=== PATIENT | male | born 1960 | race Caucasian/White ===

== ENCOUNTER 2025-07-09 15:44 | Inpatient (IN) | payer OTHER, SELFPAY ==
[2025-07-09 15:44] VITALS: BP 128/82; PULSE 93; RESP 18; TEMP 36.9; O2SAT 97; BMI 26.0
[2025-07-09 16:48] VITALS: TEMP 38.6
--- NOTE | 2025-07-09 17:02 | RAD_ITS ---
PROCEDURE: ELBOW MIN 3 VIEWS 07/09/2025 REASON FOR EXAM: SEPTIC BURSITIS, recently drained. TECHNIQUE: Procedure Code: RADEL Modality: DX Procedure: ELBOW MIN 3 VIEWS Laterality: Right COMPARISON: None. FINDINGS: BONES: No acute fracture or focal osseous lesion. Large triceps tendon enthesophyte. JOINTS: No dislocation. The joint spaces are normal. SOFT TISSUES: Soft tissue edema in the posterior aspect of the elbow, involving the distal upper arm and proximal forearm. RAD/Elbow min 3 Views IMPRESSION: 1. No acute osseous abnormality. 2. Posterior elbow soft tissue edema, extending proximally and distally, jose tible with inflammatory changes in the setting of recent septic bursitis drainage. Reading Location: [id number]
[2025-07-09] MEDS: 0.9% Normal Saline (1000mL) 1,000 ML 999 ML IV (17:19)
[2025-07-09] MEDS: Ketorolac 30 MG/ML Syringe IV (17:19)
--- OUTSIDE RECORDS SUMMARY | 2025-07-09 17:40 | XMS RPT_ITS | CCD ---
Author Organization [facility] Inform ion Partnership [facility] Care Team Providers Care Care Center Manager Name Role Phone ÁNGEL FRAAH, DR JESUS Garrison Primary Care Physician [phone] CASTRO MASTER GLAZIER-CLOCK ASSEMBLER, NEDRA Primary Care Physician WILLA FARAH FACP, MARTINEZ Wood Consulting Unavail dyllan ROBERT MD FACP, MARTINEZ Wood Attending Erasmo JOHNSON MASTER GLAZIER-CLOCK ASSEMBLER, GIRMA Barba Admitting Unavailable CASTRO MASTER GLAZIER-CLOCK ASSEMBLER, NEDRA Primary Care Unavai lable CASTRO MASTER GLAZIER-CLOCK ASSEMBLER, NEDRA Attending Radha mota CASTRO MASTER GLAZIER-CLOCK ASSEMBLER, NEDRA Primary Care Unavai lable CASTRO MASTER GLAZIER-CLOCK ASSEMBLER, NEDRA Primary Care Unavai lable CASTRO MASTER GLAZIER-CLOCK ASSEMBLER, NEDRA Attending KAISER George DO Attending Unavailable CASTRO MASTER GLAZIER-CLOCK ASSEMBLER, NEDRA Primary Care Unavai lable CASTRO MASTER GLAZIER-CLOCK ASSEMBLER, NEDRA Primary Care DR BRENDA Steel MD Attending Unavailabl e Medications Current Medications Medication Drug Class(es) Dates Sig (Normalized) Sig (Original) acetaminophen 325 mg / HYDROcodone bitartrate 5 mg oral tablet (1 source) Opioid Agonist Start: 02-10-2025 End: 02-13-2025 take 1 tablet by mouth every six hours as needed for pain Centre 325- 5 mg oral tablet Dose = 1 tab(s), Oral, q6h, PRN for pain, X 3 day(s), # 12 tab(s), 0 Refill(s), Pancreatitis, acute, 88.3 Start Date: 02/10/25 Stop Date: 02/13/25 Status: Ordered Quantity: 12.0 Unit: tab(s) Repeat number: 1 Indications: Acute pancreatitis without necrosis or infection, unspecified; acetaminophen 325 mg / oxyCODONE hydrochloride 5 mg oral tablet (1 source) Opioid Agonist Start: 02-13-2025 End: 02-16-2025 acetaminophen-oxyCO DONE 325 mg-5 mg oral tablet Dose = 1 tab(s), Oral, q6hr, PRN Pain, scale 4-10, X 3 day(s), # 12 tab(s), 0 Refill(s), Pharmacy: [facility]/pharmacy #[id number], Pancreatitis, 177.8, cm, 02/11/25 3:59:00 EDT, Height, 83.1, kg, 02/11/25 3:59:00 EDT, Dosing Weight Start Date: 02/13/25 Stop Date: 02/16/25 Status: Ordered Quantity: 12.0 Unit: tab(s) Repeat number: 1 Indications: Acute pancreatitis without necrosis or infection, unspecified; amoxicillin 875 mg / clavulanate 125 mg oral tablet (1 source) Penicillin-class Antibacterial Start: 03-15-2023 End: 03-22-2023 take 1 tablet by mouth every twelve hours amoxicillin-clavula aparna 875 mg-125 mg oral tablet 1 tab(s), Oral, q12h, X 7 day(s), # 14 tab(s), 0 Refill(s), 03/22/23 6:06:00 PM EDT, 90.2 Start Date: 03/15/23 Stop Date: 03/22/23 Status: Ordered ondansetron 4 mg disintegrating oral tablet (3 sources) Serotonin-3 Receptor Antagonist Start: 02-10-2025 End: 02-24-2025 ondansetron 4 mg oral tablet, disintegrating Dose : 4 mg = 1 tab(s), Oral, q6h, PRN Nausea/Vomiting, # 20 tab(s), 0 Refill(s), 02/24/25 10:37:00 AM EDT Start Date: 02/10/25 Stop Date: 02/24/25 Status: Ordered Quantity: 20.0 Unit: tab(s) Repeat number: 1 Start: 03-15-2023 End: 03-16-2023 Zofran 4 mg oral tablet Dose : 4 mg = 1 tab(s), PO, q8h, # 12 tab(s), 0 Refill(s), 03/16/23 6:07:00 PM EDT Start Date: 03/15/23 Stop Date: 03/16/23 Status: Ordered Completed/Discontinued Medications Medication Drug Class(es) Dates Sig (Normalized) Sig (Original) Ketorolac (1 source) Nonsteroidal Anti-inflammatory Drug, Cyclooxygenase Inhibitor Start: 02-11-2025 End: 02-13-2025 Toradol Start: 02/11/25 3:50:00 AM EDT, Dose = 15 mg, = 0.5 mL, IV Push, q6h, PRN, Pain, scale 4-6, 5 day(s), Stop: 02/13/25 7:02:17 PM EDT, 02/11/25 3:50:00 EDT Notes: Hospital policy limits use to 5 daysPROTECT FROM LIGHTundiluted IV Bolus may be given over a minimum of 15 seconds.Pharmacist: Please follow Automatic Renal Dosing PolicyDispose in Large Black Bin. Pharmacist: Please follow Automatic Renal Dosing Policy*Dosing based on eGFR NOT CrCLWeight =50 kg:eGFR >50No changeeGFR 10-5015 mg [id number] 50No changeeGFR 10-507.5 mg [id number] Start Date: 02/11/25 Stop Date: 02/13/25 Status: Discontinued Repeat number: 1 lisinopril 40 mg oral tablet (5 sources) Angiotensin Converting Enzyme Inhibitor Start: 11-20-2024 End: 05-19-2025 lisinopril 40 mg oral tablet Dose : 40 mg = 1 tab(s), Oral, qDay, # 90 tab(s), 1 Refill(s), Pharmacy: [facility], 78, cm, 11/20/24 7:29:00 EDT, Height, kg, 11/20/24 7:29:00 EDT, Dosing Weight Start Date: 11/20/24 Stop Date: 05/19/25 Status: Ordered Medication Dispense Status: Completed Quantity: 90.0 Unit: tab(s) Total Allowed Fills: 2 Fills Dispensed: 0 Start: 09-09-2024 End: 11-08-2024 lisinopril 20 mg oral tablet Dose : 20 mg = 1 tab(s), Oral, qDay, # 60 tab(s), 0 Refill(s), Pharmacy: [facility], Hypertension, 178, cm, 09/09/24 7:46:00 EST, Height, kg, 09/09/24 7:46:00 EST, Dosing Weight Start Date: 09/09/24 Stop Date: 11/08/24 Status: Ordered Quantity: 60.0 Unit: tab(s) Repeat number: 1 Indication: Essential (primary) hypertension Problems Active Problems Problem Classification Problem Date Documented Da te Episodic/Chronic Diverticulosis and diverticulitis (1 source) Diverticula of intestine; 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 of intestine, part unspecified, without perforation or abscess without bleeding] Onset: 03-15-2023 Chronic Essential hypertension (8 sources) Hypertensive disorder; Translations: [Essential hypertension] Onset: 02-11-2025 09-09-2024 Chronic Neoplasms of unspecified nature or uncertain behavior (5 sources) Neoplasm of face 09-09-2024 Episodic Other nutritional; endocrine; and metabolic disorders (1 source) Disorder of bilirubin metabolism; Translations: [Other disorders of bilirubin metabolism] Onset: 02-12-2025 Chronic Other nutritional; endocrine; and metabolic disorders (1 source) Other disorders of bilirubin metabolism; Translations: [Other disorders of bilirubin metabolism] Onset: 02-11-2025 Chronic Other nutritional; endocrine; and metabolic disorders (4 sources) Overweight in adulthood with body mass index of 25 or more but less than 30 11-20-2024 Episodic Unclassified (18 sources) Patient encounter status 09-09-2024 Past or Other Problems Problem Classification Problem Date Documented Da te Episodic/Chronic Abdominal pain (2 sources) Abdominal pain; Translations: [Unspecified abdominal pain] Onset: 02-11-2025 Episodic Pancreatic disorders (not diabetes) (5 sources) Acute pancreatitis; Translations: [Acute pancreatitis without necrosis or infection, unspecified] Onset: 02-10-2025 Episodic Results Test Name Value Interpretation Reference Range Facility .GFRon 05-21-2025 Estimated Glomerular Filtration Rate 78 ml/min/1.73sqm Normal [facility] Comment on above: Result Comment: Stages of Chronic Kidney Disease (CKD) Stage Description eGFR(ml/min/1.73 sq.m.) CKD 1 Normal kidney function or >=90 normal kindney function with possible kidney damage (ex. Proteinuria) CKD 2 Kidney damage with mild loss 60-89 of kidney function CKD 3a Mild to moderate loss of kidney 45-59 function CKD 3b Moderate to severe loss of 30-44 of kindey function CKD 4 Severe loss of kidney function 15-29 CKD 5 Kidney failure <15 Note: (go live 2024) the eGFR calculation was updated to the 2020 CKD-EPI creatinine equation without a race factor to calculate the eGFR results. Performed By: #### A DIFF, ANEU, MG, CBC, GFR, CMP #### [address] [address] CMPon 05-21-2025 Albumin Level 3.6 G/dL Normal 3.4-4.8 [facility] Comment on above: Performed By: #### A DIFF, ANEU, MG, CBC, GFR, CMP #### [address] [address] Albumin/Globulin [Mass ratio] 1.0 {ratio} Low 1.1-2.5 [facility] Comment on above: Performed By: #### A DIFF, ANEU, MG, CBC, GFR, CMP #### [address] [address] ALP [Catalytic activity/Vol] 90 U/L Normal 40-135 [facility] Comment on above: Performed By: #### A DIFF, ANEU, MG, CBC, GFR, CMP #### [address] [address] ALT [Catalytic activity/Vol] 30 U/L Normal 16-63 [facility] Comment on above: Performed By: #### A DIFF, ANEU, MG, CBC, GFR, CMP #### [address] [address] AST [Catalytic activity/Vol] 16 U/L Normal 10-40 [facility] Comment on above: Performed By: #### A DIFF, ANEU, MG, CBC, GFR, CMP #### [address] [address] Bili Total 0.7 mg/dL Normal 0.2-1.0 [facility] Comment on above: Result Comment: Use of this assay is not recommended for patients undergoing treatment with eltrombopag due to the potential for falsely elevated results. Performed By: #### A DIFF, ANEU, MG, CBC, GFR, CMP #### [address] [address] BUN/Creatinine Ratio 21 ratio Normal 7-27 [facility] Comment on above: Performed By: #### A DIFF, ANEU, MG, CBC, GFR, CMP #### [place] [address] Calcium [Mass/Vol] 9.3 mg/dL Normal 8.4-10.2 [facility] Comment on above: Performed By: #### A DIFF, ANEU, MG, CBC, GFR, CMP #### [place] [address] Chloride [Moles/Vol] 107 mmol/L Normal 98-107 [facility] Comment on above: Performed By: #### A DIFF, ANEU, MG, CBC, GFR, CMP #### [place] [address] CO2 [Moles/Vol] 28 mmol/L Normal 23-31 [facility] Comment on above: Performed By: #### A DIFF, ANEU, MG, CBC, GFR, CMP #### [place] [address] Creatinine [Mass/Vol] 1.07 mg/dL Normal 0.67-1.17 [facility] Comment on above: Performed By: #### A DIFF, ANEU, MG, CBC, GFR, CMP #### [place] [address] Electrolyte Balance 8.0 mEq/L Normal 4.0-15.0 [facility] Comment on above: Performed By: #### A DIFF, ANEU, MG, CBC, GFR, CMP #### [address] [address] Globulin 3.6 G/dL Normal 2.7-4.4 [facility] Comment on above: Performed By: #### A DIFF, ANEU, MG, CBC, GFR, CMP #### [address] [address] Glucose [Mass/Vol] 79 mg/dL Low 80-115 [facility] Comment on above: Performed By: #### A DIFF, ANEU, MG, CBC, GFR, CMP #### [address] [address] Potassium [Moles/Vol] 4.2 mmol/L Normal 3.5-5.1 [facility] Comment on above: Performed By: #### A DIFF, ANEU, MG, CBC, GFR, CMP #### [address] [address] Sodium [Moles/Vol] 143 mmol/L Normal 136-145 [facility] Comment on above: Performed By: #### A DIFF, ANEU, MG, CBC, GFR, CMP #### [address] [address] Total Protein 7.2 G/dL Normal 6.4-8.2 [facility] Comment on above: Performed By: #### A DIFF, ANEU, MG, CBC, GFR, CMP #### [address] [address] Urea nitrogen [Mass/Vol] 23 mg/dL High 7-18 [facility] Comment on above: Performed By: #### A DIFF, ANEU, MG, CBC, GFR, CMP #### [address] [address] LABORATORYOrdered By: SYSTEM SYSTEM on 05-21-2025 Albumin BCP dye [Mass/Vol] 3.6 G/dL Normal 3.4 - 4.8 G/dL AO ADM SS Albumin/Globulin [Mass ratio] 1.0 {ratio} Low 1.1 - 2.5 ratio AO ADM SS ALP [Catalytic activity/Vol] 90 U/L Normal 40 - 135 U/L AO ADM SS ALT With P-5'-P [Catalytic activity/Vol] 30 U/L Normal 16 - 63 U/L AO ADM SS AST With P-5'-P [Catalytic activity/Vol] 16 U/L Normal 10 - 40 U/L AO ADM SS Bilirubin [Mass/Vol] 0.7 mg/dL Normal 0.2 - 1 .0 mg/dL AO ADM SS Comment on above: Interpretive Data: U se of this assay is not recommended for patients undergoing treatment with eltrombopag due to the potential for falsely elevated results. Calcium [Mass/Vol] 9.3 mg/dL Normal 8.4 - 10. 2 mg/dL AO ADM SS Chloride [Moles/Vol] 107 mmol/L Normal 98 - 10 7 mmol/L AO ADM SS CO2 [Moles/Vol] 28 mmol/L Normal 23 - 31 mmol/L AO ADM SS Creatinine [Mass/Vol] 1.07 mg/dL Normal 0.67 - 1.17 mg/dL AO ADM SS Electrolyte Balance 8.0 mEq/L Normal 4.0 - 15 .0 mEq/L AO ADM SS Globulin 3.6 G/dL Normal 2.7 - 4.4 G/dL AO ADM SS GLOMERULAR FILTRATION RATE/1.73 SQ M.PREDICTED:ARVRAT:PT :SER/PLAS/BLD:QN:CREA TININE-BASED FORMULA (CKD-EPI 2020) 78 ml/min/1.73sqm Invalid Interpretation Code AO Chemistry S Comment on above: Interpretive Data: Stages of Chronic Kidney Disease (CKD) Stage Description eGFR(ml/min/1.73 sq.m.) CKD 1 Normal kidney function or >=90 normal kindney function with possible kidney damage (ex. Proteinuria) CKD 2 Kidney damage with mild loss 60-89 of kidney function CKD 3a Mild to moderate loss of kidney 45-59 function CKD 3b Moderate to severe loss of 30-44 of kindey function CKD 4 Severe loss of kidney function 15-29 CKD 5 Kidney failure <15 Note: (go live 2024) the eGFR calculation was updated to the 2020 CKD-EPI creatinine equation without a race factor to calculate the eGFR results. Glucose [Mass/Vol] 79 mg/dL Low 80 - 115 mg/dL AO ADM SS Potassium [Moles/Vol] 4.2 mmol/L Normal 3.5 - 5.1 mmol/L AO ADM SS Protein [Mass/Vol] 7.2 G/dL Normal 6.4 - 8.2 G/dL AO ADM SS Sodium [Moles/Vol] 143 mmol/L Normal 136 - 145 mmol/L AO ADM SS Urea nitrogen [Mass/Vol] 23 mg/dL High 7 - 18 mg/dL AO ADM SS Urea nitrogen/Creatinine [Mass ratio] 21 ratio Normal 7 - 27 ratio AO ADM SS Final Surgical Pathology Rep dolores 03-02-2025 Final Surgical Pathology Report . Pathology Reports Accession: Collected Date/Time: Received Date/Time: Pathologist: [id number] 02/26/2025 09:31 EDT 03/01/2025 07:49 EDT RICARDO FLOWER MD Final Surgical Pathology Report DIAGNOSIS: CECUM, POLYPECTOMY: - TUBULAR ADENOMA CLINICAL INFORMATION: Procedure: COLONOSCOPY Preoperative diagnosis: SCREENING Postoperative diagnosis: SCREENING SPECIMEN: A CECUM POLYP GROSS DESCRIPTION: All parts labelled with patient name and [id number] Received in formalin labeled cecum polyp is 1 mercedes-pink tissue fragment measuring 0.6 x 0.2 cm. [id number] Radhika Garcia, Grossing School Social Worker/ Dr. Ricardo Flower, Pathologist Performed by Radhika Garcia MICROSCOPIC DESCRIPTION: The microscopic examination is performed, except in the case of Gross Only. Verified by Pathology Report verified by [facility] RICARDO FLOWER Sign out Date: 03/02/2025 16:12 Performing Lab: [facility], [address] [place] [address] Pathology Dept Disclaimer If ancillary studies were utilized, the following Laboratory Developed Test (LDT) disclaimer will apply: Under CLIA requirements, [facility] Pathology Laboratory is qualified to perform high complexity testing. For all ancillary stains, positive and negative controls stain appropriately. Performance characteristics of immunohistochemical and chromogenic in-situ hybridization tests have been determined by [facility] Pathology Laboratory. These tests are used for clinical purposes, They should not be regarded as investigational or for research. Normal [facility] .Auto Diffon 02-13-2025 Basophil, Absolute 0.0 10 3/mcL Normal 0.0-0.3 [facility] Comment on above: Performed By: #### A DIFF, ANEU, MG, CBC, GFR, CMP #### [facility] [address] [place], [place] [address] Basophils/100 WBC (Bld) 0.2 % Normal 0.0-2.5 [facility] Comment on above: Performed By: #### A DIFF, ANEU, MG, CBC, GFR, CMP #### [address] [address] Eosinophil, Absolute 0.2 10 3/mcL Normal 0.0-0.7 [facility] Comment on above: Performed By: #### A DIFF, ANEU, MG, CBC, GFR, CMP #### [address] [address] Eosinophils/100 WBC (Bld) 2.0 % Normal 0.0-6.0 [facility] Comment on above: Performed By: #### A DIFF, ANEU, MG, CBC, GFR, CMP #### [address] [address] Lymphocyte, Absolute 1.2 10 3/mcL Normal 0.9-4.3 [facility] Comment on above: Performed By: #### A DIFF, ANEU, MG, CBC, GFR, CMP #### [address] [address] Lymphocytes/100 WBC (Bld) 14.7 % Low 20.0-40.0 [facility] Comment on above: Performed By: #### A DIFF, ANEU, MG, CBC, GFR, CMP #### [address] [address] Monocyte, Absolute 1.0 10 3/mcL Normal 0.1-1.4 [facility] Comment on above: Performed By: #### A DIFF, ANEU, MG, CBC, GFR, CMP #### [address] [address] Monocytes/100 WBC (Bld) 11.9 % Normal 2.0-13.0 [facility] Comment on above: Performed By: #### A DIFF, ANEU, MG, CBC, GFR, CMP #### [address] [address] Neutrophils/100 WBC (Bld) 71.2 % Normal 50.0-75.0 [facility] Comment on above: Performed By: #### A DIFF, ANEU, MG, CBC, GFR, CMP #### [address] [address] .GFRon 02-13-2025 Estimated Glomerular Filtration Rate 96 ml/min/1.73sqm Normal [facility] Comment on above: Result Comment: Stages of Chronic Kidney Disease (CKD) Stage Description eGFR(ml/min/1.73 sq.m.) CKD 1 Normal kidney function or >=90 normal kindney function with possible kidney damage (ex. Proteinuria) CKD 2 Kidney damage with mild loss 60-89 of kidney function CKD 3a Mild to moderate loss of kidney 45-59 function CKD 3b Moderate to severe loss of 30-44 of kindey function CKD 4 Severe loss of kidney function 15-29 CKD 5 Kidney failure <15 Note: (go live 2024) the eGFR calculation was updated to the 2020 CKD-EPI creatinine equation without a race factor to calculate the eGFR results. Performed By: #### A DIFF, ANEU, MG, CBC, GFR, CMP #### [address] [address] .NEUABSon 02-13-2025 Neutrophil, Absolute 5.8 10 3/mcL Normal 2.3-8.1 [facility] Comment on above: Performed By: #### A DIFF, ANEU, MG, CBC, GFR, CMP #### [address] [address] CBCon 02-13-2025 Erythrocyte distribution width (RBC) [Ratio] 13.6 % Normal 11.5-15.5 [facility] Comment on above: Performed By: #### A DIFF, ANEU, MG, CBC, GFR, CMP #### [address] [address] Hematocrit (Bld) [Volume fraction] 35.5 % Low 40.0-52.0 [facility] Comment on above: Performed By: #### A DIFF, ANEU, MG, CBC, GFR, CMP #### [address] [address] Hgb 12.4 G/dL Low 13.0-17.5 [facility] Comment on above: Performed By: #### A DIFF, ANEU, MG, CBC, GFR, CMP #### [address] [address] MCH (RBC) [Entitic mass] 29.0 pg Normal 27.0-33.0 [facility] Comment on above: Performed By: #### A DIFF, ANEU, MG, CBC, GFR, CMP #### [place] [address] MCHC 34.8 G/dL Normal 32.0-36.0 [facility] Comment on above: Performed By: #### A DIFF, ANEU, MG, CBC, GFR, CMP #### [place] [address] MCV (RBC) [Entitic vol] 83.2 fL Normal 81.0-100.0 [facility] Comment on above: Performed By: #### A DIFF, ANEU, MG, CBC, GFR, CMP #### [place] [address] Platelet 221 10 3/mcL Normal 150-450 [facility] Comment on above: Performed By: #### A DIFF, ANEU, MG, CBC, GFR, CMP #### [place] [address] Platelet mean volume (Bld) [Entitic vol] 7.5 fL Normal 6.4-10.5 [facility] Comment on above: Performed By: #### A DIFF, ANEU, MG, CBC, GFR, CMP #### [address] [address] RBC 4.27 10 6/mcL Low 4.50-6.00 [facility] Comment on above: Performed By: #### A DIFF, ANEU, MG, CBC, GFR, CMP #### [place] [id number] WBC 8.2 10 3/mcL Normal 4.5-10.8 [facility] Comment on above: Performed By: #### A DIFF, ANEU, MG, CBC, GFR, CMP #### [address] [address] CMPon 02-13-2025 Albumin Level 2.3 G/dL Low 3.4-4.8 [facility] Comment on above: Performed By: #### A DIFF, ANEU, MG, CBC, GFR, CMP #### [address] [address] Albumin/Globulin [Mass ratio] 0.6 {ratio} Low 1.1-2.5 [facility] Comment on above: Performed By: #### A DIFF, ANEU, MG, CBC, GFR, CMP #### [place] [address] ALP [Catalytic activity/Vol] 71 U/L Normal 40-135 [facility] Comment on above: Performed By: #### A DIFF, ANEU, MG, CBC, GFR, CMP #### [place] [address] ALT [Catalytic activity/Vol] 16 U/L Normal 16-63 [facility] Comment on above: Performed By: #### A DIFF, ANEU, MG, CBC, GFR, CMP #### [place] [address] AST [Catalytic activity/Vol] 18 U/L Normal 10-40 [facility] Comment on above: Performed By: #### A DIFF, ANEU, MG, CBC, GFR, CMP #### [place] [id number] Bili Total 0.9 mg/dL Normal 0.2-1.0 [facility] Comment on above: Result Comment: Use of this assay is not recommended for patients undergoing treatment with eltrombopag due to the potential for falsely elevated results. Performed By: #### A DIFF, ANEU, MG, CBC, GFR, CMP #### [place] [id number] BUN/Creatinine Ratio 11 ratio Normal 7-27 [facility] Comment on above: Performed By: #### A DIFF, ANEU, MG, CBC, GFR, CMP #### [address] [address] Calcium [Mass/Vol] 8.4 mg/dL Normal 8.4-10.2 [facility] Comment on above: Performed By: #### A DIFF, ANEU, MG, CBC, GFR, CMP #### [place] [address] Chloride [Moles/Vol] 107 mmol/L Normal 98-107 [facility] Comment on above: Performed By: #### A DIFF, ANEU, MG, CBC, GFR, CMP #### [place] [address] CO2 [Moles/Vol] 30 mmol/L Normal 23-31 [facility] Comment on above: Performed By: #### A DIFF, ANEU, MG, CBC, GFR, CMP #### [place] [address] Creatinine [Mass/Vol] 0.89 mg/dL Normal 0.67-1.17 [facility] Comment on above: Performed By: #### A DIFF, ANEU, MG, CBC, GFR, CMP #### [place] [address] Electrolyte Balance 3.0 mEq/L Low 4.0-15.0 [facility] Comment on above: Performed By: #### A DIFF, ANEU, MG, CBC, GFR, CMP #### [place] [address] Globulin 3.8 G/dL Normal 2.7-4.4 [facility] Comment on above: Performed By: #### A DIFF, ANEU, MG, CBC, GFR, CMP #### [place] [address] Glucose [Mass/Vol] 107 mg/dL Normal 80-115 [facility] Comment on above: Performed By: #### A DIFF, ANEU, MG, CBC, GFR, CMP #### [place] [address] Potassium [Moles/Vol] 3.6 mmol/L Normal 3.5-5.1 [facility] Comment on above: Performed By: #### A DIFF, ANEU, MG, CBC, GFR, CMP #### [address] [address] Sodium [Moles/Vol] 140 mmol/L Normal 136-145 [facility] Comment on above: Performed By: #### A DIFF, ANEU, MG, CBC, GFR, CMP #### [address] [address] Total Protein 6.1 G/dL Low 6.4-8.2 [facility] Comment on above: Performed By: #### A DIFF, ANEU, MG, CBC, GFR, CMP #### [address] [address] Urea nitrogen [Mass/Vol] 10 mg/dL Normal 7-18 [facility] Comment on above: Performed By: #### A DIFF, ANEU, MG, CBC, GFR, CMP #### [address] [address] LABORATORYOrdered By: SYSTEM SYSTEM on 02-13-2025 Albumin BCP dye [Mass/Vol] 2.3 G/dL Low 3.4 - 4.8 G/dL AO ADM SS Albumin/Globulin [Mass ratio] 0.6 {ratio} Low 1.1 - 2.5 ratio AO ADM SS ALP [Catalytic activity/Vol] 71 U/L Normal 40 - 135 U/L AO ADM SS ALT With P-5'-P [Catalytic activity/Vol] 16 U/L Normal 16 - 63 U/L AO ADM SS AST With P-5'-P [Catalytic activity/Vol] 18 U/L Normal 10 - 40 U/L AO ADM SS Basophils (Bld) [#/Vol] 0.0 103/mcL Normal 0.0 - 0.3 10^3/mcL AO Workflow SS Basophils/100 WBC (Bld) 0.2 % Normal 0.0 - 2.5 % AO Workflow SS Bilirubin [Mass/Vol] 0.9 mg/dL Normal 0.2 - 1 .0 mg/dL AO ADM SS Comment on above: Interpretive Data: U se of this assay is not recommended for patients undergoing treatment with eltrombopag due to the potential for falsely elevated results. Calcium [Mass/Vol] 8.4 mg/dL Normal 8.4 - 10. 2 mg/dL AO ADM SS Chloride [Moles/Vol] 107 mmol/L Normal 98 - 10 7 mmol/L AO ADM SS CO2 [Moles/Vol] 30 mmol/L Normal 23 - 31 mmol/L AO ADM SS Creatinine [Mass/Vol] 0.89 mg/dL Normal 0.67 - 1.17 mg/dL AO ADM SS Electrolyte Balance 3.0 mEq/L Low 4.0 - 15 .0 mEq/L AO ADM SS Eosinophil, Absolute 0.2 103/mcL Normal 0.0 - 0 .7 10^3/mcL AO Workflow SS Eosinophils/100 WBC (Bld) 2.0 % Normal 0.0 - 6.0 % AO Workflow SS Erythrocyte distribution width (RBC) [Ratio] 13.6 % Normal 11.5 - 15.5 % AO Workflow SS Estimated Glomerular Filtration Rate 96 ml/min/1.73sqm Invalid Interpretation Code AO Chemistry S Comment on above: Interpretive Data: Stages of Chronic Kidney Disease (CKD) Stage Description eGFR(ml/min/1.73 sq.m.) CKD 1 Normal kidney function or >=90 normal kindney function with possible kidney damage (ex. Proteinuria) CKD 2 Kidney damage with mild loss 60-89 of kidney function CKD 3a Mild to moderate loss of kidney 45-59 function CKD 3b Moderate to severe loss of 30-44 of kindey function CKD 4 Severe loss of kidney function 15-29 CKD 5 Kidney failure <15 Note: (go live 2024) the eGFR calculation was updated to the 2020 CKD-EPI creatinine equation without a race factor to calculate the eGFR results. Globulin 3.8 G/dL Normal 2.7 - 4.4 G/dL AO ADM SS Glucose [Mass/Vol] 107 mg/dL Normal 80 - 115 mg/dL AO ADM SS Hematocrit (Bld) [Volume fraction] 35.5 % Low 40.0 - 52.0 % AO Workflow SS Hemoglobin (Bld) [Mass/Vol] 12.4 G/dL Low 13.0 - 17.5 G/dL AO Workflow SS Lymphocytes (Bld) [#/Vol] 1.2 103/mcL Normal 0.9 - 4.3 10^3/mcL AO Workflow SS Lymphocytes/100 WBC (Bld) 14.7 % Low 20.0 - 40.0 % AO Workflow SS Magnesium [Mass/Vol] 2.1 mg/dL Normal 1.8 - 2 .4 mg/dL AO ADM SS MCH (RBC) [Entitic mass] 29.0 pg Normal 27.0 - 33.0 pg AO Workflow SS MCHC 34.8 G/dL Normal 32.0 - 36.0 G/dL AO Workflow SS MCV (RBC) [Entitic vol] 83.2 fL Normal 81.0 - 100.0 fL AO Workflow SS Monocytes (Bld) [#/Vol] 1.0 103/mcL Normal 0.1 - 1.4 10^3/mcL AO Workflow SS Monocytes/100 WBC (Bld) 11.9 % Normal 2.0 - 13.0 % AO Workflow SS Neutrophils (Bld) [#/Vol] 5.8 103/mcL Normal 2.3 - 8.1 10^3/mcL AO Workflow SS Neutrophils/100 WBC (Bld) 71.2 % Normal 50.0 - 75.0 % AO Workflow SS Platelet mean volume (Bld) [Entitic vol] 7.5 fL Normal 6.4 - 10.5 fL AO Workflow SS Platelets (Bld) [#/Vol] 221 103/mcL Normal 150 - 450 10^3/mcL AO Workflow SS Potassium [Moles/Vol] 3.6 mmol/L Normal 3.5 - 5.1 mmol/L AO ADM SS Protein [Mass/Vol] 6.1 G/dL Low 6.4 - 8.2 G/dL AO ADM SS RBC (Bld) [#/Vol] 4.27 106/mcL Low 4.50 - 6.0 0 10^6/mcL AO Workflow SS Sodium [Moles/Vol] 140 mmol/L Normal 136 - 145 mmol/L AO ADM SS Urea nitrogen [Mass/Vol] 10 mg/dL Normal 7 - 18 mg/dL AO ADM SS Urea nitrogen/Creatinine [Mass ratio] 11 ratio Normal 7 - 27 ratio AO ADM SS WBC (Bld) [#/Vol] 8.2 103/mcL Normal 4.5 - 10.8 10^3/mcL AO Workflow SS MGon 02-13-2025 Magnesium [Mass/Vol] 2.1 mg/dL Normal 1.8-2.4 [facility] Comment on above: Performed By: #### A DIFF, ANEU, MG, CBC, GFR, CMP #### [address] [address] .Auto Diffon 02-12-2025 Basophil, Absolute 0.0 10 3/mcL Normal 0.0-0.3 [facility] Comment on above: Performed By: #### A DIFF, ANEU, MG, CBC, GFR, CMP #### [address] [address] Basophils/100 WBC (Bld) 0.3 % Normal 0.0-2.5 [facility] Comment on above: Performed By: #### A DIFF, ANEU, MG, CBC, GFR, CMP #### [address] [address] Eosinophil, Absolute 0.0 10 3/mcL Normal 0.0-0.7 [facility] Comment on above: Performed By: #### A DIFF, ANEU, MG, CBC, GFR, CMP #### [address] [address] Eosinophils/100 WBC (Bld) 0.4 % Normal 0.0-6.0 [facility] Comment on above: Performed By: #### A DIFF, ANEU, MG, CBC, GFR, CMP #### [address] [address] Lymphocyte, Absolute 1.1 10 3/mcL Normal 0.9-4.3 [facility] Comment on above: Performed By: #### A DIFF, ANEU, MG, CBC, GFR, CMP #### [address] [address] Lymphocytes/100 WBC (Bld) 9.8 % Low 20.0-40.0 [facility] Comment on above: Performed By: #### A DIFF, ANEU, MG, CBC, GFR, CMP #### [address] [address] Monocyte, Absolute 1.3 10 3/mcL Normal 0.1-1.4 [facility] Comment on above: Performed By: #### A DIFF, ANEU, MG, CBC, GFR, CMP #### [address] [address] Monocytes/100 WBC (Bld) 11.2 % Normal 2.0-13.0 [facility] Comment on above: Performed By: #### A DIFF, ANEU, MG, CBC, GFR, CMP #### [address] [address] Neutrophils/100 WBC (Bld) 78.3 % High 50.0-75.0 [facility] Comment on above: Performed By: #### A DIFF, ANEU, MG, CBC, GFR, CMP #### [address] [address] .GFRon 02-12-2025 Estimated Glomerular Filtration Rate 101 ml/min/1.73sqm Normal [facility] Comment on above: Result Comment: Stages of Chronic Kidney Disease (CKD) Stage Description eGFR(ml/min/1.73 sq.m.) CKD 1 Normal kidney function or >=90 normal kindney function with possible kidney damage (ex. Proteinuria) CKD 2 Kidney damage with mild loss 60-89 of kidney function CKD 3a Mild to moderate loss of kidney 45-59 function CKD 3b Moderate to severe loss of 30-44 of kindey function CKD 4 Severe loss of kidney function 15-29 CKD 5 Kidney failure <15 Note: (go live 2024) the eGFR calculation was updated to the 2020 CKD-EPI creatinine equation without a race factor to calculate the eGFR results. Performed By: #### A DIFF, ANEU, MG, CBC, GFR, CMP #### [address] [address] .NEUABSon 02-12-2025 Neutrophil, Absolute 8.8 10 3/mcL High 2.3-8.1 [facility] Comment on above: Performed By: #### A DIFF, ANEU, MG, CBC, GFR, CMP #### [address] [address] CBCon 02-12-2025 Erythrocyte distribution width (RBC) [Ratio] 13.5 % Normal 11.5-15.5 [facility] Comment on above: Performed By: #### A DIFF, ANEU, MG, CBC, GFR, CMP #### [place] [address] Hematocrit (Bld) [Volume fraction] 38.4 % Low 40.0-52.0 [facility] Comment on above: Performed By: #### A DIFF, ANEU, MG, CBC, GFR, CMP #### [place] [address] Hgb 13.0 G/dL Normal 13.0-17.5 [facility] Comment on above: Performed By: #### A DIFF, ANEU, MG, CBC, GFR, CMP #### [place] [address] MCH (RBC) [Entitic mass] 28.7 pg Normal 27.0-33.0 [facility] Comment on above: Performed By: #### A DIFF, ANEU, MG, CBC, GFR, CMP #### [place] [address] MCHC 33.9 G/dL Normal 32.0-36.0 [facility] Comment on above: Performed By: #### A DIFF, ANEU, MG, CBC, GFR, CMP #### [place] [id number] MCV (RBC) [Entitic vol] 84.6 fL Normal 81.0-100.0 [facility] Comment on above: Performed By: #### A DIFF, ANEU, MG, CBC, GFR, CMP #### [address] [address] Platelet 213 10 3/mcL Normal 150-450 [facility] Comment on above: Performed By: #### A DIFF, ANEU, MG, CBC, GFR, CMP #### [place] [id number] Platelet mean volume (Bld) [Entitic vol] 7.3 fL Normal 6.4-10.5 [facility] Comment on above: Performed By: #### A DIFF, ANEU, MG, CBC, GFR, CMP #### [address] [address] RBC 4.54 10 6/mcL Normal 4.50-6.00 [facility] Comment on above: Performed By: #### A DIFF, ANEU, MG, CBC, GFR, CMP #### [address] [address] WBC 11.2 10 3/mcL High 4.5-10.8 [facility] Comment on above: Performed By: #### A DIFF, ANEU, MG, CBC, GFR, CMP #### [place] [address] CMPon 02-12-2025 Albumin Level 2.6 G/dL Low 3.4-4.8 [facility] Comment on above: Performed By: #### A DIFF, ANEU, MG, CBC, GFR, CMP #### [place] [address] Albumin/Globulin [Mass ratio] 0.6 {ratio} Low 1.1-2.5 [facility] Comment on above: Performed By: #### A DIFF, ANEU, MG, CBC, GFR, CMP #### [place] [address] ALP [Catalytic activity/Vol] 73 U/L Normal 40-135 [facility] Comment on above: Performed By: #### A DIFF, ANEU, MG, CBC, GFR, CMP #### [address] [address] ALT [Catalytic activity/Vol] 21 U/L Normal 16-63 [facility] Comment on above: Performed By: #### A DIFF, ANEU, MG, CBC, GFR, CMP #### [place] [address] AST [Catalytic activity/Vol] 15 U/L Normal 10-40 [facility] Comment on above: Performed By: #### A DIFF, ANEU, MG, CBC, GFR, CMP #### [place] [id number] Bili Total 1.6 mg/dL High 0.2-1.0 [facility] Comment on above: Result Comment: Use of this assay is not recommended for patients undergoing treatment with eltrombopag due to the potential for falsely elevated results. Performed By: #### A DIFF, ANEU, MG, CBC, GFR, CMP #### [place] [address] BUN/Creatinine Ratio 16 ratio Normal 7-27 [facility] Comment on above: Performed By: #### A DIFF, ANEU, MG, CBC, GFR, CMP #### [place] [address] Calcium [Mass/Vol] 8.6 mg/dL Normal 8.4-10.2 [facility] Comment on above: Performed By: #### A DIFF, ANEU, MG, CBC, GFR, CMP #### [place] [address] Chloride [Moles/Vol] 105 mmol/L Normal 98-107 [facility] Comment on above: Performed By: #### A DIFF, ANEU, MG, CBC, GFR, CMP #### [place] [address] CO2 [Moles/Vol] 27 mmol/L Normal 23-31 [facility] Comment on above: Performed By: #### A DIFF, ANEU, MG, CBC, GFR, CMP #### [place] [address] Creatinine [Mass/Vol] 0.75 mg/dL Normal 0.67-1.17 [facility] Comment on above: Performed By: #### A DIFF, ANEU, MG, CBC, GFR, CMP #### [place] [address] Electrolyte Balance 9.0 mEq/L Normal 4.0-15.0 [facility] Comment on above: Performed By: #### A DIFF, ANEU, MG, CBC, GFR, CMP #### [place] [address] Globulin 4.1 G/dL Normal 2.7-4.4 [facility] Comment on above: Performed By: #### A DIFF, ANEU, MG, CBC, GFR, CMP #### [address] [address] Glucose [Mass/Vol] 91 mg/dL Normal 80-115 [facility] Comment on above: Performed By: #### A DIFF, ANEU, MG, CBC, GFR, CMP #### [address] [address] Potassium [Moles/Vol] 4.0 mmol/L Normal 3.5-5.1 [facility] Comment on above: Performed By: #### A DIFF, ANEU, MG, CBC, GFR, CMP #### [address] [address] Sodium [Moles/Vol] 141 mmol/L Normal 136-145 [facility] Comment on above: Performed By: #### A DIFF, ANEU, MG, CBC, GFR, CMP #### [address] [address] Total Protein 6.7 G/dL Normal 6.4-8.2 [facility] Comment on above: Performed By: #### A DIFF, ANEU, MG, CBC, GFR, CMP #### [address] [address] Urea nitrogen [Mass/Vol] 12 mg/dL Normal 7-18 [facility] Comment on above: Performed By: #### A DIFF, ANEU, MG, CBC, GFR, CMP #### [address] [address] LABORATORYOrdered By: SYSTEM SYSTEM on 02-12-2025 Albumin BCP dye [Mass/Vol] 2.6 G/dL Low 3.4 - 4.8 G/dL AO ADM SS Albumin/Globulin [Mass ratio] 0.6 {ratio} Low 1.1 - 2.5 ratio AO ADM SS ALP [Catalytic activity/Vol] 73 U/L Normal 40 - 135 U/L AO ADM SS ALT With P-5'-P [Catalytic activity/Vol] 21 U/L Normal 16 - 63 U/L AO ADM SS AST With P-5'-P [Catalytic activity/Vol] 15 U/L Normal 10 - 40 U/L AO ADM SS Basophils (Bld) [#/Vol] 0.0 103/mcL Normal 0.0 - 0.3 10^3/mcL AO Workflow SS Basophils/100 WBC (Bld) 0.3 % Normal 0.0 - 2.5 % AO Workflow SS Bilirubin [Mass/Vol] 1.6 mg/dL High 0.2 - 1 .0 mg/dL AO ADM SS Comment on above: Interpretive Data: U se of this assay is not recommended for patients undergoing treatment with eltrombopag due to the potential for falsely elevated results. Calcium [Mass/Vol] 8.6 mg/dL Normal 8.4 - 10. 2 mg/dL AO ADM SS Chloride [Moles/Vol] 105 mmol/L Normal 98 - 10 7 mmol/L AO ADM SS CO2 [Moles/Vol] 27 mmol/L Normal 23 - 31 mmol/L AO ADM SS Creatinine [Mass/Vol] 0.75 mg/dL Normal 0.67 - 1.17 mg/dL AO ADM SS Electrolyte Balance 9.0 mEq/L Normal 4.0 - 15 .0 mEq/L AO ADM SS Eosinophil, Absolute 0.0 103/mcL Normal 0.0 - 0 .7 10^3/mcL AO Workflow SS Eosinophils/100 WBC (Bld) 0.4 % Normal 0.0 - 6.0 % AO Workflow SS Erythrocyte distribution width (RBC) [Ratio] 13.5 % Normal 11.5 - 15.5 % AO Workflow SS Estimated Glomerular Filtration Rate 101 ml/min/1.73sqm Invalid Interpretation Code AO Chemistry S Comment on above: Interpretive Data: Stages of Chronic Kidney Disease (CKD) Stage Description eGFR(ml/min/1.73 sq.m.) CKD 1 Normal kidney function or >=90 normal kindney function with possible kidney damage (ex. Proteinuria) CKD 2 Kidney damage with mild loss 60-89 of kidney function CKD 3a Mild to moderate loss of kidney 45-59 function CKD 3b Moderate to severe loss of 30-44 of kindey function CKD 4 Severe loss of kidney function 15-29 CKD 5 Kidney failure <15 Note: (go live 2024) the eGFR calculation was updated to the 2020 CKD-EPI creatinine equation without a race factor to calculate the eGFR results. Globulin 4.1 G/dL Normal 2.7 - 4.4 G/dL AO ADM SS Glucose [Mass/Vol] 91 mg/dL Normal 80 - 115 mg/dL AO ADM SS Hematocrit (Bld) [Volume fraction] 38.4 % Low 40.0 - 52.0 % AO Workflow SS Hemoglobin (Bld) [Mass/Vol] 13.0 G/dL Normal 13.0 - 17.5 G/dL AO Workflow SS Lipase [Catalytic activity/Vol] 40 U/L Normal 16 - 77 U/L AO ADM SS Lymphocytes (Bld) [#/Vol] 1.1 103/mcL Normal 0.9 - 4.3 10^3/mcL AO Workflow SS Lymphocytes/100 WBC (Bld) 9.8 % Low 20.0 - 40.0 % AO Workflow SS Magnesium [Mass/Vol] 1.7 mg/dL Low 1.8 - 2 .4 mg/dL AO ADM SS MCH (RBC) [Entitic mass] 28.7 pg Normal 27.0 - 33.0 pg AO Workflow SS MCHC 33.9 G/dL Normal 32.0 - 36.0 G/dL AO Workflow SS MCV (RBC) [Entitic vol] 84.6 fL Normal 81.0 - 100.0 fL AO Workflow SS Monocytes (Bld) [#/Vol] 1.3 103/mcL Normal 0.1 - 1.4 10^3/mcL AO Workflow SS Monocytes/100 WBC (Bld) 11.2 % Normal 2.0 - 13.0 % AO Workflow SS Neutrophils (Bld) [#/Vol] 8.8 103/mcL High 2.3 - 8.1 10^3/mcL AO Workflow SS Neutrophils/100 WBC (Bld) 78.3 % High 50.0 - 75.0 % AO Workflow SS Platelet mean volume (Bld) [Entitic vol] 7.3 fL Normal 6.4 - 10.5 fL AO Workflow SS Platelets (Bld) [#/Vol] 213 103/mcL Normal 150 - 450 10^3/mcL AO Workflow SS Potassium [Moles/Vol] 4.0 mmol/L Normal 3.5 - 5.1 mmol/L AO ADM SS Protein [Mass/Vol] 6.7 G/dL Normal 6.4 - 8.2 G/dL AO ADM SS RBC (Bld) [#/Vol] 4.54 106/mcL Normal 4.50 - 6.0 0 10^6/mcL AO Workflow SS Sodium [Moles/Vol] 141 mmol/L Normal 136 - 145 mmol/L AO ADM SS Urea nitrogen [Mass/Vol] 12 mg/dL Normal 7 - 18 mg/dL AO ADM SS Urea nitrogen/Creatinine [Mass ratio] 16 ratio Normal 7 - 27 ratio AO ADM SS WBC (Bld) [#/Vol] 11.2 103/mcL High 4.5 - 10.8 10^3/mcL AO Workflow SS LIPon 02-12-2025 Lipase Level 40 U/L Normal 16-77 [facility] Comment on above: Performed By: #### A DIFF, ANEU, MG, CBC, GFR, CMP #### [address] [address] MGon 02-12-2025 Magnesium [Mass/Vol] 1.7 mg/dL Low 1.8-2.4 [facility] Comment on above: Performed By: #### A DIFF, ANEU, MG, CBC, GFR, CMP #### [address] [address] .Auto Diffon 02-11-2025 Basophil, Absolute 0.0 10 3/mcL Normal 0.0-0.3 [facility] Comment on above: Performed By: #### M G, CMP, CBC, GFR, ADIFF, ANEU ####[address] [address] Basophils/100 WBC (Bld) 0.2 % Normal 0.0-2.5 [facility] Comment on above: Performed By: #### M G, CMP, CBC, GFR, ADIFF, ANEU ####[address] [address] Eosinophil, Absolute 0.1 10 3/mcL Normal 0.0-0.7 [facility] Comment on above: Performed By: #### M G, CMP, CBC, GFR, ADIFF, ANEU ####[address] [address] Eosinophils/100 WBC (Bld) 0.6 % Normal 0.0-6.0 [facility] Comment on above: Performed By: #### M G, CMP, CBC, GFR, ADIFF, ANEU ####[id number] [place], [place] [address] Lymphocyte, Absolute 1.6 10 3/mcL Normal 0.9-4.3 [facility] Comment on above: Performed By: #### M G, CMP, CBC, GFR, ADIFF, ANEU ####[address] [place] [address] Lymphocytes/100 WBC (Bld) 12.7 % Low 20.0-40.0 [facility] Comment on above: Performed By: #### M G, CMP, CBC, GFR, ADIFF, ANEU ####[id number] [place] [address] Monocyte, Absolute 1.4 10 3/mcL Normal 0.1-1.4 [facility] Comment on above: Performed By: #### M G, CMP, CBC, GFR, ADIFF, ANEU ####[id number] [place] [address] Monocytes/100 WBC (Bld) 10.8 % Normal 2.0-13.0 [facility] Comment on above: Performed By: #### M G, CMP, CBC, GFR, ADIFF, ANEU ####[id number] [place] [address] Neutrophils/100 WBC (Bld) 75.7 % High 50.0-75.0 [facility] Comment on above: Performed By: #### M G, CMP, CBC, GFR, ADIFF, ANEU ####[address] [place] [address] Basophil, Absolute 0.0 10 3/mcL Normal 0.0-0.3 [facility] Comment on above: Performed By: #### A DIFF, ANEU, MG, CBC, GFR, CMP #### [address] [place] [address] [place], [place] [address] Basophils/100 WBC (Bld) 0.3 % Normal 0.0-2.5 [facility] Comment on above: Performed By: #### A DIFF, ANEU, MG, CBC, GFR, CMP #### [address] [address] Eosinophil, Absolute 0.1 10 3/mcL Normal 0.0-0.7 [facility] Comment on above: Performed By: #### A DIFF, ANEU, MG, CBC, GFR, CMP #### [address] [address] Eosinophils/100 WBC (Bld) 0.8 % Normal 0.0-6.0 [facility] Comment on above: Performed By: #### A DIFF, ANEU, MG, CBC, GFR, CMP #### [address] [address] Lymphocyte, Absolute 2.1 10 3/mcL Normal 0.9-4.3 [facility] Comment on above: Performed By: #### A DIFF, ANEU, MG, CBC, GFR, CMP #### [address] [address] Lymphocytes/100 WBC (Bld) 16.0 % Low 20.0-40.0 [facility] Comment on above: Performed By: #### A DIFF, ANEU, MG, CBC, GFR, CMP #### [address] [address] Monocyte, Absolute 1.6 10 3/mcL High 0.1-1.4 [facility] Comment on above: Performed By: #### A DIFF, ANEU, MG, CBC, GFR, CMP #### [address] [address] Monocytes/100 WBC (Bld) 12.0 % Normal 2.0-13.0 [facility] Comment on above: Performed By: #### A DIFF, ANEU, MG, CBC, GFR, CMP #### [address] [address] Neutrophils/100 WBC (Bld) 70.9 % Normal 50.0-75.0 [facility] Comment on above: Performed By: #### A DIFF, ANEU, MG, CBC, GFR, CMP #### [place] [address] [place], [place] [address] .GFRon 02-11-2025 Estimated Glomerular Filtration Rate 96 ml/min/1.73sqm Normal [facility] Comment on above: Result Comment: Stages of Chronic Kidney Disease (CKD) Stage Description eGFR(ml/min/1.73 sq.m.) CKD 1 Normal kidney function or >=90 normal kindney function with possible kidney damage (ex. Proteinuria) CKD 2 Kidney damage with mild loss 60-89 of kidney function CKD 3a Mild to moderate loss of kidney 45-59 function CKD 3b Moderate to severe loss of 30-44 of kindey function CKD 4 Severe loss of kidney function 15-29 CKD 5 Kidney failure <15 Note: (go live 2024) the eGFR calculation was updated to the 2020 CKD-EPI creatinine equation without a race factor to calculate the eGFR results. Performed By: #### A DIFF, ANEU, MG, CBC, GFR, CMP #### [address] [address] Estimated Glomerular Filtration Rate 95 ml/min/1.73sqm Normal [facility] Comment on above: Result Comment: Stages of Chronic Kidney Disease (CKD) Stage Description eGFR(ml/min/1.73 sq.m.) CKD 1 Normal kidney function or >=90 normal kindney function with possible kidney damage (ex. Proteinuria) CKD 2 Kidney damage with mild loss 60-89 of kidney function CKD 3a Mild to moderate loss of kidney 45-59 function CKD 3b Moderate to severe loss of 30-44 of kindey function CKD 4 Severe loss of kidney function 15-29 CKD 5 Kidney failure <15 Note: (go live 2024) the eGFR calculation was updated to the 2020 CKD-EPI creatinine equation without a race factor to calculate the eGFR results. Performed By: #### A DIFF, ANEU, MG, CBC, GFR, CMP #### [place] [address] [place], [place] [address] .MDWon 02-11-2025 Monocyte Distribution Width 19.46 Normal 0.00-20.00 [facility] Comment on above: Result Comment: For ED adult patients suspected of sepsis, MDW<=20.0 does not rule out sepsis or risk of sepsis Performed By: #### A DIFF, ANEU, MG, CBC, GFR, CMP #### [address] [address] .NEUABSon 02-11-2025 Neutrophil, Absolute 9.8 10 3/mcL High 2.3-8.1 [facility] Comment on above: Performed By: #### M G, CMP, CBC, GFR, ADIFF, ANEU ####[place] [address] Neutrophil, Absolute 9.3 10 3/mcL High 2.3-8.1 [facility] Comment on above: Performed By: #### A DIFF, ANEU, MG, CBC, GFR, CMP #### [place] [id number] CBCon 02-11-2025 Erythrocyte distribution width (RBC) [Ratio] 13.7 % Normal 11.5-15.5 [facility] Comment on above: Performed By: #### M G, CMP, CBC, GFR, ADIFF, ANEU ####[place] [address] Hematocrit (Bld) [Volume fraction] 42.0 % Normal 40.0-52.0 [facility] Comment on above: Performed By: #### M G, CMP, CBC, GFR, ADIFF, ANEU ####[place] [address] Hgb 14.1 G/dL Normal 13.0-17.5 [facility] Comment on above: Performed By: #### M G, CMP, CBC, GFR, ADIFF, ANEU ####[place] [address] MCH (RBC) [Entitic mass] 28.3 pg Normal 27.0-33.0 [facility] Comment on above: Performed By: #### M G, CMP, CBC, GFR, ADIFF, ANEU ####[place] [address] MCHC 33.5 G/dL Normal 32.0-36.0 [facility] Comment on above: Performed By: #### M G, CMP, CBC, GFR, ADIFF, ANEU ####[id number] [place], [place] [address] MCV (RBC) [Entitic vol] 84.7 fL Normal 81.0-100.0 [facility] Comment on above: Performed By: #### M G, CMP, CBC, GFR, ADIFF, ANEU ####[id number] [place], [place] [address] Platelet 242 10 3/mcL Normal 150-450 [facility] Comment on above: Performed By: #### M G, CMP, CBC, GFR, ADIFF, ANEU ####[id number] [place], [place] [address] Platelet mean volume (Bld) [Entitic vol] 7.0 fL Normal 6.4-10.5 [facility] Comment on above: Performed By: #### M G, CMP, CBC, GFR, ADIFF, ANEU ####[address] [place] [address] RBC 4.96 10 6/mcL Normal 4.50-6.00 [facility] Comment on above: Performed By: #### M G, CMP, CBC, GFR, ADIFF, ANEU ####[id number] [place], [place] [address] WBC 13.0 10 3/mcL High 4.5-10.8 [facility] Comment on above: Performed By: #### M G, CMP, CBC, GFR, ADIFF, ANEU ####[id number] [place], [place] [address] Erythrocyte distribution width (RBC) [Ratio] 13.9 % Normal 11.5-15.5 [facility] Comment on above: Performed By: #### A DIFF, ANEU, MG, CBC, GFR, CMP #### [address] [id number] [place], [place] [address] Hematocrit (Bld) [Volume fraction] 44.2 % Normal 40.0-52.0 [facility] Comment on above: Performed By: #### A DIFF, ANEU, MG, CBC, GFR, CMP #### [place] [address] Hgb 14.9 G/dL Normal 13.0-17.5 [facility] Comment on above: Performed By: #### A DIFF, ANEU, MG, CBC, GFR, CMP #### [place] [address] MCH (RBC) [Entitic mass] 28.5 pg Normal 27.0-33.0 [facility] Comment on above: Performed By: #### A DIFF, ANEU, MG, CBC, GFR, CMP #### [place] [address] MCHC 33.8 G/dL Normal 32.0-36.0 [facility] Comment on above: Performed By: #### A DIFF, ANEU, MG, CBC, GFR, CMP #### [place] [address] MCV (RBC) [Entitic vol] 84.5 fL Normal 81.0-100.0 [facility] Comment on above: Performed By: #### A DIFF, ANEU, MG, CBC, GFR, CMP #### [address] [address] Plate[place] 255 10 3/mcL Normal 150-450 [facility] Comment on above: Performed By: #### A DIFF, ANEU, MG, CBC, GFR, CMP #### [address] [address] Platelet mean volume (Bld) [Entitic vol] 6.8 fL Normal 6.4-10.5 [facility] Comment on above: Performed By: #### A DIFF, ANEU, MG, CBC, GFR, CMP #### [address] [address] RBC 5.22 10 6/mcL Normal 4.50-6.00 [facility] Comment on above: Performed By: #### A DIFF, ANEU, MG, CBC, GFR, CMP #### [address] [address] WBC 13.1 10 3/mcL High 4.5-10.8 [facility] Comment on above: Performed By: #### A DIFF, ANEU, MG, CBC, GFR, CMP #### [address] [address] CMPon 02-11-2025 Albumin Level 2.9 G/dL Low 3.4-4.8 [facility] Comment on above: Performed By: #### A DIFF, ANEU, MG, CBC, GFR, CMP #### [place] [address] Albumin/Globulin [Mass ratio] 0.7 {ratio} Low 1.1-2.5 [facility] Comment on above: Performed By: #### A DIFF, ANEU, MG, CBC, GFR, CMP #### [place] [address] ALP [Catalytic activity/Vol] 75 U/L Normal 40-135 [facility] Comment on above: Performed By: #### A DIFF, ANEU, MG, CBC, GFR, CMP #### [place] [address] ALT [Catalytic activity/Vol] 20 U/L Normal 16-63 [facility] Comment on above: Performed By: #### A DIFF, ANEU, MG, CBC, GFR, CMP #### [place] [address] AST [Catalytic activity/Vol] 13 U/L Normal 10-40 [facility] Comment on above: Performed By: #### A DIFF, ANEU, MG, CBC, GFR, CMP #### [place] [address] Bili Total 1.5 mg/dL High 0.2-1.0 [facility] Comment on above: Result Comment: Use of this assay is not recommended for patients undergoing treatment with eltrombopag due to the potential for falsely elevated results. Performed By: #### A DIFF, ANEU, MG, CBC, GFR, CMP #### [place] [address] BUN/Creatinine Ratio 12 ratio Normal 7-27 [facility] Comment on above: Performed By: #### A DIFF, ANEU, MG, CBC, GFR, CMP #### [place] [address] Calcium [Mass/Vol] 8.6 mg/dL Normal 8.4-10.2 [facility] Comment on above: Performed By: #### A DIFF, ANEU, MG, CBC, GFR, CMP #### [place] [address] Chloride [Moles/Vol] 105 mmol/L Normal 98-107 [facility] Comment on above: Performed By: #### A DIFF, ANEU, MG, CBC, GFR, CMP #### [place] [address] CO2 [Moles/Vol] 30 mmol/L Normal 23-31 [facility] Comment on above: Performed By: #### A DIFF, ANEU, MG, CBC, GFR, CMP #### [place] [address] Creatinine [Mass/Vol] 0.89 mg/dL Normal 0.67-1.17 [facility] Comment on above: Performed By: #### A DIFF, ANEU, MG, CBC, GFR, CMP #### [place] [address] Electrolyte Balance 3.0 mEq/L Low 4.0-15.0 [facility] Comment on above: Performed By: #### A DIFF, ANEU, MG, CBC, GFR, CMP #### [place] [address] Globulin 4.1 G/dL Normal 2.7-4.4 [facility] Comment on above: Performed By: #### A DIFF, ANEU, MG, CBC, GFR, CMP #### [place] [address] Glucose [Mass/Vol] 108 mg/dL Normal 80-115 [facility] Comment on above: Performed By: #### A DIFF, ANEU, MG, CBC, GFR, CMP #### [address] [address] Potassium [Moles/Vol] 3.9 mmol/L Normal 3.5-5.1 [facility] Comment on above: Performed By: #### A DIFF, ANEU, MG, CBC, GFR, CMP #### [address] [address] Sodium [Moles/Vol] 138 mmol/L Normal 136-145 [facility] Comment on above: Performed By: #### A DIFF, ANEU, MG, CBC, GFR, CMP #### [address] [address] Total Protein 7.0 G/dL Normal 6.4-8.2 [facility] Comment on above: Performed By: #### A DIFF, ANEU, MG, CBC, GFR, CMP #### [address] [address] Urea nitrogen [Mass/Vol] 11 mg/dL Normal 7-18 [facility] Comment on above: Performed By: #### A DIFF, ANEU, MG, CBC, GFR, CMP #### [address] [address] Albumin Level 3.2 G/dL Low 3.4-4.8 [facility] Comment on above: Performed By: #### A DIFF, ANEU, MG, CBC, GFR, CMP #### [address] [address] Albumin/Globulin [Mass ratio] 0.7 {ratio} Low 1.1-2.5 [facility] Comment on above: Performed By: #### A DIFF, ANEU, MG, CBC, GFR, CMP #### [address] [address] ALP [Catalytic activity/Vol] 83 U/L Normal 40-135 [facility] Comment on above: Performed By: #### A DIFF, ANEU, MG, CBC, GFR, CMP #### [address] [address] ALT [Catalytic activity/Vol] 25 U/L Normal 16-63 [facility] Comment on above: Performed By: #### A DIFF, ANEU, MG, CBC, GFR, CMP #### [address] [address] AST [Catalytic activity/Vol] 15 U/L Normal 10-40 [facility] Comment on above: Performed By: #### A DIFF, ANEU, MG, CBC, GFR, CMP #### [address] [address] Bili Total 1.7 mg/dL High 0.2-1.0 [facility] Comment on above: Result Comment: Use of this assay is not recommended for patients undergoing treatment with eltrombopag due to the potential for falsely elevated results. Performed By: #### A DIFF, ANEU, MG, CBC, GFR, CMP #### [address] [address] BUN/Creatinine Ratio 12 ratio Normal 7-27 [facility] Comment on above: Performed By: #### A DIFF, ANEU, MG, CBC, GFR, CMP #### [address] [address] Calcium [Mass/Vol] 8.8 mg/dL Normal 8.4-10.2 [facility] Comment on above: Performed By: #### A DIFF, ANEU, MG, CBC, GFR, CMP #### [address] [address] Chloride [Moles/Vol] 101 mmol/L Normal 98-107 [facility] Comment on above: Performed By: #### A DIFF, ANEU, MG, CBC, GFR, CMP #### [address] [address] CO2 [Moles/Vol] 30 mmol/L Normal 23-31 [facility] Comment on above: Performed By: #### A DIFF, ANEU, MG, CBC, GFR, CMP #### [address] [address] Creatinine [Mass/Vol] 0.91 mg/dL Normal 0.67-1.17 [facility] Comment on above: Performed By: #### A DIFF, ANEU, MG, CBC, GFR, CMP #### [address] [address] Electrolyte Balance 3.0 mEq/L Low 4.0-15.0 [facility] Comment on above: Performed By: #### A DIFF, ANEU, MG, CBC, GFR, CMP #### [address] [address] Globulin 4.3 G/dL Normal 2.7-4.4 [facility] Comment on above: Performed By: #### A DIFF, ANEU, MG, CBC, GFR, CMP #### [place] [address] Glucose [Mass/Vol] 120 mg/dL High 80-115 [facility] Comment on above: Performed By: #### A DIFF, ANEU, MG, CBC, GFR, CMP #### [address] [address] Potassium [Moles/Vol] 4.0 mmol/L Normal 3.5-5.1 [facility] Comment on above: Performed By: #### A DIFF, ANEU, MG, CBC, GFR, CMP #### [place] [address] Sodium [Moles/Vol] 134 mmol/L Low 136-145 [facility] Comment on above: Performed By: #### A DIFF, ANEU, MG, CBC, GFR, CMP #### [place] [address] Total Protein 7.5 G/dL Normal 6.4-8.2 [facility] Comment on above: Performed By: #### A DIFF, ANEU, MG, CBC, GFR, CMP #### [place] [address] Urea nitrogen [Mass/Vol] 11 mg/dL Normal 7-18 [facility] Comment on above: Performed By: #### A DIFF, ANEU, MG, CBC, GFR, CMP #### [place] [id number] [place], [place] [address] LABORATORYOrdered By: SYSTEM SYSTEM on 02-11-2025 Albumin BCP dye [Mass/Vol] 2.9 G/dL Low 3.4 - 4.8 G/dL AO ADM SS Albumin/Globulin [Mass ratio] 0.7 {ratio} Low 1.1 - 2.5 ratio AO ADM SS ALP [Catalytic activity/Vol] 75 U/L Normal 40 - 135 U/L AO ADM SS ALT With P-5'-P [Catalytic activity/Vol] 20 U/L Normal 16 - 63 U/L AO ADM SS AST With P-5'-P [Catalytic activity/Vol] 13 U/L Normal 10 - 40 U/L AO ADM SS Basophils (Bld) [#/Vol] 0.0 103/mcL Normal 0.0 - 0.3 10^3/mcL AO Workflow SS Basophils/100 WBC (Bld) 0.2 % Normal 0.0 - 2.5 % AO Workflow SS Bilirubin [Mass/Vol] 1.5 mg/dL High 0.2 - 1 .0 mg/dL AO ADM SS Comment on above: Interpretive Data: U se of this assay is not recommended for patients undergoing treatment with eltrombopag due to the potential for falsely elevated results. Calcium [Mass/Vol] 8.6 mg/dL Normal 8.4 - 10. 2 mg/dL AO ADM SS Chloride [Moles/Vol] 105 mmol/L Normal 98 - 10 7 mmol/L AO ADM SS CO2 [Moles/Vol] 30 mmol/L Normal 23 - 31 mmol/L AO ADM SS Creatinine [Mass/Vol] 0.89 mg/dL Normal 0.67 - 1.17 mg/dL AO ADM SS Electrolyte Balance 3.0 mEq/L Low 4.0 - 15 .0 mEq/L AO ADM SS Eosinophil, Absolute 0.1 103/mcL Normal 0.0 - 0 .7 10^3/mcL AO Workflow SS Eosinophils/100 WBC (Bld) 0.6 % Normal 0.0 - 6.0 % AO Workflow SS Erythrocyte distribution width (RBC) [Ratio] 13.7 % Normal 11.5 - 15.5 % AO Workflow SS Estimated Glomerular Filtration Rate 96 ml/min/1.73sqm Invalid Interpretation Code AO Chemistry S Comment on above: Interpretive Data: Stages of Chronic Kidney Disease (CKD) Stage Description eGFR(ml/min/1.73 sq.m.) CKD 1 Normal kidney function or >=90 normal kindney function with possible kidney damage (ex. Proteinuria) CKD 2 Kidney damage with mild loss 60-89 of kidney function CKD 3a Mild to moderate loss of kidney 45-59 function CKD 3b Moderate to severe loss of 30-44 of kindey function CKD 4 Severe loss of kidney function 15-29 CKD 5 Kidney failure <15 Note: (go live 2024) the eGFR calculation was updated to the 2020 CKD-EPI creatinine equation without a race factor to calculate the eGFR results. Globulin 4.1 G/dL Normal 2.7 - 4.4 G/dL AO ADM SS Glucose [Mass/Vol] 108 mg/dL Normal 80 - 115 mg/dL AO ADM SS Hematocrit (Bld) [Volume fraction] 42.0 % Normal 40.0 - 52.0 % AO Workflow SS Hemoglobin (Bld) [Mass/Vol] 14.1 G/dL Normal 13.0 - 17.5 G/dL AO Workflow SS LDH [Catalytic activity/Vol] 121 U/L Normal 85 - 227 U/L AO ADM SS Lymphocytes (Bld) [#/Vol] 1.6 103/mcL Normal 0.9 - 4.3 10^3/mcL AO Workflow SS Lymphocytes/100 WBC (Bld) 12.7 % Low 20.0 - 40.0 % AO Workflow SS Magnesium [Mass/Vol] 1.8 mg/dL Normal 1.8 - 2 .4 mg/dL AO ADM SS MCH (RBC) [Entitic mass] 28.3 pg Normal 27.0 - 33.0 pg AO Workflow SS MCHC 33.5 G/dL Normal 32.0 - 36.0 G/dL AO Workflow SS MCV (RBC) [Entitic vol] 84.7 fL Normal 81.0 - 100.0 fL AO Workflow SS Monocytes (Bld) [#/Vol] 1.4 103/mcL Normal 0.1 - 1.4 10^3/mcL AO Workflow SS Monocytes/100 WBC (Bld) 10.8 % Normal 2.0 - 13.0 % AO Workflow SS Neutrophils (Bld) [#/Vol] 9.8 103/mcL High 2.3 - 8.1 10^3/mcL AO Workflow SS Neutrophils/100 WBC (Bld) 75.7 % High 50.0 - 75.0 % AO Workflow SS Platelet mean volume (Bld) [Entitic vol] 7.0 fL Normal 6.4 - 10.5 fL AO Workflow SS Platelets (Bld) [#/Vol] 242 103/mcL Normal 150 - 450 10^3/mcL AO Workflow SS Potassium [Moles/Vol] 3.9 mmol/L Normal 3.5 - 5.1 mmol/L AO ADM SS Protein [Mass/Vol] 7.0 G/dL Normal 6.4 - 8.2 G/dL AO ADM SS RBC (Bld) [#/Vol] 4.96 106/mcL Normal 4.50 - 6.0 0 10^6/mcL AO Workflow SS Sodium [Moles/Vol] 138 mmol/L Normal 136 - 145 mmol/L AO ADM SS Urea nitrogen [Mass/Vol] 11 mg/dL Normal 7 - 18 mg/dL AO ADM SS Urea nitrogen/Creatinine [Mass ratio] 12 ratio Normal 7 - 27 ratio AO ADM SS WBC (Bld) [#/Vol] 13.0 103/mcL High 4.5 - 10.8 10^3/mcL AO Workflow SS Lipase [Catalytic activity/Vol] 64 U/L Normal 16 - 77 U/L AO ADM SS Monocyte distribution width Auto (Bld) [Entitic vol] 19.46 1 Normal 0.00 - 20.00 AO Workflow SS Comment on above: Result Comment: For ED adult patients suspected of sepsis, MDW<=20.0 does not rule out sepsis or risk of sepsis LABORATORYOrdered By: Bobbi Carey on 02-11-2025 Cholesterol [Mass/Vol] 115 mg/dL Normal 0 - 200 mg/dL AO ADM SS Comment on above: Interpretive Data: C holesterol Reference Interval: Less than 200 Desirable 200-239 Borderline high risk 240 and above High risk Cholesterol in HDL [Mass/Vol] 43 mg/dL Normal 40 - 60 mg/dL AO ADM SS Cholesterol in LDL [Mass/Vol] 59 mg/dL Normal 0 - 130 mg/dL AO ADM SS Triglyceride [Mass/Vol] 67 mg/dL Normal 0 - 150 mg/dL AO ADM SS Comment on above: Interpretive Data: T riglyceride Reference Interval: Less than 150 Normal 150-199 Borderline high risk 200-499 High risk 500 or higher Very high risk LDHon 02-11-2025 LDH 121 U/L Normal 85-227 [facility] Comment on above: Performed By: #### A DIFF, ANEU, MG, CBC, GFR, CMP #### [address] [address] LIPon 02-11-2025 Lipase Level 64 U/L Normal 16-77 [facility] Comment on above: Performed By: #### A DIFF, ANEU, MG, CBC, GFR, CMP #### [address] [address] LIPIDon 02-11-2025 Cholesterol [Mass/Vol] 115 mg/dL Normal 0-200 [facility] Comment on above: Result Comment: Chol esterol Reference Interval: Less than 200 Desirable 200-239 Borderline high risk 240 and above High risk Performed By: #### A DIFF, ANEU, MG, CBC, GFR, CMP #### [address] [address] Cholesterol in HDL [Mass/Vol] 43 mg/dL Normal 40-60 [facility] Comment on above: Performed By: #### A DIFF, ANEU, MG, CBC, GFR, CMP #### [address] [address] Cholesterol in LDL [Mass/Vol] 59 mg/dL Normal 0-130 [facility] Comment on above: Performed By: #### A DIFF, ANEU, MG, CBC, GFR, CMP #### [address] [address] Triglyceride [Mass/Vol] 67 mg/dL Normal 0-150 [facility] Comment on above: Result Comment: Trig lyceride Reference Interval: Less than 150 Normal 150-199 Borderline high risk 200-499 High risk 500 or higher Very high risk Performed By: #### A DIFF, ANEU, MG, CBC, GFR, CMP #### [address] [address] MGon 02-11-2025 Magnesium [Mass/Vol] 1.8 mg/dL Normal 1.8-2.4 [facility] Comment on above: Performed By: #### A DIFF, ANEU, MG, CBC, GFR, CMP #### [id number] [place], [place] [address] US ABDOMEN LIMITEDon 025 US ABDOMEN LIMITED ORIGINAL EXAMINATION: LIMITED ABDOMINAL ULTRASOUND02/11/2025 11:31 am Limited ultrasound of the abdomen attention right upper quadrant COMPARISON: None TECHNIQUE: This report is based on interpretation of permanently recorded ultrasound images. HISTORY: ORDERING SYSTEM PROVIDED HISTORY: Reason for Exam: RUQ, epigastric pain FINDINGS: The entire study is less than optimal and compromised by body habitus and bowel gas. The gallbladder is slightly over distended but otherwise unremarkable. No stone, wall thickening or pericholecystic edema is seen. Some internal echoes in the gallbladder are likely artifactual or a small amount of sludge from prolonged fasting. Negative sonographic Alfredo's sign.. There is no intrahepatic bile duct dilatation. The common duct is 3 mm at the jeffrey hepatis. The liver is 18.5 cm vertical dimension with mildly increased echogenicity. No focal liver lesion is seen. There is antegrade blood flow in the main portal vein. The pancreas is partially obscured and suboptimally evaluated. No ascites is seen in the RIGHT upper quadrant. Limited survey images of the RIGHT kidney show normal size and cortical thickness with no pelvocaliectasis. Renal echogenicity is mildly increased compared to the liver. IMPRESSION: Mildly increased renal echogenicity may indicate medical renal disease, correlate clinically. No obstruction. Normal gallbladder. No bile duct dilatation. Equivocal findings of mild steatosis or other diffuse hepatocellular disease. Interpreted by: Alisia Granados MD Preliminary Report By: Alisia Granados MD Electronically signed By Alisia Granados MD Dictated Date: 02/11/2025 11:40:30 AM Prelim Date: 02/11/2025 11:42:39 AM Sign Date: 02/11/2025 11:42:39 AM Ordering Provider: FRANCOIS COX Interpreted by: Alisia Granados MD Preliminary Report By: Alisia Granados MD Electronically signed By Alisia Granados MD Dictated Date: 02/11/2025 11:40:30 AM Prelim Date: 02/11/2025 11:42:39 AM Sign Date: 02/11/2025 11:42:39 AM Ordering Provider: FRANCOIS Garcia [facility] .Auto Diffon 02-10-2025 Basophil, Absolute 0.0 10 3/mcL Normal 0.0-0.3 [facility] Comment on above: Performed By: #### C BC, LIP, ANEU, GFR, TROPHS, MDW, ADIFF, CMP #### [address] [address] Basophils/100 WBC (Bld) 0.3 % Normal 0.0-2.5 [facility] Comment on above: Performed By: #### C BC, LIP, ANEU, GFR, TROPHS, MDW, ADIFF, CMP #### [address] [address] Eosinophil, Absolute 0.1 10 3/mcL Normal 0.0-0.7 [facility] Comment on above: Performed By: #### C BC, LIP, ANEU, GFR, TROPHS, MDW, ADIFF, CMP #### [address] [address] Eosinophils/100 WBC (Bld) 0.8 % Normal 0.0-6.0 [facility] Comment on above: Performed By: #### C BC, LIP, ANEU, GFR, TROPHS, MDW, ADIFF, CMP #### [address] [address] Lymphocyte, Absolute 1.9 10 3/mcL Normal 0.9-4.3 [facility] Comment on above: Performed By: #### C BC, LIP, ANEU, GFR, TROPHS, MDW, ADIFF, CMP #### [address] [address] Lymphocytes/100 WBC (Bld) 15.0 % Low 20.0-40.0 [facility] Comment on above: Performed By: #### C BC, LIP, ANEU, GFR, TROPHS, MDW, ADIFF, CMP #### [address] [address] Monocyte, Absolute 1.4 10 3/mcL Normal 0.1-1.4 [facility] Comment on above: Performed By: #### C BC, LIP, ANEU, GFR, TROPHS, MDW, ADIFF, CMP #### [place] [address] [place], [place] [address] Monocytes/100 WBC (Bld) 11.0 % Normal 2.0-13.0 [facility] Comment on above: Performed By: #### C BC, LIP, ANEU, GFR, TROPHS, MDW, ADIFF, CMP #### [place] [address] [place], [place] [address] Neutrophils/100 WBC (Bld) 72.9 % Normal 50.0-75.0 [facility] Comment on above: Performed By: #### C BC, LIP, ANEU, GFR, TROPHS, MDW, ADIFF, CMP #### [place] [address] [place], [place] [address] .GFRon 02-10-2025 Estimated Glomerular Filtration Rate 95 ml/min/1.73sqm Normal [facility] Comment on above: Result Comment: Stages of Chronic Kidney Disease (CKD) Stage Description eGFR(ml/min/1.73 sq.m.) CKD 1 Normal kidney function or >=90 normal kindney function with possible kidney damage (ex. Proteinuria) CKD 2 Kidney damage with mild loss 60-89 of kidney function CKD 3a Mild to moderate loss of kidney 45-59 function CKD 3b Moderate to severe loss of 30-44 of kindey function CKD 4 Severe loss of kidney function 15-29 CKD 5 Kidney failure <15 Note: (go live 2024) the eGFR calculation was updated to the 2020 CKD-EPI creatinine equation without a race factor to calculate the eGFR results. Performed By: #### C BC, LIP, ANEU, GFR, TROPHS, MDW, ADIFF, CMP ####[place] [id number] [place], [place] [address] .MDWon 02-10-2025 Monocyte Distribution Width 16.72 Normal 0.00-20.00 [facility] Comment on above: Result Comment: For ED adult patients suspected of sepsis, MDW<=20.0 does not rule out sepsis or risk of sepsis Performed By: #### C BC, LIP, ANEU, GFR, TROPHS, MDW, ADIFF, CMP ####[place] [address] .NEUABSon 02-10-2025 Neutrophil, Absolute 9.0 10 3/mcL High 2.3-8.1 [facility] Comment on above: Performed By: #### C BC, LIP, ANEU, GFR, TROPHS, MDW, ADIFF, CMP ####[place] [address] CBCon 02-10-2025 Erythrocyte distribution width (RBC) [Ratio] 13.5 % Normal 11.5-15.5 [facility] Comment on above: Performed By: #### C BC, LIP, ANEU, GFR, TROPHS, MDW, ADIFF, CMP #### [place] [address] Hematocrit (Bld) [Volume fraction] 47.4 % Normal 40.0-52.0 [facility] Comment on above: Performed By: #### C BC, LIP, ANEU, GFR, TROPHS, MDW, ADIFF, CMP #### [place] [address] Hgb 16.0 G/dL Normal 13.0-17.5 [facility] Comment on above: Performed By: #### C BC, LIP, ANEU, GFR, TROPHS, MDW, ADIFF, CMP #### [place] [address] MCH (RBC) [Entitic mass] 28.5 pg Normal 27.0-33.0 [facility] Comment on above: Performed By: #### C BC, LIP, ANEU, GFR, TROPHS, MDW, ADIFF, CMP #### [place] [address] MCHC 33.7 G/dL Normal 32.0-36.0 [facility] Comment on above: Performed By: #### C BC, LIP, ANEU, GFR, TROPHS, MDW, ADIFF, CMP #### [address] [address] MCV (RBC) [Entitic vol] 84.6 fL Normal 81.0-100.0 [facility] Comment on above: Performed By: #### C BC, LIP, ANEU, GFR, TROPHS, MDW, ADIFF, CMP #### [address] [address] Platelet 250 10 3/mcL Normal 150-450 [facility] Comment on above: Performed By: #### C BC, LIP, ANEU, GFR, TROPHS, MDW, ADIFF, CMP #### [address] [address] Platelet mean volume (Bld) [Entitic vol] 6.7 fL Normal 6.4-10.5 [facility] Comment on above: Performed By: #### C BC, LIP, ANEU, GFR, TROPHS, MDW, ADIFF, CMP #### [address] [address] RBC 5.60 10 6/mcL Normal 4.50-6.00 [facility] Comment on above: Performed By: #### C BC, LIP, ANEU, GFR, TROPHS, MDW, ADIFF, CMP #### [address] [address] WBC 12.4 10 3/mcL High 4.5-10.8 [facility] Comment on above: Performed By: #### C BC, LIP, ANEU, GFR, TROPHS, MDW, ADIFF, CMP #### [address] [address] CMPon 02-10-2025 Albumin Level 3.6 G/dL Normal 3.4-4.8 [facility] Comment on above: Performed By: #### C BC, LIP, ANEU, GFR, TROPHS, MDW, ADIFF, CMP ####[address] [address] Albumin/Globulin [Mass ratio] 0.8 {ratio} Low 1.1-2.5 [facility] Comment on above: Performed By: #### C BC, LIP, ANEU, GFR, TROPHS, CARYL, ADIFF, CMP ####[address] [address] ALP [Catalytic activity/Vol] 88 U/L Normal 40-135 [facility] Comment on above: Performed By: #### C BC, LIP, ANEU, GFR, MAURICES, CARYL, ADIFF, CMP ####[place] [address] ALT [Catalytic activity/Vol] 21 U/L Normal 16-63 [facility] Comment on above: Performed By: #### C BC, LIP, ANEU, GFR, FAWN, CARYL, ADIFF, CMP ####[place] [address] AST [Catalytic activity/Vol] 17 U/L Normal 10-40 [facility] Comment on above: Performed By: #### C BC, LIP, ANEU, GFR, MAURICES, CARYL, ADIFF, CMP ####[address] [address] Bili Total 1.6 mg/dL High 0.2-1.0 [facility] Comment on above: Result Comment: Use of this assay is not recommended for patients undergoing treatment with eltrombopag due to the potential for falsely elevated results. Performed By: #### C BC, LIP, ANEU, GFR, TROPHRobbi, CARYL, ADIFF, CMP ####[place] [id number] BUN/Creatinine Ratio 18 ratio Normal 7-27 [facility] Comment on above: Performed By: #### C BC, LIP, ANEU, GFR, FAWN, CARYL, ADIFF, CMP ####[place] [id number] Calcium [Mass/Vol] 9.7 mg/dL Normal 8.4-10.2 [facility] Comment on above: Performed By: #### C BC, LIP, ANEU, GFR, TROPHS, W, ADIFF, CMP ####[place] [id number] [place], [place] [address] Chloride [Moles/Vol] 106 mmol/L Normal 98-107 [facility] Comment on above: Performed By: #### C BC, LIP, ANEU, GFR, TROPHS, MDW, ADIFF, CMP ####[place] [id number] [place], [place] [address] CO2 [Moles/Vol] 28 mmol/L Normal 23-31 [facility] Comment on above: Performed By: #### C BC, LIP, ANEU, GFR, TROPHS, MDW, ADIFF, CMP ####[place] [id number] [place] [id number] Creatinine [Mass/Vol] 0.91 mg/dL Normal 0.67-1.17 [facility] Comment on above: Performed By: #### C BC, LIP, ANEU, GFR, TROPHS, MDW, ADIFF, CMP ####[address] [address] Electrolyte Balance 6.0 mEq/L Normal 4.0-15.0 [facility] Comment on above: Performed By: #### C BC, LIP, ANEU, GFR, TROPHS, MDW, ADIFF, CMP ####[id number] [place], [place] [address] Globulin 4.3 G/dL Normal 2.7-4.4 [facility] Comment on above: Performed By: #### C BC, LIP, ANEU, GFR, TROPHS, MDW, ADIFF, CMP ####[address] [id number] Glucose [Mass/Vol] 104 mg/dL Normal 80-115 [facility] Comment on above: Performed By: #### C BC, LIP, ANEU, GFR, TROPHS, MDW, ADIFF, CMP ####[address] [address] Potassium [Moles/Vol] 4.0 mmol/L Normal 3.5-5.1 [facility] Comment on above: Performed By: #### C BC, LIP, ANEU, GFR, TROPHS, MDW, ADIFF, CMP ####[employer] [facility] [place], [place] [address] Sodium [Moles/Vol] 140 mmol/L Normal 136-145 [facility] Comment on above: Performed By: #### C BC, LIP, ANEU, GFR, TROPHS, MDW, ADIFF, CMP ####[place] [id number] [place], [place] [address] Total Protein 7.9 G/dL Normal 6.4-8.2 [facility] Comment on above: Performed By: #### C BC, LIP, ANEU, GFR, TROPHS, MDW, ADIFF, CMP ####[place] [id number] [place], [place] [address] Urea nitrogen [Mass/Vol] 16 mg/dL Normal 7-18 [facility] Comment on above: Performed By: #### C BC, LIP, ANEU, GFR, TROPHS, MDW, ADIFF, CMP ####[place] [id number] [place], [place] [address] CT ABD/PELVIS W/ IV CONTRAST ONLYon 02-10-2025 CT ABD/PELVIS W/ IV CONTRAST ONLY ORIGINAL EXAMINATION: CT OF THE ABDOMEN AND PELVIS WITH CONTRAST 02/10/2025 9:14 am TECHNIQUE: CT of the abdomen and pelvis was performed with the administration of intravenous contrast. Multiplanar reformatted images are provided for review. Automated exposure control, iterative reconstruction, and/or weight based adjustment of the mA/kV was utilized to reduce the radiation dose to as low as reasonably achievable. COMPARISON: March 15, 2023 HISTORY: ORDERING SYSTEM PROVIDED HISTORY: Reason for Exam: LLQ abdominal pain ; Epigastric pain FINDINGS: Minor degenerative changes are noted in the spine. Mild degenerative changes are present at the SI joints as well. No acute osseous abnormality seen. Small areas of dependent atelectasis are present at the lower lobes, and there is also mild more coarse atelectasis at the posterior right lower lobe. The gallbladder is grossly unremarkable. Liver, spleen, adrenal glands are unremarkable. Tiny scattered renal cysts are present. No other kidney abnormality seen. There is mild peripancreatic infiltrative increased density present, without a discrete mass lesion. Pancreatic parenchyma enhances normally, and there is no pancreatic ductal dilatation seen. No focal fluid collection is visible. No adenopathy, free air or free fluid is visible. The urinary bladder is grossly normal. Minor sigmoid and left colon diverticulosis is evident, without diverticulitis. No other GI tract abnormality seen. Very small fat containing umbilical hernia. No additional contributory finding. IMPRESSION: 1. Findings compatible with mild acute edematous interstitial pancreatitis. No focal fluid collection seen. 2. Diverticulosis without diverticulitis. Interpreted by: Yoel Cortez MD Preliminary Report By: Yoel Cortez MD Electronically signed By Yoel Cortez MD Dictated Date: 02/10/2025 9:27:13 AM Prelim Date: 02/10/2025 9:31:37 AM Sign Date: 02/10/2025 9:31:37 AM Ordering Provider: KAISER Garcia [facility] LABORATORYOrdered By: SYSTEM SYSTEM on 02-10-2025 Albumin BCP dye [Mass/Vol] 3.6 G/dL Normal 3.4 - 4.8 G/dL AO ADM SS Albumin/Globulin [Mass ratio] 0.8 {ratio} Low 1.1 - 2.5 ratio AO ADM SS ALP [Catalytic activity/Vol] 88 U/L Normal 40 - 135 U/L AO ADM SS ALT With P-5'-P [Catalytic activity/Vol] 21 U/L Normal 16 - 63 U/L AO ADM SS AST With P-5'-P [Catalytic activity/Vol] 17 U/L Normal 10 - 40 U/L AO ADM SS Basophils (Bld) [#/Vol] 0.0 103/mcL Normal 0.0 - 0.3 10^3/mcL AO Workflow SS Basophils/100 WBC (Bld) 0.3 % Normal 0.0 - 2.5 % AO Workflow SS Bilirubin [Mass/Vol] 1.6 mg/dL High 0.2 - 1 .0 mg/dL AO ADM SS Comment on above: Interpretive Data: U se of this assay is not recommended for patients undergoing treatment with eltrombopag due to the potential for falsely elevated results. Calcium [Mass/Vol] 9.7 mg/dL Normal 8.4 - 10. 2 mg/dL AO ADM SS Chloride [Moles/Vol] 106 mmol/L Normal 98 - 10 7 mmol/L AO ADM SS CO2 [Moles/Vol] 28 mmol/L Normal 23 - 31 mmol/L AO ADM SS Creatinine [Mass/Vol] 0.91 mg/dL Normal 0.67 - 1.17 mg/dL AO ADM SS Electrolyte Balance 6.0 mEq/L Normal 4.0 - 15 .0 mEq/L AO ADM SS Eosinophil, Absolute 0.1 103/mcL Normal 0.0 - 0 .7 10^3/mcL AO Workflow SS Eosinophils/100 WBC (Bld) 0.8 % Normal 0.0 - 6.0 % AO Workflow SS Erythrocyte distribution width (RBC) [Ratio] 13.5 % Normal 11.5 - 15.5 % AO Workflow SS Estimated Glomerular Filtration Rate 95 ml/min/1.73sqm Invalid Interpretation Code AO Chemistry S Comment on above: Interpretive Data: Stages of Chronic Kidney Disease (CKD) Stage Description eGFR(ml/min/1.73 sq.m.) CKD 1 Normal kidney function or >=90 normal kindney function with possible kidney damage (ex. Proteinuria) CKD 2 Kidney damage with mild loss 60-89 of kidney function CKD 3a Mild to moderate loss of kidney 45-59 function CKD 3b Moderate to severe loss of 30-44 of kindey function CKD 4 Severe loss of kidney function 15-29 CKD 5 Kidney failure <15 Note: (go live 2024) the eGFR calculation was updated to the 2020 CKD-EPI creatinine equation without a race factor to calculate the eGFR results. Globulin 4.3 G/dL Normal 2.7 - 4.4 G/dL AO ADM SS Glucose [Mass/Vol] 104 mg/dL Normal 80 - 115 mg/dL AO ADM SS Hematocrit (Bld) [Volume fraction] 47.4 % Normal 40.0 - 52.0 % AO Workflow SS Hemoglobin (Bld) [Mass/Vol] 16.0 G/dL Normal 13.0 - 17.5 G/dL AO Workflow SS Lipase [Catalytic activity/Vol] 212 U/L High 16 - 77 U/L AO ADM SS Lymphocytes (Bld) [#/Vol] 1.9 103/mcL Normal 0.9 - 4.3 10^3/mcL AO Workflow SS Lymphocytes/100 WBC (Bld) 15.0 % Low 20.0 - 40.0 % AO Workflow SS MCH (RBC) [Entitic mass] 28.5 pg Normal 27.0 - 33.0 pg AO Workflow SS MCHC 33.7 G/dL Normal 32.0 - 36.0 G/dL AO Workflow SS MCV (RBC) [Entitic vol] 84.6 fL Normal 81.0 - 100.0 fL AO Workflow SS Monocyte distribution width Auto (Bld) [Entitic vol] 16.72 1 Normal 0.00 - 20.00 AO Workflow SS Comment on above: Result Comment: For ED adult patients suspected of sepsis, MDW<=20.0 does not rule out sepsis or risk of sepsis Monocytes (Bld) [#/Vol] 1.4 103/mcL Normal 0.1 - 1.4 10^3/mcL AO Workflow SS Monocytes/100 WBC (Bld) 11.0 % Normal 2.0 - 13.0 % AO Workflow SS Neutrophils (Bld) [#/Vol] 9.0 103/mcL High 2.3 - 8.1 10^3/mcL AO Workflow SS Neutrophils/100 WBC (Bld) 72.9 % Normal 50.0 - 75.0 % AO Workflow SS Platelet mean volume (Bld) [Entitic vol] 6.7 fL Normal 6.4 - 10.5 fL AO Workflow SS Platelets (Bld) [#/Vol] 250 103/mcL Normal 150 - 450 10^3/mcL AO Workflow SS Potassium [Moles/Vol] 4.0 mmol/L Normal 3.5 - 5.1 mmol/L AO ADM SS Protein [Mass/Vol] 7.9 G/dL Normal 6.4 - 8.2 G/dL AO ADM SS RBC (Bld) [#/Vol] 5.60 106/mcL Normal 4.50 - 6.0 0 10^6/mcL AO Workflow SS Sodium [Moles/Vol] 140 mmol/L Normal 136 - 145 mmol/L AO ADM SS Troponin I.cardiac DL <= 0.01 ng/mL [Mass/Vol] ng/L Normal 0 - 76 ng/L AO ADM SS Comment on above: Interpretive Data: H igh Sensitive Troponin I Reference Ranges: Female: 0-51 ng/L Male: 0-76 ng/L Testing performed on [employer] using a homogeneous sandwich chemiluminescent immunoassay based on [employer] technology. Urea nitrogen [Mass/Vol] 16 mg/dL Normal 7 - 18 mg/dL AO ADM SS Urea nitrogen/Creatinine [Mass ratio] 18 ratio Normal 7 - 27 ratio AO ADM SS WBC (Bld) [#/Vol] 12.4 103/mcL High 4.5 - 10.8 10^3/mcL AO Workflow SS LABORATORYOrdered By: Bobbi Carey on 02-10-2025 Appearance (U) Clear (02/10/25 8:21 AM) Normal Clear AO Auto Urine SS Bilirubin Ql (U) Small *ABN* (02/10/25 8:21 AM) Invalid Interpretation Code Negative AO Auto Urine SS Color (U) Yellow (02/10/25 8:21 AM) Normal AO Auto Urine SS Glucose Test strip (U) [Mass/Vol] 100 mg/dL Invalid Interpretation Code Negative AO Auto Urine SS Hemoglobin Auto test strip (U) [Mass/Vol] Trace (02/10/25 8:21 AM) Normal Negative AO Auto Urine SS Ketones Ql (U) Trace mg/dL Invalid Interpretation Code Negative AO Auto Urine SS UA Leuk Est Negative (02/10/25 8:21 AM) Normal Negative AO Auto Urine SS UA Nitrite Negative (02/10/25 8:21 AM) Normal Negative AO Auto Urine SS UA pH 6.0 (02/10/25 8:21 AM) Normal 5.0 - 8.0 AO Auto Urine SS UA Protein Negative Normal Negative AO Auto Urine SS UA Spec Grav 1.025 (02/10/25 8:21 AM) Normal 1.015-1.025 AO Auto Urine SS UA Specimen Type Not Given (02/10/25 8:21 AM) Normal AO Auto Urine SS UA Urobilinogen 1.0 E.U./dL Normal 0.2-1.0 AO Auto Urine SS LIPon 02-10-2025 Lipase Level 212 U/L High 16-77 [facility] Comment on above: Performed By: #### C BC, LIP, ANEU, GFR, TROPHS, MDW, ADAUTUMN, CMP ####[facility] [place], [place] [address] [facility]2025 High Sensitivity Troponin I <4 Normal 0-76 [facility] Comment on above: Result Comment: High Sensitive Troponin I Reference Ranges: Female: 0-51 ng/L Male: 0-76 ng/L Testing performed on [employer] using a homogeneous sandwich chemiluminescent immunoassay based on [employer] technology. Performed By: #### C BC, LIP, ANEU, GFR, TROPHS, MDW, ADIFF, CMP ####[id number] [place], [place] [address] UAon 02-10-2025 Color (U) Yellow Normal [facility] Comment on above: Performed By: #### U A ####[place] [address] [place] [address] Glucose (U) [Mass/Vol] 100 mg/dL Abnormal Negative [facility] Comment on above: Performed By: #### U A ####[place] [address] [place] [address] Ketones Ql (U) Trace Abnormal Negative [facility] Comment on above: Performed By: #### U A ####[place] [address] [place] [address] UA Appear Clear Normal Clear [facility] Comment on above: Performed By: #### U A ####[id number] [place] [address] UA Bili Small Abnormal Negative [facility] Comment on above: Performed By: #### U A ####[id number] [place] [address] UA Blood Trace Normal Negative [facility] Comment on above: Performed By: #### U A ####[address] [place], [place] [address] UA Leuk Est Negative Normal Negative [facility] Comment on above: Performed By: #### U A ####[address] [place] [address] UA Nitrite Negative Normal Negative [facility] Comment on above: Performed By: #### U A ####[id number] [place] [address] UA pH 6.0 Normal 5.0 - 8.0 [facility] Comment on above: Performed By: #### U A ####[address] [place] [address] UA Protein Negative Normal Negative [facility] Comment on above: Performed By: #### U A ####[address] [place], [place] [address] UA Spec Grav 1.025 Normal 1.015-1.025 [facility] Comment on above: Performed By: #### U A ####[address] [place], [place] [address] UA Specimen Type Not Given Normal [facility] Comment on above: Performed By: #### U A ####[address] [place], [place] [address] UA Urobilinogen 1.0 E.U./dL Normal 0.2-1.0 [facility] Comment on above: Performed By: #### U A ####[place] [address] [address] .GFRon 09-12-2024 GFR Non- 89 ml/min/1.73sqm Normal [facility] Comment on above: Result Comment: GFR Population mean for , Non- Americans Ages 20-29 = 116 mL/min/1.73 sq.m. Ages 30-39 = 107 mL/min/1.73 sq.m. Ages 40-49 = 99 mL/min/1.73 sq.m. Ages 50-59 = 93 mL/min/1.73 sq.m. Ages 60-69 = 85 mL/min/1.73 sq.m. Ages 70+ = 75 mL/min/1.73 sq.m. Chronic Kidney Disease: Less than 60 mL/min/1.73 square meters End Stage Renal Disease: Less than 15 mL/min/1.73 square meters Performed By: #### A DIFF, ANEU, MG, CBC, GFR, CMP #### [place] [id number] [place], [place] [address] GFR 108 ml/min/1.73sqm Normal [facility] Comment on above: Result Comment: GFR Population mean for , Non- Americans Ages 20-29 = 116 mL/min/1.73 sq.m. Ages 30-39 = 107 mL/min/1.73 sq.m. Ages 40-49 = 99 mL/min/1.73 sq.m. Ages 50-59 = 93 mL/min/1.73 sq.m. Ages 60-69 = 85 mL/min/1.73 sq.m. Ages 70+ = 75 mL/min/1.73 sq.m. Chronic Kidney Disease: Less than 60 mL/min/1.73 square meters End Stage Renal Disease: Less than 15 mL/min/1.73 square meters Performed By: #### A DIFF, ANEU, MG, CBC, GFR, CMP #### [address] [address] CMPon 09-12-2024 Albumin Level 3.9 G/dL Normal 3.4-4.8 [facility] Comment on above: Performed By: #### A DIFF, ANEU, MG, CBC, GFR, CMP #### [address] [address] Albumin/Globulin [Mass ratio] 1.0 {ratio} Low 1.1-2.5 [facility] Comment on above: Performed By: #### A DIFF, ANEU, MG, CBC, GFR, CMP #### [address] [address] ALP [Catalytic activity/Vol] 92 U/L Normal 40-135 [facility] Comment on above: Performed By: #### A DIFF, ANEU, MG, CBC, GFR, CMP #### [address] [address] ALT [Catalytic activity/Vol] 24 U/L Normal 16-63 [facility] Comment on above: Performed By: #### A DIFF, ANEU, MG, CBC, GFR, CMP #### [address] [address] AST [Catalytic activity/Vol] 18 U/L Normal 10-40 [facility] Comment on above: Performed By: #### A DIFF, ANEU, MG, CBC, GFR, CMP #### [address] [address] Bili Total 0.7 mg/dL Normal 0.2-1.0 [facility] Comment on above: Result Comment: Use of this assay is not recommended for patients undergoing treatment with eltrombopag due to the potential for falsely elevated results. Performed By: #### A DIFF, ANEU, MG, CBC, GFR, CMP #### [place] [address] BUN/Creatinine Ratio 16 ratio Normal 7-27 [facility] Comment on above: Performed By: #### A DIFF, ANEU, MG, CBC, GFR, CMP #### [place] [address] Calcium [Mass/Vol] 9.4 mg/dL Normal 8.4-10.2 [facility] Comment on above: Performed By: #### A DIFF, ANEU, MG, CBC, GFR, CMP #### [place] [address] Chloride [Moles/Vol] 107 mmol/L Normal 98-107 [facility] Comment on above: Performed By: #### A DIFF, ANEU, MG, CBC, GFR, CMP #### [place] [address] CO2 [Moles/Vol] 28 mmol/L Normal 23-31 [facility] Comment on above: Performed By: #### A DIFF, ANEU, MG, CBC, GFR, CMP #### [place] [address] Creatinine [Mass/Vol] 0.87 mg/dL Normal 0.70-1.30 [facility] Comment on above: Result Comment: Test ing performed on Siemens Dimension EXL analyzer using a modified kinetic Jillian technique. Performed By: #### A DIFF, ANEU, MG, CBC, GFR, CMP #### [place] [address] Electrolyte Balance 7.0 mEq/L Normal 4.0-15.0 [facility] Comment on above: Performed By: #### A DIFF, ANEU, MG, CBC, GFR, CMP #### [place] [address] Globulin 3.8 G/dL Normal [facility] Comment on above: Performed By: #### A DIFF, ANEU, MG, CBC, GFR, CMP #### [address] [address] Glucose [Mass/Vol] 84 mg/dL Normal 80-115 [facility] Comment on above: Performed By: #### A DIFF, ANEU, MG, CBC, GFR, CMP #### [address] [address] Potassium [Moles/Vol] 4.8 mmol/L Normal 3.5-5.1 [facility] Comment on above: Performed By: #### A DIFF, ANEU, MG, CBC, GFR, CMP #### [place] [id number] Sodium [Moles/Vol] 142 mmol/L Normal 136-145 [facility] Comment on above: Performed By: #### A DIFF, ANEU, MG, CBC, GFR, CMP #### [address] [address] Total Protein 7.7 G/dL Normal 6.4-8.2 [facility] Comment on above: Performed By: #### A DIFF, ANEU, MG, CBC, GFR, CMP #### [address] [address] Urea nitrogen [Mass/Vol] 14 mg/dL Normal 7-18 [facility] Comment on above: Performed By: #### A DIFF, ANEU, MG, CBC, GFR, CMP #### [address] [address] LABORATORYOrdered By: SYSTEM SYSTEM on 09-12-2024 Albumin BCP dye [Mass/Vol] 3.9 G/dL Normal 3.4 - 4.8 G/dL AO ADM SS Albumin/Globulin [Mass ratio] 1.0 {ratio} Low 1.1 - 2.5 ratio AO ADM SS ALP [Catalytic activity/Vol] 92 U/L Normal 40 - 135 U/L AO ADM SS ALT With P-5'-P [Catalytic activity/Vol] 24 U/L Normal 16 - 63 U/L AO ADM SS AST With P-5'-P [Catalytic activity/Vol] 18 U/L Normal 10 - 40 U/L AO ADM SS Bilirubin [Mass/Vol] 0.7 mg/dL Normal 0.2 - 1 .0 mg/dL AO ADM SS Comment on above: Interpretive Data: U se of this assay is not recommended for patients undergoing treatment with eltrombopag due to the potential for falsely elevated results. Calcium [Mass/Vol] 9.4 mg/dL Normal 8.4 - 10. 2 mg/dL AO ADM SS Chloride [Moles/Vol] 107 mmol/L Normal 98 - 10 7 mmol/L AO ADM SS CO2 [Moles/Vol] 28 mmol/L Normal 23 - 31 mmol/L AO ADM SS Creatinine [Mass/Vol] 0.87 mg/dL Normal 0.70 - 1.30 mg/dL AO ADM SS Comment on above: Interpretive Data: T esting performed on Siem[employer] Dimension EXL analyzer using a modified kinetic Jillian technique. Electrolyte Balance 7.0 mEq/L Normal 4.0 - 15 .0 mEq/L AO ADM SS GFR/1.73 sq M.predicted among blacks MDRD (S/P/Bld) [Vol rate/Area] 108 ml/min/1.73sqm Invalid Interpretation Code AO Chemistry S Comment on above: Interpretive Data: GFR Population mean for , Non- Americans Ages 20-29 = 116 mL/min/1.73 sq.m. Ages 30-39 = 107 mL/min/1.73 sq.m. Ages 40-49 = 99 mL/min/1.73 sq.m. Ages 50-59 = 93 mL/min/1.73 sq.m. Ages 60-69 = 85 mL/min/1.73 sq.m. Ages 70+ = 75 mL/min/1.73 sq.m. Chronic Kidney Disease: Less than 60 mL/min/1.73 square meters End Stage Renal Disease: Less than 15 mL/min/1.73 square meters GFR/1.73 sq M.predicted among non-blacks MDRD (S/P/Bld) [Vol rate/Area] 89 ml/min/1.73sqm Invalid Interpretation Code AO Chemistry S Comment on above: Interpretive Data: GFR Population mean for , Non- Americans Ages 20-29 = 116 mL/min/1.73 sq.m. Ages 30-39 = 107 mL/min/1.73 sq.m. Ages 40-49 = 99 mL/min/1.73 sq.m. Ages 50-59 = 93 mL/min/1.73 sq.m. Ages 60-69 = 85 mL/min/1.73 sq.m. Ages 70+ = 75 mL/min/1.73 sq.m. Chronic Kidney Disease: Less than 60 mL/min/1.73 square meters End Stage Renal Disease: Less than 15 mL/min/1.73 square meters Globulin 3.8 G/dL Invalid Interpretation Code AO ADM SS Glucose [Mass/Vol] 84 mg/dL Normal 80 - 115 mg/dL AO ADM SS Potassium [Moles/Vol] 4.8 mmol/L Normal 3.5 - 5.1 mmol/L AO ADM SS Prostate specific Ag [Mass/Vol] 2.41 ng/mL Normal 0.00 - 4.00 ng/mL AO ADM SS Protein [Mass/Vol] 7.7 G/dL Normal 6.4 - 8.2 G/dL AO ADM SS Sodium [Moles/Vol] 142 mmol/L Normal 136 - 145 mmol/L AO ADM SS Urea nitrogen [Mass/Vol] 14 mg/dL Normal 7 - 18 mg/dL AO ADM SS Urea nitrogen/Creatinine [Mass ratio] 16 ratio Normal 7 - 27 ratio AO ADM SS LABORATORYOrdered By: Herrera Levin on 09-12-2024 Cholesterol [Mass/Vol] 174 mg/dL Normal 0 - 200 mg/dL AO ADM SS Comment on above: Interpretive Data: C holesterol Reference Interval: Less than 200 Desirable 200-239 Borderline high risk 240 and above High risk Cholesterol in HDL [Mass/Vol] 43 mg/dL Normal 40 - 60 mg/dL AO ADM SS Cholesterol in LDL [Mass/Vol] 105 mg/dL Normal 0 - 130 mg/dL AO ADM SS Triglyceride [Mass/Vol] 129 mg/dL Normal 0 - 150 mg/dL AO ADM SS Comment on above: Interpretive Data: T riglyceride Reference Interval: Less than 150 Normal 150-199 Borderline high risk 200-499 High risk 500 or higher Very high risk LIPIDon 09-12-2024 Cholesterol [Mass/Vol] 174 mg/dL Normal 0-200 [facility] Comment on above: Result Comment: Chol esterol Reference Interval: Less than 200 Desirable 200-239 Borderline high risk 240 and above High risk Performed By: #### A DIFF, ANEU, MG, CBC, GFR, CMP #### [place] [address] Cholesterol in HDL [Mass/Vol] 43 mg/dL Normal 40-60 [facility] Comment on above: Performed By: #### A DIFF, ANEU, MG, CBC, GFR, CMP #### [place] [address] Cholesterol in LDL [Mass/Vol] 105 mg/dL Normal 0-130 [facility] Comment on above: Performed By: #### A DIFF, ANEU, MG, CBC, GFR, CMP #### [place] [address] Triglyceride [Mass/Vol] 129 mg/dL Normal 0-150 [facility] Comment on above: Result Comment: Trig lyceride Reference Interval: Less than 150 Normal 150-199 Borderline high risk 200-499 High risk 500 or higher Very high risk Performed By: #### A DIFF, ANEU, MG, CBC, GFR, CMP #### [place] [address] PSAon 09-12-2024 Prostate Specific Antigen 2.41 ng/mL Normal 0.00-4.00 [facility] Comment on above: Performed By: #### A DIFF, ANEU, MG, CBC, GFR, CMP #### [place] [address] LABORATORYOrdered By: SYSTEM SYSTEM on 03-15-2023 Albumin BCP dye [Mass/Vol] 4.1 G/dL Invalid Interpretation Code 3.2 - 4.8 G/dL AH ADM SS Albumin/Globulin [Mass ratio] 1.2 {ratio} Invalid Interpretation Code 0.9 - 1.6 ratio AH ADM SS ALP [Catalytic activity/Vol] 99 U/L Invalid Interpretation Code 38 - 126 U/L AH ADM SS ALT No additional P-5'-P [Catalytic activity/Vol] 21 U/L Invalid Interpretation Code 12 - 55 U/L AH ADM SS AST [Catalytic activity/Vol] 20 U/L Invalid Interpretation Code 8 - 34 U/L AH ADM SS Basophils (Bld) [#/Vol] 0.1 103/mcL Invalid Interpretation Code 0.0 - 0.3 10^3/mcL AH Workflow SS Basophils/100 WBC (Bld) 0.5 % Invalid Interpretation Code 0.0 - 2.5 % AH Workflow SS Bilirubin [Mass/Vol] 0.80 mg/dL Invalid Interpretation Code 0.20 - 1.20 mg/dL AH ADM SS Comment on above: Interpretive Data: U se of this assay is not recommended for patients undergoing treatment with eltrombopag due to the potential for falsely elevated results. Calcium [Mass/Vol] 9.6 mg/dL Invalid Interpretation Code 8.7 - 10.4 mg/dL AH ADM SS Chloride [Moles/Vol] 107 mmol/L Invalid Interpretation Code 98 - 110 mEq/L AH ADM SS CO2 [Moles/Vol] 29 mmol/L Invalid Interpretation Code 22 - 32 mEq/L AH ADM SS Creatinine [Mass/Vol] 0.90 mg/dL Invalid Interpretation Code 0.60 - 1.40 mg/dL AH ADM SS Electrolyte Balance 3.0 mEq/L Invalid Interpretation Code 4.0 - 15.0 mEq/L AH ADM SS Eosinophils (Bld) [#/Vol] 0.1 103/mcL Invalid Interpretation Code 0.0 - 0.7 10^3/mcL AH Workflow SS Eosinophils/100 WBC (Bld) 0.7 % Invalid Interpretation Code 0.0 - 6.0 % AH Workflow SS Erythrocyte distribution width (RBC) [Ratio] 14.0 % Invalid Interpretation Code 11.5 - 15.5 % AH Workflow SS GFR/1.73 sq M.predicted among blacks MDRD (S/P/Bld) [Vol rate/Area] ml/min/1.73sqm Invalid Interpretation Code AH ADM SS Comment on above: Interpretive Data: GFR Population mean for , Non- Americans Ages 20-29 = 116 mL/min/1.73 sq.m. Ages 30-39 = 107 mL/min/1.73 sq.m. Ages 40-49 = 99 mL/min/1.73 sq.m. Ages 50-59 = 93 mL/min/1.73 sq.m. Ages 60-69 = 85 mL/min/1.73 sq.m. Ages 70+ = 75 mL/min/1.73 sq.m. Chronic Kidney Disease: Less than 60 mL/min/1.73 square meters End Stage Renal Disease: Less than 15 mL/min/1.73 square meters GFR/1.73 sq M.predicted among non-blacks MDRD (S/P/Bld) [Vol rate/Area] ml/min/1.73sqm Invalid Interpretation Code [facility] Comment on above: Interpretive Data: GFR Population mean for , Non- Americans Ages 20-29 = 116 mL/min/1.73 sq.m. Ages 30-39 = 107 mL/min/1.73 sq.m. Ages 40-49 = 99 mL/min/1.73 sq.m. Ages 50-59 = 93 mL/min/1.73 sq.m. Ages 60-69 = 85 mL/min/1.73 sq.m. Ages 70+ = 75 mL/min/1.73 sq.m. Chronic Kidney Disease: Less than 60 mL/min/1.73 square meters End Stage Renal Disease: Less than 15 mL/min/1.73 square meters Globulin 3.3 G/dL Invalid Interpretation Code 1.5 - 3.8 G/dL ADM Glucose [Mass/Vol] 90 mg/dL Invalid Interpretation Code 82 - 115 mg/dL [facility] Hematocrit (Bld) [Volume fraction] 48.1 % Invalid Interpretation Code 40.0 - 52.0 % Workflow SS Hemoglobin (Bld) [Mass/Vol] 16.2 G/dL Invalid Interpretation Code 13.0 - 17.5 G/dL Workflow SS Lipase [Catalytic activity/Vol] 51 U/L Invalid Interpretation Code 12 - 53 U/L [facility] Comment on above: Interpretive Data: * *Note - New Reference Range in effect 20 Lymphocytes (Bld) [#/Vol] 1.9 103/mcL Invalid Interpretation Code 0.9 - 4.3 10^3/mcL Workflow SS Lymphocytes/100 WBC (Bld) 17.1 % Invalid Interpretation Code 20.0 - 40.0 % Workflow SS MCH (RBC) [Entitic mass] 28.3 pg Invalid Interpretation Code 27.0 - 33.0 pg Workflow SS MCHC 33.8 G/dL Invalid Interpretation Code 32.0 - 36.0 G/dL AH Workflow SS MCV (RBC) [Entitic vol] 83.7 fL Invalid Interpretation Code 81.0 - 100.0 fL AH Workflow SS Monocyte distribution width Auto (Bld) [Entitic vol] 18.57 1 Invalid Interpretation Code 0.00 - 20.00 AH Workflow SS Comment on above: Result Comment: For ED adult patients suspected of sepsis, MDW<=20.0 does not rule out sepsis or risk of sepsis Monocytes (Bld) [#/Vol] 1.0 103/mcL Invalid Interpretation Code 0.1 - 1.4 10^3/mcL AH Workflow SS Monocytes/100 WBC (Bld) 9.4 % Invalid Interpretation Code 2.0 - 13.0 % AH Workflow SS Neutrophils (Bld) [#/Vol] 8.1 103/mcL Invalid Interpretation Code 2.3 - 8.1 10^3/mcL AH Workflow SS Neutrophils/100 WBC (Bld) 72.3 % Invalid Interpretation Code 50.0 - 75.0 % AH Workflow SS Platelet mean volume (Bld) [Entitic vol] 7.0 fL Invalid Interpretation Code 6.4 - 10.5 fL AH Workflow SS Platelets (Bld) [#/Vol] 241 103/mcL Invalid Interpretation Code 150 - 450 10^3/mcL AH Workflow SS Potassium [Moles/Vol] 4.1 mmol/L Invalid Interpretation Code 3.5 - 5.0 mEq/L AH ADM SS Protein [Mass/Vol] 7.4 G/dL Invalid Interpretation Code 5.7 - 8.2 G/dL AH ADM SS Comment on above: Interpretive Data: * *Note - New Reference Range in effect 20 RBC (Bld) [#/Vol] 5.74 106/mcL Invalid Interpretation Code 4.50 - 6.00 10^6/mcL AH Workflow SS Sodium [Moles/Vol] 139 mmol/L Invalid Interpretation Code 136 - 145 mEq/L AH ADM SS Urea nitrogen [Mass/Vol] 12.0 mg/dL Invalid Interpretation Code 8.0 - 22.0 mg/dL AH ADM SS Urea nitrogen/Creatinine [Mass ratio] 13.3 ratio Invalid Interpretation Code 10.0 - 22.0 ratio AH ADM SS WBC (Bld) [#/Vol] 11.1 103/mcL Invalid Interpretation Code 4.5 - 10.8 10^3/mcL AH Workflow SS LABORATORYOrdered By: Mayra Beckwith on 03-15-2023 Appearance (U) Clear (03/15/23 2:30 PM) Invalid Interpretation Code Clear AH Auto Urine SS Bilirubin Ql (U) Negative (03/15/23 2:30 PM) Invalid Interpretation Code Neg-Trace AH Auto Urine SS Color (U) Yellow (03/15/23 2:30 PM) Invalid Interpretation Code AH Auto Urine SS Glucose Test strip (U) [Mass/Vol] Negative Invalid Interpretation Code Negative AH Auto Urine SS Hemoglobin Auto test strip (U) [Mass/Vol] Negative (03/15/23 2:30 PM) Invalid Interpretation Code Neg-Trace AH Auto Urine SS Ketones Ql (U) Negative Invalid Interpretation Code Neg-Trace AH Auto Urine SS UA Leuk Est Negative (03/15/23 2:30 PM) Invalid Interpretation Code Negative AH Auto Urine SS UA Nitrite Negative (03/15/23 2:30 PM) Invalid Interpretation Code Negative AH Auto Urine SS UA pH 7.5 (03/15/23 2:30 PM) Invalid Interpretation Code 5.0 - 8.0 AH Auto Urine SS UA Protein Negative Invalid Interpretation Code Negative AH Auto Urine SS UA Spec Grav <=1.005 *ABN* (03/15/23 2:30 PM) Invalid Interpretation Code 1.006-1.029 AH Auto Urine SS UA Specimen Type Clean Catch (03/15/23 2:30 PM) Invalid Interpretation Code AH Auto Urine SS UA Urobilinogen 0.2 E.U./dL Invalid Interpretation Code 0.2-1.0 AH Auto Urine SS PROGRESSon 08-28-2019 PROGRESS HNO ID: [id number] Author: Quang Nguyen Service: ? Author Type: DISTRICT CAPTAIN Type: Progress Notes Filed: 08/28/2019 2:42 PM Note Text: ASSESSMENT/PLAN: 1. 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 I have seen and examined Wilfrid Aguiloln. I have discussed the examination findings, diagnosis, and treatment options with Wilfrid Aguillon and/or his family. I have also reviewed and agree with the assessment and plan as stated above and agree with all its relevant components. I gave the patient the opportunity to ask questions about the findings, diagnosis, and treatment options. Normal [facility] Vital Signs Date Time Vital Sign Value Performing Clinician Juan Francisco mitchell 03-15-2023 18:54-0400 Diastolic Blood Pressure Non-Invasive 64 1 CALVIN GILL MD [facility] 03-15-2023 18:54-0400 Heart rate 82 /min CALVIN GILL MD [facility] 03-15-2023 18:54-0400 Respiratory rate 16 /min CALVIN GILL MD [facility] 03-15-2023 18:54-0400 Systolic Blood Pressure Non-Invasive 162 1 CALVIN GILL MD [facility] 03-15-2023 18:03-0400 Diastolic Blood Pressure Non-Invasive 81 1 CALVIN GILL MD [facility] 03-15-2023 18:03-0400 Heart rate 91 /min CALVIN GILL MD [facility] 03-15-2023 18:03-0400 Respiratory rate 18 /min CALVIN GILL MD [facility] 03-15-2023 18:03-0400 Systolic Blood Pressure Non-Invasive 157 1 CALVIN GILL MD [facility] 03-15-2023 14:01-0400 Body temperature 98.6 [degF] CALVIN GILL MD [facility] 03-15-2023 14:01-0400 Body weight 90.2 kg CALVIN GILL MD [facility] 03-15-2023 14:01-0400 Diastolic Blood Pressure Non-Invasive 85 1 CALVIN GILL MD [place] [address]-28-2023 14:01-0400 Heart rate 76 /min CLAVIN GILL MD [facility] 03-15-2023 14:010400 Respiratory rate 20 /min CALVIN GILL MD [facility] 03-15-2023 14:010400 Systolic Blood Pressure Non-Invasive 175 1 CALVIN GILL MD [facility] Encounters Encounter Date Encounter Type Care Provider Facility Start: 05-21-2025 End: 05-21-2025 ambulatory NEDRA CASTRO [employer]STER [employer] Facility:[facility] Start: 05-21-2025 End: 05-21-2025 Patient encounter procedure NEDRA CASTRO [employer] [facility] Start: 05-21-2025 End: 05-21-2025 Well adult monitoring check done NEDRA CASTRO [employer] [facility] Start: 02-26-2025 End: 02-26-2025 ambulatory NEDRA CASTRO [employer] Facility:[facility] Start: 02-26-2025 End: 02-26-[address] BRENDA BRYANT MD [facility] Start: 02-11-2025 End: 02-13-2025 Evaluation and management of inpatient GIRMA JOHNSON MASTER [employer] [facility] Start: 02-10-2025 End: 02-10-2025 Emergency department patient visit KAISER SIMPSON DO [facility] Start: 09-12-2024 End: 09-12-2024 ambulatory NEDRA CASTRO [employer] Facility:[facility] Start: 09-12-2024 End: 09-12-2024 Patient encounter procedure NEDRA CASTRO [employer] [facility] Start: 03-15-2023 End: 03-15-2023 Emergency department patient visit CALVIN GILL MD [facility] Procedures Date Procedure Procedure Detail Performing Clinician Start: 02-26-[address] BRENDA BRYANT MD Amputation above-knee NEDRA TAMEZ [employer] Colonoscopy DR BRENDA LAST MD Payers Date Payer Category Payer Private Health Insurance [id number] 2024 Unknown [id number] 2024 Unknown [id number] 1960 Unknown [id number] 2.16. [id number] 1960 Unknown [id number] 2.16. [id number] 1961 Unknown [id number] 2.16. [id number] 1961 Unknown [id number] 2.16. [id number] 1961 Unknown [id number] [id number] Social History Date Type Detail Facility Start: 09-09-2024 Tobacco smoking status Never s moked tobacco (finding) [facility] Sexual Orientation [facility] Start: 09-27-2005 Sex Male (finding) [facility] Functional Status Date Assessment Result Facility 03-15-2023 Functional Status Awake, Resting [facility] Mental Status Date Assessment Result Facility 03-15-2023 Mental Status Oriented x 4 [facility] Clinical Notes 03-15-2023 to 02-26-2025 Note Date & Type Note Facility 02-26-2025 Evaluation + Plan note Extrac nahomi from: Title:Clinical Document Author:BRENDA BRYANT Date:02/26/25 ANDALUSIA ADMISSION HISTORY AN D PHYSICIAL CHIEF COMPLAINT: HISTORY OF PRESENT ILLNESS: REVIEW OF SYSTEMS: ACTIVE PROBLEMS: (8) Acute pancreatitis (517730547) BMI 28.0-28.9,adult (1072195711) Hypertension (3246128641) 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) Screening for colon cancer (434406556) Screening for hyperlipidemia (832605819) Screening for prostate cancer (084725809) Wellness examination (355858872) MEDICATIONS: Active Inpt Meds: None Active PRN Meds: None One Time Meds: None Active IV Meds: Lactated Ringers Infusion 1,000 mL (LR 1,000 mL) Start: 02/26/25 8:05:00 EDT, Rate: 50 mL/hr, 02/26/25 8:05:00 EDT ALLERGIES: (1) NKA FAMILY HISTORY: SOCIAL HISTORY: PHYSICAL EXAM: VITALS: UppnzfXeujSGVbmozLGVdN8NDW6GodcGy(kg) 02/26 08:1436.9--525568--41/11 81.8 02/26 08:10 RA 24 Hr Tmax: 36.9 at 02/26 08:14 36 Hr Tmax: 36.9 at 02/26 08:14 Vital Signs are the last 5 in the past 48 hours. Weights display the last 5 within 7 days. Initial Wt: 02/26 81.8 kg 180 lb Current Wt: 02/26 81.8 kg 180 lb GENERAL: HEENT: CARDIOVASCULAR: RESPIRATORY: ABDOMEN: EXREMETIES: NEUROLOGICAL: PSYCHIATRIC: LABS: No 36hr Lab Data DIAGNOSTICS: IMPRESSION: PLAN: History and Physical Update I have examined the patient; reviewed the H&P and there are no changes to the H&P unless noted below. Future Scheduled Tests Laboratory* Albumin/Creatinine Ratio, Random Urine 05/22/25 * Albumin/Creatinine Ratio, Random Urine 09/09/24 * Complete Metabolic Panel 05/22/25 [facility] 07-11-2025 Hospital Discharge instructions Patient Education 02/26/2025 09:42:20 Colonoscopy, Adult, Care After Colonoscopy, Adult, Care After This sheet gives you information about how to care for yourself after your procedure. Your health care provider may also give you more specific instructions. If you have problems or questions, contact your health care provider. What can I expect after the procedure? After the procedure, it is common to have: A small amount of blood in your stool for 24 hours after the procedure. Some gas. Mild abdominal cramping or bloating. Follow these instructions at home: General instructions For the first 24 hours after the procedure: ?Do not drive or use machinery. ?Do not sign important documents. ?Do not drink alcohol. ?Do your regular daily activities at a slower pace than normal. ?Eat soft, oncl-vz-aztymk foods. Take ehjm-ies-iedqykw or prescription medicines only as told by your health care provider. Relieving cramping and bloating Try walking around when you have cramps or feel bloated. Apply heat to your abdomen as told by your health care provider. Use a heat source that your healthcare provider recommends, such as a moist heat pack or a heating pad. ?Place a towel between your skin and the heat source. ?Leave the heat on for 20 30 minutes. ?Remove the heat if your skin turns bright red. This is especially important if you are unable to feel pain, heat, or cold. You may have a greater risk of getting burned. Eating and drinking Drink enough fluid to keep your urine pale yellow. Resume your normal diet as instructed by your health care provider. Avoid heavy or fried foods thatare hard to digest. Avoid drinking alcohol for as long as instructed by your health care provider. Contact a health care provider if: You have blood in your stool 2 3 days after the procedure. Get help right away if: You have more than a small spotting of blood in your stool. You pass large blood clots in your stool. Your abdomen is swollen. You have nausea or vomiting. You have a fever. You have increasing abdominal pain that is not relieved with medicine. Summary After the procedure, it is common to have a small amount of blood in your stool. You may also have mild abdominal cramping and bloating. For the first 24 hours after the procedure, do not drive or use machinery, sign important documents, or drink alcohol. Contact your health care provider if you have a lot of blood in your stool, nausea or vomiting, a fever, or increased abdominal pain. This information is not intended to replace advice given to you by your health care provider. Make sure you discuss any questions you have with your health care provider. Document Released: 03/19/2005 Document Revised: 05/28/2018 Document Reviewed: 10/16/2016 [employer] Patient Education 2020 [employer]. 02/26/2025 09:42:11 Monitored Anesthesia Care, Care After Monitored Anesthesia Care, Care After These instructions provide you with information about caring for yourself after your procedure. Your health care provider may also give you more specific instructions. Your treatment has been plannedaccording to current medical practices, but problems sometimes occur. Call your health care provider if you have any problems or questions after your procedure. What can I expect after the procedure? After your procedure, you may: Feel sleepy for several hours. Feel clumsy and have poor balance for several hours. Feel forgetful about what happened after the procedure. Have poor judgment for several hours. Feel nauseous or vomit. Have a sore throat if you had a breathing tube during the procedure. Follow these instructions at home: For at least 24 hours after the procedure: Have a responsible adult stay with you. It is important to have someone help care for you until youare awake and alert. Rest as needed. Do not: ?Participate in activities in which you could fall or become injured. ?Drive. ?Use heavy machinery. ?Drink alcohol. ?Take sleeping pills or medicines that cause drowsiness. ?Make important decisions or sign legal documents. ?Take care of children on your own. Eating and drinking Follow the diet that is recommended by your health care provider. If you vomit, drink water, juice, or soup when you can drink without vomiting. Make sure you have little or no nausea before eating solid foods. General instructions Take ghbo-ryk-zgckfrm and prescription medicines only as told by your health care provider. If you have sleep apnea, surgery and certain medicines can increase your risk for breathing problems. Follow instructions from your health care provider about wearing your sleep device: ?Anytime you are sleeping, including during daytime naps. ?While taking prescription pain medicines, sleeping medicines, or medicines that make you drowsy. If you smoke, do not smoke without supervision. Keep all follow-up visits as told by your health care provider. This is important. Contact a health care provider if: You keep feeling nauseous or you keep vomiting. You feel light-headed. You develop a rash. You have a fever. Get help right away if: You have trouble breathing. Summary For several hours after your procedure, you may feel sleepy and have poor judgment. Have a responsible adult stay with you for at least 24 hours or until you are awake and alert. This information is not intended to replace advice given to you by your health care provider. Make sure you discuss any questions you have with your health care provider. Document Released: 11/25/2016 Document Revised: 11/03/2018 Document Reviewed: 11/25/2016 [employer] Patient Education IPDIA Follow Up Care 01/29/2025 09:47:32 With:BRENDA BRYANT Address: [address] [facility] [address] [place] [phone] Business (1) When: Unknown Comments:OFFICE WILL CALL WITH BIOPSY RESULTS.NEXT COLONOSCOPY: YEARS [facility] 07-11-2025 Summary of episode note Discharge Instructions Thank you for allowing [facility] to assist you with your healthcare needs. The following is importantdischarge information regarding your hospital visit. Your Care Team NEDRA TAMEZ What to do next Follow Up Appointments Follow Up with BRENDA BRYANT Where:[address] [facility] [address] [place] [address] [phone] Business (1) Additional Information: OFFICE WILL CALL WITH BIOPSY RESULTS. NEXT COLONOSCOPY: YEARS The Following Activity and Diet Have Been Ordered for You Discharge Activity - Ordered -- NO activity restrictions, 02/26/25 9:38:00 EDT Discharge Diet - Ordered -- Follow the post-operative/post-procedure diet instructions provided by your physician's office.,02/26/25 9:38:00 EDT The Following Equipment Has Been Ordered for You Discharge Home Equipment Discharge Wound Care - Ordered -- Follow the post-operative/post-procedure wound care instructions provided by your physician's office., 02/26/25 9:38:00 EDT Allergies NKA Medications Please ask your primary doctor or pharmacist before taking any other medication not listed, including over the counter drugs, herbal medications, vitamins and or supplements as they may interact withyour home medications. What How Much When Instructions Last Dose Unchanged lisinopril (lisinopril 40 mg oral tablet) 1 tab(s) by mouth Once a day Duration: 90 Days Please take this list to your next doctor s visit. Bring all medications you take, including over the counter medications, herbals and other supplements with you to your doctor s visit. Patients and families are reminded to discard old lists and to update any records with all medication providers or retail pharmacies. Education Materials Colonoscopy, Adult, Care After This sheet gives you information about how to care for yourself after your procedure. Your health care provider may also give you more specific instructions. If you have problems or questions, contact your health care provider. What can I expect after the procedure? After the procedure, it is common to have: A small amount of blood in your stool for 24 hours after the procedure. Some gas. Mild abdominal cramping or bloating. Follow these instructions at home: General instructions For the first 24 hours after the procedure: ? Do not drive or use machinery. ? Do not sign important documents. ? Do not drink alcohol. ? Do your regular daily activities at a slower pace than normal. ? Eat soft, ydvl-iz-gfzkzf foods. Take jouv-twj-btsxchn or prescription medicines only as told by your health care provider. Relieving cramping and bloating Try walking around when you have cramps or feel bloated. Apply heat to your abdomen as told by your health care provider. Use a heat source that your healthcare provider recommends, such as a moist heat pack or a heating pad. ? Place a towel between your skin and the heat source. ? Leave the heat on for 20 30 minutes. ? Remove the heat if your skin turns bright red. This is especially important if you are unable to feel pain, heat, or cold. You may have a greater risk of getting burned. Eating and drinking Drink enough fluid to keep your urine pale yellow. Resume your normal diet as instructed by your health care provider. Avoid heavy or fried foods thatare hard to digest. Avoid drinking alcohol for as long as instructed by your health care provider. Contact a health care provider if: You have blood in your stool 2 3 days after the procedure. Get help right away if: You have more than a small spotting of blood in your stool. You pass large blood clots in your stool. Your abdomen is swollen. You have nausea or vomiting. You have a fever. You have increasing abdominal pain that is not relieved with medicine. Summary After the procedure, it is common to have a small amount of blood in your stool. You may also have mild abdominal cramping and bloating. For the first 24 hours after the procedure, do not drive or use machinery, sign important documents, or drink alcohol. Contact your health care provider if you have a lot of blood in your stool, nausea or vomiting, a fever, or increased abdominal pain. This information is not intended to replace advice given to you by your health care provider. Make sure you discuss any questions you have with your health care provider. Document Released: 03/19/2005 Document Revised: 05/28/2018 Document Reviewed: 10/16/2016 [employer] Patient Education 2020 [employer]. Monitored Anesthesia Care, Care After These instructions provide you with information about caring for yourself after your procedure. Your health care provider may also give you more specific instructions. Your treatment has been plannedaccording to current medical practices, but problems sometimes occur. Call your health care provider if you have any problems or questions after your procedure. What can I expect after the procedure? After your procedure, you may: Feel sleepy for several hours. Feel clumsy and have poor balance for several hours. Feel forgetful about what happened after the procedure. Have poor judgment for several hours. Feel nauseous or vomit. Have a sore throat if you had a breathing tube during the procedure. Follow these instructions at home: For at least 24 hours after the procedure: Have a responsible adult stay with you. It is important to have someone help care for you until youare awake and alert. Rest as needed. Do not: ? Participate in activities in which you could fall or become injured. ? Drive. ? Use heavy machinery. ? Drink alcohol. ? Take sleeping pills or medicines that cause drowsiness. ? Make important decisions or sign legal documents. ? Take care of children on your own. Eating and drinking Follow the diet that is recommended by your health care provider. If you vomit, drink water, juice, or soup when you can drink without vomiting. Make sure you have little or no nausea before eating solid foods. General instructions Take rnak-nno-mlfxebw and prescription medicines only as told by your health care provider. If you have sleep apnea, surgery and certain medicines can increase your risk for breathing problems. Follow instructions from your health care provider about wearing your sleep device: ? Anytime you are sleeping, including during daytime naps. ? While taking prescription pain medicines, sleeping medicines, or medicines that make you drowsy. If you smoke, do not smoke without supervision. Keep all follow-up visits as told by your health care provider. This is important. Contact a health care provider if: You keep feeling nauseous or you keep vomiting. You feel light-headed. You develop a rash. You have a fever. Get help right away if: You have trouble breathing. Summary For several hours after your procedure, you may feel sleepy and have poor judgment. Have a responsible adult stay with you for at least 24 hours or until you are awake and alert. This information is not intended to replace advice given to you by your health care provider. Make sure you discuss any questions you have with your health care provider. Document Released: 11/25/2016 Document Revised: 11/03/2018 Document Reviewed: 11/25/2016 [employer] Patient Education 2020 [employer] Additional Information VACCINATE! IT SAVES LIVES! Members of the community who have not yet received the COVID-19 vaccine and would like to receive it can visit one of [facility] vaccine clinics. There are many vaccine clinic locations within the [facility]. For locations and available times, please visit [email or web address].[email or web address].gov/. It is important to note that some COVID mobile vaccine clinics are held outdoors and may be canceled in rainy or stormy conditions. To learn more about pediatric vaccinations (ages 5-11), we invite you to visit the [facility] webpage. [email or web address].[email or web address]/pages/[email or web address]-[email or web address]-[email or web address] stions.htmlTo learn more about the COVID-19 vaccine, we invite you to visit the CDC website for a list of frequently asked questions.https://www.cdc.gov/coronavirus/2019-ncov/vaccines/faq.html [facility] Patient Portal Access Instructions: Stay connected with your healthcare team and access your personal medical information anytime with the [facility] Patient Portal. Please follow the directions below to create your [facility] account: 1.Access the email account you provided upon registration to the hospital/physician office.2.Look for an invitation email from [facility] [facility].3.Open the email and access the invitation link: AcceptInvitation to [facility].4.Fill in the required burciaga to create your account. To access your account, visit [email or web address]. Click the blue button labeled Access Patient Portal and then log in with the username and password that you created in the steps above. You will be able to view your test results, lab results, a summary of your visits, upcoming appointments and more. There is also a convenient messaging option where you can send secure messages to your p rovider. In addition, you will have the ability to download any documents or summaries to your computer and/or send the information securely to a physician. Remember that your healthcare information is confidential, so carefully consider who you will allowto register on the [facility] Patient Portal for access to your information. You can also access the [facility] Patient Portal on the [facility] tessa. Simply click on Patient Portal and then log into your account. If you would like to receive a full copy of your medical records, please contact the [facility] Medical Records Department by calling [phone], Saturday through Saturday between 8 a.m. and 4:30 p.m. HOW TO SAFELY DISPOSE OF PRESCRIPTION MEDICATIONS Please use one of the following methods to safely dispose of your unused medications. 1.Use a drug disposal kit: the drug disposal pouch allows you to safely discard your old and unuseddrugs. Ask your nurse to give you one when you are discharged.2.Visit a local take-back location: Many local pharmacies and police departments have programs that collect old and unwanted prescriptiondrugs. Call your local pharmacy or go to http://bit.ly/8U1Ba6q to find one close to you.3.Make use of household items: Use cat litter or old coffee grounds to dispose medications if other options arenot available. Mix your drugs with these household products, seal them in an airtight container andthrow it into the garbage. Call [facility]: [phone] to be sure your drugs can be disposed of in this way. Some medicines may require a different approach.4.Never flush your medications down the toilet. IF YOU HAVE BEEN PRESCRIBED AN OPIOID FOR PAIN If you have been prescribed an opioid (such as hydrocodone, oxycodone or morphine), it is critical to understand the possible side effects and risks of opioid pain medications. Even when taken as directed, opioids can have several side effects including: Tolerance, meaning you might need to take more of a medication for the same pain relief. Nausea, vomiting and/or constipation. Sleepiness, dizziness, dry mouth, confusion, depression or itching. Physical dependence, meaning you have withdrawal symptoms when a medication is stopped, can develop within a few days. KNOW YOUR RESPONSIBILITIES It is important to know exactly how much and how often to take the opioid pain medications you are prescribed. Never take opioids in higher amounts or more often than prescribed. Do not combine opioids with alcohol or other drugs that cause drowsiness, such as benzodiazepines, also known as benzos, including diazepam and alprazolam, muscle relaxants or sleep aids. Never sell or share prescription opioids. This is illegal. Store opioids in a secure place and out of reach of others (including children, family, friends and visitors). The last page of this document has been signed and retained as a CHART COPY. Signatures Patient Education Materials Colonoscopy, Adult, Care After Monitored Anesthesia Care, Care After Medication Leaflets My discharge plan and instructions have been reviewed and explained to me and IHENNA DENNIS Lunderstand my current condition and have read and understand these discharge instructions. I have received a written copy of the plan/instructions. If I have questions, I am aware that I should contact my doctor. 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 Scope was passed into the rectum and advanced up to the left colon but there was diverticulosis noted. The colonoscope was advanced to the cecum where the base of the cecum was photographed. There was a small 2 mm polyp at the base of the cecum this was removed with cold biopsy forcep. Appendiceal orifice was noted. Back up the right colon the mucosa was normal across the transverse colon the mucosa remained normal. Below the splenic flexure there were no large polyps seen there was diverticulosis of myochosis. Retroflexion performed in the rectum revealed internal hemorrhoids the colon was decompressed the patient tolerated the procedure well. Post-Procedure Exam Anoscopy with biopsy Findings 2 mm polyp at the cecum Complications None apparent Total Time Approximately 25 minutes Assessment/Plan Orders: Lactated Ringers Infusion 1,000 mL(LR 1,000 mL), 1000 mL, Intravenous Bedrest, 02/26/25 9:38:00 EDT, Strict, continuous, Constant order, Lying on side until alert or as ordered Bedrest, 02/26/25 9:38:00 EDT, Strict, continuous, Constant order, Lying on side until alert or as ordered Call Parameters, 02/26/25 9:38:00 EDT, Notify for vomiting, severe pain, signs of bleeding, severe abdominal pain, distention or rigidity, Constant order Communication Order (scheduled), 02/26/25 8:05:00 EDT, Once, 02/26/25 8:05:00 EDT, Pathology TissueRequest Communication Order (scheduled), 02/26/25 8:05:00 EDT, Once, 02/26/25 8:05:00 EDT, Urine Test or waiver for women of child bearing age Communication Order (scheduled), 02/26/25 8:05:00 EDT, Once, 02/26/25 8:05:00 EDT, Fasting Blood Sugar priot to procedure of patient is diabetic Diet Order, 02/26/25 9:38:00 EDT, Start Meal: Next meal, Clear Liquid Diet, Post exam or after gag reflex returns if EGD, Constant Order, : N/A, : N/A Discharge, 02/26/25 8:05:00 EDT, Discharged to: Home, when able to ambulate and after being seen byphysician Discharge Activity, NO activity restrictions, 02/26/25 9:38:00 EDT Discharge Diet, Follow the post-operative/post-procedure diet instructions provided by your physician's office., 02/26/25 9:38:00 EDT Discharge Wound Care, Follow the post-operative/post-procedure wound care instructions provided by your physician's office., 02/26/25 9:38:00 EDT Pathology Tissue Request, 02/26/25 9:31:00 EDT, Collected, Routine, Nurse Collect, AP Specimen, TISSUE, SEE CHART, COLONOSCOPY, SCREENING, SCREENING, Preferred Lab: [facility], [id number] Post Procedure Assessment, 02/26/25 9:38:00 EDT, Stop Date 02/26/25 9:38:00 EDT, [facility] in [facility] Recovery Room until Reji Score of 12 or Preprocedure Sign Consent, 02/26/25 8:05:00 EDT, Once, For Colonoscopy Vital Signs, 02/26/25 9:38:00 EDT, q15min, 1 hour(s), 02/26/25 10:30:00 EDT Vital Signs, 02/26/25 9:38:00 EDT, q30min, 1 hour(s), 02/26/25 10:30:00 EDT Vital Signs PRN, 02/26/25 9:38:00 EDT, PRN order Follow Up/Recommendation Follow-up the pathology repeat a colonoscopy in 7 years Digitally Signed by BRENDA BRYANT MD on 02/26/2025 09:41 AM [facility]07-11-2025 Anesthesiology Consult note Patient: WILFRID AGUILLON Age: 64 years Sex: Male : 1960 Associated Diagnoses: None 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 Family's history: negative. Review of Systems Ear/Nose/Mouth/Throat: Negative. Respiratory: Negative. Cardiovascular: htn. Gastrointestinal: Negative. Genitourinary: Negative. Endocrine: Negative. Musculoskeletal: Negative. Integumentary: Negative. Neurologic: Negative. 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 BMI 28.0-28.9,adult / SNOMED CT 9379246870 / Confirmed Screening for hyperlipidemia / SNOMED CT 891604204 / Confirmed Screening for prostate cancer / SNOMED CT 629920561 / Confirmed Wellness examination / SNOMED CT 298833126 / Confirmed Screening for colon cancer / SNOMED CT 447595739 / Confirmed, Active Problems (8) Acute pancreatitis BMI 28.0-28.9,adult Hypertension Neoplasm of face Screening for colon cancer Screening for hyperlipidemia Screening for prostate cancer Wellness examination Histories Past Medical History: No active or resolved past medical history items have been selected or recorded. Family History: Heart disease Father Diabetes mellitus type 2 Father Procedure history: Amputation of leg above knee (468192462). Colonoscopy (785742245). Social History: Social & Psychosocial Habits Alcohol 02/17/2025 Use: Never Tobacco 02/17/2025 Tobacco Use: Never (less than 100 in l Nutrition/Health 02/17/2025 Caffeine intake amount: coffee 1-3 servings daily Physical Examination Vital Signs 02/26/2025 8:14 EDT Temperature Temporal Artery 36.9 DegC Peripheral Pulse Rate 57 bpm LOW Respiratory Rate 13 br/min LOW Systolic Blood Pressure Non-Invasive 131 mmHg Diastolic Blood Pressure Non-Invasive 89 mmHg Vital Signs (last 24 hrs) Last Charted Temp Bniuhskt79.9 DegC (FEB 26 08:14) GON476 mmHg (FEB 26 08:14) DBP89 mmHg (FEB 26 08:14) BMI25.82 (FEB 26 08:05) Measurements from flowsheet : Measurements 02/26/2025 8:05 EDT Height 178 cm Admission Weight 81.8 kg Weight Method Stated [place] Body Weight 73.18 kg BSA Admission 2 Body Mass Index 25.82 kg/m2 Pain assessment: Pain Assessment 02/26/2025 8:10 EDT Primary Pain Intensity 0 Pain Scale Type 0-10 Pain scale . General: Alert and oriented. Airway: Normal temporomandibular joint mobility. Mallampati classification: II (soft palate, fauces, uvula visible). Head: Normocephalic. Dentition Evaluation: Own teeth. Neck: Supple. Respiratory: Lungs are clear to auscultation. Cardiovascular: Normal rate. Heart Sounds: Normal. Gastrointestinal: Soft. Musculoskeletal Normal range of motion. Integumentary: Intact. Neurologic: Alert, Oriented. Review / Management Results review: No qualifying data available , Lab results 02/26/2025 9:13 EDT SN - Proc - Anesthesia Type MAC SN - Proc - EBL 0 mL SN - Proc - Actual Procedure COLONOSCOPY 02/26/2025 9:11 EDT SN - PP - Body Position Lateral Right Side-up Standard Intra-op 02/26/2025 9:11 EDT SN - GCD - Post-operative Diagnosis SCREENING SN - GCD - Case Level OPD Level 3 02/26/2025 9:11 EDT SN - CAt - Case Attendee SN - CAt - Case Attendee SN - CAt - Case Attendee SN - CAt - Case Attendee SN - CAt - Case Attendee SN - CAt - Case Attendee SN - CAt - Case Attendee SN - CAt - Case Attendee SN - CAt - Role Performed Primary Surgeon SN - CAt - Role Performed Seam Finisher 1 SN - CAt - Role Performed Milk Collector SN - CAt - Role Performed GAS AND OIL CHECKER 02/26/2025 8:49 EDT [place] History and Physical 02/26/2025 8:21 EDT Continuous IV Infusions LR Hand Right 02/26/2025 22 gauge Peripheral IV Activity: Insert new site Peripheral IV Dressing Condition: Clean, Dry, Intact Peripheral IV Dressing Activity: Applied, Transparent dressing Peripheral IV Line Status/Patency: Continuous infusion Peripheral IV Line Care: Secured with tape Peripheral IV Site Condition: No complications Peripheral IV Equipment: Extension set Peripheral IV Number of Attempts: 1 Lactated Ringers Injection Begin Bag 1,000 mL mL 02/26/2025 8:14 EDT Temperature Temporal Artery 36.9 DegC Peripheral Pulse Rate 57 bpm LOW Respiratory Rate 13 br/min LOW Systolic Blood Pressure Non-Invasive 131 mmHg Diastolic Blood Pressure Non-Invasive 89 mmHg Monitor Alarms On and Limits Checked Heart Rhythm Regular Oxygen Saturation 98 % 02/26/2025 8:13 EDT Anesthesia Consent Signed Yes 02/26/2025 8:10 EDT Primary Pain Intensity 0 Pain Scale Type 0-10 Pain scale Respirations Unlabored Oxygen Therapy Room air Abdomen Description Non-distended, Soft Urinary Elimination Voiding, no difficulties Skin Description Beggs, Dry Skin Temperature Warm Skin Integrity Intact Neurological Symptoms Patient denies Extremity Movement Equal Characteristics of Speech Clear Level of Consciousness Alert Left Upper Extremity Strength Strong Right Upper Extremity Strength Strong Right Lower Extremity Strength Strong Tone All Extremities Normal Left Upper Extremity Sensation Intact Right Upper Extremity Sensation Intact Right Lower Extremity Sensation Intact Affect/Behavior Appropriate, Calm, Cooperative Orientation Oriented x 4 Activity Status ADL Awake Standard Safety ID band on, Call device within reach, Bed in low position, Wheels locked, Upper/Half-Length side-rails up 02/26/2025 8:07 EDT Allergies No Anesthesia Extension Set Applied Yes Consent Form Signed Yes Patient Dressed In Hospital gown Pre-op Preparation Artificial limb removed History & Physical On Chart Yes Bowel Prep Completed Yes Belongings At Bedside Artificial limb, Pants, Shirt, Shoes, Socks, Undergarments NPO Status Maintained, More than 8 hours Patient ID Band on and Verified Yes Implants Verified Yes Pacemaker/AICD Verified Yes Site Verified by Patient/Family Yes Last Fluid Intake 02/26/2025 6:00 Last Food Intake 02/25/2025 6:00 Last Void 02/26/2025 7:30 02/26/2025 8:05 EDT Designated Person #1 We May Share PHI Designated Person #1 We May Share [facility] Designated Person #1 Relationship Spouse Height 178 cm Admission Weight 81.8 kg Weight Method Stated [place] Body Weight 73.18 kg BSA Admission 2 Body Mass Index 25.82 kg/m2 Status N/A Sensory Deficits None Advanced Directives No - refuses information Infectious Disease Symptoms Patient states no symptoms Infectious Disease Recent Exposure No Alcohol and Drug Use No Employee of Institutional Living No Health Care Employee No History of Exposure to TB No History of Positive Chest X-Ray for TB No History of Positive TB Skin Test No Homeless No Known Immunosuppression No Recent Immigrant No Resident of Institutional Living No Bloody Sputum No Fatigue No Fever No Loss of Appetite No Night Sweats No Persistent Cough > 3 Weeks No Weight Loss No Individuals Taught Patient, Spouse Learning Readiness Willing to learn Barriers to Learning None evident Teaching Method Explanation, Printed materials Preferred Spoken Language Norwegian Preferred Written Language Norwegian Pre Procedure/Surgery Education Appropriate expectations Procedure/Surgical Teaching Evaluation Verbalizes/Nonverbally indicates understanding Patient's Current Physicians PCP - Nedra Castro Discharge To, Anticipated Home independently Prev Test Positive/Diagnosis w/COVID-19 No Current Quarantine/Isolated any Illness No Any Contact with Sick Animals/Birds No Traveled Anywhere in Last 30 Days No Lost Weight Unintentionally Recently No Eat Poorly Due to Decreased Appetite No Total MST Score 0 N/A Personal Devices, Patient Valuables Artificial limb Admission Note-Nursing Procedure/Therapy Intake . Assessment and Plan [place] [employer] Anesthesiologists (ASA) physical status classification: Class II. Anesthetic Preoperative Plan Anesthetic technique: Epidural. Postoperative pain management: Per surgeon. Informed consent: signed by patient. 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) Screening for colon cancer (968945965) Screening for hyperlipidemia (853667810) Screening for prostate cancer (122524162) Wellness examination (829013571) MEDICATIONS: Active Inpt Meds: None Active PRN Meds: None One Time Meds: None Active IV Meds: Lactated Ringers Infusion 1,000 mL (LR 1,000 mL) Start: 02/26/25 8:05:00 EDT, Rate: 50 mL/hr, 02/26/25 8:05:00 EDT ALLERGIES: (1) NKA FAMILY HISTORY: SOCIAL HISTORY: PHYSICAL EXAM: VITALS: EdwqynStwlLJQvjxvPNVwT6LFN9EvycZh(kg) 02/26 08:1436.9--092640--42/11 81.8 02/26 08:10 RA 24 Hr Tmax: 36.9 at 02/26 08:14 36 Hr Tmax: 36.9 at 02/26 08:14 Vital Signs are the last 5 in the past 48 hours. Weights display the last 5 within 7 days. Initial Wt: 02/26 81.8 kg 180 lb Current Wt: 02/26 81.8 kg 180 lb GENERAL: HEENT: CARDIOVASCULAR: RESPIRATORY: ABDOMEN: EXREMETIES: NEUROLOGICAL: PSYCHIATRIC: LABS: No 36hr Lab Data DIAGNOSTICS: IMPRESSION: PLAN: History and Physical Update I have examined the patient; reviewed the H&P and there are no changes to the H&P unless noted below. Digitally Signed by BRENDA BRYANT MD on 02/26/2025 08:50 AM [facility]06-28-2025 Hospital Discharge instructions Patient Education 02/13/2025 14:00:02 Acute Pancreatitis, Itpq-jq-Eovq Acute Pancreatitis Acute pancreatitis happens when the pancreas gets swollen. The pancreas is a large gland in the body that helps to control blood sugar. It also makes enzymes that help to digest food. This condition can last a few days and cause serious problems. The lungs, heart, and kidneys may stop working. What are the causes? Causes include: Alcohol abuse. Drug abuse. Gallstones. A tumor in the pancreas. Other causes include: Some medicines. Some chemicals. Diabetes. An infection. Damage caused by an accident. The poison (venom) from a scorpion bite. Belly (abdominal) surgery. The body's defense system (immune system) attacking the pancreas (autoimmune pancreatitis). Genes that are passed from parent to child (inherited). In some cases, the cause is not known. What are the signs or symptoms? Pain in the upper belly that may be felt in the back. The pain may be very bad. Swelling of the belly. Feeling sick to your stomach (nauseous) and throwing up (vomiting). Fever. How is this treated? You will likely have to stay in the hospital. Treatment may include: Pain medicine. Fluid through an IV tube. Placing a tube in the stomach to take out the stomach contents. This may help you stop throwing up. Not eating for 3 4 days. Antibiotic medicines, if you have an infection. Treating any other problems that may be the cause. Steroid medicines, if your problem is caused by your defense system attacking your body's own tissues. Surgery. Follow these instructions at home: Eating and drinking Follow instructions from your doctor about what to eat and drink. Eat foods that do not have a lot of fat in them. Eat small meals often. Do not eat big meals. Drink enough fluid to keep your pee (urine) pale yellow. Do not drink alcohol if it caused your condition. Medicines Take vqij-ubn-wdlzkch and prescription medicines only as told by your doctor. Ask your doctor if the medicine prescribed to you: ?Requires you to avoid driving or using heavy machinery. ?Can cause trouble pooping (constipation). You may need to take steps to prevent or treat trouble pooping: ?Take kndq-rlh-ohwrfmn or prescription medicines. ?Eat foods that are high in fiber. These include beans, whole grains, and fresh fruits and vegetables. ?Limit foods that are high in fat and sugar. These include fried or sweet foods. General instructions Do not use any products that contain nicotine or tobacco, such as cigarettes, e- cigarettes, and chewing tobacco. If you need help quitting, ask your doctor. Get plenty of rest. Check your blood sugar at home as told by your doctor. Keep all follow-up visits as told by your doctor. This is important. Contact a doctor if: You do not get better as quickly as expected. You have new symptoms. Your symptoms get worse. You have pain or weakness that lasts a long time. You keep feeling sick to your stomach. You get better and then you have pain again. You have a fever. Get help right away if: You cannot eat or keep fluids down. Your pain gets very bad. Your skin or the white part of your eyes turns yellow. You have sudden swelling in your belly. You throw up. You feel dizzy or you pass out (faint). Your blood sugar is high (over 300 mg/dL). Summary Acute pancreatitis happens when the pancreas gets swollen. This condition is often caused by alcohol abuse, drug abuse, or gallstones. You will likely have to stay in the hospital for treatment. This information is not intended to replace advice given to you by your health care provider. Make sure you discuss any questions you have with your health care provider. Document Released: 01/21/2009 Document Revised: 05/25/2019 Document Reviewed: 05/25/2019 [employer] Patient Education 2020 [employer]. Follow Up Care 02/11/2025 00:41:41 With:NEDRA TAMEZ APRN-CLOCK ASSEMBLER Address: [address] [facility] [place] [phone] When:2-4 days Comments:Please call to schedule your post-hospital appointment. [facility] 06-28-2025 Summary of episode note Discharge Instructions Thank you for allowing [facility] to assist you with your healthcare needs. The following is importantdischarge information regarding your hospital visit. Your Care Team Jo-Ann Garcia APRN Your Diagnosis Abdominal pain Hyperbilirubinemia Hypertension Pancreatitis What to do next Instructions From Your Doctor You were admitted due to acute pancreatitis of unknown etiology. We checked a lipid panel and your triglyceride level was within normal ranges. We did an abdominal ultrasound and it showed a normal gallbladder with no evidence of gallstones or common bile duct dilatation. It did show mild steatosisof the liver. Sometimes pancreatitis can be caused by an autoimmune response. Being this is your first and only episode of pancreatitis, we did not check for that. If you have recurrent episodes of pancreatitis, that is something that will need to be ruled out. Sometimes medications can cause pancreatitis but it appears that you are only on one antihypertensive. We recommend that you continue a l iquid or soft diet. Eat small, more frequent meals until you are feeling better. We will send you home on a short course of Percocet for pain. As we discussed, we recommend that you only take the Percocet if your pain is starting to creep up - such as 3-4/10. You can also take ibuprofen or naproxenfor break through pain. As your pancreas heals, you should no longer need any medication for pain. It does take time though. Most patients state that they have a soreness in the epigastric region for a few days after an episode of pancreatitis. Please avoid any alcohol use as that could make the pancreatitis worse and increase your pain. You stated that you have oral zofran at home. You can take that as needed for nausea. Please follow-up with your PCP in the next week for post-hospitalization follow-up. If you have any new or worsening symptoms, please call your PCPs office or return to the ED. Scheduled Follow-Up Appointments Appointment Type When Where Contact Information StatusSurgery 02/26/2025 09:00 AM EDT [facility] [phone] Confirmed Follow Up Appointments Follow Up with NEDRA TAMEZ When:Within 2-4 days Where:[address] [place] [address] [phone] Additional Information: Please call to schedule your post-hospital appointment. The Following Activity and Diet Have Been Ordered for You Discharge Activity - Ordered -- Resume your pre-hospitalization activity, 02/13/25 14:18:00 EDT Discharge Diet - Ordered -- No changes were made to your diet during your hospital stay. Please resume your pre hospitalization diet on discharge., 02/13/25 14:18:00 EDT Someone Will Contact You Regarding These Home Health Referrals No home referrals have been ordered for you. No one will call you. Allergies NKA Medications Please ask your primary doctor or pharmacist before taking any other medication not listed, including over the counter drugs, herbal medications, vitamins and or supplements as they may interact withyour home medications. What How Much When Why Instructions Last Dose New acetaminophen-oxyCODONE (acetaminophen-oxyCODONE 325 mg-5 mg oral tablet) 1 tab(s) by mouth Every 6 hours as needed for Pain, scale 4-10 Pancreatitis Duration: 3 Days Pickup at [facility]/pharmacy #[id number] 02/13 Unchanged lisinopril (lisinopril 40 mg oral tablet) 1 tab(s) by mouth Once a day Duration: 90 Days 02/13 Unchanged ondansetron (ondansetron 4 mg oral tablet, disintegrating) 1 tab(s) by mouth Every 6 hours as needed for Nausea/Vomiting Pharmacy Information [facility]/pharmacy #[id number]: [address], [place] [id number] [phone] Please take this list to your next doctor s visit. Bring all medications you take, including over the counter medications, herbals and other supplements with you to your doctor s visit. Patients and families are reminded to discard old lists and to update any records with all medication providers or retail pharmacies. Education Materials Acute Pancreatitis Acute pancreatitis happens when the pancreas gets swollen. The pancreas is a large gland in the body that helps to control blood sugar. It also makes enzymes that help to digest food. This condition can last a few days and cause serious problems. The lungs, heart, and kidneys may stop working. What are the causes? Causes include: Alcohol abuse. Drug abuse. Gallstones. A tumor in the pancreas. Other causes include: Some medicines. Some chemicals. Diabetes. An infection. Damage caused by an accident. The poison (venom) from a scorpion bite. Belly (abdominal) surgery. The body's defense system (immune system) attacking the pancreas (autoimmune pancreatitis). Genes that are passed from parent to child (inherited). In some cases, the cause is not known. What are the signs or symptoms? Pain in the upper belly that may be felt in the back. The pain may be very bad. Swelling of the belly. Feeling sick to your stomach (nauseous) and throwing up (vomiting). Fever. How is this treated? You will likely have to stay in the hospital. Treatment may include: Pain medicine. Fluid through an IV tube. Placing a tube in the stomach to take out the stomach contents. This may help you stop throwing up. Not eating for 3 4 days. Antibiotic medicines, if you have an infection. Treating any other problems that may be the cause. Steroid medicines, if your problem is caused by your defense system attacking your body's own tissues. Surgery. Follow these instructions at home: Eating and drinking Follow instructions from your doctor about what to eat and drink. Eat foods that do not have a lot of fat in them. Eat small meals often. Do not eat big meals. Drink enough fluid to keep your pee (urine) pale yellow. Do not drink alcohol if it caused your condition. Medicines Take ljlh-hvb-pcfkwye and prescription medicines only as told by your doctor. Ask your doctor if the medicine prescribed to you: ? Requires you to avoid driving or using heavy machinery. ? Can cause trouble pooping (constipation). You may need to take steps to prevent or treat trouble pooping: ? Take rwvj-vlw-nvaruum or prescription medicines. ? Eat foods that are high in fiber. These include beans, whole grains, and fresh fruits and vegetables. ? Limit foods that are high in fat and sugar. These include fried or sweet foods. General instructions Do not use any products that contain nicotine or tobacco, such as cigarettes, e- cigarettes, and chewing tobacco. If you need help quitting, ask your doctor. Get plenty of rest. Check your blood sugar at home as told by your doctor. Keep all follow-up visits as told by your doctor. This is important. Contact a doctor if: You do not get better as quickly as expected. You have new symptoms. Your symptoms get worse. You have pain or weakness that lasts a long time. You keep feeling sick to your stomach. You get better and then you have pain again. You have a fever. Get help right away if: You cannot eat or keep fluids down. Your pain gets very bad. Your skin or the white part of your eyes turns yellow. You have sudden swelling in your belly. You throw up. You feel dizzy or you pass out (faint). Your blood sugar is high (over 300 mg/dL). Summary Acute pancreatitis happens when the pancreas gets swollen. This condition is often caused by alcohol abuse, drug abuse, or gallstones. You will likely have to stay in the hospital for treatment. This information is not intended to replace advice given to you by your health care provider. Make sure you discuss any questions you have with your health care provider. Document Released: 01/21/2009 Document Revised: 05/25/2019 Document Reviewed: 05/25/2019 [employer] Patient Education 2020 [employer] Additional Information VACCINATE! IT SAVES LIVES! Members of the community who have not yet received the COVID-19 vaccine and would like to receive it can visit one of [facility] vaccine clinics. There are many vaccine clinic locations within the [facility]. For locations and available times, please visit [email or web address].[place].gov/. It is important to note that some COVID mobile vaccine clinics are held outdoors and may be canceled in rainy or stormy conditions. To learn more about pediatric vaccinations (ages 5-11), we invite you to visit the [facility] webpage. https://www.[facility].org/pages/9517-Zrtrd-Ibcvpypsbgh-Omvbhzppqt-Tqakf-Zsb stions.htmlTo learn more about the COVID-19 vaccine, we invite you to visit the CDC website for a list of frequently asked questions.https://www.cdc.gov/coronavirus/2019-ncov/vaccines/faq.html [facility] Patient Portal Access Instructions: Stay connected with your healthcare team and access your personal medical information anytime with the [facility] Patient Portal. Please follow the directions below to create your [facility] account: 1.Access the email account you provided upon registration to the hospital/physician office.2.Look for an invitation email from [facility].3.Open the email and access the invitation link: AcceptInvitation to [facility].4.Fill in the required burciaga to create your account. To access your account, visit [employer]. Click the blue button labeled Access Patient Portal and then log in with the username and password that you created in the steps above. You will be able to view your test results, lab results, a summary of your visits, upcoming appointments and more. There is also a convenient messaging option where you can send secure messages to your p rovider. In addition, you will have the ability to download any documents or summaries to your computer and/or send the information securely to a physician. Remember that your healthcare information is confidential, so carefully consider who you will allowto register on the [facility] Patient Portal for access to your information. You can also access the [facility] Patient Portal on the [employer] tessa. Simply click on Patient Portal and then log into your account. If you would like to receive a full copy of your medical records, please contact the [facility] Medical Records Department by calling [phone], Saturday through Saturday between 8 a.m. and 4:30 p.m. HOW TO SAFELY DISPOSE OF PRESCRIPTION MEDICATIONS Please use one of the following methods to safely dispose of your unused medications. 1.Use a drug disposal kit: the drug disposal pouch allows you to safely discard your old and unuseddrugs. Ask your nurse to give you one when you are discharged.2.Visit a local take-back location: Many local pharmacies and police departments have programs that collect old and unwanted prescriptiondrugs. Call your local pharmacy or go to http://[employer]Talents/7M8Bf8f to find one close to you.3.Make use of household items: Use cat litter or old coffee grounds to dispose medications if other options arenot available. Mix your drugs with these household products, seal them in an airtight container andthrow it into the garbage. Call [facility]: [phone] to be sure your drugs can be disposed of in this way. Some medicines may require a different approach.4.Never flush your medications down the toilet. IF YOU HAVE BEEN PRESCRIBED AN OPIOID FOR PAIN If you have been prescribed an opioid (such as hydrocodone, oxycodone or morphine), it is critical to understand the possible side effects and risks of opioid pain medications. Even when taken as directed, opioids can have several side effects including: Tolerance, meaning you might need to take more of a medication for the same pain relief. Nausea, vomiting and/or constipation. Sleepiness, dizziness, dry mouth, confusion, depression or itching. Physical dependence, meaning you have withdrawal symptoms when a medication is stopped, can develop within a few days. KNOW YOUR RESPONSIBILITIES It is important to know exactly how much and how often to take the opioid pain medications you are prescribed. Never take opioids in higher amounts or more often than prescribed. Do not combine opioids with alcohol or other drugs that cause drowsiness, such as benzodiazepines, also known as benzos, including diazepam and alprazolam, muscle relaxants or sleep aids. Never sell or share prescription opioids. This is illegal. Store opioids in a secure place and out of reach of others (including children, family, friends and visitors). The last page of this document has been signed and retained as a CHART COPY. Signatures Patient Education Materials Acute Pancreatitis, Ihqf-sw-Qdpn Medication Leaflets My discharge plan and instructions have been reviewed and explained to me and IHENNA DENNIS Lunderstand my current condition and have read and understand these discharge instructions. I have received a written copy of the plan/instructions. If I have questions, I am aware that I should contact my doctor. 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 He states that his pain is definitely better than when he came in but adds that his nurse was about 30 minutes late giving him Toradol last night and his pain was very bad. Patient advised that we added Percocet today to see if thatlasts a little longer for him. Patient would like to go home today but agrees that he wants to makesure his pain is controlled. He states that he was taking ibuprofen at home before he came in and felt like it was not helping at all. Patient advised that he may be past the worst of his pain and the ibuprofen or naproxen may help more now. Patient has been tolerating his full liquid diet without any nausea. Patient encouraged to eat small amounts more frequently until the pain resolves. Patientdenies any fever, chills, cough, shortness of breath, chest pain, or dysuria. Will check with patient this afternoon to evaluate his pain control on Percocet and possible dc home. All questions answered. Objective Vitals and Measurements T: 36.8 C (Oral) TMIN: 36.8 C (Oral) TMAX: 37.2 C (Oral) HR: 58 (Monitored) RR: 16 BP: 142/81 SpO2:97% Intake and Output 7AM Yesterday to 7AM Today Intake and Output (Last 24 hours) Intake Output Urine Voided Urine Count 1.00 Total Summary Total Intake 0.00 Total Output 2074. Fluid Balance - Physical Exam General: No acute distress. Patient is alert and appropriate. Skin: No rash. Skin is warm, dry and intact. HEENT: Head is normocephalic, atraumatic. Pupils are equal, round and reactive. Neck: Supple. No lymphadenopathy, thyromegaly. Lungs: Bilaterally clear but diminished without crepitation or wheeze. Unlabored. Heart: Heart is regular rhythm, S1, S2. No murmurs, gallops or rubs. Abdomen: Abdomen is soft, tender to palpation in epigastric region. Bowels sounds present in all quadrants. Extremities: No clubbing, cyanosis, or edema. Peripheral pulses palpable. No calf tenderness. LBKA. Neurological: Patient is awake and alert to person, place and time. Following simple commands, moving all extremities. Weight Dosing Weight: 83.1 kg (02/11/25) Medications Medications (12) Active Scheduled: (2) lisinopril 20 mg tablet 40 mg 2 tab(s), Oral, qDay pantoprazole 40 mg VIAL 40 mg, IV Push, BID Continuous: (1) Lactated Ringers 1,000 mL 1,000 mL, Intravenous, 100 mL/hr PRN: (9) acetaminophen 325 mg Tablet 650 mg 2 tab(s), Oral, q4h acetaminophen 325 mg Tablet 650 mg 2 tab(s), Oral, q4h acetaminophen-OXYcodone 325 mg-5 mg Tablet 1 tab(s), Oral, q4h calcium carbonate 500 mg Chewable 500 mg 1 tab(s), Chewed, TID dextrose 50% Solution Disp syringe 50 mL 25 gram(s) 50 mL, IV Push, AsDirected ketorolac 30 mg/mL (1 mL) vial 15 mg 0.5 mL, IV Push, q6h melatonin 3 mg tablet 6 mg 2 tab(s), Oral, qHS morphine 2 mg/mL 1 mL syringe 2 mg 1 mL, IV Push, q2h ondansetron 2 mg/ 1 mL 2 mL INJ 4 mg 2 mL, IV Push, q4h Lab Results 02/13 05:21 WBC: 8.2 Hgb: 12.4 L Hct: 35.5 L Platelet: 221 Neutrophil %: 71.2 Glucose Level: 107 Sodium Level: 140 Potassium Level: 3.6 BUN: 10 Creatinine Lvl (s): 0.89 02/12 05:15 WBC: 11.2 H Hgb: 13.0 Hct: 38.4 L Platelet: 213 Neutrophil %: 78.3 H Glucose Level: 91 Sodium Level: 141 Potassium Level: 4.0 BUN: 12 Creatinine Lvl (s): 0.75 Imaging Results and Diagnostics US Abdomen Limited Result Date: February 11, 2025 Verified By: ALISIA GRANADOS MD CLINICAL STATEMENT: IMPRESSION: Mildly increased renal echogenicity may indicate medical renal disease, correlate clinically. No obstruction. Normal gallbladder. No bile duct dilatation. Equivocal findings of mild steatosis or other diffuse hepatocellular disease. EKG No qualifying data available. Assessment/Plan 1. Pancreatitis Continue IV fluids for pancreatitis. Start Percocet 1 tab PO q4 hours PRN for pain rating 4-6/10. Try to discourage IV morphine. Continue IV Toradol. Tolerating small amounts of full liquids. On exampatient is uncomfortable but is sitting up without difficulty, ambulating in the hallway. 2. Hyperbilirubinemia Resolved. Mild hepatic steatosis noted on abdominal ultrasound. No choledocholithiasis. CMP in the morning. 3. Abdominal pain Acute, new onset, secondary to acute pancreatitis. Start Percocet 1 tab PO q4 hours PRN. Patient would like to go home today. Will check with him this afternoon to check on pain control on Percocet. 4. Hypertension Continue lisinopril at home dose. SBP goal of 140 or less. DVT prophylaxis with SCDs, ambulation. Code status: Full Code. Labs, diagnostic test and progress notes reviewed as noted in HPI. Plan of care discussed with patient. All questions answered. Patient verbalizes understanding and is agreeable with plan of care. This case was discussed with collaborating physician, Dr. Martinez Robert. Anticipated Date of Discharge possibly today or in next 24 hours Time Spent 37 minutes spent reviewing past diagnostic tests, reviewing lab results, vital sign trends, medicalhistory, reviewing medications and ordering home medications, examining patient, discussed plan of care with care team, collaborating with physician, and documenting in chart. Digitally Signed by JO-ANN GARCIA on 02/13/2025 10:24 AM [facility]06-27-2025 Note Date of Service 02/12/2025 Chief Complaint Abdominal pain Subjective 64-year-old male with a past medical history of hypertension, left AKA in the past. Presented to [facility] on 02/10/2025 initially with a 2-day history of ongoing epigastric abdominal pain. Washaving nausea but no vomiting. In the emergency department CT abdomen/pelvis was done demonstratingmild acute edematous interstitial pancreatitis. Lipase level was elevated at 212. He was offered admission but opted to go home and attempt to manage his symptoms at home. Symptoms persisted prompting presentation back to the ER. Did have mild leukocytosis with WBC of 13.1. Bilirubin 1.7. Sodium 134. Had an abdominal ultrasound demonstrating mild hepatic steatosis but no choledocholithiasis or cholelithiasis. Denies alcohol use. Triglycerides within normal limits. Was started on IV fluids and pain control and admitted. On exam states abdominal pain is mildly better but still with significant discomfort. No chest painor shortness of breath. No nausea or vomiting. Ambulating without difficulty. Objective Vitals and Measurements T: 36.8 C (Oral) TMIN: 36.6 C (Oral) TMAX: 37.3 C (Oral) HR: 66 (Monitored) RR: 18 BP: 129/73 SpO2:93% Intake and Output 7AM Yesterday to 7AM Today Intake and Output (Last 24 hours) Intake Administration Information 1000.00 Output Urine Voided 850.00 Urine Count 6.00 Total Summary Total Intake 1000.00 Total Output 850.00 Fluid Balance 150.00 Physical Exam Physical Exam General: Alert, appropriate and awake, oriented to time, people and place Skin: No rash. Warm, Dry, Intact HEENT: Head is normocephalic and atraumatic. No lesions. Pupils equal in size. Extraocular movements within normal limits. Nose: No septal deviation. Mouth: Oropharynx mucosa is without lesion. Neck: Supple. No lymphadenopathy, thyromegaly noted. Lungs: Bilaterally clear/diminished breath sounds with no crepitation or wheeze. Unlabored Cardiovascular: Heart is regular rhythm, S1S2, No extra-audible heart tones Abdomen: Abdomen is soft, generalized tenderness noted, worse with palpation. Bowel sounds present. Extremities: No clubbing, cyanosis or edema. Peripheral pulses palpable. No calf tenderness. Adequate peripheral circulation. Neurological: Following simple commands, moving all extremities. Weight Dosing Weight: 83.1 kg (02/11/25) Medications Medications (11) Active Scheduled: (2) lisinopril 20 mg tablet 40 mg 2 tab(s), Oral, qDay pantoprazole 40 mg VIAL 40 mg, IV Push, BID Continuous: (1) Lactated Ringers 1,000 mL 1,000 mL, Intravenous, 100 mL/hr PRN: (8) acetaminophen 325 mg Tablet 650 mg 2 tab(s), Oral, q4h acetaminophen 325 mg Tablet 650 mg 2 tab(s), Oral, q4h calcium carbonate 500 mg Chewable 500 mg 1 tab(s), Chewed, TID dextrose 50% Solution Disp syringe 50 mL 25 gram(s) 50 mL, IV Push, AsDirected ketorolac 30 mg/mL (1 mL) vial 15 mg 0.5 mL, IV Push, q6h melatonin 3 mg tablet 6 mg 2 tab(s), Oral, qHS morphine 2 mg/mL 1 mL syringe 2 mg 1 mL, IV Push, q2h ondansetron 2 mg/ 1 mL 2 mL INJ 4 mg 2 mL, IV Push, q4h Lab Results 02/12 05:15 WBC: 11.2 H Hgb: 13.0 Hct: 38.4 L Platelet: 213 Neutrophil %: 78.3 H Glucose Level: 91 Sodium Level: 141 Potassium Level: 4.0 BUN: 12 Creatinine Lvl (s): 0.75 02/11 05:50 WBC: 13.0 H Hgb: 14.1 Hct: 42.0 Platelet: 242 Neutrophil %: 75.7 H Glucose Level: 108 Sodium Level: 138 Potassium Level: 3.9 BUN: 11 Creatinine Lvl (s): 0.89 02/11 01:07 WBC: 13.1 H Hgb: 14.9 Hct: 44.2 Platelet: 255 Neutrophil %: 70.9 Glucose Level: 120 H Sodium Level: 134 L Potassium Level: 4.0 BUN: 11 Creatinine Lvl (s): 0.91 EKG No qualifying data available. Assessment/Plan 1. Pancreatitis 2. Hyperbilirubinemia 3. Abdominal pain 4. Hypertension Continue IV fluids for pancreatitis, continue IV morphine and IV Toradol. Will start clear liquids today, advance diet as tolerated. On exam patient is uncomfortable but is sitting up without difficulty, ambulating in the hallway. Hyperbilirubinemia, secondary to above. Mild hepatic steatosis noted on abdominal ultrasound. No choledocholithiasis. CMP in the morning. Continue home lisinopril for hypertension CODE STATUS: Full code Discussed with patient and at the bedside Time Spent Total time spent reviewing labs, diagnostics, evaluating the patient, and medical decision makin minutes Digitally Signed by YOEL MARIE on 02/12/2025 11:34 AM [facility]06-27-2025 Pastoral care Progress note Pastoral Care Note Entered On: 02/12/2025 9:21 EDT Performed On: 02/12/2025 9:19 EDT by Gustavo Urias Pastoral Care Type of Pastoral Visit : Initial visit Spiritual Care Visit Initiated by : Ruby Engineer Spiritual Care Reason for Visit : General Spiritual Assessment : Positive Image of God, Good [employer] Group Support Spiritual Care Emotional Assessment : Pessimistic, Frustrated, Anxious/Worried, Feeling Helpless, Has Support Network Spiritual Care Intervention : Words of Encouragement, Compassion/Empathy, Supportive presence, Prayer with Patient/Family, Care to Family Spiritual Outcomes : Increased Peace of Mind Spiritual Plan of Care : Visit as Requested Pastoral Care Comments : patient is resting but awakens when this japanese interpreter enters the room; pt expresses discomfort and some anxiety over his situation which doctors said will probably continue and reoccur; spouse is with him for support; pt is unable to think of something that would help; prayeris offered and accepted; pt is member of a vandana community; offer of support to spouse as well Number Present During Pastoral Visit : 1 Pastoral Care Visit Length : 10 minute(s) Gustavo Urias - 02/12/2025 9:19 EDT Digitally Signed by Gustavo Urias on 02/12/2025 09:19 AM [facility]06-27-2025 Nurse Progress note Pt bladder scanned, volume of 668. Informed patient that the OSC was getting the smallest catheter that she could find before we attempted to cath him and that if we got it in we were just going to leave it in. Pt refusing to be cathed and said that he has been unsuccessfully catherized so many times that he just does not want to even try. Pt is still voiding small amounts. [employer] informed of refusal. Digitally Signed by Cheo Adair RN on 02/12/2025 06:11 AM [facility]06-26-2025 Nurse Progress note Pt reports only voiding small amounts of urine today. Bladder scan shows ~480mL. Pt denies bladder discomfort, was unable to void. Unsuccessful attempts to straight cath x2 nurses. Pt reports history of difficulty with catheterization. Notified [employer], who gives instructions to bladder scan q6 Digitally Signed by Chelsea Pearson RN on 02/11/2025 02:55 PM [facility]06-26-2025 Note Date of Service 02/11/25 Chief Complaint abd pain, seen here earlier, dx w/ pancreatitis and sent home w/ pain meds. states meds aren't helping. History of Present Illness 64-year-old male with past medical history significant for hypertension, left AKA. Patient presented to [facility] emergency department 02/10/2025 with a 2- day history of abdominal pain. Described pain as mostly in the epigastric region and left lower quadrant. Was having nausea but no vomiting. CT abdomen and pelvis was done showing mild, acute edematous interstitial pancreatitis. Patient was offered admission but declined. He then returned to the emergency department after midnight due to pain that was not controlled. He was subsequently admitted. Overnight vital signs remained stable. White blood cell count this morning is 13 with no bandemia. Total bilirubin 1.5. This is down from 1.7 last evening. Lipid panel within normal limits. On exam today, pt denies any fever or chills. No headache or dizziness. Denies chest pain, palpitations. No cough, dyspnea, sputum production. Admits nausea, no vomiting. Diffuse abdominal pain, worse in epigastric region. No melena/hematochezia. Having difficulty urinating. Has a history of retention with anesthesia. No new paresthesias. Review of Systems See HPI for specific ROS. All other systems reviewed and negative. Physical Exam Vitals and Measurements T: 36.8 C (Oral) TMIN: 36.7 C (Oral) TMAX: 36.8 C (Oral) HR: 68 (Monitored) RR: 18 BP: 132/75 SpO2:98% HT: 177.8 cm WT: 83.1 kg BMI: 26.29 Weight Dosing Weight: 83.1 kg (02/11/25) GEN: Appears chronically ill EYES: No conjunctival erythema, drainage. EOMI EARS: Hearing grossly intact. NOSE: No nasal discharge. THROAT: Oral cavity and pharynx pink and moist. CHEST: Normal S1 and S2. Rhythm is regular. Clear to auscultation, without rales, rhonchi, wheezing. ABD: Positive bowel sounds x 4 quads. Soft, diffusely tender, more at RUQ and epigastric region. Tympanic to percussion. EXT: No significant deformity or joint abnormality. Left AKA. No edema. Peripheral pulses intact. NEURO: Sensation grossly intact SKIN: Skin color normal PSYCH: The mental examination revealed the patient was alert and oriented x 4 Lab Results 02/11 05:50 WBC: 13.0 H Hgb: 14.1 Hct: 42.0 Platelet: 242 Neutrophil %: 75.7 H Glucose Level: 108 Sodium Level: 138 Potassium Level: 3.9 BUN: 11 Creatinine Lvl (s): 0.89 02/11 01:07 WBC: 13.1 H Hgb: 14.9 Hct: 44.2 Platelet: 255 Neutrophil %: 70.9 Glucose Level: 120 H Sodium Level: 134 L Potassium Level: 4.0 BUN: 11 Creatinine Lvl (s): 0.91 Imaging Results and Diagnostics US Abdomen Limited Result Date: February 11, 2025 Verified By: ALISIA GRANADOS MD CLINICAL STATEMENT: IMPRESSION: Mildly increased renal echogenicity may indicate medical renal disease,correlate clinically. No obstruction. Normal gallbladder. No bile duct dilatation. Equivocal findings of mild steatosis or other diffuse hepatocellular disease. Assessment/Plan 1. Pancreatitis 2. Hypertension Pancreatitis LR at 200 mL/h. Toradol and Dilaudid for pain control. No alcohol use. Gallbladder unremarkable on CT abdomen and pelvis. US RUQ to better evaluate gallbladder. This was unremarkable. Keep NPO. HTN- SBP goal 140 or less. Continue home antihypertensives. History of urinary retention- Patient has not voided much despite having aggressive IVF. Bladder scan and straight cath PRN. DVT prophylaxis: SCDs Code Status: Full code Plan of care discussed with patient. All questions answered. Patient verbalizes understanding is agreeable to plan of care. This dictation was performed using voice recognition software and may include grammatical and/or spelling errors. Problem List/Past Medical History Ongoing BMI 28.0-28.9,adult Hypertension Neoplasm of face Screening for colon cancer Screening for hyperlipidemia Screening for prostate cancer Wellness examination Procedure/Surgical History Amputation of leg above knee Medications Home Medications (3) Active lisinopril 40 mg oral tablet 40 mg = 1 tab(s), Oral, qDay Centre 325- 5 mg oral tablet 1 tab(s), PRN, Oral, q6h ondansetron 4 mg oral tablet, disintegrating 4 mg = 1 tab(s), PRN, Oral, q6h Allergies NKA Social History Alcohol Use: Never., 10/21/2024 Nutrition/Health Caffeine intake amount: coffee 1-3 servings daily., 10/21/2024 Tobacco Nicotine Use: Never (less than 100 in lifetime)., 09/09/2024 Family History Diabetes mellitus type 2: Father. Heart disease: Father. Health Status Family Member(s) Immunizations No qualifying data available. Code Status Code Status - Ordered -- 02/11/25 2:27:00 EDT, Full Code, Constant Order Digitally Signed by FRANCOIS COX on 02/11/2025 02:13 PM Digitally Signed by MARTINEZ ROBERT MD [facility]06-26-2025 Evaluation + Plan noteExtracted from: Title:History and Physical Author:FRANCOIS COX APRN-CLOCK ASSEMBLER Date:02/11/25 1. Pancreatitis 2. Hypertension Pancreatitis LR at 200 mL/h. Toradol and Dilaudid for pain control. No alcohol use. Gallbladder unremarkable on CT abdomen and pelvis. US RUQ to better evaluate gallbladder. This was unremarkable. Keep NPO. HTN- SBP goal 140 or less. Continue home antihypertensives. History of urinary retention- Patient has not voided much despite having aggressive IVF. Bladder scan and straight cath PRN. DVT prophylaxis: SCDs Code Status: Full code Plan of care discussed with patient. All questions answered. Patient verbalizes understanding is agreeable to plan of care. This dictation was performed using voice recognition software and may include grammatical and/or spelling errors. Future Appointments Future Scheduled Tests Laboratory* Albumin/Creatinine Ratio, Random Urine 05/22/25 * Albumin/Creatinine Ratio, Random Urine 09/09/24 * Complete Metabolic Panel 05/22/25 [facility] 06-26-2025 Note* Exam Date Time Procedure Performing Provider Status 02/11/25 11:27 AM US Abdomen Limited ALISIA GRANADOS MD; Auth (Verified) [id number] ORIGINAL EXAMINATION: LIMITED ABDOMINAL ULTRASOUND02/11/2025 11:31 am Limited ultrasound of the abdomen attention right upper quadrant COMPARISON: None TECHNIQUE: This report is based on interpretation of permanently recorded ultrasound images. HISTORY: ORDERING SYSTEM PROVIDED HISTORY: Reason for Exam: RUQ, epigastric pain FINDINGS: The entire study is less than optimal and compromised by body habitus and bowel gas. The gallbladder is slightly over distended but otherwise unremarkable. No stone, wall thickening or pericholecystic edema is seen. Some internal echoes in the gallbladder are likely artifactual or a small amount of sludge from prolonged fasting. Negative sonographic Alfredo's sign.. There is no intrahepatic bile duct dilatation. The common duct is 3 mm at the jeffrey hepatis. The liver is 18.5 cm vertical dimension with mildly increased echogenicity. No focal liver lesion is seen. There is antegrade blood flow in the main portal vein. The pancreas is partially obscured and suboptimally evaluated. No ascites is seen in the RIGHT upper quadrant. Limited survey images of the RIGHT kidney show normal size and cortical thickness with no pelvocaliectasis. Renal echogenicity is mildly increased compared to the liver. IMPRESSION: Mildly increased renal echogenicity may indicate medical renal disease, correlate clinically. No obstruction. Normal gallbladder. No bile duct dilatation. Equivocal findings of mild steatosis or other diffuse hepatocellular disease. Interpreted by: Alisia Granados MD Preliminary Report By: Alisia Granados MD Electronically signed By Alisia Granados MD Dictated Date: 02/11/2025 11:40:30 AM Prelim Date: 02/11/2025 11:42:39 AM Sign Date: 02/11/2025 11:42:39 AM Ordering Provider: FRANCOIS COX Interpreted by: Alisia Granados MD Preliminary Report By: Alisia Granados MD Electronically signed By Alisia Granados MD Dictated Date: 02/11/2025 11:40:30 AM Prelim Date: 02/11/2025 11:42:39 AM Sign Date: 02/11/2025 11:42:39 AM Ordering Provider: FRANCOIS COX [facility]06-25-2025 Hospital Discharge instructions Patient Education 02/10/2025 10:35:34 Pancreatitis Pancreatitis The pancreas is an organ in the abdomen that secretes digestive juices into the stomach. Pancreatitis is an inflammation of the pancreas. In many cases, it is caused when the duct that connects the pancreas and gallbladder is blocked by a gallstone. Heavy alcohol use is another major cause. Less common causes can include medicines, trauma, certain medical procedures, viruses, and toxins. Sometimes the cause of pancreatitis cannot be found. Genetic testing is sometimes done in those cases, especially if there is a family history of pancreas disease. Symptoms of pancreatitis include: Severe abdominal pain Nausea and vomiting Severe indigestion Racing heart Fever If the pancreatitis becomes chronic, diarrhea, chronic pain, weight loss, and poor nutrition can result. At first, pancreatitis may be treated in the hospital. It may be diagnosed by history, exam, blood tests, and sometimes imaging studies. There, fluids and medicines can be provided. The underlying cause of the problem must also be treated to prevent further problems. If gallstones are the cause, you and your healthcare provider can discuss options for treating them. This usually results in gallbladder surgery. Sometimes another test must be done to clear the drainage ducts of a blocked gallstones. If alcohol is the cause, talk with your healthcare provider about a program to help you stop drinking. Home care Don't drink alcohol. Rest in bed or sit up in a chair until you feel better. Take medicines as prescribed. If you were given an antibiotic for infection, take it until it is gone, even if you feel better. Let your healthcare provider know if you vomit up your medicine. Tips for eating and drinking: If instructed, avoid eating or drinking until nausea and vomiting go away. Try sipping clear liquids to prevent dehydration. When you begin eating again, start with small amounts. Have small, more frequent meals rather than larger meals. Low fat meals are best. Follow-up care Follow up with your healthcare provider as advised. When to seek medical advice Call your healthcare provider right away for any of the following: Continued or worsening pain Repeated vomiting Dizziness, weakness Fever of 100.4 F (38 C) or higher, or as directed by your healthcare provider Severe muscle cramps Call 911 Call 911 if you have any of the following: Vomiting blood or large amounts of blood in stool Seizure Loss of consciousness [phone] [employer]. [address] [place] [address], [place] [address]. All rights reserved. This information is not intended as a substitute for professional medical care. Always follow yourhealthcare professional's instructions. Follow Up Care 02/10/2025 07:46:22 With:Go to emergency room if symptoms worsen Address:Unknown When:2-4 days With:NEDRA TAMEZ Address: [address] [place] [phone] When:2-4 days [facility] 06-25-2025 Note Discharge Instructions Thank you for allowing [facility] to assist you with your healthcare needs. The following is importantdischarge information regarding your hospital visit. Diagnosis from Today's Visit Pancreatitis, acute What to Do Next Instructions from Your Care Team Please take pain medications and nausea medications as needed and as prescribed. Get plenty of fluids and rest. Try to stick to a clear liquid diet for the next 24 hours and slowly advance as tolerated with crackers, noodles, bland solids. Follow-up with your PCP within the next few days for repeatassessment and you will also likely need more workup outpatient to determine what caused the pancreatitis. If pain worsens you are not able to keep any fluids or food down or if you have any other acute concerns please return to the emergency department for more emergent evaluation. No qualifying data available. Post Acute Orders No qualifying data available. You Need to Schedule the Following Appointments Follow Up with Go to emergency room if symptoms worsen When:Within 2-4 days Follow Up with NEDRA TAMEZ When:Within 2-4 days Where:[address] [place] [phone] Allergies NKA Medications Please ask your primary doctor or pharmacist before taking any other medication not listed, including over the counter drugs, herbal medications, vitamins and or supplements as they may interact withyour home medications. What How Much When Why Instructions Last Dose New acetaminophen-hydrocodone (Centre 325- 5 mg oral tablet) 1 tab(s) by mouth Every 6 hours as needed for for pain Pancreatitis, acute Duration: 3 Days Printed Prescription New ondansetron (ondansetron 4 mg oral tablet, disintegrating) 1 tab(s) by mouth Every 6 hours as needed for Nausea/Vomiting Printed Prescription Unchanged lisinopril (lisinopril 40 mg oral tablet) 1 tab(s) by mouth Once a day Duration: 90 Days Please take this list to your next doctor s visit. Bring all medications you take, including over the counter medications, herbals and other supplements with you to your doctor s visit. Patients and families are reminded to discard old lists and to update any records with all medication providers or retail pharmacies. Medication Leaflets ondansetron (oral) (on AILEEN islas) What is the most important information I should know about ondansetron? Tell your doctor about all your other medicines. Some drugs should not be used with ondansetron. What is ondansetron? Ondansetron is used to prevent nausea and vomiting that may happen with certain cancer medicines (chemotherapy), or after surgery, or radiation treatment . Ondansetron may be used for purposes not listed in this medication guide. What should I discuss with my health care provider before taking ondansetron? You should not use ondansetron if you are allergic to it or similar medicines (dolasetron, granisetron, palonosetron). Some drugs should not be used with ondansetron. Your treatment plan may change if you also use apomorphine. Tell your doctor if you have or have ever had: an electrolyte imbalance (such as low blood levels of potassium or magnesium); congestive heart failure, slow heartbeats; heart rhythm disorder such as long QT syndrome (in you or a family member); an obstruction in the stomach or intestines, a change in bowel habits; a surgery on your stomach or intestines; or severe liver disease. The orally disintegrating tablet may contain phenylalanine and could be harmful if you have phenylketonuria (PKU). Tell your doctor if you also use stimulant medicine, opioid medicine, herbal products, or medicine for depression, mental illness, Parkinson's disease, migraine headaches, serious infections, or prevention of nausea and vomiting. An interaction with ondansetron could cause a serious condition called serotonin syndrome. Tell your doctor if you are or . Ondansetron is not approved for use by anyone younger than 4 years old. How should I take ondansetron? Follow all directions on your prescription label and read all medication guides or instruction sheets. Use the medicine exactly as directed. Ondansetron is usually taken just before surgery, chemotherapy, or radiation treatment. Follow yourdoctor's dosing instructions very carefully. Measure liquid medicine with the supplied measuring device (not a kitchen spoon). To take the orally disintegrating tablet: Keep the tablet in its blister pack until you are ready to take it. Open the package and peel back the foil. Use dry hands to remove the orally disintegrating tablet and place it in your mouth. Do not push a tablet through the foil or you may damage the tablet. Allow the orally disintegrating tablet to dissolve in your mouth without chewing. Do not swallow whole. Store in the original container at room temperature away from moisture, heat, and light. Store liquid medicine in an upright position. What happens if I miss a dose? Ondansetron is used when needed. If you are on a dosing schedule, skip any missed dose. Do not use two doses at one time. What happens if I overdose? Seek emergency medical attention or call the Poison Help line at . What should I avoid while taking ondansetron? Follow your doctor's instructions about any restrictions on food, beverages, or activity. What are the possible side effects of ondansetron? Get emergency medical help if you have signs of an allergic reaction: hives, difficult breathing, swelling of your face, lips, tongue, or throat. Seek medical attention right away if you have symptoms of serotonin syndrome such as: agitation, hallucinations, fever, sweating, shivering, fast heart rate, muscle stiffness, twitching, loss of coordination, nausea, vomiting, or diarrhea. Seek emergency medical help if you have signs of a heart attack: chest pain that spreads to your jaw or shoulder, nausea, and sweating. Call your doctor at once if you have: severe stomach pain, bloating, constipation, or any change in bowel habits; or dizziness, feeling lightheaded, fainting, slow, fast, or uneven heartbeats. Common side effects may include: diarrhea or constipation; headache; shortness of breath, rapid breathing, fast heartbeats; or feeling unwell, tiredness. This is not a complete list of side effects and others may occur. Call your doctor for medical advice about side effects. You may report side effects to FDA at 2-276-KRS-2316. What other drugs will affect ondansetron? Ondansetron can cause a serious heart problem. Your risk may be higher if you also use certain other medicines for infections, asthma, heart problems, high blood pressure, depression, mental illness,cancer, malaria, or HIV. Many drugs can affect ondansetron. This includes prescription and ordk-zoh-nmlslhr medicines, vitamins, and herbal products. Not all possible interactions are listed here. Tell your doctor about all other medicines you use. Where can I get more information? Your doctor or pharmacist can provide more information about ondansetron. Remember, keep this and all other medicines out of the reach of children, never share your medicines with others, and use this medication only for the indication prescribed. Every effort has been made to ensure that the information provided by [employer]. ('[employer]') is accurate, up-to-date, and complete, but no guarantee is made to that effect. Drug information contained herein may be time sensitive. [employer] information has been compiled for use by healthcare practitioners and consumers in the [place] and therefore [employer] does not warrant that uses outside of the [place] are appropriate, unless specifically indicated otherwise. [employer] drug information does not endorse drugs, diagnose patients or recommend therapy. [employer] drug information isan informational resource designed to assist licensed healthcare practitioners in caring for their p atients and/or to serve consumers viewing this service as a supplement to, and not a substitute for, the expertise, skill, knowledge and judgment of healthcare practitioners. The absence of a warningfor a given drug or drug combination in no way should be construed to indicate that the drug or drug combination is safe, effective or appropriate for any given patient. [employer] does not assume any responsibility for any aspect of healthcare administered with the aid of information [employer] provides. The information contained herein is not intended to cover all possible uses, directions, precautions, warnings, drug interactions, allergic reactions, or adverse effects. If you have questions about the drugs you are taking, check with your doctor, nurse or pharmacist. Copyright 4696-4271 [employer]. Version: 17.. Revision Date: 05/12/2024. acetaminophen and hydrocodone (a SEET a MIN oh fen and alexander droe KOE done) Verdrocet What is the most important information I should know about acetaminophen and hydrocodone? MISUSE OF OPIOID MEDICINE CAN CAUSE ADDICTION, OVERDOSE, OR . Keep the medication in a place where others cannot get to it. Taking opioid medicine during may cause life-threatening withdrawal symptoms in the . Fatal side effects can occur if you use opioid medicine with alcohol, or with other drugs that cause drowsiness or slow your breathing. Stop taking this medicine and call your doctor right away if you have skin redness or a rash that spreads and causes blistering and peeling. What is acetaminophen and hydrocodone? Acetaminophen and hydrocodone is a combination medicine used to relieve moderate to severe pain. Acetaminophen and hydrocodone contains an opioid medicine, and may be habit-forming. Acetaminophen and hydrocodone may also be used for purposes not listed in this medication guide. What should I discuss with my healthcare provider before taking acetaminophen and hydrocodone? You should not use this medicine if you are allergic to acetaminophen or hydrocodone, or if you have: severe asthma or breathing problems; or a blockage in your stomach or intestines. Tell your doctor if you have ever had: breathing problems, sleep apnea (breathing stops during sleep); liver disease; a drug or alcohol addiction; kidney disease; a head injury or seizures; urination problems; or problems with your thyroid, pancreas, or gallbladder. If you use opioid medicine while you are , your baby could become dependent on the drug. This can cause life-threatening withdrawal symptoms in the baby after it is born. Babies born dependent on opioids may need medical treatment for several weeks. Ask a doctor before using opioid medicine if you are . Tell your doctor if you notice severe drowsiness or slow breathing in the nursing baby. How should I take acetaminophen and hydrocodone? Follow all directions on your prescription label. Never take this medicine in larger amounts, or for longer than prescribed. An overdose can damage your liver or cause . Tell your doctor if you feel an increased urge to use more of this medicine. Never share this medicine with another person, especially someone with a history of drug abuse or addiction. MISUSE CAN CAUSE ADDICTION, OVERDOSE, OR . Keep the medicine in a place where others cannot get to it. Selling or giving away this medicine is against the law. Measure liquid medicine carefully. Use the dosing syringe provided, or use a medicine dose-measuring device (not a kitchen spoon). If you need surgery or medical tests, tell the doctor ahead of time that you are using this medicine. You should not stop using this medicine suddenly. Follow your doctor's instructions about tapering your dose. Store at room temperature away from moisture and heat. Keep track of your medicine. You should be aware if anyone is using it improperly or without a prescription. Do not keep leftover opioid medication. Just one dose can cause in someone using this medicine accidentally or improperly. Ask your pharmacist where to locate a drug take-back disposal program.If there is no take-back program, flush the unused medicine down the toilet. What happens if I miss a dose? Since this medicine is used for pain, you are not likely to miss a dose. Skip any missed dose if itis almost time for your next dose. Do not use two doses at one time. What happens if I overdose? Seek emergency medical attention or call the Poison Help line at . An overdose of this medicine can be fatal, especially in a child or other person using the medicine without a prescription. Overdose symptoms may include nausea, vomiting, sweating, severe drowsiness, pinpoint pupils, slow breathing, or no breathing. Your doctor may recommend you get naloxone (a medicine to reverse an opioid overdose) and keep it with you at all times. A person caring for you can give the naloxone if you stop breathing or don't wake up. Your caregiver must still get emergency medical help and may need to perform CPR (cardiopulmonary resuscitation) on you while waiting for help to arrive. Anyone can buy naloxone from a pharmacy or local health department. Make sure any person caring foryou knows where you keep naloxone and how to use it. What should I avoid while taking acetaminophen and hydrocodone? Avoid driving or operating machinery until you know how this medicine will affect you. Dizziness ordrowsiness can cause falls, accidents, or severe injuries. Do not drink alcohol. Dangerous side effects or could occur. Ask a doctor or pharmacist before using any other medicine that may contain acetaminophen (sometimes abbreviated as APAP). Taking certain medications together can lead to a fatal overdose. What are the possible side effects of acetaminophen and hydrocodone? Get emergency medical help if you have signs of an allergic reaction: hives; difficulty breathing; swelling of your face, lips, tongue, or throat. Opioid medicine can slow or stop your breathing, and may occur. A person caring for you should give naloxone and/or seek emergency medical attention if you have slow breathing with long pauses,blue colored lips, or if you are hard to wake up. In rare cases, acetaminophen may cause a severe skin reaction that can be fatal. This could occur even if you have taken acetaminophen in the past and had no reaction. Stop taking this medicine and call your doctor right away if you have skin redness or a rash that spreads and causes blistering andpeeling. Call your doctor at once if you have: noisy breathing, sighing, shallow breathing, breathing that stops; a light-headed feeling, like you might pass out; liver problems--nausea, upper stomach pain, tiredness, loss of appetite, dark urine, zoya-colored stools, jaundice (yellowing of the skin or eyes); low cortisol levels-- nausea, vomiting, loss of appetite, dizziness, worsening tiredness or weakness; o high levels of serotonin in the body--agitation, hallucinations, fever, sweating, shivering, fast heart rate, muscle stiffness, twitching, loss of coordination, nausea, vomiting, diarrhea. Serious breathing problems may be more likely in older adults and in those who are debilitated or have wasting syndrome or chronic breathing disorders. Common side effects include: dizziness, drowsiness, feeling tired; nausea, vomiting, stomach pain; constipation; or headache. This is not a complete list of side effects and others may occur. Call your doctor for medical advice about side effects. You may report side effects to FDA at 4-617-ZPX-8548. What other drugs will affect acetaminophen and hydrocodone? You may have breathing problems or withdrawal symptoms if you start or stop taking certain other medicines. Tell your doctor if you also use an antibiotic, antifungal medication, heart or blood pressure medication, seizure medication, or medicine to treat HIV or hepatitis C. Opioid medication can interact with many other drugs and cause dangerous side effects or . Be sure your doctor knows if you also use: cold or allergy medicines, bronchodilator asthma/COPD medication, or a diuretic ('water pill'); medicines for motion sickness, irritable bowel syndrome, or overactive bladder; other opioids--opioid pain medicine or prescription cough medicine; a sedative like Valium--diazepam, alprazolam, lorazepam, Xanax, Klonopin, Versed, and others; drugs that make you sleepy or slow your breathing--a sleeping pill, muscle relaxer, medicine to treat mood disorders or mental illness; drugs that affect serotonin levels in your body--a stimulant, or medicine for depression, Parkinson's disease, migraine headaches, serious infections, or nausea and vomiting. This list is not complete. Other drugs may affect acetaminophen and hydrocodone, including prescription and udem-qkm-vjyhtzi medicines, vitamins, and herbal products. Not all possible interactions are listed here. Where can I get more information? Your doctor or pharmacist can provide more information about acetaminophen and hydrocodone. Remember, keep this and all other medicines out of the reach of children, never share your medicines with others, and use this medication only for the indication prescribed. Every effort has been made to ensure that the information provided by [employer]. ('[employer]') is accurate, up-to-date, and complete, but no guarantee is made to that effect. Drug information contained herein may be time sensitive. [employer] information has been compiled for use by healthcare practitioners and consumers in the [place] and therefore [employer] does not warrant that uses outside of the [place] are appropriate, unless specifically indicated otherwise. [employer] drug information does not endorse drugs, diagnose patients or recommend therapy. [employer] drug information isan informational resource designed to assist licensed healthcare practitioners in caring for their p atients and/or to serve consumers viewing this service as a supplement to, and not a substitute for, the expertise, skill, knowledge and judgment of healthcare practitioners. The absence of a warningfor a given drug or drug combination in no way should be construed to indicate that the drug or drug combination is safe, effective or appropriate for any given patient. [employer] does not assume any responsibility for any aspect of healthcare administered with the aid of information [employer] provides. The information contained herein is not intended to cover all possible uses, directions, precautions, warnings, drug interactions, allergic reactions, or adverse effects. If you have questions about the drugs you are taking, check with your doctor, nurse or pharmacist. Copyright 1383-5551 [employer]. Version: 19.02. Revision Date: 11/26/2023. lisinopril (lyse [place] pril) Prinivil, Qbrelis, Zestril What is the most important information I should know about lisinopril? Do not use if you are . Stop using this medicine and tell your doctor right away if you become . Tell your doctor about all your other medicines. Some drugs should not be used with lisinopril. What is lisinopril? Lisinopril is used alone or in combination with other medications to treat high blood pressure in adults and children at least 6 years old. Lisinopril is also used in adults to treat congestive heart failure and to improve survival after aheart attack. Lisinopril may also be used for purposes not listed in this medication guide. What should I discuss with my healthcare provider before taking lisinopril? You should not use lisinopril if you are allergic to it or to any other ANDRA (angiotensin convertingenzyme) inhibitor such as captopril, fosinopril, enalapril, benazepril, moexipril, perindopril, quinapril, ramipril, or trandolapril. Do not take lisinopril within 36 hours before or after taking medicine that contains sacubitril (such as Entresto). If you have diabetes, do not take lisinopril with any medication that contains aliskiren (a blood pressure medicine). Do not take lisinopril if you have a history of angioedema (severe allergic reaction). Tell your doctor if you have ever had: heart disease, heart problems such as a recent heart attack; low blood pressure; low white blood cell count; stomach pain; if you are on a low-salt diet; diabetes; liver disease; or kidney disease (or if you are on dialysis). You may also need to avoid taking lisinopril with aliskiren if you have kidney disease. Stop using this medicine and tell your doctor right away if you become . Lisinopril can cause injury or to the unborn baby if you use the medicine during your second or third trimester. Do not breastfeed. How should I take lisinopril? Follow all directions on your prescription label and read all medication guides or instruction sheets. Your doctor may occasionally change your dose. Use the medicine exactly as directed. You may take lisinopril with or without food. Measure liquid medicine with the supplied measuring device (not a kitchen spoon). Your blood pressure will need to be checked often and you may need frequent blood tests. Tell your doctor if you have a planned surgery. Call your doctor if you have ongoing vomiting or diarrhea, or if you are sweating more than usual. You can easily become dehydrated while taking lisinopril. This can lead to very low blood pressure, an electrolyte imbalance, or kidney failure. If you have high blood pressure, keep using this medicine even if you feel well. High blood pressure often has no symptoms. Store tightly closed at room temperature, away from moisture and heat. Do not freeze. What happens if I miss a dose? Take the medicine as soon as you can, but skip the missed dose if it is almost time for your next dose. Do not take two doses at one time. What happens if I overdose? Seek emergency medical attention or call the Poison Help line at . What should I avoid while taking lisinopril? Avoid getting up too fast from a sitting or lying position, or you may feel dizzy. Do not use potassium supplements or salt substitutes, unless your doctor has told you to. Avoid becoming overheated or dehydrated during exercise, in hot weather, or by not drinking enough fluids. Follow your doctor's instructions about the type and amount of liquids you should drink. In some cases, drinking too much liquid can be as unsafe as not drinking enough. What are the possible side effects of lisinopril? Get emergency medical help if you have signs of an allergic reaction: severe stomach pain, hives, difficult breathing, swelling of your face, lips, tongue, or throat. Call your doctor at once if you have: a light-headed feeling, like you might pass out; high blood potassium--nausea, weakness, tingly feeling, chest pain, irregular heartbeats, loss of movement; low white blood cell counts--fever, mouth sores, skin sores, sore throat, cough; kidney problems--swelling, urinating less, feeling tired or short of breath; or liver problems--loss of appetite, stomach pain (upper right side), tiredness, itching, dark urine, zoya-colored stools, jaundice (yellowing of the skin or eyes). Common side effects may include: headache, dizziness; low blood pressure, cough; or chest pain. This is not a complete list of side effects and others may occur. Call your doctor for medical advice about side effects. You may report side effects to FDA at 9-513-MED-8460. What other drugs will affect lisinopril? Lisinopril can harm your kidneys, especially if you also use certain medicines for infections, cancer, or osteoporosis. Tell your doctor about all your other medicines, especially: a diuretic or 'water pill' that may increase blood potassium such as spironolactone, triamterene, or amiloride; NSAIDs (nonsteroidal anti-inflammatory drugs)--aspirin, ibuprofen (Advil, Motrin), naproxen (Aleve), celecoxib, diclofenac, indomethacin, meloxicam, and others; insulin or diabetes medications; medicine to prevent organ transplant rejection such as temsirolimus, sirolimus, or everolimus; or heart or blood pressure medication. This list is not complete. Other drugs may affect lisinopril, including prescription and luuj-myo-fnbspyi medicines, vitamins, and herbal products. Not all possible drug interactions are listed here. Where can I get more information? Your doctor or pharmacist can provide more information about lisinopril. Remember, keep this and all other medicines out of the reach of children, never share your medicines with others, and use this medication only for the indication prescribed. Every effort has been made to ensure that the information provided by [employer]. ('[employer]') is accurate, up-to-date, and complete, but no guarantee is made to that effect. Drug information contained herein may be time sensitive. [employer] information has been compiled for use by healthcare practitioners and consumers in the [place] and therefore [employer] does not warrant that uses outside of the [place] are appropriate, unless specifically indicated otherwise. [employer] drug information does not endorse drugs, diagnose patients or recommend therapy. [employer] drug information isan informational resource designed to assist licensed healthcare practitioners in caring for their p atients and/or to serve consumers viewing this service as a supplement to, and not a substitute for, the expertise, skill, knowledge and judgment of healthcare practitioners. The absence of a warningfor a given drug or drug combination in no way should be construed to indicate that the drug or drug combination is safe, effective or appropriate for any given patient. [employer] does not assume any responsibility for any aspect of healthcare administered with the aid of information [employer] provides. The information contained herein is not intended to cover all possible uses, directions, precautions, warnings, drug interactions, allergic reactions, or adverse effects. If you have questions about the drugs you are taking, check with your doctor, nurse or pharmacist. Copyright 2145-9051 [employer]. Version: 18.01. Revision Date: 02/11/2023. Education Materials Pancreatitis The pancreas is an organ in the abdomen that secretes digestive juices into the stomach. Pancreatitis is an inflammation of the pancreas. In many cases, it is caused when the duct that connects the pancreas and gallbladder is blocked by a gallstone. Heavy alcohol use is another major cause. Less common causes can include medicines, trauma, certain medical procedures, viruses, and toxins. Sometimes the cause of pancreatitis cannot be found. Genetic testing is sometimes done in those cases, especially if there is a family history of pancreas disease. Symptoms of pancreatitis include: Severe abdominal pain Nausea and vomiting Severe indigestion Racing heart Fever If the pancreatitis becomes chronic, diarrhea, chronic pain, weight loss, and poor nutrition can result. At first, pancreatitis may be treated in the hospital. It may be diagnosed by history, exam, blood tests, and sometimes imaging studies. There, fluids and medicines can be provided. The underlying cause of the problem must also be treated to prevent further problems. If gallstones are the cause, you and your healthcare provider can discuss options for treating them. This usually results in gallbladder surgery. Sometimes another test must be done to clear the drainage ducts of a blocked gallstones. If alcohol is the cause, talk with your healthcare provider about a program to help you stop drinking. Home care Don't drink alcohol. Rest in bed or sit up in a chair until you feel better. Take medicines as prescribed. If you were given an antibiotic for infection, take it until it is gone, even if you feel better. Let your healthcare provider know if you vomit up your medicine. Tips for eating and drinking: If instructed, avoid eating or drinking until nausea and vomiting go away. Try sipping clear liquids to prevent dehydration. When you begin eating again, start with small amounts. Have small, more frequent meals rather than larger meals. Low fat meals are best. Follow-up care Follow up with your healthcare provider as advised. When to seek medical advice Call your healthcare provider right away for any of the following: Continued or worsening pain Repeated vomiting Dizziness, weakness Fever of 100.4 F (38 C) or higher, or as directed by your healthcare provider Severe muscle cramps Call 911 Call 911 if you have any of the following: Vomiting blood or large amounts of blood in stool Seizure Loss of consciousness [phone] [employer]. [address] [place] [address], [place] [address]. All rights reserved. This information is not intended as a substitute for professional medical care. Always follow yourhealthcare professional's instructions. Additional Information VACCINATE! IT SAVES LIVES! Members of the community who have not yet received the COVID-19 vaccine and would like to receive it can visit one of [facility] vaccine clinics. There are many vaccine clinic locations within the [facility]. For locations and available times, please visit [email or web address] It is important to note that some COVID mobile vaccine clinics are held outdoors and may be canceled in rainy or stormy conditions. To learn more about pediatric vaccinations (ages 5-11), we invite you to visit the [facility] webpage. https://www.Id[facility]s.org/pages/8551-Ikewm-Mdscotlasqr-Feznnooppi-Kklab-Kna stions.htmlTo learn more about the COVID-19 vaccine, we invite you to visit the CDC website for a list of frequently asked questions. https://www.cdc.gov/coronavirus/2019-ncov/vaccines/faq.html [facility] Patient Portal Access Instructions: Stay connected with your healthcare team and access your personal medical information anytime with the [facility] Patient Portal. If you would like a full copy of your medical records please contact the [facility] Medical Records Department Saturday through Saturday between 8a.m. and 4:30p.m. Please follow the directions below to access the portal: 1.Access the email account you provided upon registration to the hospital.2.Look for an invitation email from [facility].3.Open the email and access the invitation link: Accept Invitation to [facility].Fill in the required burciaga to create your account. Sign into [email or web address] with your username and password that you created in the above steps to stay up to date. You can then view a summary of results, a summary of your visits, and the ability to download your summaries to your computer or send the information securely to a physician. Remember that your healthcare information is confidential, so carefully consider who you will allow to register on the [facility] Patient Portal for access to your information. You can also access the [facility] Patient Portal on the [employer] tessa. Simply click on Health Records under [employer] and then click on the [employer] logo. HOW TO SAFELY DISPOSE OF PRESCRIPTION MEDICATIONS Please use one of the following methods to safely dispose of your unused medications. 1.Use a drug disposal kit: the drug disposal pouch allows you to safely discard your old and unuseddrugs. Ask your nurse to give you one when you are discharged.2.Visit a local take-back location: Many local pharmacies and police departments have programs that collect old and unwanted prescriptiondrugs. Call your local pharmacy or go to http://[employer].JobTalents/9F8Xf3o to find one close to you.3.Make use of household items: Use cat litter or old coffee grounds to dispose medications if other options arenot available. Mix your drugs with these household products, seal them in an airtight container andthrow it into the garbage. Call [facility]: [phone] to be sure your drugs can be disposed of in this way. Some medicines may require a different approach.4.Never flush your medications down the toilet. IF YOU HAVE BEEN PRESCRIBED AN OPIOIDS FOR PAIN If you have been prescribed an opioid (such as hydrocodone, oxycodone or morphine), it is critical to understand the possible side effects and risks of opioid pain medications. Even when taken as directed, opioids can have several side effects including: Tolerance, meaning you might need to take more of a medication for the same pain relief. Nausea, vomiting and/or constipation. Sleepiness, dizziness, dry mouth, confusion, depression or itching. Physical dependence, meaning you have withdrawal symptoms when a medication is stopped ? this can develop within a few days. KNOW YOUR RESPONSIBILITIES It is important to know exactly how much and how often to take the opioid pain medications you are prescribed. Never take opioids in higher amounts or more often than prescribed. Do not combine opioids with alcohol or other drugs that cause drowsiness, such as benzodiazepines, also known as benzos,including diazepam and alprazolam, muscle relaxants or sleep aids. Never sell or share prescriptionopioids. This is illegal. Store opioids in a secure place and out of reach of others (including children, family, friends and visitors). The last page(s) of this document has been signed and retained as a CHART COPY Signatures Patient Education Materials Pancreatitis Medication Leaflets ondansetron (oral), acetaminophen and hydrocodone, lisinopril My discharge plan and instructions have been reviewed and explained to me and I,MARTJOWILFRID JARRETTd my current condition and have read and understand these discharge instructions. I have received a written copy of the plan/instructions. If I have questions, I am aware that I should contact my doctor. 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 Multiplanar reformatted images are provided for review. Automated exposure control, iterative reconstruction, and/or weight based adjustment of the mA/kV was utilized to reduce the radiation dose to as low as reasonably achievable. COMPARISON: March 15, 2023 HISTORY: ORDERING SYSTEM PROVIDED HISTORY: Reason for Exam: LLQ abdominal pain ; Epigastric pain FINDINGS: Minor degenerative changes are noted in the spine. Mild degenerative changes are present at the SI joints as well. No acute osseous abnormality seen. Small areas of dependent atelectasis are present at the lower lobes, and there is also mild more coarse atelectasis at the posterior right lower lobe. The gallbladder is grossly unremarkable. Liver, spleen, adrenal glands are unremarkable. Tiny scattered renal cysts are present. No other kidney abnormality seen. There is mild peripancreatic infiltrative increased density present, without a discrete mass lesion. Pancreatic parenchyma enhances normally, and there is no pancreatic ductal dilatation seen. No focal fluid collection is visible. No adenopathy, free air or free fluid is visible. The urinary bladder is grossly normal. Minor sigmoid and left colon diverticulosis is evident, without diverticulitis. No other GI tract abnormality seen. Very small fat containing umbilical hernia. No additional contributory finding. IMPRESSION: 1. Findings compatible with mild acute edematous interstitial pancreatitis. No focal fluid collection seen. 2. Diverticulosis without diverticulitis. Interpreted by: Yoel Cortez MD Preliminary Report By: Yoel Cortez MD Electronically signed By Yoel Cortez MD Dictated Date: 02/10/2025 9:27:13 AM Prelim Date: 02/10/2025 9:31:37 AM Sign Date: 02/10/2025 9:31:37 AM Ordering Provider: KAIS[facility] SIMPS[facility]06-25-2025 Note* Exam Date Time Procedure Performing Provider Status 02/10/25 8:15 AM EKG [ED AO] - CV KAISER SIMPSON DO; (Verified) ECG Final Report Sinus rhythm Borderline left axis deviation Minimal ST elevation, diffuse leads Electronic Signature: KAISER SIMPSON DO 02/10/2025 08:23:13 [facility]01-22-2025 Evaluation + Plan note Future Scheduled Tests Laboratory* Albumin/Creatinine Ratio, Random Urine 09/09/24 [facility] 01-22-2025 Evaluation + Plan note Future Appointments Future Scheduled Tests Laboratory* Albumin/Creatinine Ratio, Random Urine 05/22/25 * Albumin/Creatinine Ratio, Random Urine 09/09/24 * Complete Metabolic Panel 05/22/25 [facility] 01-22-2025 Evaluation + Plan note Future Scheduled Tests Laboratory* Albumin/Creatinine Ratio, Random Urine 05/22/25 * Albumin/Creatinine Ratio, Random Urine 09/09/24 [facility] 07-28-2023 Hospital Discharge instructions Patient Education 03/15/2023 18:08:01 Understanding Diverticulosis and Diverticulitis Understanding Diverticulosis and Diverticulitis Pouches or diverticula usually occur in the lower part of the colon called the sigmoid. The colon (large intestine) is the last part of the digestive tract. It absorbs water from stool and changes it from a liquid to a solid. In certain cases, small pouches called diverticula can form in the colon wall. This condition is called diverticulosis. It's very common as people get older. Thepouches can become infected. If this happens, it becomes a more serious problem called diverticulitis. These problems can be painful. But they can be managed. Managing your condition Diet changes or medicines may be prescribed. If you have diverticulosis Recommendations include: Diet changes are often enough to control symptoms. The main changes are adding fiber (roughage) anddrinking more water. Fiber absorbs water as it travels through your colon. This helps your stool stay soft and move smoothly. Water helps this process. If needed, you may be told to take kdvf-khr-whosjfk stool softeners. To help ease pain, antispasmodic medicines may be prescribed. Watch for changes in your bowel movements. Tell your healthcare provider if you notice any changes. Begin an exercise program. Ask your healthcare provider how to get started. Get plenty of rest and sleep. If you have diverticulitis Treatment depends on how bad your symptoms are. For mild symptoms. You may be put on a liquid diet for a short time. Antibiotics are usually prescribed. If these 2 steps relieve your symptoms, you may then be prescribed a high-fiber diet. If you still have symptoms, your healthcare provider will discuss more treatment choices with you. For severe symptoms. You may need to be admitted to the hospital. There, you can be given IV antibiotics and fluids. You will also be put on a low-fiber or liquid diet. Although not common, surgery is needed in some people with severe symptoms. [place] to colon health Diverticulitis occurs when the pouches become infected or inflamed. Help keep your colon healthy with a diet that includes plenty of high-fiber fruits, vegetables, andwhole grains. Drink plenty of liquids like water and juice. Maintain a healthy lifestyle, includingregular exercise, stress management, and adequate rest and sleep. 4703-0967 [employer]. [address] [place] [address]. All rights reserved. This information is not intended as a substitute for professional medical care. Always follow yourhealthcare professional's instructions. 03/15/2023 18:07:58 Diverticulitis Diverticulitis Some people get pouches along the wall of the colon as they get older. The pouches, called diverticuli, usually cause no symptoms. If the pouches become blocked, you can get an infection. This infection is called diverticulitis. It causes pain in your lower abdomen and fever. If not treated, it canbecome a serious condition, causing an abscess to form inside the pouch. The abscess may block the intestinal tract even or rupture, spreading infection throughout the abdomen. When treatment is started early, oral antibiotics alone may be enough to cure diverticulitis. This method is tried first. But, if you don't improve or if your condition gets worse while using oral antibiotics, you may need to be admitted to the hospital for IV antibiotics. Severe cases may require surgery. Home care The following guidelines will help you care for yourself at home: During the acute illness, rest and follow your healthcare provider's instructions about diet. Sometimes you will need to follow a clear liquid diet to rest your bowel. Once your symptoms are better, you may be told to follow a low-fiber diet for some time. Include foods like: oFlake cereal, mashed potatoes, pancakes, waffles, pasta, white bread, rice, applesauce, bananas, eggs, fish, poultry, tofu, and cooked soft vegetables Take antibiotics exactly as instructed. Don't miss any doses or stop taking the medication, even ifyou feel better. Monitor your temperature and tell your healthcare provider if you have rising temperatures. Preventing future attacks Once you have an episode of diverticulitis, you are at risk for having it again. After you have recovered from this episode, you may be able to lower your risk by eating a high-fiber diet (20 gm/day to 35 gm/day of fiber). This cleans out the colon pouches that already exist and may prevent new ones from forming. Foods high in fiber include fresh fruits and edible peelings, raw or lightly cooked vegetables, whole grain cereals and breads, dried beans and peas, and bran. Other steps that can help prevent future attacks include: Take your medicines, such as antibiotics, as your healthcare provider says. Drink 6 to 8 glasses of water every day, unless told otherwise. Use a heating pad or hot water bottle to help abdominal cramping or pain. Begin an exercise program. Ask your healthcare provider how to get started. You can benefit from simple activities such as walking or gardening. Treat diarrhea with a bland diet. Start with liquids only; then slowly add fiber over time. Watch for changes in your bowel movements (constipation to diarrhea). Avoid constipation by eating a high fiber diet and taking a stool softener if needed. Get plenty of rest and sleep. Follow-up care Follow up with your healthcare provider as advised or sooner if you are not getting better in the next 2 days. When to seek medical advice Call your healthcare provider right away if any of these occur: Fever of 100.4 F (38 C) or higher, or as directed by your healthcare provider Repeated vomiting or swelling of the abdomen Weakness, dizziness, light-headedness Pain in your abdomen that gets worse, severe, or spreads to your back Pain that moves to the right lower abdomen Rectal bleeding (stools that are red, black or maroon color) Unexpected vaginal bleeding [id number] [employer]. [address] [place] [address]. All rights reserved. This information is not intended as a substitute for professional medical care. Always follow yourhealthcare professional's instructions. Follow Up Care 03/15/2023 13:48:33 With:JESUS NEAL MD Address: [address] [place] [address]- When:2-4 days With:Go to emergency room if symptoms worsen Address:Unknown When:2-4 days [facility] 07-28-2023 Emergency department Discharge summary Discharge Instructions Thank you for allowing [facility] to assist you with your healthcare needs. The following is importantdischarge information regarding your hospital visit. Diagnosis from Today's Visit Abdominal pain Diverticulitis What to Do Next Instructions from Your Care Team Clear liquid diet for 48 hours. Return to ED if worse such as fever, vomiting or increasing pain orother significant problems. No qualifying data available. Post Acute Orders No qualifying data available. You Need to Schedule the Following Appointments Follow Up with JESUS NEAL MD When Within 2-4 days Where: [facility] [place] [address]- Follow Up with Go to emergency room if symptoms worsen When Within 2-4 days Allergies NKA Medications Please ask your primary doctor or pharmacist before taking any other medication not listed, including over the counter drugs, herbal medications, vitamins and or supplements as they may interact withyour home medications. What How Much When Instructions Last Dose New amoxicillin-clavulanate (amoxicillin-clavulanate 875 mg-125 mg oral tablet) 1 tab(s) by mouth Every 12 hours Duration: 7 Days Printed Prescription New ondansetron (Zofran 4 mg oral tablet) 1 tab(s) by mouth Every 8 hours Printed Prescription Please take this list to your next doctor s visit. Bring all medications you take, including over the counter medications, herbals and other supplements with you to your doctor s visit. Patients and families are reminded to discard old lists and to update any records with all medication providers or retail pharmacies. Education Materials Understanding Diverticulosis and Diverticulitis Pouches or diverticula usually occur in the lower part of the colon called the sigmoid. The colon (large intestine) is the last part of the digestive tract. It absorbs water from stool and changes it from a liquid to a solid. In certain cases, small pouches called diverticula can form in the colon wall. This condition is called diverticulosis. It's very common as people get older. Thepouches can become infected. If this happens, it becomes a more serious problem called diverticulitis. These problems can be painful. But they can be managed. Managing your condition Diet changes or medicines may be prescribed. If you have diverticulosis Recommendations include: Diet changes are often enough to control symptoms. The main changes are adding fiber (roughage) anddrinking more water. Fiber absorbs water as it travels through your colon. This helps your stool stay soft and move smoothly. Water helps this process. If needed, you may be told to take trom-jpn-[id number] stool softeners. To help ease pain, antispasmodic medicines may be prescribed. Watch for changes in your bowel movements. Tell your healthcare provider if you notice any changes. Begin an exercise program. Ask your healthcare provider how to get started. Get plenty of rest and sleep. If you have diverticulitis Treatment depends on how bad your symptoms are. For mild symptoms. You may be put on a liquid diet for a short time. Antibiotics are usually prescribed. If these 2 steps relieve your symptoms, you may then be prescribed a high-fiber diet. If you still have symptoms, your healthcare provider will discuss more treatment choices with you. For severe symptoms. You may need to be admitted to the hospital. There, you can be given IV antibiotics and fluids. You will also be put on a low-fiber or liquid diet. Although not common, surgery is needed in some people with severe symptoms. [place] to colon health Diverticulitis occurs when the pouches become infected or inflamed. Help keep your colon healthy with a diet that includes plenty of high-fiber fruits, vegetables, andwhole grains. Drink plenty of liquids like water and juice. Maintain a healthy lifestyle, includingregular exercise, stress management, and adequate rest and sleep. [id number] [employer]. [address] [place] [address]. All rights reserved. This information is not intended as a substitute for professional medical care. Always follow yourhealthcare professional's instructions. Diverticulitis Some people get pouches along the wall of the colon as they get older. The pouches, called diverticuli, usually cause no symptoms. If the pouches become blocked, you can get an infection. This infection is called diverticulitis. It causes pain in your lower abdomen and fever. If not treated, it canbecome a serious condition, causing an abscess to form inside the pouch. The abscess may block the intestinal tract even or rupture, spreading infection throughout the abdomen. When treatment is started early, oral antibiotics alone may be enough to cure diverticulitis. This method is tried first. But, if you don't improve or if your condition gets worse while using oral antibiotics, you may need to be admitted to the hospital for IV antibiotics. Severe cases may require surgery. Home care The following guidelines will help you care for yourself at home: During the acute illness, rest and follow your healthcare provider's instructions about diet. Sometimes you will need to follow a clear liquid diet to rest your bowel. Once your symptoms are better, you may be told to follow a low-fiber diet for some time. Include foods like: oFlake cereal, mashed potatoes, pancakes, waffles, pasta, white bread, rice, applesauce, bananas, eggs, fish, poultry, tofu, and cooked soft vegetables Take antibiotics exactly as instructed. Don't miss any doses or stop taking the medication, even ifyou feel better. Monitor your temperature and tell your healthcare provider if you have rising temperatures. Preventing future attacks Once you have an episode of diverticulitis, you are at risk for having it again. After you have recovered from this episode, you may be able to lower your risk by eating a high-fiber diet (20 gm/day to 35 gm/day of fiber). This cleans out the colon pouches that already exist and may prevent new ones from forming. Foods high in fiber include fresh fruits and edible peelings, raw or lightly cooked vegetables, whole grain cereals and breads, dried beans and peas, and bran. Other steps that can help prevent future attacks include: Take your medicines, such as antibiotics, as your healthcare provider says. Drink 6 to 8 glasses of water every day, unless told otherwise. Use a heating pad or hot water bottle to help abdominal cramping or pain. Begin an exercise program. Ask your healthcare provider how to get started. You can benefit from simple activities such as walking or gardening. Treat diarrhea with a bland diet. Start with liquids only; then slowly add fiber over time. Watch for changes in your bowel movements (constipation to diarrhea). Avoid constipation by eating a high fiber diet and taking a stool softener if needed. Get plenty of rest and sleep. Follow-up care Follow up with your healthcare provider as advised or sooner if you are not getting better in the next 2 days. When to seek medical advice Call your healthcare provider right away if any of these occur: Fever of 100.4 F (38 C) or higher, or as directed by your healthcare provider Repeated vomiting or swelling of the abdomen Weakness, dizziness, light-headedness Pain in your abdomen that gets worse, severe, or spreads to your back Pain that moves to the right lower abdomen Rectal bleeding (stools that are red, black or maroon color) Unexpected vaginal bleeding [id number] [employer]. [address] [place] [address], [place] [address]. All rights reserved. This information is not intended as a substitute for professional medical care. Always follow yourhealthcare professional's instructions. Additional Information VACCINATE! IT SAVES LIVES! Members of the community who have not yet received the COVID-19 vaccine and would like to receive it can visit one of [facility] vaccine clinics. There are many vaccine clinic locations within the [facility]. For locations and available times, please visit www.[email or web address].[place].gov/. It is important to note that some COVID mobile vaccine clinics are held outdoors and may be canceled in rainy or stormy conditions. To learn more about pediatric vaccinations (ages 5-11), we invite you to visit the [facility] webpage. [email or web address].[email or web address]/[email or web address]-Acowrttzizv-[email or web address] stions.htmlTo learn more about the COVID-19 vaccine, we invite you to visit the CDC website for a list of frequently asked questions. https://www.cdc.gov/coronavirus/2019-ncov/vaccines/faq.html [facility] Patient Portal Access Instructions: Stay connected with your healthcare team and access your personal medical information anytime with the [facility] Patient Portal. If you would like a full copy of your medical records please contact the [facility] Medical Records Department Saturday through Saturday between 8a.m. and 4:30p.m. Please follow the directions below to access the portal: 1.Access the email account you provided upon registration to the hospital.2.Look for an invitation email from [facility].3.Open the email and access the invitation link: Accept Invitation to [facility].Fill in the required burciaga to create your account. Sign into www.[employer] with your username and password that you created in the above steps to stay up to date. You can then view a summary of results, a summary of your visits, and the ability to download your summaries to your computer or send the information securely to a physician. Remember that your healthcare information is confidential, so carefully consider who you will allow to register on the [facility] Patient Portal for access to your information. You can also access the [facility] Patient Portal on the [employer]. Simply click on Health Records under [facility] and then click on the [employer] logo. HOW TO SAFELY DISPOSE OF PRESCRIPTION MEDICATIONS Please use one of the following methods to safely dispose of your unused medications. 1.Use a drug disposal kit: the drug disposal pouch allows you to safely discard your old and unuseddrugs. Ask your nurse to give you one when you are discharged.2.Visit a local take-back location: Many local pharmacies and police departments have programs that collect old and unwanted prescriptiondrugs. Call your local pharmacy or go to http://[employer].JobTalents/5Q8Nx2c to find one close to you.3.Make use of household items: Use cat litter or old coffee grounds to dispose medications if other options arenot available. Mix your drugs with these household products, seal them in an airtight container andthrow it into the garbage. Call [facility]: [phone] to be sure your drugs can be disposed of in this way. Some medicines may require a different approach.4.Never flush your medications down the toilet. IF YOU HAVE BEEN PRESCRIBED AN OPIOIDS FOR PAIN If you have been prescribed an opioid (such as hydrocodone, oxycodone or morphine), it is critical to understand the possible side effects and risks of opioid pain medications. Even when taken as directed, opioids can have several side effects including: Tolerance, meaning you might need to take more of a medication for the same pain relief. Nausea, vomiting and/or constipation. Sleepiness, dizziness, dry mouth, confusion, depression or itching. Physical dependence, meaning you have withdrawal symptoms when a medication is stopped ? this can develop within a few days. KNOW YOUR RESPONSIBILITIES It is important to know exactly how much and how often to take the opioid pain medications you are prescribed. Never take opioids in higher amounts or more often than prescribed. Do not combine opioids with alcohol or other drugs that cause drowsiness, such as benzodiazepines, also known as benzos,including diazepam and alprazolam, muscle relaxants or sleep aids. Never sell or share prescriptionopioids. This is illegal. Store opioids in a secure place and out of reach of others (including children, family, friends and visitors). The last page(s) of this document has been signed and retained as a CHART COPY Signatures Patient Education Materials Understanding Diverticulosis and Diverticulitis Diverticulitis Medication Leaflets My discharge plan and instructions have been reviewed and explained to me and IHENNA DENNIS understand my current condition and have read and understand these discharge instructions. I have received a written copy of the plan/instructions. If I have questions, I am aware that I should contactmy doctor. 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 Multiplanar reformatted images are provided for review. Automated exposure control, iterative reconstruction, and/or weight based adjustment of the mA/kV was utilized to reduce the radiation dose to as low as reasonably achievable. COMPARISON: None. HISTORY: ORDERING SYSTEM PROVIDED HISTORY: Reason for Exam: LLQ ABD PAIN, NAUSEA SINCE 2 AM abdominal pain FINDINGS: Degenerative changes of the spine, SI joints and bilateral hips. Bibasilar atelectasis. Scattered calcified granulomas and other small 1-2 mm nodules likely representing noncalcified granulomas.. Bibasilar atelectasis. Normal liver, gallbladder, spleen, pancreas, and adrenal glands. Symmetric nephrograms without evidence of hydronephrosis or nephrolithiasis. Subcentimeter hypodense lesion in the lower pole of the right kidney is too small to characterize but likely a simple renal cyst. The ureters are normal in course and caliber. Nonaneurysmal abdominal aorta. No abdominal lymphadenopathy. At the distal left colon/proximal sigmoid colon there is colonic wall thickening, inflamed diverticulum, and surrounding hazy infiltrative changes with trace reactive free fluid in the low left abdomen. No free air or drainable fluid collection. Other scattered colonic diverticulosis noted. The pelvic organs are unremarkable. Small fat containing umbilical hernia. IMPRESSION: 1. Mild to moderate uncomplicated diverticulitis of the distal left colon/proximal sigmoid colon. No free air or drainable fluid collection. 2. Calcified granulomas and other small solid 1-2 mm nodules in the bilateral lung bases, for which outpatient chest CT is recommended for further evaluation. I have personally reviewed the images of this examination and agree with the resident's findings and interpretation. Interpreted by: Ricardo Vargas Preliminary Report By: Roscoe Moura Electronically signed By Ricardo Vargas Dictated Date: 03/15/2023 5:42:56 PM Prelim Date: 03/15/2023 5:46:53 PM Sign Date: 03/15/2023 6:01:03 PM [facility]ing [facility] note No data available for this section [facility] Hospital Discharge instructions No data available for this section [facility] Progress note No data available for this section [facility] Summary Purpose Family History No Family History Records Found No data available for this section No data available for this section No data available for this section No data available for this section No data available for this section No data available for this section No Family History Records Found Advance Directives No Advanced Directives Records FoundNo Advanced Directives Records Found Additional Source Comments (unrecognized sect ion and content) No Status Records FoundNo Status Records Found INFORMATION SOURCE (unrecogn ized section and content) DATE CREATED AUTHOR 08/28/2019 [facility] DATE CREATED AUTHOR AUTHOR'S ORGANIZ ATION 05/25/2025 [facility] Patient Care team informatio n (unrecognized section and content) Care Team Personnel Name: JESUS NEAL MD Member Role: Primary Care Physician Address: Address: [address] [place] [address]- [place] Name: CALVIN GILL MD Position: ED Physician Member Role: Attending Physician Address: Address: [facility] [address] [address] [place] [address]- [place] Name: SYDNEE WHITLEY PA-C Position: ED Advanced Delivery Professional Member Role: Physician Exceptional Children Teacher Address: Address: [address] [facility] [place] [address]- Care Team Related Persons Name: TRAUWEIN, ISAAC Care Team Personnel Name: NEDRA TAMEZ APRN-CLOCK ASSEMBLER Position: P4 Advanced Delivery Professional Member Role: Primary Care Physician Address: [address] Telecom: Care Team Related Persons Name: HENNA ISAAC Care Team Personnel Name: NEDRA TAMEZ MASTER GLAZIER-CLOCK ASSEMBLER Position: P4 Advanced Delivery Professional Member Role: Primary Care Physician Address: [address] Telecom: Care Team Related Persons Name: SETHLUIZAISAAC Care Team Personnel Name: NEDRA TAMEZ MASTER GLAZIER-CLOCK ASSEMBLER Position: P4 Advanced Delivery Professional Member Role: Primary Care Physician Address: [address] Telecom: Care Team Related Persons Name: ISAAC AGUILLON Care Team Personnel Name: ENDRA TAMEZ MASTER GLAZIER-CLOCK ASSEMBLER Position: P4 Advanced Delivery Professional Member Role: Primary Care Physician Address: [address] Telecom: Care Team Related Persons Name: AMNAMIREYAISAAC Care Team Personnel Name: NEDRA TAMEZ APRN-CLOCK ASSEMBLER Position: P4 Advanced Delivery Professional Member Role: Primary Care Physician Address: [address] Telecom: Care Team Related Persons Name: ISAAC AGUILLON FOR RECORDS PERTAINING TO PATIENTS WHO ARE OR HAVE BEEN ENROLLED IN A CHEMICAL DEPENDENCY/SUBSTANCEABUSE PROGRAM, SOME INFORMATION MAY BE OMITTED. This clinical summary was aggregated from multiple sources. Caution should be exercised in using it in the provision of clinical care. This summary normalizes information from multiple sources, and as a consequence, information in this document may materially change the coding, format and clinical context of patient data. In addition, data may be omitted in some cases. CLINICAL DECISIONS SHOULD BE BASED ON THE PRIMARY CLINICAL RECORDS. [facility]. provides no warranty or guarantee of the accuracy or completeness of information in this document.
[2025-07-09] MEDS: Ampicillin/Sulbactam 3 GM in 0.9% Normal Saline (100mL MB+) 100 ML IV (17:43)
[2025-07-09 17:48] VITALS: BP 110/74; PULSE 84; RESP 16; TEMP 37.7; O2SAT 97
[2025-07-09 18:03] VITALS: BP 124/74; PULSE 80; RESP 18; TEMP 38.2; O2SAT 94
[2025-07-09 18:05] LABS: Anion Gap 10 (5-15); BUN 15 mg/dL (4-19); BUN/Creat Ratio 14.5 RATIO (10-20); CRP 150.00 mg/L (0.0-3.0); Calcium,Total 9.6 mg/dL (7.6-11.0); Carbon Dioxide 24.9 mmol/L (21.0-32.0); Chloride 107 mmol/L (98-108); Estimated Creatinine Clearance 75.97 ml/min (50-250); Glucose 85 mg/dL (70-99); Potassium 4.0 mmol/L (3.3-5.1)
[2025-07-09 18:12] LABS: Hematocrit 46.5 % (40-54); Hemoglobin 15.9 g/dL (13.0-16.5); Immature Granulocytes Count 0.040 X10^3/uL (0.0-0.0); Mean Corp Hgb Conc 34.2 g/dL (32-36); Mean Corpuscular Volume 85.3 fL (80-94); Mean Platelet Vol. 9.0 fl (6.2-12.0); NRBC Flagged by Analyzer 0 % (0-5); Platelet Count 287 K/mm3 (150-450); RBC Distribution Width CV 13.4 % (11.6-14.6); RBC Distribution Width SD 41.7 fl (35.1-43.9); Red Blood Count 5.45 M/mm3 (4.6-6.2); White Blood Count 11.6 K/mm3 (4.4-11.0)
--- NOTE | 2025-07-09 18:20 | PCM.HP.STD ---
HPI - General General Date of Admission: 07/09/25 Date of Service: 07/09/25 Chief Complaint: Right elbow pain and swelling HPI Narrative VINCENZO AGUILLON, is a 64 M who presented to [facility] ED on 07/09/2025 with right elbow pain and swelling. Patient has been on medical history, is only on lisinopril daily for hypertension at home. 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 He developed right elbow pain with swelling on Saturday afternoon. Has been taking ibuprofen for this but the swelling and erythema have worsened and spread above and below the elbow. He also developed fevers and chills last night, so he came in today for further evaluation. In the ED he was febrile to 101.4F, was otherwise normotensive, normal sinus rhythm and stable on room air at rest. Labs notable for WBC count 11,000 and CRP 150. Elbow x-ray showed posterior elbow soft tissue edema extending proximally and distally. ED physician did a tap of the bursa, and fluid was cloudy and bloody consistent with infection. Case was discussed with orthopedics who recommended admission to medicine and IV antibiotics, with n.p.o. at midnight for possible procedure tomorrow. Hospitalist was then contacted for admission. I saw the patient at bedside in the ED. Patient was sitting back comfortably in bed, conversing normally, in no acute distress. Noted that his pain was much improved with doses of IV Toradol and IV morphine given earlier. Denies any fevers or chills. No other acute concerns currently. Will be admitted for further management. [facility] Medical History (Updated 07/09/25 @ 19:34 by Gloria Calles) HTN (hypertension) Pain, elbow Home Medications ?Medication ?Instructions ?Recorded ?Last Taken ?Type lisinopril 40 mg tablet 40 mg PO DAILY high bp 07/09/25 Unknown History Allergy/AdvReac Type Severity Reaction Status Date / Time No Known Allergies Allergy Verified 07/09/25 15:44 Social History Smoking Status: Never smoker ROS Constitutional Constitutional: Denies chills, fatigue, fever(s) or weakness Cardiovascular Cardiovascular: Denies chest pain Respiratory/Chest Respiratory/Chest: Denies shortness of breath at rest Gastrointestinal Gastrointestinal: Denies abdominal pain Musculoskeletal Musculoskeletal: Reports other Details: Right elbow pain with swelling Neurologic Neurologic: Denies dizziness, focal weakness, headache(s), numbness or tingling Vital Signs Vital Signs Vital Signs: 07/09/25 15:44 07/09/25 16:48 07/09/25 17:48 Temperature 98.4 F 101.4 F H 99.8 F H Temperature Source Oral Oral Oral Pulse Rate 93 84 Respiratory Rate 18 16 Blood Pressure 128/82 H 110/74 Blood Pressure Mean 97 86 Pulse Ox 97 97 Oxygen Delivery Method Room Air Room Air 07/09/25 18:03 Temperature 100.7 F H Temperature Source Oral Pulse Rate 80 Respiratory Rate 18 Blood Pressure 124/74 H Blood Pressure Mean 90 Pulse Ox 94 Oxygen Delivery Method Room Air Weight Weight: 84.822 kg Body Mass Index (BMI) 26.0 Physical Exam Const alert, oriented x3, no apparent distress, average body habitus, healthy appearing and well nourished Constitutional Narrative: Pleasant upper middle-age male, sitting back comfortably in bed, conversing normally, in no acute distress. General Appearance: cooperative, comfortable, well kempt and well developed HEENT normocephalic, head/scalp atraumatic, hearing grossly normal bilaterally, nasal mucous membranes and turbinates normal and moist oral mucous membranes Eyes PERRL, EOMs intact bilaterally and conjunctivae normal Neck full ROM Chest inspection of chest normal Resp normal respiratory effort, normal air movement, no use of accessory muscles and clear to auscultation bilaterally Cardio regular rate, regular rhythm, no murmurs and peripheral pulses 2+ throughout GI normal to inspection, nondistended, normoactive bowel sounds, soft to palpation, non-tender and non-distended Back/Spine normal ROM Extremity Extremity Narrative: Right elbow erythema, swelling and tenderness to palpation noted from just above the elbow laterally down to the mid forearm laterally. Only mild pain noted with active and passive motion. Skin no rashes or lesions noted Neuro moves all extremities Motor Exam: strength 5/5 throughout Psych mental status grossly normal Results Lab / Micro Data 07/09/25 17:20 07/09/25 17:20 Labs: Laboratory Results - last 24 hr 07/09/25 17:20: WBC 11.6 H, RBC 5.45, Hgb 15.9, Hct 46.5, MCV 85.3, MCH 29.2, MCHC 34.2, RDW Std Deviation 41.7, RDW Coeff of Ashleigh 13.4, Plt Count 287, MPV 9.0, Immature Gran % (Auto) 0.300, Neut % (Auto) 69.9, Lymph % (Auto) 17.7 L, Ingham % (Auto) 11.5 H, Eos % (Auto) 0.3, Baso % (Auto) 0.3, Absolute Neuts (auto) 8.1 H, Absolute Lymphs (auto) 2.05, Nucleated RBC % 0, Sodium 141, Potassium 4.0, Chloride 107, Carbon Dioxide 24.9, Anion Gap 10, BUN 15, Creatinine 1.06, Estim Creat Clear Calc 75.97, Est GFR (MDRD) Non-Af 79, BUN/Creatinine Ratio 14.5, Glucose 85, Lactic Acid 1.4, Calcium 9.6, C-React Prot Ext Range 150.00 H Assessment & Plan Assessment/Plan (1) Septic olecranon bursitis of right elbow: PLAN: Plan Patient is a 64-year-old male who presented to [facility] ED on 07/09/2025 with right elbow pain with swelling. 1. Right elbow septic bursitis ? Admit under inpatient status to [facility]. Orthopedic surgery consulted. Elbow x-ray showed posterior elbow soft tissue edema extending proximally and distally, no joint issues noted. Olecranon bursa aspiration done in the ED with cloudy, bloody fluid removed. WBC count 11K, CRP 150. Only mild pain with active and passive motion. Presentation most consistent with septic bursitis. Fluid cultures sent. Will treat with IV vancomycin and Unasyn for now. Per orthopedics, will keep n.p.o. at midnight in case of need for procedure tomorrow. Pain control with Tylenol, IV Toradol and p.o. oxycodone as needed. 2. Hypertension ? Normotensive in the ED. Will hold home lisinopril for now in setting of infection as above, restart when able. 3. History of left [id number] amputation from trauma with prosthetic leg ? Noted. DVT prophylaxis: Lovenox CODE STATUS: Full code, verified Expected disposition: Home, TBD Total clinical time spent by myself addressing the patient's medical issues, reviewing all the data, and collaborating with patient's care team: 63 minutes. Charges/Coding Visit Charges Inpatient E&M: 29843 Init Hosp L2
--- NOTE | 2025-07-09 18:24 | EDS_ITS ---
HPI History of Present Illness HPI Narrative: 64-year-old male right hand dominant. History of hypertension and left zljif-khd-oups amputation from a trauma as a child. Complaining of right elbow pain, redness and swelling since Saturday at 2 PM. Denies any trauma or injury. No prior surgery. Has been taking ibuprofen. Last night he developed fever and chills. Chief Complaint: Upper Extremity Injury Informant: patient Occured/Mechanism Mechanism/Context: No injury and No blunt trauma Onset/Context/Timing Onset: Days Context: Gradual Onset Timing: Continuous Quality of Pain: Sharp Current Severity: Moderate Maximum Severity: Moderate Associated Symptoms Associated Symptoms: Negative for Parasthesia, Weakness or Loss of Funtion Narrative Narrative: 64-year-old male kxqca-dwoa-xavttphn redness and swelling to his right posterior elbow and bursa since Saturday. Fever and chills. Prior similar symptoms: No Recent Illness/Hospitalization: No PFSH PFSH Medical History Pain, elbow Home Medications ?Medication ?Instructions ?Recorded ?Last Taken ?Type lisinopril 40 mg tablet 40 mg PO DAILY 07/09/25 Unkn own History Allergy/AdvReac Type Severity Reaction Status Date / Time No Known Allergies Allergy Verified 07/09/25 15:44 Social History Smoking Status: Never smoker ROS ROS ED ROS Narrative Right elbow pain. Swelling. Fever and chills. Redness to the skin. Constitutional Constitutional ED: Reports chills and fever(s) Eyes Eyes: Denies blurry vision ENT ENT ED: Denies ear pain Cardiovascular Cardiovascular: Denies chest pain Respiratory/Chest Respiratory/Chest: Denies cough Gastrointestinal Gastrointestinal: Denies abdominal pain Genitourinary Genitourinary ED: Denies dysuria Musculoskeletal Musculoskeletal: Denies back pain Integumentary Denies abscess Neurologic Neurologic: Denies headache(s) Psychiatric Psychiatric: Denies anxiety or depression Endocrine Endocrinology: Denies cold intolerance Hematologic/Lymphatic Hematologic/Lymphatic: Denies easy bleeding Allergic/Immunologic Allergic/Immunologic ED: Denies mouth swelling EXAM Physical Exam Narrative Exam Narrative: 64 old male sitting upright in bed vital signs are stable. He has a fever one 1.4. He does not look septic. H EENT exam pupils round react light. Moist mucous members. Neck nontender no lymphadenopathy. No meningismus. Lungs clear to auscultation bilaterally. Heart regular rhythm rate about 90 no murmur. Chest wall ribs nontender. Abdomen soft nontender. Moving all 4 extremities. Right posterior elbow has a bursitis is red and tender consistent with a septic bursitis. He is able to flex and extend the elbow I do not think he has a septic joint as of yet. There is cellulitis on the posterior right arm elbow and forearm. There is no inguinal lymphadenopathy. There is no lymphangitic streaking. Neurologically he is awake alert. Answering questions and following commands. Const Vital Signs: 07/09/25 15:44 07/09/25 16:48 07/09/25 17:48 Temperature 98.4 F 101.4 F H 99.8 F H Temperature Source Oral Oral Oral Pulse Rate 93 84 Respiratory Rate 18 16 Blood Pressure 128/82 H 110/74 Blood Pressure Mean 97 86 Pulse Ox 97 97 Oxygen Delivery Method Room Air Room Air 07/09/25 18:03 Temperature 100.7 F H Temperature Source Oral Pulse Rate 80 Respiratory Rate 18 Blood Pressure 124/74 H Blood Pressure Mean 90 Pulse Ox 94 Oxygen Delivery Method Room Air MDM MDM MDM Narrative Medical decision making narrative: 64-year-old male right elbow septic bursitis. I did do a tap of the bursa. The fluid was cloudy and bloody consistent with infection. It was sent for Gram s tain and culture. Patient was started on IV Unasyn. Given fluids. Labs are pending. Repeat exam patient doing well at 6:28 PM. Have already spoken to orthopedics and they will follow the patient up. To decide if this needs to be washed out. I spoke to the hospitalist. Patient is already been treated with IV Unasyn will add IV vancomycin which been ordered. Will be down to admit the patient. History & Record Review Discussion w/independent historian: Patient Additional record(s) reviewed:: Prior outpatient record Lab Data Attestation: I reviewed the patient's lab results. Lab results narrative: CBC shows white count 1.6. H&H of 15 and 46. Platelets 287. Electrolytes show gap 10. Normal BUN 15 creatinine 1. Glucose 85. Lactic acid normal 1.4. C-reactive protein 150. Right elbow x-ray interpreted by myself and the radiologist shows soft tissue swelling. No fracture. No subcu air. No bony destruction. Labs: Laboratory Results - last 24 hr 07/09/25 17:20 WBC 11.6 H RBC 5.45 Hgb 15.9 Hct 46.5 MCV 85.3 MCH 29.2 MCHC 34.2 RDW Std Deviation 41.7 RDW Coeff of Ashleigh 13.4 Plt Count 287 MPV 9.0 Immature Gran % (Auto) 0.300 Neut % (Auto) 69.9 Lymph % (Auto) 17.7 L Bond % (Auto) 11.5 H Eos % (Auto) 0.3 Baso % (Auto) 0.3 Absolute Neuts (auto) 8.1 H Absolute Lymphs (auto) 2.05 Nucleated RBC % 0 Sodium 141 Potassium 4.0 Chloride 107 Carbon Dioxide 24.9 Anion Gap 10 BUN 15 Creatinine 1.06 Estim Creat Clear Calc 75.97 Est GFR (MDRD) Non-Af 79 BUN/Creatinine Ratio 14.5 Glucose 85 Lactic Acid 1.4 Calcium 9.6 C-React Prot Ext Range 150.00 H Radiography Diagnostic Testing: Clinical Impression(s) from Imaging Studies Elbow X-Ray 07/09/25 17:02 IMPRESSION: 1. No acute osseous abnormality. 2. Posterior elbow soft tissue edema, extending proximally and distally, compatible with inflammatory changes in the setting of recent septic bursitis drainage. [place] Location[place] [facility] [facility] Discharge Plan Dx/Rx/DC Orders Clinical Impression: Septic olecranon bursitis of right elbow, Cellulitis of right elbow, Fever Disposition Disposition: Acute Care [facility]
--- NOTE | 2025-07-09 18:50 | CASEMGMT ---
Care Management Face to Face with patient for initial transition planning/care coordination assessment in the ED. This entry writer introduced self and role at [facility]. Patient alert and oriented. Patient willing to participate in assessment and is able to answer all questions appropriately. Care providers, pharmacy, and demographics verified. Admitting Diagnosis: cellulitis of right elbow Other diagnosis history: hypertension and left qvwjq-lzd-exis amputation (from trauma as child) PCP: Eric Erazo Specialists: none [facility]erred [facility] Insurance: [employer] Prescription Benefit: yes Living Will/HPOA: unknown at this time; patient to ask LNOK: Radha and 5 children Living Arrangements: lives with and youngest child in a 2 story home with 4 steps to enter. Reports to be independent with all ADLs/IADLs Transportation: patient drives DME: none HHC: none SNF/Rehab: none Community Resources: none Patient goals: Patient wishes to discharge home, denies need for home health care at this time. Patient denies any further needs or concerns at this time. Disposition Plan: admission to acute; RN CM/SW to follow for discharge planning needs that may arise. Juany Hernandez, GARBAGE PICK UP WORKER, LOST CHARGE CARD CLERK
[2025-07-09] MEDS: Vancomycin HCl 2,000 MG in 0.9% Normal Saline (500mL Bag) 500 ML 250 MG IV (18:58)
[2025-07-09 18:59] VITALS: BP 104/67; PULSE 77; RESP 16; TEMP 38.2; O2SAT 97
--- OUTSIDE RECORDS SUMMARY | 2025-07-09 19:02 | XMS RPT_ITS | CCD ---
Author Organization [facility] Inform ion Partnership [facility] Care Team Providers Care Basin Operator Name Role Phone ÁNGEL FARAH, DR JESUS Garrison Primary Care Physician [facility] OCCUPATIONAL THERAPIST-BEZEL CUTTER, NEDRA Primary Care Physician WILLA FARAH FACP, MARTINEZ Wood Consulting Unavail dyllan ROBERT MD FACP, MARTINEZ Wood Attending Erasmo [facility] OCCUPATIONAL THERAPIST-BEZEL CUTTER, GIRMA Barba Admitting Unavailable [facility] OCCUPATIONAL THERAPIST-BEZEL CUTTER, NEDRA Primary Care Unavai lable [facility] OCCUPATIONAL THERAPIST-BEZEL CUTTER, NEDRA Attending Radha mota [facility] OCCUPATIONAL THERAPIST-BEZEL CUTTER, NEDRA Primary Care Unavai lable [facility] OCCUPATIONAL THERAPIST-BEZEL CUTTER, NEDRA Primary Care Unavai lable [facility] OCCUPATIONAL THERAPIST-BEZEL CUTTER, NEDRA Attending KAISER George DO Attending Unavailable [facility] OCCUPATIONAL THERAPIST-BEZEL CUTTER, NEDRA Primary Care Unavai lable [facility] OCCUPATIONAL THERAPIST-BEZEL CUTTER, NEDRA Primary Care DR BRENDA Steel MD Attending Unavailabl e Medications Current Medications Medication Drug Class(es) Dates Sig (Normalized) Sig (Original) acetaminophen 325 mg / HYDROcodone bitartrate 5 mg oral tablet (1 source) Opioid Agonist Start: 02-10-2025 End: 02-13-2025 take 1 tablet by mouth every six hours as needed for pain [place] 325- 5 mg oral tablet Dose = [...] day(s), # 12 tab(s), 0 Refill(s), Pharmacy: [facility]/pharmacy #[id number], Pancreatitis, 177.8, cm, 02/11/25 3:59:00 EDT, [...] CrCLWeight =50 kg:eGFR >50No changeeGFR 10-5015 mg [id number] 50No changeeGFR 10-507.5 mg [id number] Start Date: 02/11/25 Stop Date: 02/13/25 Status: Discontinued Repeat number: 1 lisinopril 40 mg oral tablet (5 sources) Angiotensin Converting Enzyme Inhibitor Start: 11-20-2024 End: 05-19-2025 lisinopril 40 mg oral tablet Dose : 40 mg = 1 tab(s), Oral, qDay, # 90 tab(s), 1 Refill(s), Pharmacy: [facility], 78, cm, 11/20/24 7:29:00 EDT, Height, kg, 11/20/24 7:29:00 EDT, Dosing Weight Start Date: 11/20/24 Stop Date: 05/19/25 Status: Ordered Medication Dispense Status: Completed Quantity: 90.0 Unit: tab(s) Total Allowed Fills: 2 Fills Dispensed: 0 Start: 09-09-2024 End: 11-08-2024 lisinopril 20 mg oral tablet Dose : 20 mg = 1 tab(s), Oral, qDay, # 60 tab(s), 0 Refill(s), Pharmacy: [facility], Hypertension, 178, cm, 09/09/24 7:46:00 EST, [...] Estimated Glomerular Filtration Rate 78 ml/min/1.73sqm Normal [facility] Comment on above: Result Comment: Stages [...] DIFF, ANEU, MG, CBC, GFR, CMP #### [address] [address] CMPon 05-21-2025 Albumin Level 3.6 G/dL Normal 3.4-4.8 [facility] Comment on above: Performed By: #### A DIFF, ANEU, MG, CBC, GFR, CMP #### [address] [address] Albumin/Globulin [Mass ratio] 1.0 {ratio} Low 1.1-2.5 [facility] Comment on above: Performed By: #### A DIFF, ANEU, MG, CBC, GFR, CMP #### [address] [address] ALP [Catalytic activity/Vol] 90 U/L Normal 40-135 [facility] Comment on above: Performed By: #### A DIFF, ANEU, MG, CBC, GFR, CMP #### [address] [address] ALT [Catalytic activity/Vol] 30 U/L Normal 16-63 [facility] Comment on above: Performed By: #### A DIFF, ANEU, MG, CBC, GFR, CMP #### [address] [address] AST [Catalytic activity/Vol] 16 U/L Normal 10-40 [facility] Comment on above: Performed By: #### A DIFF, ANEU, MG, CBC, GFR, CMP #### [address] [address] Bili Total 0.7 mg/dL Normal 0.2-1.0 [facility] Comment on above: Result Comment: Use of this assay is not recommended for patients undergoing treatment with eltrombopag due to the potential for falsely elevated results. Performed By: #### A DIFF, ANEU, MG, CBC, GFR, CMP #### [address] [address] BUN/Creatinine Ratio 21 ratio Normal 7-27 [facility] Comment on above: Performed By: #### A DIFF, ANEU, MG, CBC, GFR, CMP #### [place] [address] Calcium [Mass/Vol] 9.3 mg/dL Normal 8.4-10.2 [facility] Comment on above: Performed By: #### A DIFF, ANEU, MG, CBC, GFR, CMP #### [place] [address] Chloride [Moles/Vol] 107 mmol/L Normal 98-107 [facility] Comment on above: Performed By: #### A DIFF, ANEU, MG, CBC, GFR, CMP #### [place] [address] CO2 [Moles/Vol] 28 mmol/L Normal 23-31 [facility] Comment on above: Performed By: #### A DIFF, ANEU, MG, CBC, GFR, CMP #### [place] [address] Creatinine [Mass/Vol] 1.07 mg/dL Normal 0.67-1.17 [facility] Comment on above: Performed By: #### A DIFF, ANEU, MG, CBC, GFR, CMP #### [place] [address] Electrolyte Balance 8.0 mEq/L Normal 4.0-15.0 [facility] Comment on above: Performed By: #### A DIFF, ANEU, MG, CBC, GFR, CMP #### [address] [address] Globulin 3.6 G/dL Normal 2.7-4.4 [facility] Comment on above: Performed By: #### A DIFF, ANEU, MG, CBC, GFR, CMP #### [address] [address] Glucose [Mass/Vol] 79 mg/dL Low 80-115 [facility] Comment on above: Performed By: #### A DIFF, ANEU, MG, CBC, GFR, CMP #### [address] [address] Potassium [Moles/Vol] 4.2 mmol/L Normal 3.5-5.1 [facility] Comment on above: Performed By: #### A DIFF, ANEU, MG, CBC, GFR, CMP #### [address] [address] Sodium [Moles/Vol] 143 mmol/L Normal 136-145 [facility] Comment on above: Performed By: #### A DIFF, ANEU, MG, CBC, GFR, CMP #### [address] [address] Total Protein 7.2 G/dL Normal 6.4-8.2 [facility] Comment on above: Performed By: #### A DIFF, ANEU, MG, CBC, GFR, CMP #### [address] [address] Urea nitrogen [Mass/Vol] 23 mg/dL High 7-18 [facility] Comment on above: Performed By: #### A DIFF, ANEU, MG, CBC, GFR, CMP #### [address] [address] LABORATORYOrdered By: SYSTEM SYSTEM on 05-21-2025 Albumin [...] Reports Accession: Collected Date/Time: Received Date/Time: Pathologist: [id number] 02/26/2025 09:31 EDT 03/01/2025 07:49 EDT RICARDO FLOWER MD Final Surgical Pathology Report DIAGNOSIS: CECUM, POLYPECTOMY: - TUBULAR ADENOMA CLINICAL INFORMATION: Procedure: COLONOSCOPY Preoperative diagnosis: SCREENING Postoperative diagnosis: SCREENING SPECIMEN: A CECUM POLYP GROSS DESCRIPTION: All parts labelled with patient name and [id number] Received in formalin labeled cecum polyp is 1 mercedes-pink tissue fragment measuring 0.6 x 0.2 cm. TS-1 Radhika Garcia, Grossing Transition Of Care Specialist/ Dr. Ricardo Flower, Pathologist Performed by Radhika Garcia MICROSCOPIC DESCRIPTION: The microscopic examination is performed, except in the case of Gross Only. Verified by Pathology Report verified by [facility] RICARDO FLOWER Sign out Date: 03/02/2025 16:12 Performing Lab: [facility], [address] [place] [address] Pathology Dept Disclaimer If ancillary studies were utilized, the following Laboratory Developed Test (LDT) disclaimer will apply: Under CLIA requirements, [facility] is qualified to perform high complexity testing. For all ancillary stains, positive and negative controls stain appropriately. Performance characteristics of immunohistochemical and chromogenic in-situ hybridization tests have been determined by [facility]. These tests are used for clinical purposes, They should not be regarded as investigational or for research. Normal [facility] .Auto Diffon 02-13-2025 Basophil, Absolute 0.0 10 3/mcL Normal 0.0-0.3 [facility] Comment on above: Performed By: #### A DIFF, ANEU, MG, CBC, GFR, CMP #### [facility] [address] [place], [place] [address] Basophils/100 WBC (Bld) 0.2 % Normal 0.0-2.5 [facility] Comment on above: Performed By: #### A DIFF, ANEU, MG, CBC, GFR, CMP #### [address] [address] Eosinophil, Absolute 0.2 10 3/mcL Normal 0.0-0.7 [facility] Comment on above: Performed By: #### A DIFF, ANEU, MG, CBC, GFR, CMP #### [address] [address] Eosinophils/100 WBC (Bld) 2.0 % Normal 0.0-6.0 [facility] Comment on above: Performed By: #### A DIFF, ANEU, MG, CBC, GFR, CMP #### [address] [address] Lymphocyte, Absolute 1.2 10 3/mcL Normal 0.9-4.3 [facility] Comment on above: Performed By: #### A DIFF, ANEU, MG, CBC, GFR, CMP #### [address] [address] Lymphocytes/100 WBC (Bld) 14.7 % Low 20.0-40.0 [facility] Comment on above: Performed By: #### A DIFF, ANEU, MG, CBC, GFR, CMP #### [address] [address] Monocyte, Absolute 1.0 10 3/mcL Normal 0.1-1.4 [facility] Comment on above: Performed By: #### A DIFF, ANEU, MG, CBC, GFR, CMP #### [address] [address] Monocytes/100 WBC (Bld) 11.9 % Normal 2.0-13.0 [facility] Comment on above: Performed By: #### A DIFF, ANEU, MG, CBC, GFR, CMP #### [address] [address] Neutrophils/100 WBC (Bld) 71.2 % Normal 50.0-75.0 [facility] Comment on above: Performed By: #### A DIFF, ANEU, MG, CBC, GFR, CMP #### [address] [address] .GFRon 02-13-2025 Estimated Glomerular Filtration Rate 96 ml/min/1.73sqm Normal [facility] Comment on above: Result Comment: Stages [...] DIFF, ANEU, MG, CBC, GFR, CMP #### [address] [address] .NEUABSon 02-13-2025 Neutrophil, Absolute 5.8 10 3/mcL Normal 2.3-8.1 [facility] Comment on above: Performed By: #### A DIFF, ANEU, MG, CBC, GFR, CMP #### [address] [address] CBCon 02-13-2025 Erythrocyte distribution width (RBC) [Ratio] 13.6 % Normal 11.5-15.5 [facility] Comment on above: Performed By: #### A DIFF, ANEU, MG, CBC, GFR, CMP #### [address] [address] Hematocrit (Bld) [Volume fraction] 35.5 % Low 40.0-52.0 [facility] Comment on above: Performed By: #### A DIFF, ANEU, MG, CBC, GFR, CMP #### [address] [address] Hgb 12.4 G/dL Low 13.0-17.5 [facility] Comment on above: Performed By: #### A DIFF, ANEU, MG, CBC, GFR, CMP #### [address] [address] MCH (RBC) [Entitic mass] 29.0 pg Normal 27.0-33.0 [facility] Comment on above: Performed By: #### A DIFF, ANEU, MG, CBC, GFR, CMP #### [place] [address] MCHC 34.8 G/dL Normal 32.0-36.0 [facility] Comment on above: Performed By: #### A DIFF, ANEU, MG, CBC, GFR, CMP #### [place] [address] MCV (RBC) [Entitic vol] 83.2 fL Normal 81.0-100.0 [facility] Comment on above: Performed By: #### A DIFF, ANEU, MG, CBC, GFR, CMP #### [place] [address] Platelet 221 10 3/mcL Normal 150-450 [facility] Comment on above: Performed By: #### A DIFF, ANEU, MG, CBC, GFR, CMP #### [place] [address] Platelet mean volume (Bld) [Entitic vol] 7.5 fL Normal 6.4-10.5 [facility] Comment on above: Performed By: #### A DIFF, ANEU, MG, CBC, GFR, CMP #### [address] [address] RBC 4.27 10 6/mcL Low 4.50-6.00 [facility] Comment on above: Performed By: #### A DIFF, ANEU, MG, CBC, GFR, CMP #### [place] [id number] WBC 8.2 10 3/mcL Normal 4.5-10.8 [facility] Comment on above: Performed By: #### A DIFF, ANEU, MG, CBC, GFR, CMP #### [address] [address] CMPon 02-13-2025 Albumin Level 2.3 G/dL Low 3.4-4.8 [facility] Comment on above: Performed By: #### A DIFF, ANEU, MG, CBC, GFR, CMP #### [address] [address] Albumin/Globulin [Mass ratio] 0.6 {ratio} Low 1.1-2.5 [facility] Comment on above: Performed By: #### A DIFF, ANEU, MG, CBC, GFR, CMP #### [place] [address] ALP [Catalytic activity/Vol] 71 U/L Normal 40-135 [facility] Comment on above: Performed By: #### A DIFF, ANEU, MG, CBC, GFR, CMP #### [place] [address] ALT [Catalytic activity/Vol] 16 U/L Normal 16-63 [facility] Comment on above: Performed By: #### A DIFF, ANEU, MG, CBC, GFR, CMP #### [place] [address] AST [Catalytic activity/Vol] 18 U/L Normal 10-40 [facility] Comment on above: Performed By: #### A DIFF, ANEU, MG, CBC, GFR, CMP #### [place] [address] Bili Total 0.9 mg/dL Normal 0.2-1.0 [facility] Comment on above: Result Comment: Use of this assay is not recommended for patients undergoing treatment with eltrombopag due to the potential for falsely elevated results. Performed By: #### A DIFF, ANEU, MG, CBC, GFR, CMP #### [place] [address] BUN/Creatinine Ratio 11 ratio Normal 7-27 [facility] Comment on above: Performed By: #### A DIFF, ANEU, MG, CBC, GFR, CMP #### [address] [address] Calcium [Mass/Vol] 8.4 mg/dL Normal 8.4-10.2 [facility] Comment on above: Performed By: #### A DIFF, ANEU, MG, CBC, GFR, CMP #### [place] [address] Chloride [Moles/Vol] 107 mmol/L Normal 98-107 [facility] Comment on above: Performed By: #### A DIFF, ANEU, MG, CBC, GFR, CMP #### [place] [address] CO2 [Moles/Vol] 30 mmol/L Normal 23-31 [facility] Comment on above: Performed By: #### A DIFF, ANEU, MG, CBC, GFR, CMP #### [place] [address] Creatinine [Mass/Vol] 0.89 mg/dL Normal 0.67-1.17 [facility] Comment on above: Performed By: #### A DIFF, ANEU, MG, CBC, GFR, CMP #### [place] [address] Electrolyte Balance 3.0 mEq/L Low 4.0-15.0 [facility] Comment on above: Performed By: #### A DIFF, ANEU, MG, CBC, GFR, CMP #### [place] [address] Globulin 3.8 G/dL Normal 2.7-4.4 [facility] Comment on above: Performed By: #### A DIFF, ANEU, MG, CBC, GFR, CMP #### [place] [address] Glucose [Mass/Vol] 107 mg/dL Normal 80-115 [facility] Comment on above: Performed By: #### A DIFF, ANEU, MG, CBC, GFR, CMP #### [place] [address] Potassium [Moles/Vol] 3.6 mmol/L Normal 3.5-5.1 [facility] Comment on above: Performed By: #### A DIFF, ANEU, MG, CBC, GFR, CMP #### [address] [address] Sodium [Moles/Vol] 140 mmol/L Normal 136-145 [facility] Comment on above: Performed By: #### A DIFF, ANEU, MG, CBC, GFR, CMP #### [address] [address] Total Protein 6.1 G/dL Low 6.4-8.2 [facility] Comment on above: Performed By: #### A DIFF, ANEU, MG, CBC, GFR, CMP #### [address] [address] Urea nitrogen [Mass/Vol] 10 mg/dL Normal 7-18 [facility] Comment on above: Performed By: #### A DIFF, ANEU, MG, CBC, GFR, CMP #### [address] [address] LABORATORYOrdered By: SYSTEM SYSTEM on 02-13-2025 Albumin [...] 02-13-2025 Magnesium [Mass/Vol] 2.1 mg/dL Normal 1.8-2.4 [facility] Comment on above: Performed By: #### A DIFF, ANEU, MG, CBC, GFR, CMP #### [address] [address] .Auto Diffon 02-12-2025 Basophil, Absolute 0.0 10 3/mcL Normal 0.0-0.3 [facility] Comment on above: Performed By: #### A DIFF, ANEU, MG, CBC, GFR, CMP #### [address] [address] Basophils/100 WBC (Bld) 0.3 % Normal 0.0-2.5 [facility] Comment on above: Performed By: #### A DIFF, ANEU, MG, CBC, GFR, CMP #### [address] [address] Eosinophil, Absolute 0.0 10 3/mcL Normal 0.0-0.7 [facility] Comment on above: Performed By: #### A DIFF, ANEU, MG, CBC, GFR, CMP #### [address] [address] Eosinophils/100 WBC (Bld) 0.4 % Normal 0.0-6.0 [facility] Comment on above: Performed By: #### A DIFF, ANEU, MG, CBC, GFR, CMP #### [address] [address] Lymphocyte, Absolute 1.1 10 3/mcL Normal 0.9-4.3 [facility] Comment on above: Performed By: #### A DIFF, ANEU, MG, CBC, GFR, CMP #### [address] [address] Lymphocytes/100 WBC (Bld) 9.8 % Low 20.0-40.0 [facility] Comment on above: Performed By: #### A DIFF, ANEU, MG, CBC, GFR, CMP #### [address] [address] Monocyte, Absolute 1.3 10 3/mcL Normal 0.1-1.4 [facility] Comment on above: Performed By: #### A DIFF, ANEU, MG, CBC, GFR, CMP #### [address] [address] Monocytes/100 WBC (Bld) 11.2 % Normal 2.0-13.0 [facility] Comment on above: Performed By: #### A DIFF, ANEU, MG, CBC, GFR, CMP #### [address] [address] Neutrophils/100 WBC (Bld) 78.3 % High 50.0-75.0 [facility] Comment on above: Performed By: #### A DIFF, ANEU, MG, CBC, GFR, CMP #### [address] [address] .GFRon 02-12-2025 Estimated Glomerular Filtration Rate 101 ml/min/1.73sqm Normal [facility] Comment on above: Result Comment: Stages [...] DIFF, ANEU, MG, CBC, GFR, CMP #### [address] [address] .NEUABSon 02-12-2025 Neutrophil, Absolute 8.8 10 3/mcL High 2.3-8.1 [facility] Comment on above: Performed By: #### A DIFF, ANEU, MG, CBC, GFR, CMP #### [address] [address] CBCon 02-12-2025 Erythrocyte distribution width (RBC) [Ratio] 13.5 % Normal 11.5-15.5 [facility] Comment on above: Performed By: #### A DIFF, ANEU, MG, CBC, GFR, CMP #### [place] [address] Hematocrit (Bld) [Volume fraction] 38.4 % Low 40.0-52.0 [facility] Comment on above: Performed By: #### A DIFF, ANEU, MG, CBC, GFR, CMP #### [place] [address] Hgb 13.0 G/dL Normal 13.0-17.5 [facility] Comment on above: Performed By: #### A DIFF, ANEU, MG, CBC, GFR, CMP #### [place] [address] MCH (RBC) [Entitic mass] 28.7 pg Normal 27.0-33.0 [facility] Comment on above: Performed By: #### A DIFF, ANEU, MG, CBC, GFR, CMP #### [place] [address] MCHC 33.9 G/dL Normal 32.0-36.0 [facility] Comment on above: Performed By: #### A DIFF, ANEU, MG, CBC, GFR, CMP #### [place] [id number] MCV (RBC) [Entitic vol] 84.6 fL Normal 81.0-100.0 [facility] Comment on above: Performed By: #### A DIFF, ANEU, MG, CBC, GFR, CMP #### [address] [address] Platelet 213 10 3/mcL Normal 150-450 [facility] Comment on above: Performed By: #### A DIFF, ANEU, MG, CBC, GFR, CMP #### [place] [id number] Platelet mean volume (Bld) [Entitic vol] 7.3 fL Normal 6.4-10.5 [facility] Comment on above: Performed By: #### A DIFF, ANEU, MG, CBC, GFR, CMP #### [address] [address] RBC 4.54 10 6/mcL Normal 4.50-6.00 [facility] Comment on above: Performed By: #### A DIFF, ANEU, MG, CBC, GFR, CMP #### [address] [address] WBC 11.2 10 3/mcL High 4.5-10.8 [facility] Comment on above: Performed By: #### A DIFF, ANEU, MG, CBC, GFR, CMP #### [place] [address] CMPon 02-12-2025 Albumin Level 2.6 G/dL Low 3.4-4.8 [facility] Comment on above: Performed By: #### A DIFF, ANEU, MG, CBC, GFR, CMP #### [place] [address] Albumin/Globulin [Mass ratio] 0.6 {ratio} Low 1.1-2.5 [facility] Comment on above: Performed By: #### A DIFF, ANEU, MG, CBC, GFR, CMP #### [place] [address] ALP [Catalytic activity/Vol] 73 U/L Normal 40-135 [facility] Comment on above: Performed By: #### A DIFF, ANEU, MG, CBC, GFR, CMP #### [address] [address] ALT [Catalytic activity/Vol] 21 U/L Normal 16-63 [facility] Comment on above: Performed By: #### A DIFF, ANEU, MG, CBC, GFR, CMP #### [place] [address] AST [Catalytic activity/Vol] 15 U/L Normal 10-40 [facility] Comment on above: Performed By: #### A DIFF, ANEU, MG, CBC, GFR, CMP #### [place] [id number] Bili Total 1.6 mg/dL High 0.2-1.0 [facility] Comment on above: Result Comment: Use of this assay is not recommended for patients undergoing treatment with eltrombopag due to the potential for falsely elevated results. Performed By: #### A DIFF, ANEU, MG, CBC, GFR, CMP #### [place] [address] BUN/Creatinine Ratio 16 ratio Normal 7-27 [facility] Comment on above: Performed By: #### A DIFF, ANEU, MG, CBC, GFR, CMP #### [place] [address] Calcium [Mass/Vol] 8.6 mg/dL Normal 8.4-10.2 [facility] Comment on above: Performed By: #### A DIFF, ANEU, MG, CBC, GFR, CMP #### [place] [address] Chloride [Moles/Vol] 105 mmol/L Normal 98-107 [facility] Comment on above: Performed By: #### A DIFF, ANEU, MG, CBC, GFR, CMP #### [place] [address] CO2 [Moles/Vol] 27 mmol/L Normal 23-31 [facility] Comment on above: Performed By: #### A DIFF, ANEU, MG, CBC, GFR, CMP #### [place] [address] Creatinine [Mass/Vol] 0.75 mg/dL Normal 0.67-1.17 [facility] Comment on above: Performed By: #### A DIFF, ANEU, MG, CBC, GFR, CMP #### [place] [address] Electrolyte Balance 9.0 mEq/L Normal 4.0-15.0 [facility] Comment on above: Performed By: #### A DIFF, ANEU, MG, CBC, GFR, CMP #### [place] [address] Globulin 4.1 G/dL Normal 2.7-4.4 [facility] Comment on above: Performed By: #### A DIFF, ANEU, MG, CBC, GFR, CMP #### [address] [address] Glucose [Mass/Vol] 91 mg/dL Normal 80-115 [facility] Comment on above: Performed By: #### A DIFF, ANEU, MG, CBC, GFR, CMP #### [address] [address] Potassium [Moles/Vol] 4.0 mmol/L Normal 3.5-5.1 [facility] Comment on above: Performed By: #### A DIFF, ANEU, MG, CBC, GFR, CMP #### [address] [address] Sodium [Moles/Vol] 141 mmol/L Normal 136-145 [facility] Comment on above: Performed By: #### A DIFF, ANEU, MG, CBC, GFR, CMP #### [address] [address] Total Protein 6.7 G/dL Normal 6.4-8.2 [facility] Comment on above: Performed By: #### A DIFF, ANEU, MG, CBC, GFR, CMP #### [address] [address] Urea nitrogen [Mass/Vol] 12 mg/dL Normal 7-18 [facility] Comment on above: Performed By: #### A DIFF, ANEU, MG, CBC, GFR, CMP #### [address] [address] LABORATORYOrdered By: SYSTEM SYSTEM on 02-12-2025 Albumin [...] 02-12-2025 Lipase Level 40 U/L Normal 16-77 [facility] Comment on above: Performed By: #### A DIFF, ANEU, MG, CBC, GFR, CMP #### [address] [address] MGon 02-12-2025 Magnesium [Mass/Vol] 1.7 mg/dL Low 1.8-2.4 [facility] Comment on above: Performed By: #### A DIFF, ANEU, MG, CBC, GFR, CMP #### [address] [address] .Auto Diffon 02-11-2025 Basophil, Absolute 0.0 10 3/mcL Normal 0.0-0.3 [facility] Comment on above: Performed By: #### M G, CMP, CBC, GFR, ADIFF, ANEU ####[address] [address] Basophils/100 WBC (Bld) 0.2 % Normal 0.0-2.5 [facility] Comment on above: Performed By: #### M G, CMP, CBC, GFR, ADIFF, ANEU ####[address] [address] Eosinophil, Absolute 0.1 10 3/mcL Normal 0.0-0.7 [facility] Comment on above: Performed By: #### M G, CMP, CBC, GFR, ADIFF, ANEU ####[address] [address] Eosinophils/100 WBC (Bld) 0.6 % Normal 0.0-6.0 [facility] Comment on above: Performed By: #### M G, CMP, CBC, GFR, ADIFF, ANEU ####[id number] [place], [place] [address] Lymphocyte, Absolute 1.6 10 3/mcL Normal 0.9-4.3 [facility] Comment on above: Performed By: #### M G, CMP, CBC, GFR, ADIFF, ANEU ####[id number] [place] [id number] Lymphocytes/100 WBC (Bld) 12.7 % Low 20.0-40.0 [facility] Comment on above: Performed By: #### M G, CMP, CBC, GFR, ADIFF, ANEU ####[id number] [place] [id number] Monocyte, Absolute 1.4 10 3/mcL Normal 0.1-1.4 [facility] Comment on above: Performed By: #### M G, CMP, CBC, GFR, ADIFF, ANEU ####[id number] [place] [id number] Monocytes/100 WBC (Bld) 10.8 % Normal 2.0-13.0 [facility] Comment on above: Performed By: #### M G, CMP, CBC, GFR, ADIFF, ANEU ####[id number] [place] [id number] Neutrophils/100 WBC (Bld) 75.7 % High 50.0-75.0 [facility] Comment on above: Performed By: #### M G, CMP, CBC, GFR, ADIFF, ANEU ####[id number] [place] [address] Basophil, Absolute 0.0 10 3/mcL Normal 0.0-0.3 [facility] Comment on above: Performed By: #### A DIFF, ANEU, MG, CBC, GFR, CMP #### [address] [place], [place] [address] Basophils/100 WBC (Bld) 0.3 % Normal 0.0-2.5 [facility] Comment on above: Performed By: #### A DIFF, ANEU, MG, CBC, GFR, CMP #### [address] [address] Eosinophil, Absolute 0.1 10 3/mcL Normal 0.0-0.7 [facility] Comment on above: Performed By: #### A DIFF, ANEU, MG, CBC, GFR, CMP #### [address] [address] Eosinophils/100 WBC (Bld) 0.8 % Normal 0.0-6.0 [facility] Comment on above: Performed By: #### A DIFF, ANEU, MG, CBC, GFR, CMP #### [address] [address] Lymphocyte, Absolute 2.1 10 3/mcL Normal 0.9-4.3 [facility] Comment on above: Performed By: #### A DIFF, ANEU, MG, CBC, GFR, CMP #### [address] [address] Lymphocytes/100 WBC (Bld) 16.0 % Low 20.0-40.0 [facility] Comment on above: Performed By: #### A DIFF, ANEU, MG, CBC, GFR, CMP #### [address] [address] Monocyte, Absolute 1.6 10 3/mcL High 0.1-1.4 [facility] Comment on above: Performed By: #### A DIFF, ANEU, MG, CBC, GFR, CMP #### [address] [address] Monocytes/100 WBC (Bld) 12.0 % Normal 2.0-13.0 [facility] Comment on above: Performed By: #### A DIFF, ANEU, MG, CBC, GFR, CMP #### [address] [address] Neutrophils/100 WBC (Bld) 70.9 % Normal 50.0-75.0 [facility] Comment on above: Performed By: #### A DIFF, ANEU, MG, CBC, GFR, CMP #### [place] [id number] [place], [place] [address] .GFRon 02-11-2025 Estimated Glomerular Filtration Rate 96 ml/min/1.73sqm Normal [facility] Comment on above: Result Comment: Stages [...] DIFF, ANEU, MG, CBC, GFR, CMP #### [address] [address] Estimated Glomerular Filtration Rate 95 ml/min/1.73sqm Normal [facility] Comment on above: Result Comment: Stages [...] DIFF, ANEU, MG, CBC, GFR, CMP #### [place] [id number] [place], [place] [address] .MDWon 02-11-2025 Monocyte Distribution Width 19.46 Normal 0.00-20.00 [facility] Comment on above: Result Comment: For ED adult patients suspected of sepsis, MDW<=20.0 does not rule out sepsis or risk of sepsis Performed By: #### A DIFF, ANEU, MG, CBC, GFR, CMP #### [address] [address] .NEUABSon 02-11-2025 Neutrophil, Absolute 9.8 10 3/mcL High 2.3-8.1 [facility] Comment on above: Performed By: #### M G, CMP, CBC, GFR, ADIFF, ANEU ####[place] [address] Neutrophil, Absolute 9.3 10 3/mcL High 2.3-8.1 [facility] Comment on above: Performed By: #### A DIFF, ANEU, MG, CBC, GFR, CMP #### [place] [id number] CBCon 02-11-2025 Erythrocyte distribution width (RBC) [Ratio] 13.7 % Normal 11.5-15.5 [facility] Comment on above: Performed By: #### M G, CMP, CBC, GFR, ADIFF, ANEU ####[place] [address] Hematocrit (Bld) [Volume fraction] 42.0 % Normal 40.0-52.0 [facility] Comment on above: Performed By: #### M G, CMP, CBC, GFR, ADIFF, ANEU ####[place] [address] Hgb 14.1 G/dL Normal 13.0-17.5 [facility] Comment on above: Performed By: #### M G, CMP, CBC, GFR, ADIFF, ANEU ####[place] [address] MCH (RBC) [Entitic mass] 28.3 pg Normal 27.0-33.0 [facility] Comment on above: Performed By: #### M G, CMP, CBC, GFR, ADIFF, ANEU ####[place] [address] MCHC 33.5 G/dL Normal 32.0-36.0 [facility] Comment on above: Performed By: #### M G, CMP, CBC, GFR, ADIFF, ANEU ####[address] [place], [place] [address] MCV (RBC) [Entitic vol] 84.7 fL Normal 81.0-100.0 [facility] Comment on above: Performed By: #### M G, CMP, CBC, GFR, ADIFF, ANEU ####[address] [place], [place] [address] Platelet 242 10 3/mcL Normal 150-450 [facility] Comment on above: Performed By: #### M G, CMP, CBC, GFR, ADIFF, ANEU ####[address] [place], [place] [address] Platelet mean volume (Bld) [Entitic vol] 7.0 fL Normal 6.4-10.5 [facility] Comment on above: Performed By: #### M G, CMP, CBC, GFR, ADIFF, ANEU ####[address] [place] [address] RBC 4.96 10 6/mcL Normal 4.50-6.00 [facility] Comment on above: Performed By: #### M G, CMP, CBC, GFR, ADIFF, ANEU ####[address] [place], [place] [address] WBC 13.0 10 3/mcL High 4.5-10.8 [facility] Comment on above: Performed By: #### M G, CMP, CBC, GFR, ADIFF, ANEU ####[address] [place], [place] [address] Erythrocyte distribution width (RBC) [Ratio] 13.9 % Normal 11.5-15.5 [facility] Comment on above: Performed By: #### A DIFF, ANEU, MG, CBC, GFR, CMP #### [address] [place] [address] [place], [place] [address] Hematocrit (Bld) [Volume fraction] 44.2 % Normal 40.0-52.0 [facility] Comment on above: Performed By: #### A DIFF, ANEU, MG, CBC, GFR, CMP #### [place] [address] Hgb 14.9 G/dL Normal 13.0-17.5 [facility] Comment on above: Performed By: #### A DIFF, ANEU, MG, CBC, GFR, CMP #### [place] [address] MCH (RBC) [Entitic mass] 28.5 pg Normal 27.0-33.0 [facility] Comment on above: Performed By: #### A DIFF, ANEU, MG, CBC, GFR, CMP #### [place] [address] MCHC 33.8 G/dL Normal 32.0-36.0 [facility] Comment on above: Performed By: #### A DIFF, ANEU, MG, CBC, GFR, CMP #### [place] [address] MCV (RBC) [Entitic vol] 84.5 fL Normal 81.0-100.0 [facility] Comment on above: Performed By: #### A DIFF, ANEU, MG, CBC, GFR, CMP #### [address] [address] Platelet 255 10 3/mcL Normal 150-450 [facility] Comment on above: Performed By: #### A DIFF, ANEU, MG, CBC, GFR, CMP #### [address] [address] Platelet mean volume (Bld) [Entitic vol] 6.8 fL Normal 6.4-10.5 [facility] Comment on above: Performed By: #### A DIFF, ANEU, MG, CBC, GFR, CMP #### [address] [address] RBC 5.22 10 6/mcL Normal 4.50-6.00 [facility] Comment on above: Performed By: #### A DIFF, ANEU, MG, CBC, GFR, CMP #### [address] [address] WBC 13.1 10 3/mcL High 4.5-10.8 [facility] Comment on above: Performed By: #### A DIFF, ANEU, MG, CBC, GFR, CMP #### [address] [address] CMPon 02-11-2025 Albumin Level 2.9 G/dL Low 3.4-4.8 [facility] Comment on above: Performed By: #### A DIFF, ANEU, MG, CBC, GFR, CMP #### [place] [address] Albumin/Globulin [Mass ratio] 0.7 {ratio} Low 1.1-2.5 [facility] Comment on above: Performed By: #### A DIFF, ANEU, MG, CBC, GFR, CMP #### [place] [address] ALP [Catalytic activity/Vol] 75 U/L Normal 40-135 [facility] Comment on above: Performed By: #### A DIFF, ANEU, MG, CBC, GFR, CMP #### [place] [address] ALT [Catalytic activity/Vol] 20 U/L Normal 16-63 [facility] Comment on above: Performed By: #### A DIFF, ANEU, MG, CBC, GFR, CMP #### [place] [address] AST [Catalytic activity/Vol] 13 U/L Normal 10-40 [facility] Comment on above: Performed By: #### A DIFF, ANEU, MG, CBC, GFR, CMP #### [place] [address] Bili Total 1.5 mg/dL High 0.2-1.0 [facility] Comment on above: Result Comment: Use of this assay is not recommended for patients undergoing treatment with eltrombopag due to the potential for falsely elevated results. Performed By: #### A DIFF, ANEU, MG, CBC, GFR, CMP #### [place] [address] BUN/Creatinine Ratio 12 ratio Normal 7-27 [facility] Comment on above: Performed By: #### A DIFF, ANEU, MG, CBC, GFR, CMP #### [place] [address] Calcium [Mass/Vol] 8.6 mg/dL Normal 8.4-10.2 [facility] Comment on above: Performed By: #### A DIFF, ANEU, MG, CBC, GFR, CMP #### [place] [address] Chloride [Moles/Vol] 105 mmol/L Normal 98-107 [facility] Comment on above: Performed By: #### A DIFF, ANEU, MG, CBC, GFR, CMP #### [place] [address] CO2 [Moles/Vol] 30 mmol/L Normal 23-31 [facility] Comment on above: Performed By: #### A DIFF, ANEU, MG, CBC, GFR, CMP #### [place] [address] Creatinine [Mass/Vol] 0.89 mg/dL Normal 0.67-1.17 [facility] Comment on above: Performed By: #### A DIFF, ANEU, MG, CBC, GFR, CMP #### [place] [address] Electrolyte Balance 3.0 mEq/L Low 4.0-15.0 [facility] Comment on above: Performed By: #### A DIFF, ANEU, MG, CBC, GFR, CMP #### [place] [address] Globulin 4.1 G/dL Normal 2.7-4.4 [facility] Comment on above: Performed By: #### A DIFF, ANEU, MG, CBC, GFR, CMP #### [place] [address] Glucose [Mass/Vol] 108 mg/dL Normal 80-115 [facility] Comment on above: Performed By: #### A DIFF, ANEU, MG, CBC, GFR, CMP #### [address] [address] Potassium [Moles/Vol] 3.9 mmol/L Normal 3.5-5.1 [facility] Comment on above: Performed By: #### A DIFF, ANEU, MG, CBC, GFR, CMP #### [address] [address] Sodium [Moles/Vol] 138 mmol/L Normal 136-145 [facility] Comment on above: Performed By: #### A DIFF, ANEU, MG, CBC, GFR, CMP #### [address] [address] Total Protein 7.0 G/dL Normal 6.4-8.2 [facility] Comment on above: Performed By: #### A DIFF, ANEU, MG, CBC, GFR, CMP #### [address] [address] Urea nitrogen [Mass/Vol] 11 mg/dL Normal 7-18 [facility] Comment on above: Performed By: #### A DIFF, ANEU, MG, CBC, GFR, CMP #### [address] [address] Albumin Level 3.2 G/dL Low 3.4-4.8 [facility] Comment on above: Performed By: #### A DIFF, ANEU, MG, CBC, GFR, CMP #### [address] [address] Albumin/Globulin [Mass ratio] 0.7 {ratio} Low 1.1-2.5 [facility] Comment on above: Performed By: #### A DIFF, ANEU, MG, CBC, GFR, CMP #### [address] [address] ALP [Catalytic activity/Vol] 83 U/L Normal 40-135 [facility] Comment on above: Performed By: #### A DIFF, ANEU, MG, CBC, GFR, CMP #### [address] [address] ALT [Catalytic activity/Vol] 25 U/L Normal 16-63 [facility] Comment on above: Performed By: #### A DIFF, ANEU, MG, CBC, GFR, CMP #### [address] [address] AST [Catalytic activity/Vol] 15 U/L Normal 10-40 [facility] Comment on above: Performed By: #### A DIFF, ANEU, MG, CBC, GFR, CMP #### [address] [address] Bili Total 1.7 mg/dL High 0.2-1.0 [facility] Comment on above: Result Comment: Use of this assay is not recommended for patients undergoing treatment with eltrombopag due to the potential for falsely elevated results. Performed By: #### A DIFF, ANEU, MG, CBC, GFR, CMP #### [address] [address] BUN/Creatinine Ratio 12 ratio Normal 7-27 [facility] Comment on above: Performed By: #### A DIFF, ANEU, MG, CBC, GFR, CMP #### [address] [address] Calcium [Mass/Vol] 8.8 mg/dL Normal 8.4-10.2 [facility] Comment on above: Performed By: #### A DIFF, ANEU, MG, CBC, GFR, CMP #### [address] [address] Chloride [Moles/Vol] 101 mmol/L Normal 98-107 [facility] Comment on above: Performed By: #### A DIFF, ANEU, MG, CBC, GFR, CMP #### [address] [address] CO2 [Moles/Vol] 30 mmol/L Normal 23-31 [facility] Comment on above: Performed By: #### A DIFF, ANEU, MG, CBC, GFR, CMP #### [address] [address] Creatinine [Mass/Vol] 0.91 mg/dL Normal 0.67-1.17 [facility] Comment on above: Performed By: #### A DIFF, ANEU, MG, CBC, GFR, CMP #### [address] [address] Electrolyte Balance 3.0 mEq/L Low 4.0-15.0 [facility] Comment on above: Performed By: #### A DIFF, ANEU, MG, CBC, GFR, CMP #### [address] [address] Globulin 4.3 G/dL Normal 2.7-4.4 [facility] Comment on above: Performed By: #### A DIFF, ANEU, MG, CBC, GFR, CMP #### [place] [address] Glucose [Mass/Vol] 120 mg/dL High 80-115 [facility] Comment on above: Performed By: #### A DIFF, ANEU, MG, CBC, GFR, CMP #### [address] [address] Potassium [Moles/Vol] 4.0 mmol/L Normal 3.5-5.1 [facility] Comment on above: Performed By: #### A DIFF, ANEU, MG, CBC, GFR, CMP #### [place] [address] Sodium [Moles/Vol] 134 mmol/L Low 136-145 [facility] Comment on above: Performed By: #### A DIFF, ANEU, MG, CBC, GFR, CMP #### [place] [address] Total Protein 7.5 G/dL Normal 6.4-8.2 [facility] Comment on above: Performed By: #### A DIFF, ANEU, MG, CBC, GFR, CMP #### [place] [address] Urea nitrogen [Mass/Vol] 11 mg/dL Normal 7-18 [facility] Comment on above: Performed By: #### A DIFF, ANEU, MG, CBC, GFR, CMP #### [place] [id number] [place], [place] [address] LABORATORYOrdered By: SYSTEM SYSTEM on 02-11-2025 Albumin [...] LDHon 02-11-2025 LDH 121 U/L Normal 85-227 [facility] Comment on above: Performed By: #### A DIFF, ANEU, MG, CBC, GFR, CMP #### [address] [address] LIPon 02-11-2025 Lipase Level 64 U/L Normal 16-77 [facility] Comment on above: Performed By: #### A DIFF, ANEU, MG, CBC, GFR, CMP #### [address] [address] LIPIDon 02-11-2025 Cholesterol [Mass/Vol] 115 mg/dL Normal 0-200 [facility] Comment on above: Result Comment: Chol esterol Reference Interval: Less than 200 Desirable 200-239 Borderline high risk 240 and above High risk Performed By: #### A DIFF, ANEU, MG, CBC, GFR, CMP #### [address] [address] Cholesterol in HDL [Mass/Vol] 43 mg/dL Normal 40-60 [facility] Comment on above: Performed By: #### A DIFF, ANEU, MG, CBC, GFR, CMP #### [address] [address] Cholesterol in LDL [Mass/Vol] 59 mg/dL Normal 0-130 [facility] Comment on above: Performed By: #### A DIFF, ANEU, MG, CBC, GFR, CMP #### [address] [address] Triglyceride [Mass/Vol] 67 mg/dL Normal 0-150 [facility] Comment on above: Result Comment: Trig lyceride Reference Interval: Less than 150 Normal 150-199 Borderline high risk 200-499 High risk 500 or higher Very high risk Performed By: #### A DIFF, ANEU, MG, CBC, GFR, CMP #### [address] [address] MGon 02-11-2025 Magnesium [Mass/Vol] 1.8 mg/dL Normal 1.8-2.4 [facility] Comment on above: Performed By: #### A DIFF, ANEU, MG, CBC, GFR, CMP #### [address] [place] [address] [place], [place] [address] US ABDOMEN LIMITEDon 025 US ABDOMEN LIMITED [...] 02/11/2025 11:42:39 AM Ordering Provider: FRANCOIS Garcia [facility] .Auto Diffon 02-10-2025 Basophil, Absolute 0.0 10 3/mcL Normal 0.0-0.3 [facility] Comment on above: Performed By: #### C BC, LIP, ANEU, GFR, TROPHS, MDW, ADIFF, CMP #### [address] [address] Basophils/100 WBC (Bld) 0.3 % Normal 0.0-2.5 [facility] Comment on above: Performed By: #### C BC, LIP, ANEU, GFR, TROPHS, MDW, ADIFF, CMP #### [address] [address] Eosinophil, Absolute 0.1 10 3/mcL Normal 0.0-0.7 [facility] Comment on above: Performed By: #### C BC, LIP, ANEU, GFR, TROPHS, MDW, ADIFF, CMP #### [address] [address] Eosinophils/100 WBC (Bld) 0.8 % Normal 0.0-6.0 [facility] Comment on above: Performed By: #### C BC, LIP, ANEU, GFR, TROPHS, MDW, ADIFF, CMP #### [address] [address] Lymphocyte, Absolute 1.9 10 3/mcL Normal 0.9-4.3 [facility] Comment on above: Performed By: #### C BC, LIP, ANEU, GFR, TROPHS, MDW, ADIFF, CMP #### [address] [address] Lymphocytes/100 WBC (Bld) 15.0 % Low 20.0-40.0 [facility] Comment on above: Performed By: #### C BC, LIP, ANEU, GFR, TROPHS, MDW, ADIFF, CMP #### [address] [address] Monocyte, Absolute 1.4 10 3/mcL Normal 0.1-1.4 [facility] Comment on above: Performed By: #### C BC, LIP, ANEU, GFR, TROPHS, MDW, ADIFF, CMP #### [place] [id number] [place], [place] [address] Monocytes/100 WBC (Bld) 11.0 % Normal 2.0-13.0 [facility] Comment on above: Performed By: #### C BC, LIP, ANEU, GFR, TROPHS, MDW, ADIFF, CMP #### [place] [id number] [place], [place] [address] Neutrophils/100 WBC (Bld) 72.9 % Normal 50.0-75.0 [facility] Comment on above: Performed By: #### C BC, LIP, ANEU, GFR, TROPHS, MDW, ADIFF, CMP #### [place] [id number] [place], [place] [address] .GFRon 02-10-2025 Estimated Glomerular Filtration Rate 95 ml/min/1.73sqm Normal [facility] Comment on above: Result Comment: Stages [...] LIP, ANEU, GFR, TROPHS, MDW, ADIFF, CMP ####[place] [address] [place], [place] [address] .MDWon 02-10-2025 Monocyte Distribution Width 16.72 Normal 0.00-20.00 [facility] Comment on above: Result Comment: For ED adult patients suspected of sepsis, MDW<=20.0 does not rule out sepsis or risk of sepsis Performed By: #### C BC, LIP, ANEU, GFR, TROPHS, MDW, ADIFF, CMP ####[place] [address] .NEUABSon 02-10-2025 Neutrophil, Absolute 9.0 10 3/mcL High 2.3-8.1 [facility] Comment on above: Performed By: #### C BC, LIP, ANEU, GFR, TROPHS, MDW, ADIFF, CMP ####[place] [address] CBCon 02-10-2025 Erythrocyte distribution width (RBC) [Ratio] 13.5 % Normal 11.5-15.5 [facility] Comment on above: Performed By: #### C BC, LIP, ANEU, GFR, TROPHS, MDW, ADIFF, CMP #### [place] [address] Hematocrit (Bld) [Volume fraction] 47.4 % Normal 40.0-52.0 [facility] Comment on above: Performed By: #### C BC, LIP, ANEU, GFR, TROPHS, MDW, ADIFF, CMP #### [place] [address] Hgb 16.0 G/dL Normal 13.0-17.5 [facility] Comment on above: Performed By: #### C BC, LIP, ANEU, GFR, TROPHS, MDW, ADIFF, CMP #### [place] [address] MCH (RBC) [Entitic mass] 28.5 pg Normal 27.0-33.0 [facility] Comment on above: Performed By: #### C BC, LIP, ANEU, GFR, TROPHS, MDW, ADIFF, CMP #### [place] [address] MCHC 33.7 G/dL Normal 32.0-36.0 [facility] Comment on above: Performed By: #### C BC, LIP, ANEU, GFR, TROPHS, MDW, ADIFF, CMP #### [address] [address] MCV (RBC) [Entitic vol] 84.6 fL Normal 81.0-100.0 [facility] Comment on above: Performed By: #### C BC, LIP, ANEU, GFR, TROPHS, MDW, ADIFF, CMP #### [address] [address] Platelet 250 10 3/mcL Normal 150-450 [facility] Comment on above: Performed By: #### C BC, LIP, ANEU, GFR, TROPHS, MDW, ADIFF, CMP #### [address] [address] Platelet mean volume (Bld) [Entitic vol] 6.7 fL Normal 6.4-10.5 [facility] Comment on above: Performed By: #### C BC, LIP, ANEU, GFR, TROPHS, MDW, ADIFF, CMP #### [address] [address] RBC 5.60 10 6/mcL Normal 4.50-6.00 [facility] Comment on above: Performed By: #### C BC, LIP, ANEU, GFR, TROPHS, MDW, ADIFF, CMP #### [address] [address] WBC 12.4 10 3/mcL High 4.5-10.8 [facility] Comment on above: Performed By: #### C BC, LIP, ANEU, GFR, TROPHS, MDW, ADIFF, CMP #### [address] [address] CMPon 02-10-2025 Albumin Level 3.6 G/dL Normal 3.4-4.8 [facility] Comment on above: Performed By: #### C BC, LIP, ANEU, GFR, TROPHS, MDW, ADIFF, CMP ####[address] [address] Albumin/Globulin [Mass ratio] 0.8 {ratio} Low 1.1-2.5 [facility] Comment on above: Performed By: #### C BC, LIP, ANEU, GFR, TROPHS, CARYL, ADIFF, CMP ####[address] [address] ALP [Catalytic activity/Vol] 88 U/L Normal 40-135 [facility] Comment on above: Performed By: #### C BC, LIP, ANEU, GFR, MAURICES, CARYL, ADIFF, CMP ####[place] [address] ALT [Catalytic activity/Vol] 21 U/L Normal 16-63 [facility] Comment on above: Performed By: #### C BC, LIP, ANEU, GFR, FAWN, CARYL, ADIFF, CMP ####[place] [address] AST [Catalytic activity/Vol] 17 U/L Normal 10-40 [facility] Comment on above: Performed By: #### C BC, LIP, ANEU, GFR, MAURICES, CARYL, ADIFF, CMP ####[address] [address] Bili Total 1.6 mg/dL High 0.2-1.0 [facility] Comment on above: Result Comment: Use of this assay is not recommended for patients undergoing treatment with eltrombopag due to the potential for falsely elevated results. Performed By: #### C BC, LIP, ANEU, GFR, TROPHRobbi, CARYL, ADIFF, CMP ####[place] [id number] BUN/Creatinine Ratio 18 ratio Normal 7-27 [facility] Comment on above: Performed By: #### C BC, LIP, ANEU, GFR, FAWN, CARYL, ADIFF, CMP ####[place] [id number] Calcium [Mass/Vol] 9.7 mg/dL Normal 8.4-10.2 [facility] Comment on above: Performed By: #### C BC, LIP, ANEU, GFR, TROPHS, W, ADIFF, CMP ####[place] [address] [place], [place] [address] Chloride [Moles/Vol] 106 mmol/L Normal 98-107 [facility] Comment on above: Performed By: #### C BC, LIP, ANEU, GFR, TROPHS, MDW, ADIFF, CMP ####[place] [address] [place], [place] [address] CO2 [Moles/Vol] 28 mmol/L Normal 23-31 [facility] Comment on above: Performed By: #### C BC, LIP, ANEU, GFR, TROPHS, MDW, ADIFF, CMP ####[place] [id number] [place] [id number] Creatinine [Mass/Vol] 0.91 mg/dL Normal 0.67-1.17 [facility] Comment on above: Performed By: #### C BC, LIP, ANEU, GFR, TROPHS, MDW, ADIFF, CMP ####[address] [address] Electrolyte Balance 6.0 mEq/L Normal 4.0-15.0 [facility] Comment on above: Performed By: #### C BC, LIP, ANEU, GFR, TROPHS, MDW, ADIFF, CMP ####[address] [place], [place] [address] Globulin 4.3 G/dL Normal 2.7-4.4 [facility] Comment on above: Performed By: #### C BC, LIP, ANEU, GFR, TROPHS, MDW, ADIFF, CMP ####[address] [address] Glucose [Mass/Vol] 104 mg/dL Normal 80-115 [facility] Comment on above: Performed By: #### C BC, LIP, ANEU, GFR, TROPHS, MDW, ADIFF, CMP ####[address] [address] Potassium [Moles/Vol] 4.0 mmol/L Normal 3.5-5.1 [facility] Comment on above: Performed By: #### C BC, LIP, ANEU, GFR, TROPHS, MDW, ADIFF, CMP ####[facility] [place], [place] [address] Sodium [Moles/Vol] 140 mmol/L Normal 136-145 [facility] Comment on above: Performed By: #### C BC, LIP, ANEU, GFR, TROPHS, MDW, ADIFF, CMP ####[address] [place], [place] [address] Total Protein 7.9 G/dL Normal 6.4-8.2 [facility] Comment on above: Performed By: #### C BC, LIP, ANEU, GFR, TROPHS, MDW, ADIFF, CMP ####[address] [place], [place] [address] Urea nitrogen [Mass/Vol] 16 mg/dL Normal 7-18 [facility] Comment on above: Performed By: #### C BC, LIP, ANEU, GFR, TROPHS, MDW, ADIFF, CMP ####[address] [place], [place] [address] CT ABD/PELVIS W/ IV CONTRAST ONLYon 02-10-2025 [...] 02/10/2025 9:31:37 AM Ordering Provider: KAISER Garcia [facility] LABORATORYOrdered By: SYSTEM SYSTEM on 02-10-2025 [...] ng/L Male: 0-76 ng/L Testing performed on [employer] using a homogeneous sandwich chemiluminescent immunoassay based on [employer] technology. Urea nitrogen [Mass/Vol] 16 mg/dL Normal [...] 02-10-2025 Lipase Level 212 U/L High 16-77 [facility] Comment on above: Performed By: #### C BC, LIP, ANEU, GFR, TROPHS, MDW, ADAUTUMN, CMP ####[facility] [place], [place] [address] [facility]25 High Sensitivity Troponin I <4 Normal 0-76 [facility] Comment on above: Result Comment: High Sensitive Troponin I Reference Ranges: Female: 0-51 ng/L Male: 0-76 ng/L Testing performed on [employer] using a homogeneous sandwich chemiluminescent immunoassay based on [employer] technology. Performed By: #### C BC, LIP, ANEU, GFR, TROPHS, MDW, ADIFF, CMP ####[id number] [place], [place] [address] UAon 02-10-2025 Color (U) Yellow Normal [facility] Comment on above: Performed By: #### U A ####[address] [place] [address] Glucose (U) [Mass/Vol] 100 mg/dL Abnormal Negative [facility] Comment on above: Performed By: #### U A ####[address] [place] [address] Ketones Ql (U) Trace Abnormal Negative [facility] Comment on above: Performed By: #### U A ####[address] [place] [address] UA Appear Clear Normal Clear [facility] Comment on above: Performed By: #### U A ####Barby [address] [place] [address] UA Bili Small Abnormal Negative [facility] Comment on above: Performed By: #### U A ####Barby [address] [place] [address] UA Blood Trace Normal Negative [facility] Comment on above: Performed By: #### U A ####[address] [place], [place] [address] UA Leuk Est Negative Normal Negative [facility] Comment on above: Performed By: #### U A ####[address] [place] [address] UA Nitrite Negative Normal Negative [facility] Comment on above: Performed By: #### U A ####Barby [address] [place] [address] UA pH 6.0 Normal 5.0 - 8.0 [facility] Comment on above: Performed By: #### U A ####[address] [place] [address] UA Protein Negative Normal Negative [facility] Comment on above: Performed By: #### U A ####[address] [place], [place] [address] UA Spec Grav 1.025 Normal 1.015-1.025 [facility] Comment on above: Performed By: #### U A ####[address] [place], [place] [address] UA Specimen Type Not Given Normal [facility] Comment on above: Performed By: #### U A ####[address] [place], [place] [address] UA Urobilinogen 1.0 E.U./dL Normal 0.2-1.0 [facility] Comment on above: Performed By: #### U A ####Barby [address] [address] .GFRon 09-12-2024 GFR Non- 89 ml/min/1.73sqm Normal [facility] Comment on above: Result Comment: GFR [...] DIFF, ANEU, MG, CBC, GFR, CMP #### [place] [address] [place], [place] [address] GFR 108 ml/min/1.73sqm Normal [facility] Comment on above: Result Comment: GFR [...] DIFF, ANEU, MG, CBC, GFR, CMP #### [address] [address] CMPon 09-12-2024 Albumin Level 3.9 G/dL Normal 3.4-4.8 [facility] Comment on above: Performed By: #### A DIFF, ANEU, MG, CBC, GFR, CMP #### [address] [address] Albumin/Globulin [Mass ratio] 1.0 {ratio} Low 1.1-2.5 [facility] Comment on above: Performed By: #### A DIFF, ANEU, MG, CBC, GFR, CMP #### [address] [address] ALP [Catalytic activity/Vol] 92 U/L Normal 40-135 [facility] Comment on above: Performed By: #### A DIFF, ANEU, MG, CBC, GFR, CMP #### [address] [address] ALT [Catalytic activity/Vol] 24 U/L Normal 16-63 [facility] Comment on above: Performed By: #### A DIFF, ANEU, MG, CBC, GFR, CMP #### [address] [address] AST [Catalytic activity/Vol] 18 U/L Normal 10-40 [facility] Comment on above: Performed By: #### A DIFF, ANEU, MG, CBC, GFR, CMP #### [address] [address] Bili Total 0.7 mg/dL Normal 0.2-1.0 [facility] Comment on above: Result Comment: Use of this assay is not recommended for patients undergoing treatment with eltrombopag due to the potential for falsely elevated results. Performed By: #### A DIFF, ANEU, MG, CBC, GFR, CMP #### [place] [address] BUN/Creatinine Ratio 16 ratio Normal 7-27 [facility] Comment on above: Performed By: #### A DIFF, ANEU, MG, CBC, GFR, CMP #### [place] [address] Calcium [Mass/Vol] 9.4 mg/dL Normal 8.4-10.2 [facility] Comment on above: Performed By: #### A DIFF, ANEU, MG, CBC, GFR, CMP #### [place] [address] Chloride [Moles/Vol] 107 mmol/L Normal 98-107 [facility] Comment on above: Performed By: #### A DIFF, ANEU, MG, CBC, GFR, CMP #### [place] [address] CO2 [Moles/Vol] 28 mmol/L Normal 23-31 [facility] Comment on above: Performed By: #### A DIFF, ANEU, MG, CBC, GFR, CMP #### [place] [address] Creatinine [Mass/Vol] 0.87 mg/dL Normal 0.70-1.30 [facility] Comment on above: Result Comment: Test ing performed on Siemens Dimension EXL analyzer using a modified kinetic Jillian technique. Performed By: #### A DIFF, ANEU, MG, CBC, GFR, CMP #### [place] [address] Electrolyte Balance 7.0 mEq/L Normal 4.0-15.0 [facility] Comment on above: Performed By: #### A DIFF, ANEU, MG, CBC, GFR, CMP #### [place] [address] Globulin 3.8 G/dL Normal [facility] Comment on above: Performed By: #### A DIFF, ANEU, MG, CBC, GFR, CMP #### [address] [address] Glucose [Mass/Vol] 84 mg/dL Normal 80-115 [facility] Comment on above: Performed By: #### A DIFF, ANEU, MG, CBC, GFR, CMP #### [address] [address] Potassium [Moles/Vol] 4.8 mmol/L Normal 3.5-5.1 [facility] Comment on above: Performed By: #### A DIFF, ANEU, MG, CBC, GFR, CMP #### [place] [id number] Sodium [Moles/Vol] 142 mmol/L Normal 136-145 [facility] Comment on above: Performed By: #### A DIFF, ANEU, MG, CBC, GFR, CMP #### [address] [address] Total Protein 7.7 G/dL Normal 6.4-8.2 [facility] Comment on above: Performed By: #### A DIFF, ANEU, MG, CBC, GFR, CMP #### [address] [address] Urea nitrogen [Mass/Vol] 14 mg/dL Normal 7-18 [facility] Comment on above: Performed By: #### A DIFF, ANEU, MG, CBC, GFR, CMP #### [address] [address] LABORATORYOrdered By: SYSTEM SYSTEM on 09-12-2024 Albumin [...] 09-12-2024 Cholesterol [Mass/Vol] 174 mg/dL Normal 0-200 [facility] Comment on above: Result Comment: Chol esterol Reference Interval: Less than 200 Desirable 200-239 Borderline high risk 240 and above High risk Performed By: #### A DIFF, ANEU, MG, CBC, GFR, CMP #### [place] [address] Cholesterol in HDL [Mass/Vol] 43 mg/dL Normal 40-60 [facility] Comment on above: Performed By: #### A DIFF, ANEU, MG, CBC, GFR, CMP #### [place] [address] Cholesterol in LDL [Mass/Vol] 105 mg/dL Normal 0-130 [facility] Comment on above: Performed By: #### A DIFF, ANEU, MG, CBC, GFR, CMP #### [place] [address] Triglyceride [Mass/Vol] 129 mg/dL Normal 0-150 [facility] Comment on above: Result Comment: Trig lyceride Reference Interval: Less than 150 Normal 150-199 Borderline high risk 200-499 High risk 500 or higher Very high risk Performed By: #### A DIFF, ANEU, MG, CBC, GFR, CMP #### [place] [address] PSAon 09-12-2024 Prostate Specific Antigen 2.41 ng/mL Normal 0.00-4.00 [facility] Comment on above: Performed By: #### A DIFF, ANEU, MG, CBC, GFR, CMP #### [place] [address] LABORATORYOrdered By: SYSTEM SYSTEM on 03-15-2023 Albumin [...] (S/P/Bld) [Vol rate/Area] ml/min/1.73sqm Invalid Interpretation Code [facility] Comment on above: Interpretive Data: GFR [...] Invalid Interpretation Code 82 - 115 mg/dL [facility] Hematocrit (Bld) [Volume fraction] 48.1 % Invalid Interpretation Code 40.0 - 52.0 % Workflow SS Hemoglobin (Bld) [Mass/Vol] 16.2 G/dL Invalid Interpretation Code 13.0 - 17.5 G/dL Workflow SS Lipase [Catalytic activity/Vol] 51 U/L Invalid Interpretation Code 12 - 53 U/L [facility] Comment on above: Interpretive Data: * [...] Urine SS PROGRESSon 08-28-2019 PROGRESS HNO ID: [id number] Author: Quang Nguyen Service: ? Author Type: POT FEEDER Type: Progress Notes Filed: 08/28/2019 2:42 PM [...] staff. I have seen and examined Wilfrid Aguillon. I have discussed the examination findings, diagnosis, and treatment options with Wilfrid Aguillon and/or his family. I have also reviewed and agree with the assessment and plan as stated above and agree with all its relevant components. I gave the patient the opportunity to ask questions about the findings, diagnosis, and treatment options. Normal [facility] Vital Signs Date Time Vital Sign Value Performing Clinician Juan Francisco mitchell 03-15-2023 18:54-0400 Diastolic Blood Pressure Non-Invasive 64 1 CALVIN GILL MD [facility] 03-15-2023 18:54-0400 Heart rate 82 /min CALVIN GILL MD [facility] 03-15-2023 18:54-0400 Respiratory rate 16 /min CALVIN GILL MD [facility] 03-15-2023 18:54-0400 Systolic Blood Pressure Non-Invasive 162 1 CALVIN GILL MD [facility] 03-15-2023 18:03-0400 Diastolic Blood Pressure Non-Invasive 81 1 CALVIN GILL MD [facility] 03-15-2023 18:03-0400 Heart rate 91 /min CALVIN GILL MD [facility] 03-15-2023 18:03-0400 Respiratory rate 18 /min CALVIN GILL MD [facility] 03-15-2023 18:03-0400 Systolic Blood Pressure Non-Invasive 157 1 CALVIN GILL MD [facility] 03-15-2023 14:01-0400 Body temperature 98.6 [degF] CALVIN GILL MD [facility] 03-15-2023 14:01-0400 Body weight 90.2 kg CALVIN GILL MD [facility] 03-15-2023 14:01-0400 Diastolic Blood Pressure Non-Invasive 85 1 CALVIN GILL MD [place] [address]-28-2023 14:01-0400 Heart rate 76 /min CALVIN GILL MD [facility] 03-15-2023 14:010400 Respiratory rate 20 /min CALVIN GILL MD [facility] 03-15-2023 14:010400 Systolic Blood Pressure Non-Invasive 175 1 CALVIN GILL MD [facility] Encounters Encounter Date Encounter Type Care Provider Facility Start: 05-21-2025 End: 05-21-2025 ambulatory NEDRA CASTRO HOME HEALTH OCCUPATIONAL THERAPIST-BEZEL CUTTER Facility:[facility] Start: 05-21-2025 End: 05-21-2025 Patient encounter procedure NEDRA CASRTO HOME HEALTH OCCUPATIONAL THERAPIST-BEZEL CUTTER [facility] Start: 05-21-2025 End: 05-21-2025 Well adult monitoring check done NEDRA CASTRO HOME HEALTH OCCUPATIONAL THERAPIST-BEZEL CUTTER [facility] Start: 02-26-2025 End: 02-26-2025 ambulatory NEDRA CASTRO HOME HEALTH OCCUPATIONAL THERAPIST-BEZEL CUTTER Facility:[facility] Start: 02-26-2025 End: 02-26-[address] BRENDA BRYANT MD [facility] Start: 02-11-2025 End: 02-13-2025 Evaluation and management of inpatient GIRMA JOHNSON HOME HEALTH OCCUPATIONAL THERAPIST-BEZEL CUTTER [facility] Start: 02-10-2025 End: 02-10-2025 Emergency department patient visit KAISER SIMPSON DO [facility] Start: 09-12-2024 End: 09-12-2024 ambulatory NEDRA CASTRO HOME HEALTH OCCUPATIONAL THERAPIST-BEZEL CUTTER Facility:[facility] Start: 09-12-2024 End: 09-12-2024 Patient encounter procedure NEDRA CASTRO HOME HEALTH OCCUPATIONAL THERAPIST-BEZEL CUTTER [facility] Start: 03-15-2023 End: 03-15-2023 Emergency department patient visit CALVIN GILL MD [facility] Procedures Date Procedure Procedure Detail Performing Clinician Start: 02-26-[address] BRENDA BRYANT MD Amputation above-knee NEDRA TAMEZ HOME HEALTH OCCUPATIONAL THERAPIST-BEZEL CUTTER Colonoscopy DR BRENDA LAST MD Payers Date Payer Category Payer Private Health Insurance [id number] 2024 Unknown [id number] 2024 Unknown [id number] 1960 Unknown [id number] 2.16. [id number] 1960 Unknown [id number] 2.16. [id number] 1960 Unknown [id number] 2.16. [id number] 1960 Unknown [id number] 2.16. [id number] 1960 Unknown [id number] 2.16.8 [id number] Social History Date Type Detail Facility Start: 09-09-2024 Tobacco smoking status Never s moked tobacco (finding) [facility] Sexual Orientation [facility] Start: 09-27-2005 Sex Male (finding) [facility] Functional Status Date Assessment Result Facility 03-15-2023 Functional Status Awake, Resting [facility] Mental Status Date Assessment Result Facility 03-15-2023 Mental Status Oriented x 4 [facility] Clinical Notes 03-15-2023 to 02-26-2025 Note Date & Type Note Facility 02-26-2025 Evaluation + Plan note Extrac nahomi from: Title:Clinical Document Author:BRENDA BRYANT Date:02/26/25 [facility] ADMISSION H[facility]ORY AN D PHYSICIAL CHIEF COMPLAINT: HISTORY OF PRESENT ILLNESS: REVIEW OF SYSTEMS: ACTIVE PROBLEMS: (8) Acute pancreatitis (360281104) BMI 28.0-28.9,adult (0236311898) Hypertension (7852570548) 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) Screening for colon cancer (774031466) Screening for hyperlipidemia (243354616) Screening for prostate cancer (834001934) Wellness examination (264131116) MEDICATIONS: Active Inpt Meds: None Active PRN Meds: None One Time Meds: None Active IV Meds: Lactated Ringers Infusion 1,000 mL (LR 1,000 mL) Start: 02/26/25 8:05:00 EDT, Rate: 50 mL/hr, 02/26/25 8:05:00 EDT ALLERGIES: (1) NKA FAMILY HISTORY: SOCIAL HISTORY: PHYSICAL EXAM: VITALS: CzdakmBhfcOMPbiweUAEbO5NMV6DbeaSw(kg) 02/26 08:1436.9--300124--96/11 81.8 02/26 08:10 RA 24 Hr Tmax: [...] Urine 09/09/24 * Complete Metabolic Panel 05/22/25 [facility] 07-11-2025 Hospital Discharge instructions Patient [...] a slower pace than normal. ?Eat soft, rokl-in-ifavpl foods. Take zgto-sec-rrhxypq or prescription medicines only as told by [...] 03/19/2005 Document Revised: 05/28/2018 Document Reviewed: 10/16/2016 [employer] Patient Education 2020 IWT. 02/26/2025 09:42:11 Monitored Anesthesia Care, Care After [...] before eating solid foods. General instructions Take aszw-itu-wszfyki and prescription medicines only as told by [...] 11/25/2016 Document Revised: 11/03/2018 Document Reviewed: 11/25/2016 [employer] Patient Education [employer] Follow Up Care 01/29/2025 09:47:32 With:BRENDA BRYANT Address: [address] [facility] [address] [place] [address] [phone] Business (1) When: Unknown Comments:OFFICE WILL CALL WITH BIOPSY RESULTS.NEXT COLONOSCOPY: YEARS [facility] 07-11-2025 Summary of episode note Discharge Instructions Thank you for allowing [facility] to assist you with your healthcare needs. The following is importantdischarge information regarding your hospital visit. Your Care Team NEDRA TAMEZ What to do next Follow Up Appointments Follow Up with BRENDA BRYANT Where:[address] [facility] [address] [place] [address] [phone] Business (1) Additional Information: OFFICE WILL CALL [...] slower pace than normal. ? Eat soft, sdwr-ck-osqayz foods. Take dcki-azt-isefldt or prescription medicines only as told by [...] 03/19/2005 Document Revised: 05/28/2018 Document Reviewed: 10/16/2016 [employer] Patient Education 2020 IWT. Monitored Anesthesia Care, Care After These instructions [...] before eating solid foods. General instructions Take pxow-vxq-ekhcwnm and prescription medicines only as told by [...] 11/25/2016 Document Revised: 11/03/2018 Document Reviewed: 11/25/2016 [employer] Patient Education 2020 [employer] Additional Information VACCINATE! IT SAVES LIVES! Members of the community who have not yet received the COVID-19 vaccine and would like to receive it can visit one of [facility] vaccine clinics. There are many vaccine clinic locations within the [facility]. For locations and available times, please visit [email or web address].[place].gov/. It is important to note that some COVID mobile vaccine clinics are held outdoors and may be canceled in rainy or stormy conditions. To learn more about pediatric vaccinations (ages 5-11), we invite you to visit the [facility] webpage. [email or web address]/[email or web address] [email or web address] learn more about the COVID-19 vaccine, we invite you to visit the CDC website for a list of frequently asked questions.https://www.cdc.gov/coronavirus/2019-ncov/vaccines/faq.html [facility] Patient Portal Access Instructions: Stay connected with your healthcare team and access your personal medical information anytime with the [facility] Patient Portal. Please follow the directions below to create your [employer] account: 1.Access the email account you provided upon registration to the hospital/physician office.2.Look for an invitation email from [facility].3.Open the email and access the invitation link: AcceptInvitation to [facility].4.Fill in the required burciaga to create your account. To access your account, visit [email or web address]. Click the blue button labeled Access Patient [...] who you will allowto register on the [facility] Patient Portal for access to your information. You can also access the [facility] Patient Portal on the [facility] tessa. Simply click on Patient Portal and then log into your account. If you would like to receive a full copy of your medical records, please contact the [facility] Medical Records Department by calling [phone], Saturday through Saturday between 8 a.m. and [...] Call your local pharmacy or go to http://bit.ly/8Y9Ss5v to find one close to you.3.Make use of household items: Use cat litter or old coffee grounds to dispose medications if other options arenot available. Mix your drugs with these household products, seal them in an airtight container andthrow it into the garbage. Call [facility]: [phone] to be sure your drugs can be [...] aware that I should contact my doctor. Patient/Assistant Production Manager Signature: Date/Time: Relationship to Patient: Witness Name/Signature: Date/Time: [facility]07-11-2025 Note Date of Service 02/26/2025 Procedure Name Colonoscopy with biopsy, screening colonoscopy Consent Taken before procedure Indication Colonoscopy Location [facility] Pre-Procedure Exam Screening colonoscopy Procedural Sedation [...] SEE CHART, COLONOSCOPY, SCREENING, SCREENING, Preferred Lab: [facility], [id number] Post Procedure Assessment, 02/26/25 9:38:00 EDT, Stop [...] BRENDA BRYANT MD on 02/26/2025 09:41 AM [facility]07-11-2025 Anesthesiology Consult note Patient: WILFRID AGUILLON Age: 64 years Sex: Male : 1960 Associated Diagnoses: None Author: MIKE BURRELL HOME HEALTH OCCUPATIONAL THERAPIST-BROOMCORN GRADER Preoperative Information Time of last food or [...] list: Medical Acute pancreatitis / SNOMED CT 075801258 / Confirmed Hypertension / SNOMED CT 9923776637 / Confirmed Neoplasm of face / SNOMED CT 320607935 / Confirmed BMI 28.0-28.9,adult / SNOMED CT 5828591410 / Confirmed Screening for hyperlipidemia / SNOMED CT 700162614 / Confirmed Screening for prostate cancer / SNOMED CT 488239661 / Confirmed Wellness examination / SNOMED CT 208559346 / Confirmed Screening for colon cancer / SNOMED CT 634346139 / Confirmed, Active Problems (8) Acute pancreatitis BMI 28.0-28.9,adult Hypertension Neoplasm of face Screening for colon cancer Screening for hyperlipidemia Screening for prostate cancer Wellness examination Histories Past Medical History: No active or resolved past medical history items have been selected or recorded. Family History: Heart disease Father Diabetes mellitus type 2 Father Procedure history: Amputation of leg above knee (955589749). Colonoscopy (166340565). Social History: Social & Psychosocial Habits Alcohol [...] Signs (last 24 hrs) Last Charted Temp Qadzyaja59.9 DegC (FEB 26 08:14) IQF626 mmHg (FEB 26 08:14) DBP89 mmHg (FEB 26 08:14) BMI25.82 (FEB 26 08:05) Measurements from flowsheet : Measurements 02/26/2025 8:05 EDT Height 178 cm Admission Weight 81.8 kg Weight Method Stated [place] Body Weight 73.18 kg BSA Admission 2 [...] Surgeon SN - CAt - Role Performed Power Checker 1 SN - CAt - Role Performed Geochemistry Teacher SN - CAt - Role Performed BROOMCORN GRADER 02/26/2025 8:49 EDT [facility] History and Physical 02/26/2025 8:21 EDT Continuous [...] Urinary Elimination Voiding, no difficulties Skin Description Streeter, Dry Skin Temperature Warm Skin Integrity Intact [...] PHI Designated Person #1 We May Share [facility] Designated Person #1 Relationship Spouse Height 178 cm Admission Weight 81.8 kg Weight Method Stated [place] Body Weight 73.18 kg BSA Admission 2 [...] Method Explanation, Printed materials Preferred Spoken Language Jamaican Preferred Written Language Jamaican Pre Procedure/Surgery Education Appropriate expectations Procedure/Surgical Teaching [...] Note-Nursing Procedure/Therapy Intake . Assessment and Plan [place] Society of Anesthesiologists (ASA) physical status classification: Class II. Anesthetic Preoperative Plan Anesthetic technique: Epidural. Postoperative pain management: Per surgeon. Informed consent: signed by patient. Digitally Signed by MIKE BURRELL on 02/26/2025 09:22 AM [facility]07-11-2025 Note [facility] ADMISSION H[facility]ORY AND PHYSICIAL CHIEF COMPLAINT: HISTORY OF PRESENT ILLNESS: REVIEW OF SYSTEMS: ACTIVE PROBLEMS: (8) Acute pancreatitis (328338815) BMI 28.0-28.9,adult (7787839765) Hypertension (6989268152) Neoplasm of face (174223675) Screening for colon cancer (494373614) Screening for hyperlipidemia (087850632) Screening for prostate cancer (142077681) Wellness examination (712839368) MEDICATIONS: Active Inpt Meds: None Active PRN Meds: None One Time Meds: None Active IV Meds: Lactated Ringers Infusion 1,000 mL (LR 1,000 mL) Start: 02/26/25 8:05:00 EDT, Rate: 50 mL/hr, 02/26/25 8:05:00 EDT ALLERGIES: (1) NKA FAMILY HISTORY: SOCIAL HISTORY: PHYSICAL EXAM: VITALS: RfadskWyrvPKUiinuMUSfS0OVQ4IzdeSk(kg) 02/26 08:1436.9--949578--53/11 81.8 02/26 08:10 RA 24 Hr Tmax: [...] BRENDA BRYANT MD on 02/26/2025 08:50 AM [facility]06-28-2025 Hospital Discharge instructions Patient Education 02/13/2025 14:00:02 Acute Pancreatitis, Xzce-cu-Rwjj Acute Pancreatitis Acute pancreatitis happens when the [...] if it caused your condition. Medicines Take utin-bjy-idpqrxu and prescription medicines only as told by your doctor. Ask your doctor if the medicine prescribed to you: ?Requires you to avoid driving or using heavy machinery. ?Can cause trouble pooping (constipation). You may need to take steps to prevent or treat trouble pooping: ?Take vyvl-png-jhsbqgj or prescription medicines. ?Eat foods that are [...] 01/21/2009 Document Revised: 05/25/2019 Document Reviewed: 05/25/2019 [employer] Patient Education 2020 IWT. Follow Up Care 02/11/2025 00:41:41 With:NEDRA TAMEZ APRN-BEZEL CUTTER Address: [address] [facility] [place] [phone] When:2-4 days Comments:Please call to schedule your post-hospital appointment. [facility] 06-28-2025 Summary of episode note Discharge Instructions Thank you for allowing [facility] to assist you with your healthcare needs. [...] StatusSurgery 02/26/2025 09:00 AM EDT AO Endo [phone] Confirmed Follow Up Appointments Follow Up with NEDRA TAMEZ When:Within 2-4 days Where:[address] [facility] [place] [address] [phone] Additional Information: Please call to schedule your [...] 4-10 Pancreatitis Duration: 3 Days Pickup at [facility]/pharmacy #[id number] 02/13 Unchanged lisinopril (lisinopril 40 mg oral tablet) 1 tab(s) by mouth Once a day Duration: 90 Days 02/13 Unchanged ondansetron (ondansetron 4 mg oral tablet, disintegrating) 1 tab(s) by mouth Every 6 hours as needed for Nausea/Vomiting Pharmacy Information [facility]/pharmacy #[id number]: [address], [place] [phone] Please take this list to your next [...] if it caused your condition. Medicines Take eubu-jcz-wwqekzi and prescription medicines only as told by your doctor. Ask your doctor if the medicine prescribed to you: ? Requires you to avoid driving or using heavy machinery. ? Can cause trouble pooping (constipation). You may need to take steps to prevent or treat trouble pooping: ? Take pgta-pwt-eoxpzqn or prescription medicines. ? Eat foods that [...] 01/21/2009 Document Revised: 05/25/2019 Document Reviewed: 05/25/2019 [employer] Patient Education 2020 [employer] Additional Information VACCINATE! IT SAVES LIVES! Members of the community who have not yet received the COVID-19 vaccine and would like to receive it can visit one of [facility] vaccine clinics. There are many vaccine clinic locations within the [facility]. For locations and available times, please visit https://[email or web address].gov/. It is important to note that some COVID mobile vaccine clinics are held outdoors and may be canceled in rainy or stormy conditions. To learn more about pediatric vaccinations (ages 5-11), we invite you to visit the [facility] webpage. https://www.[facility].org/pages/4909-Qsnur-Pqiwvieyqmh-Zbdqddppoz-Oyxps-Wov stions.htmlTo learn more about the COVID-19 vaccine, we invite you to visit the CDC website for a list of frequently asked questions.https://www.cdc.gov/coronavirus/2019-ncov/vaccines/faq.html [facility] Patient Portal Access Instructions: Stay connected with your healthcare team and access your personal medical information anytime with the [facility] Patient Portal. Please follow the directions below to create your [facility] account: 1.Access the email account you provided upon registration to the hospital/physician office.2.Look for an invitation email from [facility].3.Open the email and access the invitation link: AcceptInvitation to [facility].4.Fill in the required burciaga to create your account. To access your account, visit Urbful/Centrifuge Systemshart. Click the blue button labeled Access [...] who you will allowto register on the [facility] Patient Portal for access to your information. You can also access the [facility] Patient Portal on the O-film Anywhere tessa. Simply click on Patient Portal and then log into your account. If you would like to receive a full copy of your medical records, please contact the [facility] Medical Records Department by calling [phone], Saturday through Saturday between 8 a.m. and [...] Call your local pharmacy or go to http://[employer].Ten Square Games/2D7Uo4l to find one close to you.3.Make use of household items: Use cat litter or old coffee grounds to dispose medications if other options arenot available. Mix your drugs with these household products, seal them in an airtight container andthrow it into the garbage. Call [facility]: [phone] to be sure your drugs can be [...] COPY. Signatures Patient Education Materials Acute Pancreatitis, Clgv-po-Kkyp Medication Leaflets My discharge plan and instructions have been reviewed and explained to me and IHENNA DENNIS Lunderstand my current condition and have read and understand these discharge instructions. I have received a written copy of the plan/instructions. If I have questions, I am aware that I should contact my doctor. Patient/Assistant Production Manager Signature: Date/Time: Relationship to Patient: Witness Name/Signature: Date/Time: [facility]06-28-2025 Note Date of Service 02/13/2025 Chief Complaint [...] by JO-ANN GARCIA on 02/13/2025 10:24 AM [facility]06-27-2025 Note Date of Service 02/12/2025 Chief Complaint Abdominal pain Subjective 64-year-old male with a past medical history of hypertension, left AKA in the past. Presented to [facility] on 02/10/2025 initially with a 2-day history [...] by YOEL MARIE on 02/12/2025 11:34 AM [facility]06-27-2025 Pastoral care Progress note Pastoral Care Note Entered On: 02/12/2025 9:21 EDT Performed On: 02/12/2025 9:19 EDT by Gustavo Urias Pastoral Care Type of Pastoral Visit : Initial visit Spiritual Care Visit Initiated by : Court [employer] Appeals Judge Spiritual Care Reason for Visit : General [...] patient is resting but awakens when this custom shoemaker enters the room; pt expresses discomfort and [...] by Gustavo Urias on 02/12/2025 09:19 AM [facility]06-27-2025 Nurse Progress note Pt bladder scanned, volume [...] try. Pt is still voiding small amounts. SUSTAINABLE LANDSCAPE ARCHITECT informed of refusal. Digitally Signed by Cheo Adair RN on 02/12/2025 06:11 AM [facility]06-26-2025 Nurse Progress note Pt reports only voiding small amounts of urine today. Bladder scan shows ~480mL. Pt denies bladder discomfort, was unable to void. Unsuccessful attempts to straight cath x2 nurses. Pt reports history of difficulty with catheterization. Notified SUSTAINABLE LANDSCAPE ARCHITECT, who gives instructions to bladder scan q6 Digitally Signed by Chelsea Pearson RN on 02/11/2025 02:55 PM [facility]06-26-2025 Note Date of Service 02/11/25 Chief Complaint abd pain, seen here earlier, dx w/ pancreatitis and sent home w/ pain meds. states meds aren't helping. History of Present Illness 64-year-old male with past medical history significant for hypertension, left AKA. Patient presented to [facility] emergency department 02/10/2025 with a 2- [...] 40 mg = 1 tab(s), Oral, qDay Red[place] 325- 5 mg oral tablet 1 tab(s), [...] PM Digitally Signed by MARTINEZ ROBERT MD [facility]06-26-2025 Evaluation + Plan noteExtracted from: Title:History and Physical Author:FRANCOIS COX APRN-BEZEL CUTTER Date:02/11/25 1. Pancreatitis 2. Hypertension Pancreatitis LR [...] Urine 09/09/24 * Complete Metabolic Panel 05/22/25 [facility] 06-26-2025 Note* Exam Date Time Procedure Performing Provider Status 02/11/25 11:27 AM US Abdomen Limited ALISIA GRANADOS MD; Auth (Verified) [id number] ORIGINAL EXAMINATION: LIMITED ABDOMINAL ULTRASOUND02/11/2025 11:31 am [...] 02/11/2025 11:42:39 AM Ordering Provider: FRANCOIS COX [facility]06-25-2025 Hospital Discharge instructions Patient Education 02/10/2025 10:35:34 [...] blood in stool Seizure Loss of consciousness 6153-2793 [employer]. [address] [place] [address], [place] [address]. All rights reserved. This information is not intended as a substitute for professional medical care. Always follow yourhealthcare professional's instructions. Follow Up Care 02/10/2025 07:46:22 With:Go to emergency room if symptoms worsen Address:Unknown When:2-4 days With:NEDRA TAMEZ Address: [address] [place] [address]- [phone] When:2-4 days [facility] 06-25-2025 Note Discharge Instructions Thank you for allowing [facility] to assist you with your healthcare needs. [...] Up with NEDRA TAMEZ When:Within 2-4 days Where:[address] [place] [phone] [phone] Allergies NKA Medications Please ask your primary doctor or pharmacist before taking any other medication not listed, including over the counter drugs, herbal medications, vitamins and or supplements as they may interact withyour home medications. What How Much When Why Instructions Last Dose New acetaminophen-hydrocodone ([place] 325- 5 mg oral tablet) 1 tab(s) [...] may report side effects to FDA at 2-053-LEA-5162. What other drugs will affect ondansetron? Ondansetron can cause a serious heart problem. Your risk may be higher if you also use certain other medicines for infections, asthma, heart problems, high blood pressure, depression, mental illness,cancer, malaria, or HIV. Many drugs can affect ondansetron. This includes prescription and tuwb-mjy-lzryxao medicines, vitamins, and herbal products. Not all [...] to ensure that the information provided by [employer]. ('Multum') is accurate, up-to-date, and complete, but no guarantee is made to that effect. Drug information contained herein may be time sensitive. Buz information has been compiled for use by healthcare practitioners and consumers in the [place] and therefore Buz does not warrant that uses outside of the [place] are appropriate, unless specifically indicated otherwise. [employer] drug information does not endorse drugs, diagnose patients or recommend therapy. [employer] drug information isan informational resource designed to [...] effective or appropriate for any given patient. Buz does not assume any responsibility for any aspect of healthcare administered with the aid of information Buz provides. The information contained herein is not intended to cover all possible uses, directions, precautions, warnings, drug interactions, allergic reactions, or adverse effects. If you have questions about the drugs you are taking, check with your doctor, nurse or pharmacist. Copyright 5643-8920 [employer]. Version: 17.. Revision Date: 05/12/2024. acetaminophen and [...] may report side effects to FDA at 8-158-HLD-7349. What other drugs will affect acetaminophen and [...] affect acetaminophen and hydrocodone, including prescription and gbam-gur-nbzosbx medicines, vitamins, and herbal products. Not all [...] to ensure that the information provided by [employer]. ('[employer]') is accurate, up-to-date, and complete, but no guarantee is made to that effect. Drug information contained herein may be time sensitive. Buz information has been compiled for use by healthcare practitioners and consumers in the [place] and therefore Buz does not warrant that uses outside of the [place] are appropriate, unless specifically indicated otherwise. [employer] drug information does not endorse drugs, diagnose patients or recommend therapy. [employer] drug information isan informational resource designed to [...] effective or appropriate for any given patient. B[employer] does not assume any responsibility for any aspect of healthcare administered with the aid of information Buz provides. The information contained herein is not intended to cover all possible uses, directions, precautions, warnings, drug interactions, allergic reactions, or adverse effects. If you have questions about the drugs you are taking, check with your doctor, nurse or pharmacist. Copyright 0341-4842 [employer]. Version: 19.02. Revision Date: 11/26/2023. lisinopril (lyse [...] may report side effects to FDA at 0-595-OUA-5178. What other drugs will affect lisinopril? Lisinopril [...] drugs may affect lisinopril, including prescription and dkyt-svl-ddlajcp medicines, vitamins, and herbal products. Not all [...] to ensure that the information provided by [employer]. ('[employer]') is accurate, up-to-date, and complete, but no guarantee is made to that effect. Drug information contained herein may be time sensitive. Buz information has been compiled for use by healthcare practitioners and consumers in the [place] and therefore Buz does not warrant that uses outside of the [place] are appropriate, unless specifically indicated otherwise. [employer] drug information does not endorse drugs, diagnose patients or recommend therapy. [employer] drug information isan informational resource designed to [...] effective or appropriate for any given patient. [employer] does not assume any responsibility for any aspect of healthcare administered with the aid of information Buz provides. The information contained herein is not intended to cover all possible uses, directions, precautions, warnings, drug interactions, allergic reactions, or adverse effects. If you have questions about the drugs you are taking, check with your doctor, nurse or pharmacist. Copyright 9020-4133 [employer]. Version: 18.01. Revision Date: 02/11/2023. Education Materials [...] blood in stool Seizure Loss of consciousness 5745-7627 [employer]chrono. [address] [place] [address], [place] [address]. All rights reserved. This information is not intended as a substitute for professional medical care. Always follow yourhealthcare professional's instructions. Additional Information VACCINATE! IT SAVES LIVES! Members of the community who have not yet received the COVID-19 vaccine and would like to receive it can visit one of [facility] vaccine clinics. There are many vaccine clinic locations within the [facility]. For locations and available times, please visit www.gettheshot.coronavirus.[place].gov/. It is important to note that some COVID mobile vaccine clinics are held outdoors and may be canceled in rainy or stormy conditions. To learn more about pediatric vaccinations (ages 5-11), we invite you to visit the [facility] webpage. https://www.60mos.org/pages/0407-Aladz-Exrhincbwei-Iswdcjvjnw-Lvugq-Swm stions.htmlTo learn more about the COVID-19 vaccine, we invite you to visit the CDC website for a list of frequently asked questions. https://www.cdc.gov/coronavirus/2019-ncov/vaccines/faq.html [employer] Patient Portal Access Instructions: Stay connected with your healthcare team and access your personal medical information anytime with the [facility] Patient Portal. If you would like a full copy of your medical records please contact the [facility] Medical Records Department Saturday through Saturday between 8a.m. and 4:30p.m. Please follow the directions below to access the portal: 1.Access the email account you provided upon registration to the hospital.2.Look for an invitation email from [facility].3.Open the email and access the invitation link: Accept Invitation to [facility]4.Fill in the required burciaga to create your account. Sign into [email or web address] with your username and password that you [...] you will allow to register on the [facility] Patient Portal for access to your information. You can also access the [facility] Patient Portal on the [employer] Wolinak tessa. Simply click on Health Records under Fundly and then click on the O-film logo. HOW TO SAFELY DISPOSE OF PRESCRIPTION [...] Call your local pharmacy or go to http://[facility].[employer] Games/2Y2Yj3c to find one close to you.3.Make use of household items: Use cat litter or old coffee grounds to dispose medications if other options arenot available. Mix your drugs with these household products, seal them in an airtight container andthrow it into the garbage. Call [facility]: [phone] to be sure your drugs can be [...] aware that I should contact my doctor. Patient/Assistant Production Manager Signature: Date/Time: Relationship to Patient: Witness Name/Signature: Date/Time: [facility]06-25-2025 Note* Exam Date Time Procedure Performing Provider Status 02/10/25 9:[address] Abd/Pelvis w/ IV Contrast Only YOEL FERRIS MD; Auth (Verified) [id number] ORIGINAL EXAMINATION: CT OF THE ABDOMEN AND [...] 02/10/2025 9:31:37 AM Ordering Provider: KAISER SIMPSON [facility]06-25-2025 Note* Exam Date Time Procedure Performing Provider Status 02/10/25 8:15 AM EKG [ED AO] - CV KAISER SIMPSON DO; (Verified) ECG Final Report Sinus rhythm Borderline left axis deviation Minimal ST elevation, diffuse leads Electronic Signature: KAISER SIMPSON DO 02/10/2025 08:23:13 [facility]01-22-2025 Evaluation + Plan note Future Scheduled Tests Laboratory* Albumin/Creatinine Ratio, Random Urine 09/09/24 [facility] 01-22-2025 Evaluation + Plan note Future Appointments Future Scheduled Tests Laboratory* Albumin/Creatinine Ratio, Random Urine 05/22/25 * Albumin/Creatinine Ratio, Random Urine 09/09/24 * Complete Metabolic Panel 05/22/25 [facility] 01-22-2025 Evaluation + Plan note Future Scheduled Tests Laboratory* Albumin/Creatinine Ratio, Random Urine 05/22/25 * Albumin/Creatinine Ratio, Random Urine 09/09/24 [facility] 07-28-2023 Hospital Discharge instructions Patient Education 03/15/2023 [...] needed, you may be told to take mjcc-cnd-wydwgiu stool softeners. To help ease pain, antispasmodic [...] needed in some people with severe symptoms. [place] to colon health Diverticulitis occurs when the pouches become infected or inflamed. Help keep your colon healthy with a diet that includes plenty of high-fiber fruits, vegetables, andwhole grains. Drink plenty of liquids like water and juice. Maintain a healthy lifestyle, includingregular exercise, stress management, and adequate rest and sleep. 9828-8345 [employer]. [address] [place] [address]. All rights reserved. This information is not [...] black or maroon color) Unexpected vaginal bleeding 4838-1780 [employer]. [address] [place] [address]. All rights reserved. This information is not intended as a substitute for professional medical care. Always follow yourhealthcare professional's instructions. Follow Up Care 03/15/2023 13:48:33 With:JESUS NEAL MD Address: [address] [place] [address]- When:2-4 days With:Go to emergency room if symptoms worsen Address:Unknown When:2-4 days [facility] 07-28-2023 Emergency department Discharge summary Discharge Instructions Thank you for allowing [facility] to assist you with your healthcare needs. [...] MD When Within 2-4 days Where: [facility] [place] [address]- Follow Up with Go to emergency room [...] needed, you may be told to take sbig-gen-avsxkjf stool softeners. To help ease pain, antispasmodic [...] needed in some people with severe symptoms. [place] to colon health Diverticulitis occurs when the pouches become infected or inflamed. Help keep your colon healthy with a diet that includes plenty of high-fiber fruits, vegetables, andwhole grains. Drink plenty of liquids like water and juice. Maintain a healthy lifestyle, includingregular exercise, stress management, and adequate rest and sleep. 0017-6538 [employer]. [address] [place] [address]. All rights reserved. This information is not [...] black or maroon color) Unexpected vaginal bleeding 3889-0367 [employer]. [address] [place] [address], [place] [address]. All rights reserved. This information is not intended as a substitute for professional medical care. Always follow yourhealthcare professional's instructions. Additional Information VACCINATE! IT SAVES LIVES! Members of the community who have not yet received the COVID-19 vaccine and would like to receive it can visit one of [facility] vaccine clinics. There are many vaccine clinic locations within the [facility]. For locations and available times, please visit www.gettheshot.coronavirus.[place].gov/. It is important to note that some COVID mobile vaccine clinics are held outdoors and may be canceled in rainy or stormy conditions. To learn more about pediatric vaccinations (ages 5-11), we invite you to visit the [facility] webpage. https://www.[facility].org/pages/6767-Lpvoe-Qitnpunuadh-Bdieszezbl-Oqzut-Kbn stions.htmlTo learn more about the COVID-19 vaccine, we invite you to visit the CDC website for a list of frequently asked questions. https://www.cdc.gov/coronavirus/2019-ncov/vaccines/faq.html [facility] [employer] Patient Portal Access Instructions: Stay connected with your healthcare team and access your personal medical information anytime with the [facility] Patient Portal. If you would like a full copy of your medical records please contact the [facility] Medical Records Department Saturday through Saturday between 8a.m. and 4:30p.m. Please follow the directions below to access the portal: 1.Access the email account you provided upon registration to the hospital.2.Look for an invitation email from [facility].3.Open the email and access the invitation link: Accept Invitation to [facility] [employer]4.Fill in the required burciaga to create your account. Sign into [email or web address] with your username and password that you [...] you will allow to register on the [facility] Patient Portal for access to your information. You can also access the [facility] Patient Portal on the [employer]. Simply click on Health Records under Shortlistta and then click on the O-film logo. HOW TO SAFELY DISPOSE OF PRESCRIPTION [...] Call your local pharmacy or go to http://[facility].Ten Square Games/4G2Rz9i to find one close to you.3.Make use of household items: Use cat litter or old coffee grounds to dispose medications if other options arenot available. Mix your drugs with these household products, seal them in an airtight container andthrow it into the garbage. Call [facility]: [phone] to be sure your drugs can be [...] am aware that I should contactmy doctor. Patient/Assistant Production Manager Signature: Date/Time: Relationship to Patient: Witness Name/Signature: [id number] Note ORIGINAL EXAMINATION: CT OF THE ABDOMEN [...] Date: 03/15/2023 6:01:03 PM Ordering [facility] note No data available for this section [facility] Discharge instructions No data available for this section [facility] Progress note No data available for this section [facility] Summary Purpose Family History No Family History [...] section and content) DATE CREATED AUTHOR 08/28/2019 [facility] DATE CREATED AUTHOR AUTHOR'S ORGANIZ ATION 05/25/2025 [facility] Patient Care team informatio n (unrecognized section and content) Care Team Personnel Name: JESUS NEAL MD Member Role: Primary Care Physician Address: Address: [address] [place] [id number]- [place] Name: CALVIN GILL MD Position: ED Physician Member Role: Attending Physician Address: Address: [address] [facility] [address] [address] [place] [address]- [place] Name: SYDNEE WHITLEY PA-C Position: ED Advanced Loan Adviser Member Role: Physician Sheet Ironworker Address: Address: [address] [facility] [place] [address]- Care Team Related Persons Name: TRAUWEIN, ISAAC Care Team Personnel Name: NEDRA TAMEZ APRN-BEZEL CUTTER Position: P4 Advanced Loan Adviser Member Role: Primary Care Physician Address: [address] Telecom: Care Team Related Persons Name: HENNA ISAAC Care Team Personnel Name: NEDRA TAMEZ HOME HEALTH OCCUPATIONAL THERAPIST-BEZEL CUTTER Position: P4 Advanced Loan Adviser Member Role: Primary Care Physician Address: [address] Telecom: Care Team Related Persons Name: SETHLUIZAISAAC Care Team Personnel Name: NEDRA TAMEZ HOME HEALTH OCCUPATIONAL THERAPIST-BEZEL CUTTER Position: P4 Advanced Loan Adviser Member Role: Primary Care Physician Address: [address] Telecom: Care Team Related Persons Name: ISAAC AGUILLON Care Team Personnel Name: NEDRA TAMEZ HOME HEALTH OCCUPATIONAL THERAPIST-BEZEL CUTTER Position: P4 Advanced Loan Adviser Member Role: Primary Care Physician Address: [address] Telecom: Care Team Related Persons Name: AMNAMIREYAISAAC Care Team Personnel Name: NEDRA TAMEZ APRN-BEZEL CUTTER Position: P4 Advanced Loan Adviser Member Role: Primary Care Physician Address: [address] Telecom: Care Team Related Persons Name: [...] BE BASED ON THE PRIMARY CLINICAL RECORDS. [employer] [facility]. provides no warranty or guarantee of the accuracy or completeness of information in this document.
[2025-07-09 19:10] LABS: RBC /Synovial Fluid 0.075 10^6/uL (0); Synovial Fld Mononuclear WBC # 1.253 10^3/ul; Synovial Fld Mononuclear WBC % 9.3 %; Synovial Fld Polynuclear WBC % 90.7 %
[2025-07-09 19:33] VITALS: BMI 26.3
[2025-07-09 19:37] VITALS: BP 114/51; PULSE 81; RESP 17; TEMP 37.4; O2SAT 97
--- NOTE | 2025-07-09 19:44 | PCM.RX.CS ---
Consult Antibiotic Management Pharmacy has been consulted to manage selected antibiotic: Vancomycin Type of Intervention Type of Consult: New start Suspected Infection Suspected Infection: Skin/Soft tissue Prior Doses of Antibiotics Prior Doses of Antibiotics Received/Current Regimen: 2000 mg x1 Labs Labs: Sodium 141 mmol/L (133-145) 07/09/25 17:20 Potassium 4.0 mmol/L (3.3-5.1) 07/09/25 17:20 Chloride 107 mmol/L (98-108) 07/09/25 17:20 Carbon Dioxide 24.9 mmol/L (21.0-32.0) 07/09/25 17:20 Anion Gap 10 (5-15) 07/09/25 17:20 BUN 15 mg/dL (4-19) 07/09/25 17:20 Creatinine 1.06 mg/dL (0.70-1.20) 07/09/25 17:20 Est GFR (MDRD) Non-Af 79 (>60) 07/09/25 17:20 BUN/Creatinine Ratio 14.5 RATIO (10-20) 07/09/25 17:20 Glucose 85 mg/dL (70-99) 07/09/25 17:20 Dosing Weight Weight used for dosin.6 kg Goal Trough Goal Trough: 15-20 mcg/mL Pharmacy Plan for Drug Dosing Pharmacy Plan for Drug Dosing: NEW START IV VANCOMYCIN Consulting Physician: MARY HSU Indication: Cellulitis Right elbow Goal Trough: 15-20 SrCr: 1.06 CrCl: 76 Vancomycin Dose: 1250 mg q12h Pending Level: 07/11/2025 @0630 Pharmacy Service will continue to monitor and adjust dosing as required. Follow-Up Labs Follow-Up Labs: Trough: Vancomycin Date/Time Labs Ordered Labs to be done on [date and time ordered]: 07/11/2025 @0630
[2025-07-09 19:51] LABS: Source- Body Fluid SYNOVIAL; WBC / Synovial Fluid 11.1900 10^3/uL (0.000-0.002)
[2025-07-09 20:29] LABS: Source / Synovial Fluid RIGHT ELBOW
[2025-07-09 20:30] LABS: Appearance /Synovial Fluid Cloudy (CLEAR); Color / Synovial Fluid Red (Pale Yellow)
[2025-07-09] MEDS: 0.9% Normal Saline (250mL Bag) 250 ML 15 ML IV (21:26)
[2025-07-09 23:24] LABS: AUTO B FLUID DILUENT BKGD CT WBC <0.1 RBC <0.01 (W<.1,R<.01); CRYSTALS, BODY FLUID NO CRYSTALS SEEN
[2025-07-10 00:10] LABS: Monocyte /Synovial Fluid 1 %
[2025-07-10] MEDS: Ampicillin/Sulbactam 3 GM in 0.9% Normal Saline (100mL MB+) 100 ML IV ×3 (00:24→12:05)
[2025-07-10 03:36] VITALS: BP 95/61; PULSE 57; RESP 18; TEMP 36.6; O2SAT 95
[2025-07-10] MEDS: Vancomycin HCl 1,250 MG in 0.9% Normal Saline (250mL Bag) 250 ML 167 MG IV (06:40)
[2025-07-10 10:10] VITALS: BP 120/76; PULSE 61; RESP 18; TEMP 36.5; O2SAT 99
--- NOTE | 2025-07-10 11:04 | CONS.ORTHO ---
HPI Consult Data Date of Consult: 07/10/25 HPI Narrative Reason for Consultation: Right elbow pain and swelling HPI Narrative: VINCENZO AGUILLON, is a 64 M who presents with right elbow pain and swelling. He presented to the emergency department last evening after developing pain and redness in his right elbow on Saturday of this week. Patient notes that on it seemed to be better however yesterday got worse again and he went to his physician's office who directed him to the emergency department. In the emergency department he had significant cellulitis up his elbow and down his forearm posteriorly. As well as swelling over the left run-on bursa consistent with a septic bursitis. This area was aspirated and found to have cloudy bloody fluid. Fluid was sent for culture and current Gram stain's to show gram-positive cocci. He was placed on IV antibiotics and admitted to the hospital overnight. He has been n.p.o. This morning he reports pain is significantly improved on antibiotics. The outlined area of erythema has significantly improved as well. Patient would prefer to proceed with nonoperative treatment if at all possible. [facility]LY [facility] Medical History Left above-knee amputee HTN (hypertension) Pain, elbow Home Medications ?Medication ?Instructions ?Recorded ?Last Taken ?Type lisinopril 40 mg tablet 40 mg PO DAILY high bp 07/09/25 Unknown History Allergy/AdvReac Type Severity Reaction Status Date / Time No Known Allergies Allergy Verified 07/09/25 15:44 Social History Smoking Status: Never smoker ROS ROS Narrative 14 point review of systems otherwise is negative this morning Vital Signs Vital Signs Vital Signs: 07/09/25 15:44 07/09/25 16:48 07/09/25 17:48 Temperature 98.4 F 101.4 F H 99.8 F H Temperature Source Oral Oral Oral Pulse Rate 93 84 Pulse Strength Respiratory Rate 18 16 Respiratory Effort Respiratory Depth Respiratory Pattern Blood Pressure 128/82 H 110/74 Blood Pressure Mean 97 86 Blood Pressure Source Blood Pressure Position Blood Pressure Location Pulse Ox 97 97 Oxygen Delivery Method Room Air Room Air 07/09/25 18:03 07/09/25 18:59 07/09/25 19:37 Temperature 100.7 F H 100.7 F H 99.3 F H Temperature Source Oral Temporal Pulse Rate 80 77 81 Pulse Strength Respiratory Rate 18 16 17 Respiratory Effort Respiratory Depth Respiratory Pattern Blood Pressure 124/74 H 104/67 114/51 L Blood Pressure Mean 90 79 72 Blood Pressure Source Monitor Blood Pressure Position Semi-Fowlers Blood Pressure Location Right Arm Pulse Ox 94 97 97 Oxygen Delivery Method Room Air Room Air 07/09/25 19:57 07/09/25 22:00 07/10/25 03:36 Temperature 98 F Temperature Source Oral Pulse Rate 57 L Pulse Strength Normal (2+) Respiratory Rate 18 Respiratory Effort Normal Non-Labored Respiratory Depth Normal Respiratory Pattern Normal Blood Pressure 95/61 Blood Pressure Mean 72 Blood Pressure Source Monitor Blood Pressure Position Semi-Fowlers Blood Pressure Location Left Arm Pulse Ox 95 Oxygen Delivery Method Room Air Room Air 07/10/25 06:50 07/10/25 10:10 Temperature 97.7 F L Temperature Source Oral Pulse Rate 61 Pulse Strength Respiratory Rate 18 Respiratory Effort Respiratory Depth Respiratory Pattern Blood Pressure 120/76 Blood Pressure Mean 90 Blood Pressure Source Monitor Blood Pressure Position Sitting Blood Pressure Location Left Arm Pulse Ox 99 Oxygen Delivery Method Room Air Room Air Weight Weight: 188 lb 11.451 oz Body Mass Index (BMI) 26.3 Physical Exam Const alert and oriented x3 General Appearance: cooperative HEENT normocephalic and head/scalp atraumatic Eyes PERRL Neck no JVD Resp normal respiratory effort Cardio Cardio Narrative: Regular pulse rate distally GI non-distended Extremity Extremity Narrative: Right upper extremity: Patient has stiffness and pain with elbow range of motion which is improved from yesterday. Moderate erythema around the olecranon area with some underlying fluctuance no significant tissue expansion. Minimal tenderness palpation in this area. There is an outlined area of erythema from yesterday which is significantly improved the outlined area is consistent with what was described over the phone in the emergency department physician. Neurovascular intact distally. Skin Skin Narrative: See extremity exam Neuro CN's II-XII intact bilaterally Psych affect normal Medical Records Data Attestation: I reviewed the patient's medical records Lab / Micro Data Attestation: I reviewed the patient's lab results. 07/09/25 17:20 07/09/25 17:20 Labs: Laboratory Results - last 24 hr 07/09/25 17:15: Fluid Crystals NO CRYSTALS SEEN, Fluid Crystal Source SYNOVIAL, Fl Crystal Path Review Will follow, Synovial Source RIGHT ELBOW, Synovial Color Red, Synovial Appearance Cloudy, Synovial WBC 11.1900 H, Synovial RBC 0.075 H, Synovial Tot Cell Ct 11.1950 H, Synov Polynuclear WBCs 12.125, Synov Mononuclear WBCs 1.253, Synovial Neutrophils 99 H, Synovial Monocytes 1, Synovial Polynuclear % 90.7, Synovial Mononuclear % 9.3, Synovial Path Comment May follow 07/09/25 17:20: WBC 11.6 H, RBC 5.45, Hgb 15.9, Hct 46.5, MCV 85.3, MCH 29.2, MCHC 34.2, RDW Std Deviation 41.7, RDW Coeff of Ashleigh 13.4, Plt Count 287, MPV 9.0, Immature Gran % (Auto) 0.300, Neut % (Auto) 69.9, Lymph % (Auto) 17.7 L, Pine % (Auto) 11.5 H, Eos % (Auto) 0.3, Baso % (Auto) 0.3, Absolute Neuts (auto) 8.1 H, Absolute Lymphs (auto) 2.05, Nucleated RBC % 0, ESR 12, Sodium 141, Potassium 4.0, Chloride 107, Carbon Dioxide 24.9, Anion Gap 10, BUN 15, Creatinine 1.06, Estim Creat Clear Calc 75.97, Est GFR (MDRD) Non-Af 79, BUN/Creatinine Ratio 14.5, Glucose 85, Lactic Acid 1.4, Calcium 9.6, C-React Prot Ext Range 150.00 H Micro: Microbiology 07/09/25 17:15 Fluid - Bursa Gram Stain - Preliminary Imaging Radiology Impression Elbow X-Ray 07/09/25 17:02 IMPRESSION: 1. No acute osseous abnormality. 2. Posterior elbow soft tissue edema, extending proximally and distally, compatible with inflammatory changes in the setting of recent septic bursitis drainage. Reading Location: [id number] Independently reviewed images. Do see soft tissue swelling over the proximal elbow/olecranon area Assessment & Plan Assessment/Plan (1) Septic olecranon bursitis of right elbow: PLAN: Natural history of the disease process and treatment options were discussed the patient. We discussed surgical versus nonsurgical treatment options. At this time patient appears to have an appropriate response to antibiotic treatment. Gram stains do show gram-positive cocci. Patient is erythema significantly improved. Likely in response to cellulitis. At this stage based on his current response and physical examination I do think he may be appropriate for nonsurgical and treatments which would include transition to oral antibiotics and reexamination this week in the office. Patient was agreeable to that treatment plan. I did discuss the case with the medicine doctor who will be caring for him today. Plan at this time will be to start the patient on doxycycline and Keflex so that we have good staff and strep coverage as we follow cultures. Patient will be discharged. Alternatively could consider monitoring on oral antibiotics from the 24 hours with reexamination in the morning. Once the medicine exams the patient is and reviews they will contact me with definitive plan. If patient is kept overnight please keep him n.p.o. with plan for reexamination in the morning. Patient is discharged today we will have him come to the office next week for reevaluation to determine appropriateness of treatment and determine if any further care is needed. Recommend 7 days minimum oral antibiotic treatment [facility]IG[facility] Office:
--- NOTE | 2025-07-10 14:16 | PCM.DC ---
Discharge Instructions DC O2, CPAP, BIPAP needs Home O2 Discharge instructions: No Dressing / Incision Discharge Activity: - (Increase activity as tolerated) Dressing / Incision Call your doctor if your incision/area has: Continuous Slow Oozing, Sudden Increased Bleeding, Increased Pain/ Swelling, Increased Redness, Foul Smelling Discharge and Swelling at the incision site Call your doctor if you observe: Fever of 101 or Higher, Numbness or Tingling and Change in Color Follow Up Care Test Results: Test results from this visit will be discussed in further detail at your follow-up appointment, if applicable. Discharge Plan Admission Admit Date/Time: 07/09/25 18:28 Primary Reason for Your Visit: Right elbow pain and swelling Attending Provider: Sharon Nagy Primary Care Provider: NEDRA TAMEZ Consulting Providers: Pedro Mars; Yunior Caputo Instructions Patient Instructions: Cellulitis Dc Additional Instructions / Restrictions: DISCHARGE INSTRUCTIONS PLEASE READ *Please take this with you to your next doctors appointment* - You will be discharged on doxycycline, 100 mg twice daily and Keflex (cephalexin) 1 g every 6 hours. A 10-day supply will be called into [facility] in [facility] as they are open, you will most likely need a longer course but will defer length of time to your orthopedic doctor when they evaluate you at follow-up -Will be very important to call Dr. Mars's office Saturday, the orthopedic doctor that saw you in the hospital, to get a follow-up appointment for Saturday -Please call your primary care provider's office upon discharge to schedule a hospital follow up within 1 week. -For any concerning signs or symptoms please call 911 or proceed to the nearest emergency department Discharge Orders/Prescriptions Prescriptions: New doxycycline hyclate 100 mg capsule 100 mg PO BID 10 Days Qty: 20 0RF cephalexin 500 mg capsule 1,000 mg PO Q6H 10 Days Qty: 80 0RF Continued lisinopril 40 mg tablet 40 mg PO DAILY Referrals / Follow Up: Pedro Mars MD [Med Staff - Active Staff, Orthopedics] - Within 1 Week NEDRA TAMEZ NP-C [Primary Care Provider, Family Practice] - Within 1 Week Disposition Disposition (needs filled in before D/C Order can be placed): Home, Self Care
--- NOTE | 2025-07-10 14:19 | PCM.DC.SUM ---
Providers Date of Admission: 07/09/25 Date of Discharge: 07/10/25 Primary Care Physician: MIKEL SHANNON Consultations 07/09/25 19:26 Consult: Orthopedics Routine Consulting Provider: Pedro Mars Reason for Consult: elbow septic bursitis EMERGENT Consult: Yes MD Notified: Yes Date Notified: 07/08/25 Time Notified: 18:30 Method of Notification: ED Physician Initiated Reason For Visit: ELBOW SEPTIC BURSITIS Diagnosis Discharge Diagnosis (1) Septic olecranon bursitis of right elbow: Status: Acute Code(s): M71.121 - Other infective bursitis, right elbow Plan #Reight elbow staph septic bursitis #HTN #Hx left AKA amputation from trauma Medications at Discharge Home Medications lisinopril 40 mg tablet 40 mg PO DAILY high bp 07/09/25 cephalexin 500 mg capsule 1,000 mg (2 x 500 mg) PO Q6H 10 days #80 caps 07/10/25 doxycycline hyclate 100 mg capsule 100 mg PO BID 10 days #20 caps 07/10/25 Hospital Course Summary of Care Provided Minutes Spent on Discharge: 23 Hospital Course: Per HPI: VINCENZO AGUILLON, is a 64 M who presented to [facility] ED on 07/09/2025 with right elbow pain and swelling. Patient has been on medical history, is only on lisinopril daily for hypertension at home. Does have history of left [id number] amputation from trauma as a child with prosthetic leg. 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 He developed right elbow pain with swelling on Saturday afternoon. Has been taking ibuprofen for this but the swelling and erythema have worsened and spread above and below the elbow. He also developed fevers and chills last night, so he came in today for further evaluation. In the ED he was febrile to 101.4F, was otherwise normotensive, normal sinus rhythm and stable on room air at rest. Labs notable for WBC count 11,000 and CRP 150. Elbow x-ray showed posterior elbow soft tissue edema extending proximally and distally. ED physician did a tap of the bursa, and fluid was cloudy and bloody consistent with infection. Case was discussed with orthopedics who recommended admission to medicine and IV antibiotics, with n.p.o. at midnight for possible procedure tomorrow. Hospitalist was then contacted for admission. I saw the patient at bedside in the ED. Patient was sitting back comfortably in bed, conversing normally, in no acute distress. Noted that his pain was much improved with doses of IV Toradol and IV morphine given earlier. Denies any fevers or chills. No other acute concerns currently. Will be admitted for further management. INTERVAL HISTORY: Patient's culture growing staph, patient cellulitis receding and his range of motion improving, Ortho consulted and given significant improvement was felt reasonable to discharge on oral antibiotics and close follow-up with Ortho for further decision on management pending symptoms moving forward. On day of discharge patient does report improved mobility and elbow and decreasing pain, comfortable with plan for discharge on oral antibiotics and close follow-up with Ortho Physical Exam Narrative General: Alert, oriented, no apparent distress HEENT: Atraumatic, normocephalic Eyes: Anicteric, normal conjunctiva, extraocular movements grossly intact Neck: Supple Respiratory: Normal respiratory effort Cardiovascular: Regular rate and rhythm GI: Soft, nontender, nondistended Extremities: Right elbow/lateral arm cellulitis appears to be receding from outline purple alfredo, range of motion improving Musculoskeletal:lower extremity AKA Neuro: No overt focal neurological deficits Skin: Receding erythema Psych: Cooperative Weight / BMI Weight Weight: 85.6 kg Body Mass Index (BMI) 26.3 ABG / Lab / Microbiology Data 07/09/25 17:20 07/09/25 17:20 Laboratory: Laboratory Results - last 24 hr 07/09/25 17:15: Fluid Crystals NO CRYSTALS SEEN, Fluid Crystal Source SYNOVIAL, Fl Crystal Path Review Will follow, Synovial Source RIGHT ELBOW, Synovial Color Red, Synovial Appearance Cloudy, Synovial WBC 11.1900 H, Synovial RBC 0.075 H, Synovial Tot Cell Ct 11.1950 H, Synov Polynuclear WBCs 12.125, Synov Mononuclear WBCs 1.253, Synovial Neutrophils 99 H, Synovial Monocytes 1, Synovial Polynuclear % 90.7, Synovial Mononuclear % 9.3, Synovial Path Comment May follow 07/09/25 17:20: ESR 12 Microbiology: Microbiology 07/09/25 17:15 Fluid - Bursa Gram Stain - Final 07/09/25 17:15 Fluid - Bursa Body Fluid Culture - Preliminary Staphylococcus aureus Radiography Diagnostic Testing: Radiology Impression Elbow X-Ray 07/09/25 17:02 IMPRESSION: 1. No acute osseous abnormality. 2. Posterior elbow soft tissue edema, extending proximally and distally, compatible with inflammatory changes in the setting of recent septic bursitis drainage. Reading Location: [id number] D/C Instructions Call your doctor if your incision/area has: Continuous Slow Oozing, Sudden Increased Bleeding, Increased Pain/ Swelling, Increased Redness, Foul Smelling Discharge and Swelling at the incision site Call your doctor if you observe: Fever of 101 or Higher, Numbness or Tingling and Change in Color DC O2, CPAP, BIPAP Needs Home O2 Discharge instructions: No Meaningful Use Info Meaningful Use Meaningful Use Diagnoses (Choose all that apply): None applicable Discharge Plan Admission Admit Date/Time: 07/09/25 18:28 Primary Reason for Your Visit: Right elbow pain and swelling Attending Provider: Sharon Nagy Primary Care Provider: NEDRA TAMEZ Consulting Providers: Pedro Mars; Yunior Caputo Instructions Patient Instructions: Cellulitis Dc Additional Instructions / Restrictions: DISCHARGE INSTRUCTIONS PLEASE READ *Please take this with you to your next doctors appointment* - You will be discharged on doxycycline, 100 mg twice daily and Keflex (cephalexin) 1 g every 6 hours. A 10-day supply will be called into [facility] in [facility] as they are open, you will most likely need a longer course but will defer length of time to your orthopedic doctor when they evaluate you at follow-up -Will be very important to call Dr. Mars's office Saturday, the orthopedic doctor that saw you in the hospital, to get a follow-up appointment for Saturday -Please call your primary care provider's office upon discharge to schedule a hospital follow up within 1 week. -For any concerning signs or symptoms please call 911 or proceed to the nearest emergency department Discharge Orders/Prescriptions Prescriptions: New doxycycline hyclate 100 mg capsule 100 mg PO BID 10 Days Qty: 20 0RF cephalexin 500 mg capsule 1,000 mg PO Q6H 10 Days Qty: 80 0RF Continued lisinopril 40 mg tablet 40 mg PO DAILY Referrals / Follow Up: Pedro Mars MD [Med Staff - Active Staff, Orthopedics] - Within 1 Week NEDRA TAMEZ, ARTIFICIAL INSEMINATION TECHNICIAN-C [Primary Care Provider, Family Practice] - Within 1 Week Disposition Disposition (needs filled in before D/C Order can be placed): Home, Self Care Charges/Coding Visit Charges Inpatient E&M: [id number] Disch Hosp
[2025-07-10 14:29] VITALS: TEMP 37
== END 2025-07-10 15:00 | disposition home or self-care (01) | DRG 558 ==
LOC: ED 18:29 → MS3 18:58
PROVIDERS: Admitting Provider Hospitalist; Emergency Provider Emergency Medicine; PCP Nurse Practitioner Family; Visit Provider Internal Medicine
DX: M71.121 Other infective bursitis, right elbow (principal); L03.113 Cellulitis of right upper limb; B95.61 Methicillin susceptible Staphylococcus aureus infection as the cause of diseases classified elsewhere; I10 Essential (primary) hypertension; Z79.899 Other long term (current) drug therapy
CPT/HCPCS: 73080; 80048; 83605; 85025; 85652; 86140; 87040; 87070; 87075; 87077; 87186; 87205; 89050; 89051; 89060; 99285; A4216; J0295; J2405

== ENCOUNTER 2025-07-11 03:43 | Emergency (ER) | payer OTHER, SELFPAY ==
[2025-07-11 03:44] VITALS: BP 146/77; PULSE 67; RESP 18; TEMP 36.6; O2SAT 99; BMI 26.9
[2025-07-11 03:48] VITALS: BP 146/77; PULSE 71; RESP 18; TEMP 36.6; O2SAT 100
--- NOTE | 2025-07-11 03:55 | CT_ITS ---
EXAM: CT scan of the right elbow with contrast. CLINICAL HISTORY: Right elbow bursitis, swelling and chills. COMPARISON: Radiographs on 07/09/2025. TECHNIQUE: Axial CT scan images with intravenous contrast. Reformatted coronal and sagittal images. DLP: 1191. CTD: 25.58. FINDINGS: Prominent soft tissue edema and swelling overlying the elbow, more severe posteriorly, probably secondary to infectious/inflammatory pathology. Loculated effusion is noted in the posterior bursa overlying the triceps tendon insertion on the olecranon/retro ulnar bursa measuring 5.9 x3.2 x 0.8 cm in its largest craniocaudal, transverse and anteroposterior dimensions respectively. Enthesophyte formation is noted at the ulnar insertion of the triceps tendon. No CT evidence of gas-forming infection or osteomyelitis. No fracture or dislocation is seen. CT/Extremity Upper WITH Contrast IMPRESSION: Prominent soft tissue edema and swelling overlying the elbow, more severe poste riorly, probably secondary to infectious/inflammatory pathology. Loculated effusion is noted in the posterio r bursa overlying the triceps tendon insertion on the olecranon/retro ulnar bursa measuring 5.9 x3.2 x 0.8 cm in its largest cran iocaudal, transverse and anteroposterior dimensions respectively. Enthesophyte formation is noted at the ulnar insertion of the triceps tendon. No CT evidence of gas-forming infection or osteomyelitis. Reading Location: [place] [id number]
[2025-07-11 04:09] LABS: Hematocrit 42.7 % (40-54); Hemoglobin 14.1 g/dL (13.0-16.5); Immature Granulocytes Count 0.030 X10^3/uL (0.0-0.0); Mean Corp Hgb Conc 33.0 g/dL (32-36); Mean Corpuscular Volume 84.9 fL (80-94); Mean Platelet Vol. 9.0 fl (6.2-12.0); NRBC Flagged by Analyzer 0 % (0-5); Platelet Count 239 K/mm3 (150-450); RBC Distribution Width CV 13.3 % (11.6-14.6); RBC Distribution Width SD 41.2 fl (35.1-43.9); Red Blood Count 5.03 M/mm3 (4.6-6.2); White Blood Count 9.0 K/mm3 (4.4-11.0)
--- OUTSIDE RECORDS SUMMARY | 2025-07-11 04:19 | XMS RPT_ITS | CCD ---
Author Organization [facility] Inform ion Partnership [facility] Care Team Providers Care Shrimp Peeler Name Role Phone ÁNGEL FARAH, DR JESUS Garrison Primary Care Physician CASTRO HEAT TRANSFER TECHNICIAN-RESIDENTIAL PLUMBER, NEDRA Primary Care Physician WILLA FARAH FACP, MARTINEZ Wood Consulting Unavail dyllan ROBERT MD FACP, MARTINEZ Wood Attending Erasmo JOHNSON HEAT TRANSFER TECHNICIAN-RESIDENTIAL PLUMBER, GIRMA Barba Admitting Unavailable CASTRO HEAT TRANSFER TECHNICIAN-RESIDENTIAL PLUMBER, NEDRA Primary Care Unavai lable CASTRO HEAT TRANSFER TECHNICIAN-RESIDENTIAL PLUMBER, NEDRA Attending Radha mota CASTRO HEAT TRANSFER TECHNICIAN-RESIDENTIAL PLUMBER, NEDRA Primary Care Unavai lable CASTRO HEAT TRANSFER TECHNICIAN-RESIDENTIAL PLUMBER, NEDRA Primary Care Unavai lable CASTRO HEAT TRANSFER TECHNICIAN-RESIDENTIAL PLUMBER, NEDRA Attending [facility] Ge[facility] DO Attending Unavailable CASTRO HEAT TRANSFER TECHNICIAN-RESIDENTIAL PLUMBER, NEDRA Primary Care Unavai lable CASTRO HEAT TRANSFER TECHNICIAN-RESIDENTIAL PLUMBER, NEDRA Primary Care DR BRENDA Steel MD Attending Unavailabl e Medications Current Medications Medication Drug Class(es) Dates Sig (Normalized) Sig (Original) acetaminophen 325 mg / HYDROcodone bitartrate 5 mg oral tablet (1 source) Opioid Agonist Start: 02-10-2025 End: 02-13-2025 take 1 tablet by mouth every six hours as needed for pain [place] 325- 5 mg oral tablet Dose = [...] day(s), # 12 tab(s), 0 Refill(s), Pharmacy: [facility]/pharmacy #[id number], Pancreatitis, 177.8, cm, 02/11/25 3:59:00 EDT, [...] CrCLWeight =50 kg:eGFR >50No changeeGFR 10-5015 mg [id number] 50No changeeGFR 10-507.5 mg [id number] Start Date: 02/11/25 Stop Date: 02/13/25 Status: Discontinued Repeat number: 1 lisinopril 40 mg oral tablet (5 sources) Angiotensin Converting Enzyme Inhibitor Start: 11-20-2024 End: 05-19-2025 lisinopril 40 mg oral tablet Dose : 40 mg = 1 tab(s), Oral, qDay, # 90 tab(s), 1 Refill(s), Pharmacy: [facility], 78, cm, 11/20/24 7:29:00 EDT, Height, kg, 11/20/24 7:29:00 EDT, Dosing Weight Start Date: 11/20/24 Stop Date: 05/19/25 Status: Ordered Medication Dispense Status: Completed Quantity: 90.0 Unit: tab(s) Total Allowed Fills: 2 Fills Dispensed: 0 Start: 09-09-2024 End: 11-08-2024 lisinopril 20 mg oral tablet Dose : 20 mg = 1 tab(s), Oral, qDay, # 60 tab(s), 0 Refill(s), Pharmacy: [facility], Hypertension, 178, cm, 09/09/24 7:46:00 EST, [...] Estimated Glomerular Filtration Rate 78 ml/min/1.73sqm Normal [facility] Comment on above: Result Comment: Stages [...] ANEU, MG, CBC, GFR, CMP #### [address] [address] CMPon 05-21-2025 Albumin Level 3.6 G/dL Normal 3.4-4.8 [facility] Comment on above: Performed By: #### A DIFF, ANEU, MG, CBC, GFR, CMP #### [address] [address] Albumin/Globulin [Mass ratio] 1.0 {ratio} Low 1.1-2.5 [facility] Comment on above: Performed By: #### A DIFF, ANEU, MG, CBC, GFR, CMP #### [address] [address] ALP [Catalytic activity/Vol] 90 U/L Normal 40-135 [facility] Comment on above: Performed By: #### A DIFF, ANEU, MG, CBC, GFR, CMP #### [address] [address] ALT [Catalytic activity/Vol] 30 U/L Normal 16-63 [facility] Comment on above: Performed By: #### A DIFF, ANEU, MG, CBC, GFR, CMP #### [address] [address] AST [Catalytic activity/Vol] 16 U/L Normal 10-40 [facility] Comment on above: Performed By: #### A DIFF, ANEU, MG, CBC, GFR, CMP #### [address] [address] Bili Total 0.7 mg/dL Normal 0.2-1.0 [facility] Comment on above: Result Comment: Use of this assay is not recommended for patients undergoing treatment with eltrombopag due to the potential for falsely elevated results. Performed By: #### A DIFF, ANEU, MG, CBC, GFR, CMP #### [address] [address] BUN/Creatinine Ratio 21 ratio Normal 7-27 [facility] Comment on above: Performed By: #### A DIFF, ANEU, MG, CBC, GFR, CMP #### [place] [address] Calcium [Mass/Vol] 9.3 mg/dL Normal 8.4-10.2 [facility] Comment on above: Performed By: #### A DIFF, ANEU, MG, CBC, GFR, CMP #### [place] [address] Chloride [Moles/Vol] 107 mmol/L Normal 98-107 [facility] Comment on above: Performed By: #### A DIFF, ANEU, MG, CBC, GFR, CMP #### [place] [address] CO2 [Moles/Vol] 28 mmol/L Normal 23-31 [facility] Comment on above: Performed By: #### A DIFF, ANEU, MG, CBC, GFR, CMP #### [place] [address] Creatinine [Mass/Vol] 1.07 mg/dL Normal 0.67-1.17 [facility] Comment on above: Performed By: #### A DIFF, ANEU, MG, CBC, GFR, CMP #### [place] [address] Electrolyte Balance 8.0 mEq/L Normal 4.0-15.0 [facility] Comment on above: Performed By: #### A DIFF, ANEU, MG, CBC, GFR, CMP #### [address] [address] Globulin 3.6 G/dL Normal 2.7-4.4 [facility] Comment on above: Performed By: #### A DIFF, ANEU, MG, CBC, GFR, CMP #### [address] [address] Glucose [Mass/Vol] 79 mg/dL Low 80-115 [facility] Comment on above: Performed By: #### A DIFF, ANEU, MG, CBC, GFR, CMP #### [address] [address] Potassium [Moles/Vol] 4.2 mmol/L Normal 3.5-5.1 [facility] Comment on above: Performed By: #### A DIFF, ANEU, MG, CBC, GFR, CMP #### [address] [address] Sodium [Moles/Vol] 143 mmol/L Normal 136-145 [facility] Comment on above: Performed By: #### A DIFF, ANEU, MG, CBC, GFR, CMP #### [address] [address] Total Protein 7.2 G/dL Normal 6.4-8.2 [facility] Comment on above: Performed By: #### A DIFF, ANEU, MG, CBC, GFR, CMP #### [address] [address] Urea nitrogen [Mass/Vol] 23 mg/dL High 7-18 [facility] Comment on above: Performed By: #### A DIFF, ANEU, MG, CBC, GFR, CMP #### [address] [address] LABORATORYOrdered By: SYSTEM SYSTEM on 05-21-2025 Albumin [...] Reports Accession: Collected Date/Time: Received Date/Time: Pathologist: [id number] 02/26/2025 09:31 EDT 03/01/2025 07:49 EDT RICARDO FLOWER MD Final Surgical Pathology Report DIAGNOSIS: CECUM, POLYPECTOMY: - TUBULAR ADENOMA CLINICAL INFORMATION: Procedure: COLONOSCOPY Preoperative diagnosis: SCREENING Postoperative diagnosis: SCREENING SPECIMEN: A CECUM POLYP GROSS DESCRIPTION: All parts labelled with patient name and [id number] Received in formalin labeled cecum polyp is 1 mercedes-pink tissue fragment measuring 0.6 x 0.2 cm. TS-1 Radhika Garcia, Grossing Smocking Machine Operator/ Dr. Ricardo Flower, Pathologist Performed by Radhika Garcia MICROSCOPIC DESCRIPTION: The microscopic examination is performed, except in the case of Gross Only. Verified by Pathology Report verified by [facility] RICARDO FLOWER Sign out Date: 03/02/2025 16:12 Performing Lab: [facility], [address] [place] [address] Pathology Dept Disclaimer If ancillary studies were utilized, the following Laboratory Developed Test (LDT) disclaimer will apply: Under CLIA requirements, [facility] is qualified to perform high complexity testing. For all ancillary stains, positive and negative controls stain appropriately. Performance characteristics of immunohistochemical and chromogenic in-situ hybridization tests have been determined by [facility]. These tests are used for clinical purposes, They should not be regarded as investigational or for research. Normal [facility] .Auto Diffon 02-13-2025 Basophil, Absolute 0.0 10 3/mcL Normal 0.0-0.3 [facility] Comment on above: Performed By: #### A DIFF, ANEU, MG, CBC, GFR, CMP #### [facility] [address] [place], [place] [address] Basophils/100 WBC (Bld) 0.2 % Normal 0.0-2.5 [facility] Comment on above: Performed By: #### A DIFF, ANEU, MG, CBC, GFR, CMP #### [address] [address] Eosinophil, Absolute 0.2 10 3/mcL Normal 0.0-0.7 [facility] Comment on above: Performed By: #### A DIFF, ANEU, MG, CBC, GFR, CMP #### [address] [address] Eosinophils/100 WBC (Bld) 2.0 % Normal 0.0-6.0 [facility] Comment on above: Performed By: #### A DIFF, ANEU, MG, CBC, GFR, CMP #### [address] [address] Lymphocyte, Absolute 1.2 10 3/mcL Normal 0.9-4.3 [facility] Comment on above: Performed By: #### A DIFF, ANEU, MG, CBC, GFR, CMP #### [address] [address] Lymphocytes/100 WBC (Bld) 14.7 % Low 20.0-40.0 [facility] Comment on above: Performed By: #### A DIFF, ANEU, MG, CBC, GFR, CMP #### [address] [address] Monocyte, Absolute 1.0 10 3/mcL Normal 0.1-1.4 [facility] Comment on above: Performed By: #### A DIFF, ANEU, MG, CBC, GFR, CMP #### [address] [address] Monocytes/100 WBC (Bld) 11.9 % Normal 2.0-13.0 [facility] Comment on above: Performed By: #### A DIFF, ANEU, MG, CBC, GFR, CMP #### [address] [address] Neutrophils/100 WBC (Bld) 71.2 % Normal 50.0-75.0 [facility] Comment on above: Performed By: #### A DIFF, ANEU, MG, CBC, GFR, CMP #### [address] [address] .GFRon 02-13-2025 Estimated Glomerular Filtration Rate 96 ml/min/1.73sqm Normal [facility] Comment on above: Result Comment: Stages [...] ANEU, MG, CBC, GFR, CMP #### [address] [address] .NEUABSon 02-13-2025 Neutrophil, Absolute 5.8 10 3/mcL Normal 2.3-8.1 [facility] Comment on above: Performed By: #### A DIFF, ANEU, MG, CBC, GFR, CMP #### [address] [address] CBCon 02-13-2025 Erythrocyte distribution width (RBC) [Ratio] 13.6 % Normal 11.5-15.5 [facility] Comment on above: Performed By: #### A DIFF, ANEU, MG, CBC, GFR, CMP #### [address] [address] Hematocrit (Bld) [Volume fraction] 35.5 % Low 40.0-52.0 [facility] Comment on above: Performed By: #### A DIFF, ANEU, MG, CBC, GFR, CMP #### [address] [address] Hgb 12.4 G/dL Low 13.0-17.5 [facility] Comment on above: Performed By: #### A DIFF, ANEU, MG, CBC, GFR, CMP #### [address] [address] MCH (RBC) [Entitic mass] 29.0 pg Normal 27.0-33.0 [facility] Comment on above: Performed By: #### A DIFF, ANEU, MG, CBC, GFR, CMP #### [place] [address] MCHC 34.8 G/dL Normal 32.0-36.0 [facility] Comment on above: Performed By: #### A DIFF, ANEU, MG, CBC, GFR, CMP #### [place] [address] MCV (RBC) [Entitic vol] 83.2 fL Normal 81.0-100.0 [facility] Comment on above: Performed By: #### A DIFF, ANEU, MG, CBC, GFR, CMP #### [place] [address] Platelet 221 10 3/mcL Normal 150-450 [facility] Comment on above: Performed By: #### A DIFF, ANEU, MG, CBC, GFR, CMP #### [place] [address] Platelet mean volume (Bld) [Entitic vol] 7.5 fL Normal 6.4-10.5 [facility] Comment on above: Performed By: #### A DIFF, ANEU, MG, CBC, GFR, CMP #### [address] [address] RBC 4.27 10 6/mcL Low 4.50-6.00 [facility] Comment on above: Performed By: #### A DIFF, ANEU, MG, CBC, GFR, CMP #### [place] [id number] WBC 8.2 10 3/mcL Normal 4.5-10.8 [facility] Comment on above: Performed By: #### A DIFF, ANEU, MG, CBC, GFR, CMP #### [address] [address] CMPon 02-13-2025 Albumin Level 2.3 G/dL Low 3.4-4.8 [facility] Comment on above: Performed By: #### A DIFF, ANEU, MG, CBC, GFR, CMP #### [address] [address] Albumin/Globulin [Mass ratio] 0.6 {ratio} Low 1.1-2.5 [facility] Comment on above: Performed By: #### A DIFF, ANEU, MG, CBC, GFR, CMP #### [place] [address] ALP [Catalytic activity/Vol] 71 U/L Normal 40-135 [facility] Comment on above: Performed By: #### A DIFF, ANEU, MG, CBC, GFR, CMP #### [place] [address] ALT [Catalytic activity/Vol] 16 U/L Normal 16-63 [facility] Comment on above: Performed By: #### A DIFF, ANEU, MG, CBC, GFR, CMP #### [place] [address] AST [Catalytic activity/Vol] 18 U/L Normal 10-40 [facility] Comment on above: Performed By: #### A DIFF, ANEU, MG, CBC, GFR, CMP #### [place] [address] Bili Total 0.9 mg/dL Normal 0.2-1.0 [facility] Comment on above: Result Comment: Use of this assay is not recommended for patients undergoing treatment with eltrombopag due to the potential for falsely elevated results. Performed By: #### A DIFF, ANEU, MG, CBC, GFR, CMP #### [place] [address] BUN/Creatinine Ratio 11 ratio Normal 7-27 [facility] Comment on above: Performed By: #### A DIFF, ANEU, MG, CBC, GFR, CMP #### [address] [address] Calcium [Mass/Vol] 8.4 mg/dL Normal 8.4-10.2 [facility] Comment on above: Performed By: #### A DIFF, ANEU, MG, CBC, GFR, CMP #### [place] [address] Chloride [Moles/Vol] 107 mmol/L Normal 98-107 [facility] Comment on above: Performed By: #### A DIFF, ANEU, MG, CBC, GFR, CMP #### [place] [address] CO2 [Moles/Vol] 30 mmol/L Normal 23-31 [facility] Comment on above: Performed By: #### A DIFF, ANEU, MG, CBC, GFR, CMP #### [place] [address] Creatinine [Mass/Vol] 0.89 mg/dL Normal 0.67-1.17 [facility] Comment on above: Performed By: #### A DIFF, ANEU, MG, CBC, GFR, CMP #### [place] [address] Electrolyte Balance 3.0 mEq/L Low 4.0-15.0 [facility] Comment on above: Performed By: #### A DIFF, ANEU, MG, CBC, GFR, CMP #### [place] [address] Globulin 3.8 G/dL Normal 2.7-4.4 [facility] Comment on above: Performed By: #### A DIFF, ANEU, MG, CBC, GFR, CMP #### [place] [address] Glucose [Mass/Vol] 107 mg/dL Normal 80-115 [facility] Comment on above: Performed By: #### A DIFF, ANEU, MG, CBC, GFR, CMP #### [place] [address] Potassium [Moles/Vol] 3.6 mmol/L Normal 3.5-5.1 [facility] Comment on above: Performed By: #### A DIFF, ANEU, MG, CBC, GFR, CMP #### [address] [address] Sodium [Moles/Vol] 140 mmol/L Normal 136-145 [facility] Comment on above: Performed By: #### A DIFF, ANEU, MG, CBC, GFR, CMP #### [address] [address] Total Protein 6.1 G/dL Low 6.4-8.2 [facility] Comment on above: Performed By: #### A DIFF, ANEU, MG, CBC, GFR, CMP #### [address] [address] Urea nitrogen [Mass/Vol] 10 mg/dL Normal 7-18 [facility] Comment on above: Performed By: #### A DIFF, ANEU, MG, CBC, GFR, CMP #### [address] [address] LABORATORYOrdered By: SYSTEM SYSTEM on 02-13-2025 Albumin [...] 02-13-2025 Magnesium [Mass/Vol] 2.1 mg/dL Normal 1.8-2.4 [facility] Comment on above: Performed By: #### A DIFF, ANEU, MG, CBC, GFR, CMP #### [address] [address] .Auto Diffon 02-12-2025 Basophil, Absolute 0.0 10 3/mcL Normal 0.0-0.3 [facility] Comment on above: Performed By: #### A DIFF, ANEU, MG, CBC, GFR, CMP #### [address] [address] Basophils/100 WBC (Bld) 0.3 % Normal 0.0-2.5 [facility] Comment on above: Performed By: #### A DIFF, ANEU, MG, CBC, GFR, CMP #### [address] [address] Eosinophil, Absolute 0.0 10 3/mcL Normal 0.0-0.7 [facility] Comment on above: Performed By: #### A DIFF, ANEU, MG, CBC, GFR, CMP #### [address] [address] Eosinophils/100 WBC (Bld) 0.4 % Normal 0.0-6.0 [facility] Comment on above: Performed By: #### A DIFF, ANEU, MG, CBC, GFR, CMP #### [address] [address] Lymphocyte, Absolute 1.1 10 3/mcL Normal 0.9-4.3 [facility] Comment on above: Performed By: #### A DIFF, ANEU, MG, CBC, GFR, CMP #### [address] [address] Lymphocytes/100 WBC (Bld) 9.8 % Low 20.0-40.0 [facility] Comment on above: Performed By: #### A DIFF, ANEU, MG, CBC, GFR, CMP #### [address] [address] Monocyte, Absolute 1.3 10 3/mcL Normal 0.1-1.4 [facility] Comment on above: Performed By: #### A DIFF, ANEU, MG, CBC, GFR, CMP #### [address] [address] Monocytes/100 WBC (Bld) 11.2 % Normal 2.0-13.0 [facility] Comment on above: Performed By: #### A DIFF, ANEU, MG, CBC, GFR, CMP #### [address] [address] Neutrophils/100 WBC (Bld) 78.3 % High 50.0-75.0 [facility] Comment on above: Performed By: #### A DIFF, ANEU, MG, CBC, GFR, CMP #### [address] [address] .GFRon 02-12-2025 Estimated Glomerular Filtration Rate 101 ml/min/1.73sqm Normal [facility] Comment on above: Result Comment: Stages [...] ANEU, MG, CBC, GFR, CMP #### [address] [address] .NEUABSon 02-12-2025 Neutrophil, Absolute 8.8 10 3/mcL High 2.3-8.1 [facility] Comment on above: Performed By: #### A DIFF, ANEU, MG, CBC, GFR, CMP #### [address] [address] CBCon 02-12-2025 Erythrocyte distribution width (RBC) [Ratio] 13.5 % Normal 11.5-15.5 [facility] Comment on above: Performed By: #### A DIFF, ANEU, MG, CBC, GFR, CMP #### [place] [address] Hematocrit (Bld) [Volume fraction] 38.4 % Low 40.0-52.0 [facility] Comment on above: Performed By: #### A DIFF, ANEU, MG, CBC, GFR, CMP #### [place] [address] Hgb 13.0 G/dL Normal 13.0-17.5 [facility] Comment on above: Performed By: #### A DIFF, ANEU, MG, CBC, GFR, CMP #### [place] [address] MCH (RBC) [Entitic mass] 28.7 pg Normal 27.0-33.0 [facility] Comment on above: Performed By: #### A DIFF, ANEU, MG, CBC, GFR, CMP #### [place] [address] MCHC 33.9 G/dL Normal 32.0-36.0 [facility] Comment on above: Performed By: #### A DIFF, ANEU, MG, CBC, GFR, CMP #### [place] [id number] MCV (RBC) [Entitic vol] 84.6 fL Normal 81.0-100.0 [facility] Comment on above: Performed By: #### A DIFF, ANEU, MG, CBC, GFR, CMP #### [address] [address] Platelet 213 10 3/mcL Normal 150-450 [facility] Comment on above: Performed By: #### A DIFF, ANEU, MG, CBC, GFR, CMP #### [place] [phone] Platelet mean volume (Bld) [Entitic vol] 7.3 fL Normal 6.4-10.5 [facility] Comment on above: Performed By: #### A DIFF, ANEU, MG, CBC, GFR, CMP #### [address] [address] RBC 4.54 10 6/mcL Normal 4.50-6.00 [facility] Comment on above: Performed By: #### A DIFF, ANEU, MG, CBC, GFR, CMP #### [address] [address] WBC 11.2 10 3/mcL High 4.5-10.8 [facility] Comment on above: Performed By: #### A DIFF, ANEU, MG, CBC, GFR, CMP #### [place] [address] CMPon 02-12-2025 Albumin Level 2.6 G/dL Low 3.4-4.8 [facility] Comment on above: Performed By: #### A DIFF, ANEU, MG, CBC, GFR, CMP #### [place] [address] Albumin/Globulin [Mass ratio] 0.6 {ratio} Low 1.1-2.5 [facility] Comment on above: Performed By: #### A DIFF, ANEU, MG, CBC, GFR, CMP #### [place] [address] ALP [Catalytic activity/Vol] 73 U/L Normal 40-135 [facility] Comment on above: Performed By: #### A DIFF, ANEU, MG, CBC, GFR, CMP #### [address] [address] ALT [Catalytic activity/Vol] 21 U/L Normal 16-63 [facility] Comment on above: Performed By: #### A DIFF, ANEU, MG, CBC, GFR, CMP #### [place] [address] AST [Catalytic activity/Vol] 15 U/L Normal 10-40 [facility] Comment on above: Performed By: #### A DIFF, ANEU, MG, CBC, GFR, CMP #### [place] [phone] Bili Total 1.6 mg/dL High 0.2-1.0 [facility] Comment on above: Result Comment: Use of this assay is not recommended for patients undergoing treatment with eltrombopag due to the potential for falsely elevated results. Performed By: #### A DIFF, ANEU, MG, CBC, GFR, CMP #### [place] [address] BUN/Creatinine Ratio 16 ratio Normal 7-27 [facility] Comment on above: Performed By: #### A DIFF, ANEU, MG, CBC, GFR, CMP #### [place] [address] Calcium [Mass/Vol] 8.6 mg/dL Normal 8.4-10.2 [facility] Comment on above: Performed By: #### A DIFF, ANEU, MG, CBC, GFR, CMP #### [place] [address] Chloride [Moles/Vol] 105 mmol/L Normal 98-107 [facility] Comment on above: Performed By: #### A DIFF, ANEU, MG, CBC, GFR, CMP #### [place] [address] CO2 [Moles/Vol] 27 mmol/L Normal 23-31 [facility] Comment on above: Performed By: #### A DIFF, ANEU, MG, CBC, GFR, CMP #### [place] [address] Creatinine [Mass/Vol] 0.75 mg/dL Normal 0.67-1.17 [facility] Comment on above: Performed By: #### A DIFF, ANEU, MG, CBC, GFR, CMP #### [place] [address] Electrolyte Balance 9.0 mEq/L Normal 4.0-15.0 [facility] Comment on above: Performed By: #### A DIFF, ANEU, MG, CBC, GFR, CMP #### [place] [address] Globulin 4.1 G/dL Normal 2.7-4.4 [facility] Comment on above: Performed By: #### A DIFF, ANEU, MG, CBC, GFR, CMP #### [address] [address] Glucose [Mass/Vol] 91 mg/dL Normal 80-115 [facility] Comment on above: Performed By: #### A DIFF, ANEU, MG, CBC, GFR, CMP #### [address] [address] Potassium [Moles/Vol] 4.0 mmol/L Normal 3.5-5.1 [facility] Comment on above: Performed By: #### A DIFF, ANEU, MG, CBC, GFR, CMP #### [address] [address] Sodium [Moles/Vol] 141 mmol/L Normal 136-145 [facility] Comment on above: Performed By: #### A DIFF, ANEU, MG, CBC, GFR, CMP #### [address] [address] Total Protein 6.7 G/dL Normal 6.4-8.2 [facility] Comment on above: Performed By: #### A DIFF, ANEU, MG, CBC, GFR, CMP #### [address] [address] Urea nitrogen [Mass/Vol] 12 mg/dL Normal 7-18 [facility] Comment on above: Performed By: #### A DIFF, ANEU, MG, CBC, GFR, CMP #### [address] [address] LABORATORYOrdered By: SYSTEM SYSTEM on 02-12-2025 Albumin [...] 02-12-2025 Lipase Level 40 U/L Normal 16-77 [facility] Comment on above: Performed By: #### A DIFF, ANEU, MG, CBC, GFR, CMP #### [address] [address] MGon 02-12-2025 Magnesium [Mass/Vol] 1.7 mg/dL Low 1.8-2.4 [facility] Comment on above: Performed By: #### A DIFF, ANEU, MG, CBC, GFR, CMP #### [address] [address] .Auto Diffon 02-11-2025 Basophil, Absolute 0.0 10 3/mcL Normal 0.0-0.3 [facility] Comment on above: Performed By: #### M G, CMP, CBC, GFR, ADIFF, ANEU ####[address] [address] Basophils/100 WBC (Bld) 0.2 % Normal 0.0-2.5 [facility] Comment on above: Performed By: #### M G, CMP, CBC, GFR, ADIFF, ANEU ####[address] [address] Eosinophil, Absolute 0.1 10 3/mcL Normal 0.0-0.7 [facility] Comment on above: Performed By: #### M G, CMP, CBC, GFR, ADIFF, ANEU ####[address] [address] Eosinophils/100 WBC (Bld) 0.6 % Normal 0.0-6.0 [facility] Comment on above: Performed By: #### M G, CMP, CBC, GFR, ADIFF, ANEU ####[id number] [place], [place] [address] Lymphocyte, Absolute 1.6 10 3/mcL Normal 0.9-4.3 [facility] Comment on above: Performed By: #### M G, CMP, CBC, GFR, ADIFF, ANEU ####[address] [place] [id number] Lymphocytes/100 WBC (Bld) 12.7 % Low 20.0-40.0 [facility] Comment on above: Performed By: #### M G, CMP, CBC, GFR, ADIFF, ANEU ####[id number] [place] [address] Monocyte, Absolute 1.4 10 3/mcL Normal 0.1-1.4 [facility] Comment on above: Performed By: #### M G, CMP, CBC, GFR, ADIFF, ANEU ####[id number] [place] [address] Monocytes/100 WBC (Bld) 10.8 % Normal 2.0-13.0 [facility] Comment on above: Performed By: #### M G, CMP, CBC, GFR, ADIFF, ANEU ####[id number] [place] [id number] Neutrophils/100 WBC (Bld) 75.7 % High 50.0-75.0 [facility] Comment on above: Performed By: #### M G, CMP, CBC, GFR, ADIFF, ANEU ####[address] [place] [id number] Basophil, Absolute 0.0 10 3/mcL Normal 0.0-0.3 [facility] Comment on above: Performed By: #### A DIFF, ANEU, MG, CBC, GFR, CMP #### [address] [place], [place] [address] Basophils/100 WBC (Bld) 0.3 % Normal 0.0-2.5 [facility] Comment on above: Performed By: #### A DIFF, ANEU, MG, CBC, GFR, CMP #### [address] [address] Eosinophil, Absolute 0.1 10 3/mcL Normal 0.0-0.7 [facility] Comment on above: Performed By: #### A DIFF, ANEU, MG, CBC, GFR, CMP #### [address] [address] Eosinophils/100 WBC (Bld) 0.8 % Normal 0.0-6.0 [facility] Comment on above: Performed By: #### A DIFF, ANEU, MG, CBC, GFR, CMP #### [address] [address] Lymphocyte, Absolute 2.1 10 3/mcL Normal 0.9-4.3 [facility] Comment on above: Performed By: #### A DIFF, ANEU, MG, CBC, GFR, CMP #### [address] [address] Lymphocytes/100 WBC (Bld) 16.0 % Low 20.0-40.0 [facility] Comment on above: Performed By: #### A DIFF, ANEU, MG, CBC, GFR, CMP #### [address] [address] Monocyte, Absolute 1.6 10 3/mcL High 0.1-1.4 [facility] Comment on above: Performed By: #### A DIFF, ANEU, MG, CBC, GFR, CMP #### [address] [address] Monocytes/100 WBC (Bld) 12.0 % Normal 2.0-13.0 [facility] Comment on above: Performed By: #### A DIFF, ANEU, MG, CBC, GFR, CMP #### [address] [address] Neutrophils/100 WBC (Bld) 70.9 % Normal 50.0-75.0 [facility] Comment on above: Performed By: #### A DIFF, ANEU, MG, CBC, GFR, CMP #### [place] [address] [place], [place] [address] .GFRon 02-11-2025 Estimated Glomerular Filtration Rate 96 ml/min/1.73sqm Normal [facility] Comment on above: Result Comment: Stages [...] ANEU, MG, CBC, GFR, CMP #### [address] [address] Estimated Glomerular Filtration Rate 95 ml/min/1.73sqm Normal [facility] Comment on above: Result Comment: Stages [...] DIFF, ANEU, MG, CBC, GFR, CMP #### [address] [place], [place] [address] .MDWon 02-11-2025 Monocyte Distribution Width 19.46 Normal 0.00-20.00 [facility] Comment on above: Result Comment: For ED adult patients suspected of sepsis, MDW<=20.0 does not rule out sepsis or risk of sepsis Performed By: #### A DIFF, ANEU, MG, CBC, GFR, CMP #### [address] [address] .NEUABSon 02-11-2025 Neutrophil, Absolute 9.8 10 3/mcL High 2.3-8.1 [facility] Comment on above: Performed By: #### M G, CMP, CBC, GFR, ADIFF, ANEU ####[place] [address] Neutrophil, Absolute 9.3 10 3/mcL High 2.3-8.1 [facility] Comment on above: Performed By: #### A DIFF, ANEU, MG, CBC, GFR, CMP #### [place] [id number] CBCon 02-11-2025 Erythrocyte distribution width (RBC) [Ratio] 13.7 % Normal 11.5-15.5 [facility] Comment on above: Performed By: #### M G, CMP, CBC, GFR, ADIFF, ANEU ####[place] [address] Hematocrit (Bld) [Volume fraction] 42.0 % Normal 40.0-52.0 [facility] Comment on above: Performed By: #### M G, CMP, CBC, GFR, ADIFF, ANEU ####[place] [address] Hgb 14.1 G/dL Normal 13.0-17.5 [facility] Comment on above: Performed By: #### M G, CMP, CBC, GFR, ADIFF, ANEU ####[place] [address] MCH (RBC) [Entitic mass] 28.3 pg Normal 27.0-33.0 [facility] Comment on above: Performed By: #### M G, CMP, CBC, GFR, ADIFF, ANEU ####[place] [address] MCHC 33.5 G/dL Normal 32.0-36.0 [facility] Comment on above: Performed By: #### M G, CMP, CBC, GFR, ADIFF, ANEU ####[address] [place], [place] [address] MCV (RBC) [Entitic vol] 84.7 fL Normal 81.0-100.0 [facility] Comment on above: Performed By: #### M G, CMP, CBC, GFR, ADIFF, ANEU ####[id number] [place], [place] [address] Platelet 242 10 3/mcL Normal 150-450 [facility] Comment on above: Performed By: #### M G, CMP, CBC, GFR, ADIFF, ANEU ####[id number] [place], [place] [address] Platelet mean volume (Bld) [Entitic vol] 7.0 fL Normal 6.4-10.5 [facility] Comment on above: Performed By: #### M G, CMP, CBC, GFR, ADIFF, ANEU ####[address] [place] [address] RBC 4.96 10 6/mcL Normal 4.50-6.00 [facility] Comment on above: Performed By: #### M G, CMP, CBC, GFR, ADIFF, ANEU ####[id number] [place], [place] [address] WBC 13.0 10 3/mcL High 4.5-10.8 [facility] Comment on above: Performed By: #### M G, CMP, CBC, GFR, ADIFF, ANEU ####[id number] [place], [place] [address] Erythrocyte distribution width (RBC) [Ratio] 13.9 % Normal 11.5-15.5 [facility] Comment on above: Performed By: #### A DIFF, ANEU, MG, CBC, GFR, CMP #### [address] [place] [place], [place] [address] Hematocrit (Bld) [Volume fraction] 44.2 % Normal 40.0-52.0 [facility] Comment on above: Performed By: #### A DIFF, ANEU, MG, CBC, GFR, CMP #### [place] [address] Hgb 14.9 G/dL Normal 13.0-17.5 [facility] Comment on above: Performed By: #### A DIFF, ANEU, MG, CBC, GFR, CMP #### [place] [address] MCH (RBC) [Entitic mass] 28.5 pg Normal 27.0-33.0 [facility] Comment on above: Performed By: #### A DIFF, ANEU, MG, CBC, GFR, CMP #### [place] [address] MCHC 33.8 G/dL Normal 32.0-36.0 [facility] Comment on above: Performed By: #### A DIFF, ANEU, MG, CBC, GFR, CMP #### [place] [address] MCV (RBC) [Entitic vol] 84.5 fL Normal 81.0-100.0 [facility] Comment on above: Performed By: #### A DIFF, ANEU, MG, CBC, GFR, CMP #### [address] [address] Platelet 255 10 3/mcL Normal 150-450 [facility] Comment on above: Performed By: #### A DIFF, ANEU, MG, CBC, GFR, CMP #### [address] [address] Platelet mean volume (Bld) [Entitic vol] 6.8 fL Normal 6.4-10.5 [facility] Comment on above: Performed By: #### A DIFF, ANEU, MG, CBC, GFR, CMP #### [address] [address] RBC 5.22 10 6/mcL Normal 4.50-6.00 [facility] Comment on above: Performed By: #### A DIFF, ANEU, MG, CBC, GFR, CMP #### [address] [address] WBC 13.1 10 3/mcL High 4.5-10.8 [facility] Comment on above: Performed By: #### A DIFF, ANEU, MG, CBC, GFR, CMP #### [address] [address] CMPon 02-11-2025 Albumin Level 2.9 G/dL Low 3.4-4.8 [facility] Comment on above: Performed By: #### A DIFF, ANEU, MG, CBC, GFR, CMP #### [place] [address] Albumin/Globulin [Mass ratio] 0.7 {ratio} Low 1.1-2.5 [facility] Comment on above: Performed By: #### A DIFF, ANEU, MG, CBC, GFR, CMP #### [place] [address] ALP [Catalytic activity/Vol] 75 U/L Normal 40-135 [facility] Comment on above: Performed By: #### A DIFF, ANEU, MG, CBC, GFR, CMP #### [place] [address] ALT [Catalytic activity/Vol] 20 U/L Normal 16-63 [facility] Comment on above: Performed By: #### A DIFF, ANEU, MG, CBC, GFR, CMP #### [place] [address] AST [Catalytic activity/Vol] 13 U/L Normal 10-40 [facility] Comment on above: Performed By: #### A DIFF, ANEU, MG, CBC, GFR, CMP #### [place] [address] Bili Total 1.5 mg/dL High 0.2-1.0 [facility] Comment on above: Result Comment: Use of this assay is not recommended for patients undergoing treatment with eltrombopag due to the potential for falsely elevated results. Performed By: #### A DIFF, ANEU, MG, CBC, GFR, CMP #### [place] [address] BUN/Creatinine Ratio 12 ratio Normal 7-27 [facility] Comment on above: Performed By: #### A DIFF, ANEU, MG, CBC, GFR, CMP #### [place] [address] Calcium [Mass/Vol] 8.6 mg/dL Normal 8.4-10.2 [facility] Comment on above: Performed By: #### A DIFF, ANEU, MG, CBC, GFR, CMP #### [place] [address] Chloride [Moles/Vol] 105 mmol/L Normal 98-107 [facility] Comment on above: Performed By: #### A DIFF, ANEU, MG, CBC, GFR, CMP #### [place] [address] CO2 [Moles/Vol] 30 mmol/L Normal 23-31 [facility] Comment on above: Performed By: #### A DIFF, ANEU, MG, CBC, GFR, CMP #### [place] [address] Creatinine [Mass/Vol] 0.89 mg/dL Normal 0.67-1.17 [facility] Comment on above: Performed By: #### A DIFF, ANEU, MG, CBC, GFR, CMP #### [place] [address] Electrolyte Balance 3.0 mEq/L Low 4.0-15.0 [facility] Comment on above: Performed By: #### A DIFF, ANEU, MG, CBC, GFR, CMP #### [place] [address] Globulin 4.1 G/dL Normal 2.7-4.4 [facility] Comment on above: Performed By: #### A DIFF, ANEU, MG, CBC, GFR, CMP #### [place] [address] Glucose [Mass/Vol] 108 mg/dL Normal 80-115 [facility] Comment on above: Performed By: #### A DIFF, ANEU, MG, CBC, GFR, CMP #### [address] [address] Potassium [Moles/Vol] 3.9 mmol/L Normal 3.5-5.1 [facility] Comment on above: Performed By: #### A DIFF, ANEU, MG, CBC, GFR, CMP #### [address] [address] Sodium [Moles/Vol] 138 mmol/L Normal 136-145 [facility] Comment on above: Performed By: #### A DIFF, ANEU, MG, CBC, GFR, CMP #### [address] [address] Total Protein 7.0 G/dL Normal 6.4-8.2 [facility] Comment on above: Performed By: #### A DIFF, ANEU, MG, CBC, GFR, CMP #### [address] [address] Urea nitrogen [Mass/Vol] 11 mg/dL Normal 7-18 [facility] Comment on above: Performed By: #### A DIFF, ANEU, MG, CBC, GFR, CMP #### [address] [address] Albumin Level 3.2 G/dL Low 3.4-4.8 [facility] Comment on above: Performed By: #### A DIFF, ANEU, MG, CBC, GFR, CMP #### [address] [address] Albumin/Globulin [Mass ratio] 0.7 {ratio} Low 1.1-2.5 [facility] Comment on above: Performed By: #### A DIFF, ANEU, MG, CBC, GFR, CMP #### [address] [address] ALP [Catalytic activity/Vol] 83 U/L Normal 40-135 [facility] Comment on above: Performed By: #### A DIFF, ANEU, MG, CBC, GFR, CMP #### [address] [address] ALT [Catalytic activity/Vol] 25 U/L Normal 16-63 [facility] Comment on above: Performed By: #### A DIFF, ANEU, MG, CBC, GFR, CMP #### [address] [address] AST [Catalytic activity/Vol] 15 U/L Normal 10-40 [facility] Comment on above: Performed By: #### A DIFF, ANEU, MG, CBC, GFR, CMP #### [address] [address] Bili Total 1.7 mg/dL High 0.2-1.0 [facility] Comment on above: Result Comment: Use of this assay is not recommended for patients undergoing treatment with eltrombopag due to the potential for falsely elevated results. Performed By: #### A DIFF, ANEU, MG, CBC, GFR, CMP #### [address] [address] BUN/Creatinine Ratio 12 ratio Normal 7-27 [facility] Comment on above: Performed By: #### A DIFF, ANEU, MG, CBC, GFR, CMP #### [address] [address] Calcium [Mass/Vol] 8.8 mg/dL Normal 8.4-10.2 [facility] Comment on above: Performed By: #### A DIFF, ANEU, MG, CBC, GFR, CMP #### [address] [address] Chloride [Moles/Vol] 101 mmol/L Normal 98-107 [facility] Comment on above: Performed By: #### A DIFF, ANEU, MG, CBC, GFR, CMP #### [address] [address] CO2 [Moles/Vol] 30 mmol/L Normal 23-31 [facility] Comment on above: Performed By: #### A DIFF, ANEU, MG, CBC, GFR, CMP #### [address] [address] Creatinine [Mass/Vol] 0.91 mg/dL Normal 0.67-1.17 [facility] Comment on above: Performed By: #### A DIFF, ANEU, MG, CBC, GFR, CMP #### [address] [address] Electrolyte Balance 3.0 mEq/L Low 4.0-15.0 [facility] Comment on above: Performed By: #### A DIFF, ANEU, MG, CBC, GFR, CMP #### [address] [address] Globulin 4.3 G/dL Normal 2.7-4.4 [facility] Comment on above: Performed By: #### A DIFF, ANEU, MG, CBC, GFR, CMP #### [place] [address] Glucose [Mass/Vol] 120 mg/dL High 80-115 [facility] Comment on above: Performed By: #### A DIFF, ANEU, MG, CBC, GFR, CMP #### [address] [address] Potassium [Moles/Vol] 4.0 mmol/L Normal 3.5-5.1 [facility] Comment on above: Performed By: #### A DIFF, ANEU, MG, CBC, GFR, CMP #### [place] [address] Sodium [Moles/Vol] 134 mmol/L Low 136-145 [facility] Comment on above: Performed By: #### A DIFF, ANEU, MG, CBC, GFR, CMP #### [place] [address] Total Protein 7.5 G/dL Normal 6.4-8.2 [facility] Comment on above: Performed By: #### A DIFF, ANEU, MG, CBC, GFR, CMP #### [place] [address] Urea nitrogen [Mass/Vol] 11 mg/dL Normal 7-18 [facility] Comment on above: Performed By: #### A DIFF, ANEU, MG, CBC, GFR, CMP #### [address] [place], [place] [address] LABORATORYOrdered By: SYSTEM SYSTEM on 02-11-2025 Albumin [...] LDHon 02-11-2025 LDH 121 U/L Normal 85-227 [facility] Comment on above: Performed By: #### A DIFF, ANEU, MG, CBC, GFR, CMP #### [address] [address] LIPon 02-11-2025 Lipase Level 64 U/L Normal 16-77 [facility] Comment on above: Performed By: #### A DIFF, ANEU, MG, CBC, GFR, CMP #### [address] [address] LIPIDon 02-11-2025 Cholesterol [Mass/Vol] 115 mg/dL Normal 0-200 [facility] Comment on above: Result Comment: Chol esterol Reference Interval: Less than 200 Desirable 200-239 Borderline high risk 240 and above High risk Performed By: #### A DIFF, ANEU, MG, CBC, GFR, CMP #### [address] [address] Cholesterol in HDL [Mass/Vol] 43 mg/dL Normal 40-60 [facility] Comment on above: Performed By: #### A DIFF, ANEU, MG, CBC, GFR, CMP #### [address] [address] Cholesterol in LDL [Mass/Vol] 59 mg/dL Normal 0-130 [facility] Comment on above: Performed By: #### A DIFF, ANEU, MG, CBC, GFR, CMP #### [address] [address] Triglyceride [Mass/Vol] 67 mg/dL Normal 0-150 [facility] Comment on above: Result Comment: Trig lyceride Reference Interval: Less than 150 Normal 150-199 Borderline high risk 200-499 High risk 500 or higher Very high risk Performed By: #### A DIFF, ANEU, MG, CBC, GFR, CMP #### [address] [address] MGon 02-11-2025 Magnesium [Mass/Vol] 1.8 mg/dL Normal 1.8-2.4 [facility] Comment on above: Performed By: #### A DIFF, ANEU, MG, CBC, GFR, CMP #### [address] [place] [address] [place], [place] [address] US ABDOMEN LIMITEDon 025 US ABDOMEN LIMITED [...] 02/11/2025 11:42:39 AM Ordering Provider: FRANCOIS Garcia [facility] .Auto Diffon 02-10-2025 Basophil, Absolute 0.0 10 3/mcL Normal 0.0-0.3 [facility] Comment on above: Performed By: #### C BC, LIP, ANEU, GFR, TROPHS, MDW, ADIFF, CMP #### [address] [address] Basophils/100 WBC (Bld) 0.3 % Normal 0.0-2.5 [facility] Comment on above: Performed By: #### C BC, LIP, ANEU, GFR, TROPHS, MDW, ADIFF, CMP #### [address] [address] Eosinophil, Absolute 0.1 10 3/mcL Normal 0.0-0.7 [facility] Comment on above: Performed By: #### C BC, LIP, ANEU, GFR, TROPHS, MDW, ADIFF, CMP #### [address] [address] Eosinophils/100 WBC (Bld) 0.8 % Normal 0.0-6.0 [facility] Comment on above: Performed By: #### C BC, LIP, ANEU, GFR, TROPHS, MDW, ADIFF, CMP #### [address] [address] Lymphocyte, Absolute 1.9 10 3/mcL Normal 0.9-4.3 [facility] Comment on above: Performed By: #### C BC, LIP, ANEU, GFR, TROPHS, MDW, ADIFF, CMP #### [address] [address] Lymphocytes/100 WBC (Bld) 15.0 % Low 20.0-40.0 [facility] Comment on above: Performed By: #### C BC, LIP, ANEU, GFR, TROPHS, MDW, ADIFF, CMP #### [address] [address] Monocyte, Absolute 1.4 10 3/mcL Normal 0.1-1.4 [facility] Comment on above: Performed By: #### C BC, LIP, ANEU, GFR, TROPHS, MDW, ADIFF, CMP #### [address] [place], [place] [address] Monocytes/100 WBC (Bld) 11.0 % Normal 2.0-13.0 [facility] Comment on above: Performed By: #### C BC, LIP, ANEU, GFR, TROPHS, MDW, ADIFF, CMP #### [place] [address] [place], [place] [address] Neutrophils/100 WBC (Bld) 72.9 % Normal 50.0-75.0 [facility] Comment on above: Performed By: #### C BC, LIP, ANEU, GFR, TROPHS, MDW, ADIFF, CMP #### [place] [place], [place] [address] .GFRon 02-10-2025 Estimated Glomerular Filtration Rate 95 ml/min/1.73sqm Normal [facility] Comment on above: Result Comment: Stages [...] LIP, ANEU, GFR, TROPHS, MDW, ADIFF, CMP ####[place] [address] [place], [place] [address] .MDWon 02-10-2025 Monocyte Distribution Width 16.72 Normal 0.00-20.00 [facility] Comment on above: Result Comment: For ED adult patients suspected of sepsis, MDW<=20.0 does not rule out sepsis or risk of sepsis Performed By: #### C BC, LIP, ANEU, GFR, TROPHS, MDW, ADIFF, CMP ####[place] [address] .NEUABSon 02-10-2025 Neutrophil, Absolute 9.0 10 3/mcL High 2.3-8.1 [facility] Comment on above: Performed By: #### C BC, LIP, ANEU, GFR, TROPHS, MDW, ADIFF, CMP ####[place] [address] CBCon 02-10-2025 Erythrocyte distribution width (RBC) [Ratio] 13.5 % Normal 11.5-15.5 [facility] Comment on above: Performed By: #### C BC, LIP, ANEU, GFR, TROPHS, MDW, ADIFF, CMP #### [place] [address] Hematocrit (Bld) [Volume fraction] 47.4 % Normal 40.0-52.0 [facility] Comment on above: Performed By: #### C BC, LIP, ANEU, GFR, TROPHS, MDW, ADIFF, CMP #### [place] [address] Hgb 16.0 G/dL Normal 13.0-17.5 [facility] Comment on above: Performed By: #### C BC, LIP, ANEU, GFR, TROPHS, MDW, ADIFF, CMP #### [place] [address] MCH (RBC) [Entitic mass] 28.5 pg Normal 27.0-33.0 [facility] Comment on above: Performed By: #### C BC, LIP, ANEU, GFR, TROPHS, MDW, ADIFF, CMP #### [place] [address] MCHC 33.7 G/dL Normal 32.0-36.0 [facility] Comment on above: Performed By: #### C BC, LIP, ANEU, GFR, TROPHS, MDW, ADIFF, CMP #### [address] [address] MCV (RBC) [Entitic vol] 84.6 fL Normal 81.0-100.0 [facility] Comment on above: Performed By: #### C BC, LIP, ANEU, GFR, TROPHS, MDW, ADIFF, CMP #### [address] [address] Platelet 250 10 3/mcL Normal 150-450 [facility] Comment on above: Performed By: #### C BC, LIP, ANEU, GFR, TROPHS, MDW, ADIFF, CMP #### [address] [address] Platelet mean volume (Bld) [Entitic vol] 6.7 fL Normal 6.4-10.5 [facility] Comment on above: Performed By: #### C BC, LIP, ANEU, GFR, TROPHS, MDW, ADIFF, CMP #### [address] [address] RBC 5.60 10 6/mcL Normal 4.50-6.00 [facility] Comment on above: Performed By: #### C BC, LIP, ANEU, GFR, TROPHS, MDW, ADIFF, CMP #### [address] [address] WBC 12.4 10 3/mcL High 4.5-10.8 [facility] Comment on above: Performed By: #### C BC, LIP, ANEU, GFR, TROPHS, MDW, ADIFF, CMP #### [address] [address] CMPon 02-10-2025 Albumin Level 3.6 G/dL Normal 3.4-4.8 [facility] Comment on above: Performed By: #### C BC, LIP, ANEU, GFR, TROPHS, MDW, ADIFF, CMP ####[address] [address] Albumin/Globulin [Mass ratio] 0.8 {ratio} Low 1.1-2.5 [facility] Comment on above: Performed By: #### C BC, LIP, ANEU, GFR, TROPHS, CARYL, ADIFF, CMP ####[address] [address] ALP [Catalytic activity/Vol] 88 U/L Normal 40-135 [facility] Comment on above: Performed By: #### C BC, LIP, ANEU, GFR, MAURICES, CARYL, ADIFF, CMP ####[place] [address] ALT [Catalytic activity/Vol] 21 U/L Normal 16-63 [facility] Comment on above: Performed By: #### C BC, LIP, ANEU, GFR, FAWN, CARYL, ADIFF, CMP ####[place] [address] AST [Catalytic activity/Vol] 17 U/L Normal 10-40 [facility] Comment on above: Performed By: #### C BC, LIP, ANEU, GFR, MAURICES, CARYL, ADIFF, CMP ####[address] [address] Bili Total 1.6 mg/dL High 0.2-1.0 [facility] Comment on above: Result Comment: Use of this assay is not recommended for patients undergoing treatment with eltrombopag due to the potential for falsely elevated results. Performed By: #### C BC, LIP, ANEU, GFR, TROPHRobbi, CARYL, ADIFF, CMP ####[place] [id number] BUN/Creatinine Ratio 18 ratio Normal 7-27 [facility] Comment on above: Performed By: #### C BC, LIP, ANEU, GFR, FAWN, CARYL, ADIFF, CMP ####[place] [id number] Calcium [Mass/Vol] 9.7 mg/dL Normal 8.4-10.2 [facility] Comment on above: Performed By: #### C BC, LIP, ANEU, GFR, TROPHS, W, ADIFF, CMP ####[place] [address] [place], [place] [address] Chloride [Moles/Vol] 106 mmol/L Normal 98-107 [facility] Comment on above: Performed By: #### C BC, LIP, ANEU, GFR, TROPHS, MDW, ADIFF, CMP ####[place] [address] [place], [place] [address] CO2 [Moles/Vol] 28 mmol/L Normal 23-31 [facility] Comment on above: Performed By: #### C BC, LIP, ANEU, GFR, TROPHS, MDW, ADIFF, CMP ####[place] [id number] [place] [id number] Creatinine [Mass/Vol] 0.91 mg/dL Normal 0.67-1.17 [facility] Comment on above: Performed By: #### C BC, LIP, ANEU, GFR, TROPHS, MDW, ADIFF, CMP ####[address] [address] Electrolyte Balance 6.0 mEq/L Normal 4.0-15.0 [facility] Comment on above: Performed By: #### C BC, LIP, ANEU, GFR, TROPHS, MDW, ADIFF, CMP ####[id number] [place], [place] [address] Globulin 4.3 G/dL Normal 2.7-4.4 [facility] Comment on above: Performed By: #### C BC, LIP, ANEU, GFR, TROPHS, MDW, ADIFF, CMP ####[address] [address] Glucose [Mass/Vol] 104 mg/dL Normal 80-115 [facility] Comment on above: Performed By: #### C BC, LIP, ANEU, GFR, TROPHS, MDW, ADIFF, CMP ####[address] [address] Potassium [Moles/Vol] 4.0 mmol/L Normal 3.5-5.1 [facility] Comment on above: Performed By: #### C BC, LIP, ANEU, GFR, TROPHS, MDW, ADIFF, CMP ####[facility] [place], [place] [address] Sodium [Moles/Vol] 140 mmol/L Normal 136-145 [facility] Comment on above: Performed By: #### C BC, LIP, ANEU, GFR, TROPHS, MDW, ADIFF, CMP ####[address] [place], [place] [address] Total Protein 7.9 G/dL Normal 6.4-8.2 [facility] Comment on above: Performed By: #### C BC, LIP, ANEU, GFR, TROPHS, MDW, ADIFF, CMP ####[address] [place], [place] [address] Urea nitrogen [Mass/Vol] 16 mg/dL Normal 7-18 [facility] Comment on above: Performed By: #### C BC, LIP, ANEU, GFR, TROPHS, MDW, ADIFF, CMP ####[address] [place], [place] [address] CT ABD/PELVIS W/ IV CONTRAST ONLYon 02-10-2025 [...] 02/10/2025 9:31:37 AM Ordering Provider: KAISER Garcia [facility] LABORATORYOrdered By: SYSTEM SYSTEM on 02-10-2025 [...] ng/L Male: 0-76 ng/L Testing performed on [employer] using a homogeneous sandwich chemiluminescent immunoassay based on [employer] technology. Urea nitrogen [Mass/Vol] 16 mg/dL Normal [...] 02-10-2025 Lipase Level 212 U/L High 16-77 [facility] Comment on above: Performed By: #### C BC, LIP, ANEU, GFR, TROPHS, MDW, ADAUTUMN, CMP ####[facility] [place], [place] [address] [facility] High Sensitivity Troponin I <4 Normal 0-76 [facility] Comment on above: Result Comment: High Sensitive Troponin I Reference Ranges: Female: 0-51 ng/L Male: 0-76 ng/L Testing performed on [employer] using a homogeneous sandwich chemiluminescent immunoassay based on [employer] technology. Performed By: #### C BC, LIP, ANEU, GFR, TROPHS, MDW, ADIFF, CMP ####[address] [place], [place] [address] UAon 02-10-2025 Color (U) Yellow Normal [facility] Comment on above: Performed By: #### U A ####[address] [place] [place] [address] Glucose (U) [Mass/Vol] 100 mg/dL Abnormal Negative [facility] Comment on above: Performed By: #### U A ####[address] [place] [place] [address] Ketones Ql (U) Trace Abnormal Negative [facility] Comment on above: Performed By: #### U A ####[address] [place] [place] [address] UA Appear Clear Normal Clear [facility] Comment on above: Performed By: #### U A ####[address] [place] [address] UA Bili Small Abnormal Negative [facility] Comment on above: Performed By: #### U A ####Barby [address] [place] [address] UA Blood Trace Normal Negative [facility] Comment on above: Performed By: #### U A ####[place] [address] [place], [place] [address] UA Leuk Est Negative Normal Negative [facility] Comment on above: Performed By: #### U A ####[place] [address] [place] [address] UA Nitrite Negative Normal Negative [facility] Comment on above: Performed By: #### U A ####Barby [address] [place] [address] UA pH 6.0 Normal 5.0 - 8.0 [facility] Comment on above: Performed By: #### U A ####Barby [address] [place] [address] UA Protein Negative Normal Negative [facility] Comment on above: Performed By: #### U A ####Barby [address] [place], [place] [address] UA Spec Grav 1.025 Normal 1.015-1.025 [facility] Comment on above: Performed By: #### U A ####Barby [address] [place], [place] [address] UA Specimen Type Not Given Normal [facility] Comment on above: Performed By: #### U A ####Barby [address] [place], [place] [address] UA Urobilinogen 1.0 E.U./dL Normal 0.2-1.0 [facility] Comment on above: Performed By: #### U A ####Barby [address] [address] .GFRon 09-12-2024 GFR Non- 89 ml/min/1.73sqm Normal [facility] Comment on above: Result Comment: GFR [...] DIFF, ANEU, MG, CBC, GFR, CMP #### [place] [address] [place], [place] [address] GFR 108 ml/min/1.73sqm Normal [facility] Comment on above: Result Comment: GFR [...] ANEU, MG, CBC, GFR, CMP #### [address] [address] CMPon 09-12-2024 Albumin Level 3.9 G/dL Normal 3.4-4.8 [facility] Comment on above: Performed By: #### A DIFF, ANEU, MG, CBC, GFR, CMP #### [address] [address] Albumin/Globulin [Mass ratio] 1.0 {ratio} Low 1.1-2.5 [facility] Comment on above: Performed By: #### A DIFF, ANEU, MG, CBC, GFR, CMP #### [address] [address] ALP [Catalytic activity/Vol] 92 U/L Normal 40-135 [facility] Comment on above: Performed By: #### A DIFF, ANEU, MG, CBC, GFR, CMP #### [address] [address] ALT [Catalytic activity/Vol] 24 U/L Normal 16-63 [facility] Comment on above: Performed By: #### A DIFF, ANEU, MG, CBC, GFR, CMP #### [address] [address] AST [Catalytic activity/Vol] 18 U/L Normal 10-40 [facility] Comment on above: Performed By: #### A DIFF, ANEU, MG, CBC, GFR, CMP #### [address] [address] Bili Total 0.7 mg/dL Normal 0.2-1.0 [facility] Comment on above: Result Comment: Use of this assay is not recommended for patients undergoing treatment with eltrombopag due to the potential for falsely elevated results. Performed By: #### A DIFF, ANEU, MG, CBC, GFR, CMP #### [place] [address] BUN/Creatinine Ratio 16 ratio Normal 7-27 [facility] Comment on above: Performed By: #### A DIFF, ANEU, MG, CBC, GFR, CMP #### [place] [address] Calcium [Mass/Vol] 9.4 mg/dL Normal 8.4-10.2 [facility] Comment on above: Performed By: #### A DIFF, ANEU, MG, CBC, GFR, CMP #### [place] [address] Chloride [Moles/Vol] 107 mmol/L Normal 98-107 [facility] Comment on above: Performed By: #### A DIFF, ANEU, MG, CBC, GFR, CMP #### [place] [address] CO2 [Moles/Vol] 28 mmol/L Normal 23-31 [facility] Comment on above: Performed By: #### A DIFF, ANEU, MG, CBC, GFR, CMP #### [place] [address] Creatinine [Mass/Vol] 0.87 mg/dL Normal 0.70-1.30 [facility] Comment on above: Result Comment: Test ing performed on Siemens Dimension EXL analyzer using a modified kinetic Jillian technique. Performed By: #### A DIFF, ANEU, MG, CBC, GFR, CMP #### [place] [address] Electrolyte Balance 7.0 mEq/L Normal 4.0-15.0 [facility] Comment on above: Performed By: #### A DIFF, ANEU, MG, CBC, GFR, CMP #### [place] [address] Globulin 3.8 G/dL Normal [facility] Comment on above: Performed By: #### A DIFF, ANEU, MG, CBC, GFR, CMP #### [address] [address] Glucose [Mass/Vol] 84 mg/dL Normal 80-115 [facility] Comment on above: Performed By: #### A DIFF, ANEU, MG, CBC, GFR, CMP #### [address] [address] Potassium [Moles/Vol] 4.8 mmol/L Normal 3.5-5.1 [facility] Comment on above: Performed By: #### A DIFF, ANEU, MG, CBC, GFR, CMP #### [place] [id number] Sodium [Moles/Vol] 142 mmol/L Normal 136-145 [facility] Comment on above: Performed By: #### A DIFF, ANEU, MG, CBC, GFR, CMP #### [address] [address] Total Protein 7.7 G/dL Normal 6.4-8.2 [facility] Comment on above: Performed By: #### A DIFF, ANEU, MG, CBC, GFR, CMP #### [address] [address] Urea nitrogen [Mass/Vol] 14 mg/dL Normal 7-18 [facility] Comment on above: Performed By: #### A DIFF, ANEU, MG, CBC, GFR, CMP #### [address] [address] LABORATORYOrdered By: SYSTEM SYSTEM on 09-12-2024 Albumin [...] 09-12-2024 Cholesterol [Mass/Vol] 174 mg/dL Normal 0-200 [facility] Comment on above: Result Comment: Chol esterol Reference Interval: Less than 200 Desirable 200-239 Borderline high risk 240 and above High risk Performed By: #### A DIFF, ANEU, MG, CBC, GFR, CMP #### [place] [address] Cholesterol in HDL [Mass/Vol] 43 mg/dL Normal 40-60 [facility] Comment on above: Performed By: #### A DIFF, ANEU, MG, CBC, GFR, CMP #### [place] [address] Cholesterol in LDL [Mass/Vol] 105 mg/dL Normal 0-130 [facility] Comment on above: Performed By: #### A DIFF, ANEU, MG, CBC, GFR, CMP #### [place] [address] Triglyceride [Mass/Vol] 129 mg/dL Normal 0-150 [facility] Comment on above: Result Comment: Trig lyceride Reference Interval: Less than 150 Normal 150-199 Borderline high risk 200-499 High risk 500 or higher Very high risk Performed By: #### A DIFF, ANEU, MG, CBC, GFR, CMP #### [place] [address] PSAon 09-12-2024 Prostate Specific Antigen 2.41 ng/mL Normal 0.00-4.00 [facility] Comment on above: Performed By: #### A DIFF, ANEU, MG, CBC, GFR, CMP #### [place] [address] LABORATORYOrdered By: SYSTEM SYSTEM on 03-15-2023 Albumin [...] (S/P/Bld) [Vol rate/Area] ml/min/1.73sqm Invalid Interpretation Code [facility] Comment on above: Interpretive Data: GFR [...] Invalid Interpretation Code 82 - 115 mg/dL [facility] Hematocrit (Bld) [Volume fraction] 48.1 % Invalid Interpretation Code 40.0 - 52.0 % Workflow SS Hemoglobin (Bld) [Mass/Vol] 16.2 G/dL Invalid Interpretation Code 13.0 - 17.5 G/dL Workflow SS Lipase [Catalytic activity/Vol] 51 U/L Invalid Interpretation Code 12 - 53 U/L [facility] Comment on above: Interpretive Data: * [...] Urine SS PROGRESSon 08-28-2019 PROGRESS HNO ID: [id number] Author: Quang Nguyen Service: ? Author Type: ADVERTISING LAYOUT WORKER Type: Progress Notes Filed: 08/28/2019 2:42 PM [...] the findings, diagnosis, and treatment options. Normal [facility] Vital Signs Date Time Vital Sign Value Performing Clinician Juan Francisco mitchell 03-15-2023 18:54-0400 Diastolic Blood Pressure Non-Invasive 64 1 CALVIN GILL MD [facility] 03-15-2023 18:54-0400 Heart rate 82 /min CALVIN GILL MD [facility] 03-15-2023 18:54-0400 Respiratory rate 16 /min CALVIN GILL MD [facility] 03-15-2023 18:54-0400 Systolic Blood Pressure Non-Invasive 162 1 CALVIN GILL MD [facility] 03-15-2023 18:03-0400 Diastolic Blood Pressure Non-Invasive 81 1 CALVIN GILL MD [facility] 03-15-2023 18:03-0400 Heart rate 91 /min CALVIN GILL MD [facility] 03-15-2023 18:03-0400 Respiratory rate 18 /min CALVIN GILL MD [facility] 03-15-2023 18:03-0400 Systolic Blood Pressure Non-Invasive 157 1 CALVIN GILL MD [facility] 03-15-2023 14:01-0400 Body temperature 98.6 [degF] CALVIN GILL MD [facility] 03-15-2023 14:01-0400 Body weight 90.2 kg CALVIN GILL MD [facility] 03-15-2023 14:01-0400 Diastolic Blood Pressure Non-Invasive 85 1 CALVIN GILL MD [place] [address]-28-2023 14:01-0400 Heart rate 76 /min CALVIN GILL MD [facility] 03-15-2023 14:010400 Respiratory rate 20 /min CALVIN GILL MD [facility] 03-15-2023 14:010400 Systolic Blood Pressure Non-Invasive 175 1 CALVIN GILL MD [facility] Encounters Encounter Date Encounter Type Care Provider Facility Start: 05-21-2025 End: 05-21-2025 ambulatory NEDRA CASTRO HEAT TRANSFER TECHNICIAN-RESIDENTIAL PLUMBER Facility:[facility] Start: 05-21-2025 End: 05-21-2025 Patient encounter procedure NEDRA CASTRO HEAT TRANSFER TECHNICIAN-RESIDENTIAL PLUMBER [facility] Start: 05-21-2025 End: 05-21-2025 Well adult monitoring check done NEDRA CASTRO HEAT TRANSFER TECHNICIAN-RESIDENTIAL PLUMBER [facility] Start: 02-26-2025 End: 02-26-2025 ambulatory NEDRA CASTRO HEAT TRANSFER TECHNICIAN-RESIDENTIAL PLUMBER Facility:[facility] Start: 02-26-2025 End: 02-26-[address] BRENDA BRYANT MD [facility] Start: 02-11-2025 End: 02-13-2025 Evaluation and management of inpatient GIRMA JOHNSON HEAT TRANSFER TECHNICIAN-RESIDENTIAL PLUMBER [facility] Start: 02-10-2025 End: 02-10-2025 Emergency department patient visit KAISER SIMPSON DO [facility] Start: 09-12-2024 End: 09-12-2024 ambulatory NEDRA CASTRO HEAT TRANSFER TECHNICIAN-RESIDENTIAL PLUMBER Facility:[facility] Start: 09-12-2024 End: 09-12-2024 Patient encounter procedure NEDRA CASTRO HEAT TRANSFER TECHNICIAN-RESIDENTIAL PLUMBER [facility] Start: 03-15-2023 End: 03-15-2023 Emergency department patient visit CALVIN GILL MD [facility] Procedures Date Procedure Procedure Detail Performing Clinician Start: 02-26-[address] BRENDA BRYANT MD Amputation above-knee NEDRA TAMEZ HEAT TRANSFER TECHNICIAN-RESIDENTIAL PLUMBER Colonoscopy DR BRENDA LAST MD Payers Date Payer Category Payer Private Health Insurance [id number] 2024 Unknown [id number] 2024 Unknown [id number] 1960 Unknown [id number] 2.16. [id number] 1960 Unknown [id number] 2.16. [id number] 1960 Unknown [id number] 2.16. [id number] 1960 Unknown [id number] 2.16. [id number] 1960 Unknown [id number] 2.16.8 [id number] Social History Date Type Detail Facility Start: 09-09-2024 Tobacco smoking status Never s moked tobacco (finding) [facility] Sexual Orientation [facility] Start: 09-27-2005 Sex Male (finding) [facility] Functional Status Date Assessment Result Facility 03-15-2023 Functional Status Awake, Resting [facility] Mental Status Date Assessment Result Facility 03-15-2023 Mental Status Oriented x 4 [facility] Clinical Notes 03-15-2023 to 02-26-2025 Note Date & Type Note Facility 02-26-2025 Evaluation + Plan note Extrac nahomi from: Title:Clinical Document Author:BRENDA BRYANT Date:02/26/25 [facility] ADMISSION HISTORY AN D PHYSICIAL CHIEF COMPLAINT: HISTORY OF PRESENT ILLNESS: REVIEW OF SYSTEMS: ACTIVE PROBLEMS: (8) Acute pancreatitis (393082580) BMI 28.0-28.9,adult (7191205185) Hypertension (5970542505) 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) Screening for colon cancer (928113166) Screening for hyperlipidemia (085207193) Screening for prostate cancer (919916507) Wellness examination (804199587) MEDICATIONS: Active Inpt Meds: None Active PRN Meds: None One Time Meds: None Active IV Meds: Lactated Ringers Infusion 1,000 mL (LR 1,000 mL) Start: 02/26/25 8:05:00 EDT, Rate: 50 mL/hr, 02/26/25 8:05:00 EDT ALLERGIES: (1) NKA FAMILY HISTORY: SOCIAL HISTORY: PHYSICAL EXAM: VITALS: DxhlceYkgeRHRtrxgBZUsE5LNU1LxssIc(kg) 02/26 08:1436.9--499310--16/11 81.8 02/26 08:10 RA 24 Hr Tmax: [...] Urine 09/09/24 * Complete Metabolic Panel 05/22/25 [facility] 07-11-2025 Hospital Discharge instructions Patient [...] a slower pace than normal. ?Eat soft, wcwl-cn-bcemwf foods. Take nfuk-emg-xgjlldc or prescription medicines only as told by [...] 03/19/2005 Document Revised: 05/28/2018 Document Reviewed: 10/16/2016 [employer] Patient Education 2020 [employer]. 02/26/2025 09:42:11 Monitored Anesthesia Care, Care After [...] before eating solid foods. General instructions Take ztnb-lta-npvemyv and prescription medicines only as told by [...] 11/25/2016 Document Revised: 11/03/2018 Document Reviewed: 11/25/2016 [employer] Patient Education [employer]Seal Follow Up Care 01/29/2025 09:47:32 With:BRENDA BRYANT Address: [address] [facility] [address] [place] [address] [phone] Business (1) When: Unknown Comments:OFFICE WILL CALL WITH BIOPSY RESULTS.NEXT COLONOSCOPY: YEARS [facility] 07-11-2025 Summary of episode note Discharge Instructions Thank you for allowing [facility] to assist you with your healthcare needs. The following is importantdischarge information regarding your hospital visit. Your Care Team NEDRA TAMEZ What to do next Follow Up Appointments Follow Up with BRENDA BRYANT Where:[address] [facility] [address] [place] [phone] Business (1) Additional Information: OFFICE WILL CALL [...] slower pace than normal. ? Eat soft, lnhg-oa-lwqvut foods. Take gccv-tov-nzzrblx or prescription medicines only as told by [...] 03/19/2005 Document Revised: 05/28/2018 Document Reviewed: 10/16/2016 [employer] Patient Education 2020 [employer]. Monitored Anesthesia Care, Care After These instructions [...] before eating solid foods. General instructions Take djxq-uak-htxusyl and prescription medicines only as told by [...] 11/25/2016 Document Revised: 11/03/2018 Document Reviewed: 11/25/2016 [employer] Patient Education 2020 [employer] Inc. Additional Information VACCINATE! IT SAVES LIVES! Members of the community who have not yet received the COVID-19 vaccine and would like to receive it can visit one of [facility] vaccine clinics. There are many vaccine clinic locations within the [facility]. For locations and available times, please visit [email or web address] It is important to note that some COVID mobile vaccine clinics are held outdoors and may be canceled in rainy or stormy conditions. To learn more about pediatric vaccinations (ages 5-11), we invite you to visit the [facility] webpage. [email or web address] learn more about the COVID-19 vaccine, we invite you to visit the CDC website for a list of frequently asked questions.https://www.cdc.gov/coronavirus/2019-ncov/vaccines/faq.html [facility] Patient Portal Access Instructions: Stay connected with your healthcare team and access your personal medical information anytime with the [facility] Patient Portal. Please follow the directions below to create your [facility] account: 1.Access the email account you provided upon registration to the hospital/physician office.2.Look for an invitation email from [facility].3.Open the email and access the invitation link: AcceptInvitation to [facility] [employer] [employer]4.Fill in the required burciaga to create your account. To access your account, visit [email or web address]. Click the blue button labeled Access Patient [...] who you will allowto register on the [facility] [employer] [employer] Patient Portal for access to your information. You can also access the [facility] [employer] [employer] Patient Portal on the [facility] tessa. Simply click on Patient Portal and then log into your account. If you would like to receive a full copy of your medical records, please contact the [facility] Medical Records Department by calling [phone], Saturday through Saturday between 8 a.m. and [...] Call your local pharmacy or go to http://bit.ly/5W8Sf7f to find one close to you.3.Make use of household items: Use cat litter or old coffee grounds to dispose medications if other options arenot available. Mix your drugs with these household products, seal them in an airtight container andthrow it into the garbage. Call [facility]: [phone] to be sure your drugs can be [...] aware that I should contact my doctor. Patient/Press Reader Signature: Date/Time: Relationship to Patient: Witness Name/Signature: Date/Time: [facility]07-11-2025 Note Date of Service 02/26/2025 Procedure Name Colonoscopy with biopsy, screening colonoscopy Consent Taken before procedure Indication Colonoscopy Location [facility] Pre-Procedure Exam Screening colonoscopy Procedural Sedation Anesthesia [...] SEE CHART, COLONOSCOPY, SCREENING, SCREENING, Preferred Lab: [facility], [id number] Post Procedure Assessment, 02/26/25 9:38:00 EDT, Stop [...] BRENDA BRYANT MD on 02/26/2025 09:41 AM [facility]07-11-2025 Anesthesiology Consult note Patient: WILFRID AGUILLON Age: 64 years Sex: Male : 1960 Associated Diagnoses: None Author: MIKE BURRELL HEAT TRANSFER TECHNICIAN-BRACE END MAINS[employer]ING FORMER Preoperative Information Time of last food or [...] list: Medical Acute pancreatitis / SNOMED CT 431794465 / Confirmed Hypertension / SNOMED CT 7071124228 / Confirmed Neoplasm of face / SNOMED CT 949326108 / Confirmed BMI 28.0-28.9,adult / SNOMED CT 6233320100 / Confirmed Screening for hyperlipidemia / SNOMED CT 491534250 / Confirmed Screening for prostate cancer / SNOMED CT 868808834 / Confirmed Wellness examination / SNOMED CT 198608160 / Confirmed Screening for colon cancer / SNOMED CT 635794682 / Confirmed, Active Problems (8) Acute pancreatitis BMI 28.0-28.9,adult Hypertension Neoplasm of face Screening for colon cancer Screening for hyperlipidemia Screening for prostate cancer Wellness examination Histories Past Medical History: No active or resolved past medical history items have been selected or recorded. Family History: Heart disease Father Diabetes mellitus type 2 Father Procedure history: Amputation of leg above knee (117852204). Colonoscopy (310533038). Social History: Social & Psychosocial Habits Alcohol [...] Signs (last 24 hrs) Last Charted Temp Mryjumyu11.9 DegC (FEB 26 08:14) IBQ719 mmHg (FEB 26 08:14) DBP89 mmHg (FEB 26 08:14) BMI25.82 (FEB 26 08:05) Measurements from flowsheet : Measurements 02/26/2025 8:05 EDT Height 178 cm Admission Weight 81.8 kg Weight Method Stated [place] Body Weight 73.18 kg BSA Admission 2 [...] Surgeon SN - CAt - Role Performed Material Preparation Worker 1 SN - CAt - Role Performed Manager Women SN - CAt - Role Performed [employer]INS[employer] FORMER 02/26/2025 8:49 EDT [facility] History and Physical 02/26/2025 8:21 EDT Continuous [...] Urinary Elimination Voiding, no difficulties Skin Description [place], Dry Skin Temperature Warm Skin Integrity Intact [...] Admission Weight 81.8 kg Weight Method Stated [place] Body Weight 73.18 kg BSA Admission 2 [...] Method Explanation, Printed materials Preferred Spoken Language Dutch Preferred Written Language Dutch Pre Procedure/Surgery Education Appropriate expectations Procedure/Surgical Teaching [...] Note-Nursing Procedure/Therapy Intake . Assessment and Plan [place] [employer] of Anesthesiologists (ASA) physical status classification: Class II. Anesthetic Preoperative Plan Anesthetic technique: Epidural. Postoperative pain management: Per surgeon. Informed consent: signed by patient. Digitally Signed by MIKE BURRELL on 02/26/2025 09:22 AM [facility]07-11-2025 Note [facility] ADMISSION HISTORY AND PHYSICIAL CHIEF COMPLAINT: HISTORY OF PRESENT ILLNESS: REVIEW OF SYSTEMS: ACTIVE PROBLEMS: (8) Acute pancreatitis (207239903) BMI 28.0-28.9,adult (9309714874) Hypertension (2672758916) Neoplasm of face (323657161) Screening for colon cancer (727963329) Screening for hyperlipidemia (557357546) Screening for prostate cancer (045855635) Wellness examination (032719507) MEDICATIONS: Active Inpt Meds: None Active PRN Meds: None One Time Meds: None Active IV Meds: Lactated Ringers Infusion 1,000 mL (LR 1,000 mL) Start: 02/26/25 8:05:00 EDT, Rate: 50 mL/hr, 02/26/25 8:05:00 EDT ALLERGIES: (1) NKA FAMILY HISTORY: SOCIAL HISTORY: PHYSICAL EXAM: VITALS: VrcnhlAcblIRByvtmJZImU5KNY5IjmvLr(kg) 02/26 08:1436.9--216618--96/11 81.8 02/26 08:10 RA 24 Hr Tmax: [...] BRENDA BRYANT MD on 02/26/2025 08:50 AM [facility]06-28-2025 Hospital Discharge instructions Patient Education 02/13/2025 14:00:02 Acute Pancreatitis, Fkda-he-Mofg Acute Pancreatitis Acute pancreatitis happens when the [...] if it caused your condition. Medicines Take zrkl-hdv-laxqjqy and prescription medicines only as told by your doctor. Ask your doctor if the medicine prescribed to you: ?Requires you to avoid driving or using heavy machinery. ?Can cause trouble pooping (constipation). You may need to take steps to prevent or treat trouble pooping: ?Take gycu-jek-oukvcqv or prescription medicines. ?Eat foods that are [...] 01/21/2009 Document Revised: 05/25/2019 Document Reviewed: 05/25/2019 [employer] Patient Education 2020 [employer]. Follow Up Care 02/11/2025 00:41:41 With:NEDRA TAMEZ APRN-RESIDENTIAL PLUMBER Address: [address] [facility] [place] [phone] When:2-4 days Comments:Please call to schedule your post-hospital appointment. [facility] 06-28-2025 Summary of episode note Discharge Instructions Thank you for allowing [facility] to assist you with your healthcare needs. [...] StatusSurgery 02/26/2025 09:00 AM EDT [facility] [phone] Confirmed Follow Up Appointments Follow Up with NEDRA TAMEZ When:Within 2-4 days Where:[address] [facility] [place] [address] [phone] Additional Information: Please call to schedule your [...] 4-10 Pancreatitis Duration: 3 Days Pickup at [facility]/pharmacy #[id number] 02/13 Unchanged lisinopril (lisinopril 40 mg oral tablet) 1 tab(s) by mouth Once a day Duration: 90 Days 02/13 Unchanged ondansetron (ondansetron 4 mg oral tablet, disintegrating) 1 tab(s) by mouth Every 6 hours as needed for Nausea/Vomiting Pharmacy Information [facility]/pharmacy #[id number]: [address], [place] [phone] Please take this list to your next [...] if it caused your condition. Medicines Take sxrl-bci-hipozen and prescription medicines only as told by your doctor. Ask your doctor if the medicine prescribed to you: ? Requires you to avoid driving or using heavy machinery. ? Can cause trouble pooping (constipation). You may need to take steps to prevent or treat trouble pooping: ? Take vaco-tjr-wefsznx or prescription medicines. ? Eat foods that [...] 01/21/2009 Document Revised: 05/25/2019 Document Reviewed: 05/25/2019 [employer] Patient Education 2020 [employer] Inc. Additional Information VACCINATE! IT SAVES LIVES! Members of the community who have not yet received the COVID-19 vaccine and would like to receive it can visit one of [facility] vaccine clinics. There are many vaccine clinic locations within the [facility]. For locations and available times, please visit [email or web address] It is important to note that some COVID mobile vaccine clinics are held outdoors and may be canceled in rainy or stormy conditions. To learn more about pediatric vaccinations (ages 5-11), we invite you to visit the [facility] webpage. https://www.[facility].org/pages/9962-Vrnml-Lhlotjiomxe-Sffrxkyfpv-Kfcyh-Jct stions.htmlTo learn more about the COVID-19 vaccine, we invite you to visit the CDC website for a list of frequently asked questions.https://www.cdc.gov/coronavirus/2019-ncov/vaccines/faq.html [facility] Patient Portal Access Instructions: Stay connected with your healthcare team and access your personal medical information anytime with the [facility] Patient Portal. Please follow the directions below to create your [facility] account: 1.Access the email account you provided upon registration to the hospital/physician office.2.Look for an invitation email from [facility].3.Open the email and access the invitation link: AcceptInvitation to [facility].4.Fill in the required burciaga to create your account. To access your account, visit [employer] O[employer]/Trulihart. Click the blue button labeled Access Patient [...] who you will allowto register on the [facility] Patient Portal for access to your information. You can also access the [facility] Patient Portal on the [employer] Anywhere tessa. Simply click on Patient Portal and then log into your account. If you would like to receive a full copy of your medical records, please contact the [facility] Medical Records Department by calling [phone], Saturday through Saturday between 8 a.m. and [...] Call your local pharmacy or go to http://[employer].Popp[employer] Productions/[email or web address] to find one close to you.3.Make use of household items: Use cat litter or old coffee grounds to dispose medications if other options arenot available. Mix your drugs with these household products, seal them in an airtight container andthrow it into the garbage. Call [facility]: [phone] to be sure your drugs can be [...] COPY. Signatures Patient Education Materials Acute Pancreatitis, Bgxy-ji-Etws Medication Leaflets My discharge plan and instructions have been reviewed and explained to me and IHENNA DENNIS Lunderstand my current condition and have read and understand these discharge instructions. I have received a written copy of the plan/instructions. If I have questions, I am aware that I should contact my doctor. Patient/Press Reader Signature: Date/Time: Relationship to Patient: Witness Name/Signature: Date/Time: [facility]06-28-2025 Note Date of Service 02/13/2025 Chief [...] by JO-ANN GARCIA on 02/13/2025 10:24 AM [facility]06-27-2025 Note Date of Service 02/12/2025 Chief Complaint Abdominal pain Subjective 64-year-old male with a past medical history of hypertension, left AKA in the past. Presented to [facility] on 02/10/2025 initially with a 2-day [...] by YOEL MARIE on 02/12/2025 11:34 AM [facility]06-27-2025 Pastoral care Progress note Pastoral Care Note Entered On: 02/12/2025 9:21 EDT Performed On: 02/12/2025 9:19 EDT by Gustavo Urias Pastoral Care Type of Pastoral Visit : Initial visit Spiritual Care Visit Initiated by : Wind Turbine Installer Spiritual Care Reason for Visit : General [...] patient is resting but awakens when this banner painter enters the room; pt expresses discomfort and [...] by Gustavo Urias on 02/12/2025 09:19 AM [facility]06-27-2025 Nurse Progress note Pt bladder scanned, [...] try. Pt is still voiding small amounts. [facility] [employer] informed of refusal. Digitally Signed by Cheo Adair RN on 02/12/2025 06:11 AM [facility]06-26-2025 Nurse Progress note Pt reports only voiding small amounts of urine today. Bladder scan shows ~480mL. Pt denies bladder discomfort, was unable to void. Unsuccessful attempts to straight cath x2 nurses. Pt reports history of difficulty with catheterization. Notified [facility] [employer], who gives instructions to bladder scan q6 Digitally Signed by Chelsea Pearson RN on 02/11/2025 02:55 PM [facility]06-26-2025 Note Date of Service 02/11/25 Chief Complaint abd pain, seen here earlier, dx w/ pancreatitis and sent home w/ pain meds. states meds aren't helping. History of Present Illness 64-year-old male with past medical history significant for hypertension, left AKA. Patient presented to [facility] emergency department 02/10/2025 with a 2- [...] 40 mg = 1 tab(s), Oral, qDay Bloomfield 325- 5 mg oral tablet 1 tab(s), [...] PM Digitally Signed by MARTINEZ ROBERT MD [facility]06-26-2025 Evaluation + Plan noteExtracted from: Title:History and Physical Author:FRANCOIS COX APRN-RESIDENTIAL PLUMBER Date:02/11/25 1. Pancreatitis 2. Hypertension Pancreatitis LR [...] Urine 09/09/24 * Complete Metabolic Panel 05/22/25 [facility] 06-26-2025 Note* Exam Date Time Procedure Performing Provider Status 02/11/25 11:27 AM US Abdomen Limited ALISIA GRANADOS MD; Auth (Verified) [id number] ORIGINAL EXAMINATION: LIMITED ABDOMINAL ULTRASOUND02/11/2025 11:31 am [...] 02/11/2025 11:42:39 AM Ordering Provider: FRANCOIS COX [facility]06-25-2025 Hospital Discharge instructions Patient Education 02/10/2025 [...] blood in stool Seizure Loss of consciousness 3698-7796 The ED[employer]. [address] [place] [address], [place] [address]. All rights reserved. This information is not intended as a substitute for professional medical care. Always follow yourhealthcare professional's instructions. Follow Up Care 02/10/2025 07:46:22 With:Go to emergency room if symptoms worsen Address:Unknown When:2-4 days With:NEDRA TAMEZ Address: [address] [place] [address]- [phone] When:2-4 days [facility] 06-25-2025 Note Discharge Instructions Thank you for allowing [facility] to assist you with your healthcare needs. [...] Up with NEDRA TAMEZ When:Within 2-4 days Where:[address] [place] [phone] Allergies NKA Medications Please ask your primary doctor or pharmacist before taking any other medication not listed, including over the counter drugs, herbal medications, vitamins and or supplements as they may interact withyour home medications. What How Much When Why Instructions Last Dose New acetaminophen-hydrocodone (Bloomfield 325- 5 mg oral tablet) 1 tab(s) [...] may report side effects to FDA at 1-299-GAI-3467. What other drugs will affect ondansetron? Ondansetron can cause a serious heart problem. Your risk may be higher if you also use certain other medicines for infections, asthma, heart problems, high blood pressure, depression, mental illness,cancer, malaria, or HIV. Many drugs can affect ondansetron. This includes prescription and hphf-cuw-kcyvgfx medicines, vitamins, and herbal products. Not all [...] to ensure that the information provided by [employer]. ('Mult[employer]') is accurate, up-to-date, and complete, but no guarantee is made to that effect. Drug information contained herein may be time sensitive. [employer] information has been compiled for use by healthcare practitioners and consumers in the [place] and therefore [employer] does not warrant that uses outside of the [place] are appropriate, unless specifically indicated otherwise. [employer] drug information does not endorse drugs, diagnose patients or recommend therapy. [employer] drug information isan informational resource designed to [...] effective or appropriate for any given patient. [employer] does not assume any responsibility for any aspect of healthcare administered with the aid of information [employer] provides. The information contained herein is not intended to cover all possible uses, directions, precautions, warnings, drug interactions, allergic reactions, or adverse effects. If you have questions about the drugs you are taking, check with your doctor, nurse or pharmacist. Copyright 7972-9567 [employer]. Version: 17.. Revision Date: 05/12/2024. acetaminophen and [...] may report side effects to FDA at 6-706-RKN-5813. What other drugs will affect acetaminophen and [...] affect acetaminophen and hydrocodone, including prescription and opyc-imj-hjdsnze medicines, vitamins, and herbal products. Not all [...] to ensure that the information provided by [employer]. ('[employer]') is accurate, up-to-date, and complete, but no guarantee is made to that effect. Drug information contained herein may be time sensitive. [employer] information has been compiled for use by healthcare practitioners and consumers in the [place] and therefore [employer] does not warrant that uses outside of the [place] are appropriate, unless specifically indicated otherwise. [employer] drug information does not endorse drugs, diagnose patients or recommend therapy. [employer] drug information isan informational resource designed to [...] effective or appropriate for any given patient. [employer] does not assume any responsibility for any aspect of healthcare administered with the aid of information [employer] provides. The information contained herein is not intended to cover all possible uses, directions, precautions, warnings, drug interactions, allergic reactions, or adverse effects. If you have questions about the drugs you are taking, check with your doctor, nurse or pharmacist. Copyright 5983-5446 [employer]. Version: 19.02. Revision Date: 11/26/2023. lisinopril (lyse [...] may report side effects to FDA at 5-871-TVW-3040. What other drugs will affect lisinopril? Lisinopril [...] drugs may affect lisinopril, including prescription and npun-dax-tocfveo medicines, vitamins, and herbal products. Not all [...] to ensure that the information provided by [employer]. ('Mult[employer]') is accurate, up-to-date, and complete, but no guarantee is made to that effect. Drug information contained herein may be time sensitive. [employer] information has been compiled for use by healthcare practitioners and consumers in the [place] and therefore [employer] does not warrant that uses outside of the [place] are appropriate, unless specifically indicated otherwise. [employer] drug information does not endorse drugs, diagnose patients or recommend therapy. [employer] drug information isan informational resource designed to [...] effective or appropriate for any given patient. [employer] does not assume any responsibility for any aspect of healthcare administered with the aid of information [employer] provides. The information contained herein is not intended to cover all possible uses, directions, precautions, warnings, drug interactions, allergic reactions, or adverse effects. If you have questions about the drugs you are taking, check with your doctor, nurse or pharmacist. Copyright 2899-5728 [employer]. Version: 18.01. Revision Date: 02/11/2023. Education Materials [...] blood in stool Seizure Loss of consciousness 0684-9808 The [employer], [employer]. [address] [place] [address], [place] [address]. All rights reserved. This information is not intended as a substitute for professional medical care. Always follow yourhealthcare professional's instructions. Additional Information VACCINATE! IT SAVES LIVES! Members of the community who have not yet received the COVID-19 vaccine and would like to receive it can visit one of [facility] vaccine clinics. There are many vaccine clinic locations within the [facility]. For locations and available times, please visit www.gettheshot.coronavirus.[place].gov/. It is important to note that some COVID mobile vaccine clinics are held outdoors and may be canceled in rainy or stormy conditions. To learn more about pediatric vaccinations (ages 5-11), we invite you to visit the [facility] webpage. https://www.[employer].org/pages/4968-Utgeg-Gszospiaqvx-Ogblhfdiqb-Kypka-Qtu stions.htmlTo learn more about the COVID-19 vaccine, we invite you to visit the CDC website for a list of frequently asked questions. https://www.cdc.gov/coronavirus/2019-ncov/vaccines/faq.html [facility] Patient Portal Access Instructions: Stay connected with your healthcare team and access your personal medical information anytime with the [facility] Patient Portal. If you would like a full copy of your medical records please contact the [facility] Medical Records Department Saturday through Saturday between 8a.m. and 4:30p.m. Please follow the directions below to access the portal: 1.Access the email account you provided upon registration to the hospital.2.Look for an invitation email from [facility].3.Open the email and access the invitation link: Accept Invitation to [facility]4.Fill in the required burciaga to create your account. Sign into [email or web address] Labs with your username and password that you [...] you will allow to register on the [facility] Patient Portal for access to your information. You can also access the [facility] Patient Portal on the POPSUGAR tessa. Simply click on Health Records under [employer] and then click on the [employer] logo. HOW TO SAFELY DISPOSE OF PRESCRIPTION [...] Call your local pharmacy or go to http://[email or web address] Productions/[email or web address] to find one close to you.3.Make use of household items: Use cat litter or old coffee grounds to dispose medications if other options arenot available. Mix your drugs with these household products, seal them in an airtight container andthrow it into the garbage. Call [facility]: [phone] to be sure your drugs can be [...] aware that I should contact my doctor. Patient/Press Reader Signature: Date/Time: Relationship to Patient: Witness Name/Signature: Date/Time: [facility]06-25-2025 Note* Exam Date Time Procedure Performing Provider Status 02/10/25 9:[address] Abd/Pelvis w/ IV Contrast Only YOEL FERRIS MD; Auth (Verified) [id number] ORIGINAL EXAMINATION: CT OF THE ABDOMEN AND [...] 02/10/2025 9:31:37 AM Ordering Provider: KAISER SIMPSON [facility]06-25-2025 Note* Exam Date Time Procedure Performing Provider Status 02/10/25 8:15 AM EKG [ED AO] - CV KAISER SIMPSON DO; (Verified) ECG Final Report Sinus rhythm Borderline left axis deviation Minimal ST elevation, diffuse leads Electronic Signature: KAISER SIMPSON DO 02/10/2025 08:23:13 [facility]01-22-2025 Evaluation + Plan note Future Scheduled Tests Laboratory* Albumin/Creatinine Ratio, Random Urine 09/09/24 [facility] 01-22-2025 Evaluation + Plan note Future Appointments Future Scheduled Tests Laboratory* Albumin/Creatinine Ratio, Random Urine 05/22/25 * Albumin/Creatinine Ratio, Random Urine 09/09/24 * Complete Metabolic Panel 05/22/25 [facility] 01-22-2025 Evaluation + Plan note Future Scheduled Tests Laboratory* Albumin/Creatinine Ratio, Random Urine 05/22/25 * Albumin/Creatinine Ratio, Random Urine 09/09/24 [facility] 07-28-2023 Hospital Discharge instructions Patient Education [...] needed, you may be told to take bdqn-fwg-fzworid stool softeners. To help ease pain, antispasmodic [...] needed in some people with severe symptoms. [place] to colon health Diverticulitis occurs when the pouches become infected or inflamed. Help keep your colon healthy with a diet that includes plenty of high-fiber fruits, vegetables, andwhole grains. Drink plenty of liquids like water and juice. Maintain a healthy lifestyle, includingregular exercise, stress management, and adequate rest and sleep. 9083-9627 The EDAN. [address] [place] [address]. All rights reserved. This information is not [...] black or maroon color) Unexpected vaginal bleeding 0138-1313 The [employer]. [address] [place] [address]. All rights reserved. This information is not intended as a substitute for professional medical care. Always follow yourhealthcare professional's instructions. Follow Up Care 03/15/2023 13:48:33 With:JESUS NEAL MD Address: [address] [place] [phone]- When:2-4 days With:Go to emergency room if symptoms worsen Address:Unknown When:2-4 days [facility] 07-28-2023 Emergency department Discharge summary Discharge Instructions Thank you for allowing [facility] to assist you with your healthcare needs. [...] NEAL MD When Within 2-4 days Where: [facility] [place] [address]- Follow Up with Go to emergency room [...] needed, you may be told to take kctx-kna-hgqsgzc stool softeners. To help ease pain, antispasmodic [...] needed in some people with severe symptoms. [place] to colon health Diverticulitis occurs when the pouches become infected or inflamed. Help keep your colon healthy with a diet that includes plenty of high-fiber fruits, vegetables, andwhole grains. Drink plenty of liquids like water and juice. Maintain a healthy lifestyle, includingregular exercise, stress management, and adequate rest and sleep. 3588-4152 The [employer]. [address] [place] [address]. All rights reserved. This information is not [...] black or maroon color) Unexpected vaginal bleeding 8523-1921 The EDAN. [address] [place] [address], [place] [address]. All rights reserved. This information is not intended as a substitute for professional medical care. Always follow yourhealthcare professional's instructions. Additional Information VACCINATE! IT SAVES LIVES! Members of the community who have not yet received the COVID-19 vaccine and would like to receive it can visit one of [facility] vaccine clinics. There are many vaccine clinic locations within the [facility]. For locations and available times, please visit www.gettheshot.coronavirus.[place].gov/. It is important to note that some COVID mobile vaccine clinics are held outdoors and may be canceled in rainy or stormy conditions. To learn more about pediatric vaccinations (ages 5-11), we invite you to visit the [facility] webpage. https://www.[facility].org/pages/6527-Sjzqt-Pidtsnmitmz-Bngbkzworu-Qqipk-Bup stions.htmlTo learn more about the COVID-19 vaccine, we invite you to visit the CDC website for a list of frequently asked questions. https://www.cdc.gov/coronavirus/2019-ncov/vaccines/faq.html [facility] Patient Portal Access Instructions: Stay connected with your healthcare team and access your personal medical information anytime with the [facility] Patient Portal. If you would like a full copy of your medical records please contact the [facility] Medical Records Department Saturday through Saturday between 8a.m. and 4:30p.m. Please follow the directions below to access the portal: 1.Access the email account you provided upon registration to the hospital.2.Look for an invitation email from [facility].3.Open the email and access the invitation link: Accept Invitation to [facility]4.Fill in the required burciaga to create your account. Sign into www.Synoste Oy with your username and password that you [...] you will allow to register on the [facility] Patient Portal for access to your information. You can also access the [facility] Patient Portal on the [employer]alent. Simply click on Health Records under [employer] and then click on the [employer] logo. HOW TO SAFELY DISPOSE OF PRESCRIPTION [...] Call your local pharmacy or go to http://[email or web address] [employer]/[email or web address] to find one close to you.3.Make use of household items: Use cat litter or old coffee grounds to dispose medications if other options arenot available. Mix your drugs with these household products, seal them in an airtight container andthrow it into the garbage. Call [facility]: [phone] to be sure your drugs can be [...] am aware that I should contactmy doctor. Patient/Press Reader Signature: Date/Time: Relationship to Patient: Witness Name/Signature: Date/Time: [id number] Note ORIGINAL EXAMINATION: CT OF THE ABDOMEN [...] Date: 03/15/2023 6:01:03 PM Ordering Provider: [facility]TTMad[facility] HealthEvaluation + Plan note No data available for this section [facility] Hospital Discharge instructions No data available for this section [facility] Progress note No data available for this section [facility] Summary Purpose Family History No Family [...] section and content) DATE CREATED AUTHOR 08/28/2019 [facility] DATE CREATED AUTHOR AUTHOR'S ORGANIZ ATION 05/25/2025 [facility] Patient Care team informatio n (unrecognized section and content) Care Team Personnel Name: JESUS NEAL MD Member Role: Primary Care Physician Address: Address: [address] [place] [address]- [place] Name: CALVIN GILL MD Position: ED Physician Member Role: Attending Physician Address: Address: [facility] [facility] [address] [place] [address]- [place] Name: SYDNEE WHITLEY PA-C Position: ED Advanced Student Driving Instructor Member Role: Physician 8Th Grade Mathematics Teacher Address: Address: [address] [facility] [place] [address]- Care Team Related Persons Name: TRAUWEIN, ISAAC Care Team Personnel Name: NEDRA TAMEZ APRN-RESIDENTIAL PLUMBER Position: P4 Advanced Student Driving Instructor Member Role: Primary Care Physician Address: [address] Telecom: Care Team Related Persons Name: HENNA ISAAC Care Team Personnel Name: NEDRA TAMEZ HEAT TRANSFER TECHNICIAN-RESIDENTIAL PLUMBER Position: P4 Advanced Student Driving Instructor Member Role: Primary Care Physician Address: [address] Telecom: Care Team Related Persons Name: SETHLUIZAISAAC Care Team Personnel Name: NEDRA TAMEZ HEAT TRANSFER TECHNICIAN-RESIDENTIAL PLUMBER Position: P4 Advanced Student Driving Instructor Member Role: Primary Care Physician Address: [address] Telecom: Care Team Related Persons Name: ISAAC AGUILLON Care Team Personnel Name: NEDRA TAMEZ HEAT TRANSFER TECHNICIAN-RESIDENTIAL PLUMBER Position: P4 Advanced Student Driving Instructor Member Role: Primary Care Physician Address: [address] Telecom: Care Team Related Persons Name: AMNAMIREYAISAAC Care Team Personnel Name: NEDRA TAMEZ APRN-RESIDENTIAL PLUMBER Position: P4 Advanced Student Driving Instructor Member Role: Primary Care Physician Address: [address] Telecom: Care Team Related Persons Name: [...] BE BASED ON THE PRIMARY CLINICAL RECORDS. [employer] [facility]. provides no warranty or guarantee of the accuracy or completeness of information in this document.
[2025-07-11] MEDS: Ceftriaxone 2 GM in 0.9% Normal Saline (50mL MB+) 50 ML IV (04:27)
[2025-07-11 04:29] VITALS: BP 157/84; PULSE 65; RESP 18; TEMP 36.7; O2SAT 100
[2025-07-11 04:29] LABS: AST(SGOT) 44 U/L (<=37); Alanine Aminotransfer ALT/SGPT 43 U/L (<=46); Albumin, Serum 3.7 g/dL (3.4-4.8); Alkaline Phosphatase 83 U/L (40-129); Anion Gap 9 (5-15); BUN 14 mg/dL (4-19); BUN/Creat Ratio 15.2 RATIO (10-20); Calcium,Total 9.4 mg/dL (7.6-11.0); Carbon Dioxide 23.7 mmol/L (21.0-32.0); Chloride 108 mmol/L (98-108); Estimated Creatinine Clearance 86.59 ml/min (50-250); Globulin 3.4 g/dL (2.2-4.2); Glucose 106 mg/dL (70-99); Potassium 4.1 mmol/L (3.3-5.1)
[2025-07-11 05:00] VITALS: BP 144/73; PULSE 63; RESP 18; TEMP 36.6; O2SAT 100
[2025-07-11] MEDS: Vancomycin HCl 1,250 MG in 0.9% Normal Saline (250mL Bag) 250 ML 167 MG IV (05:11)
[2025-07-11 06:00] VITALS: BP 147/85; PULSE 61; RESP 18; TEMP 36.6; O2SAT 95
--- NOTE | 2025-07-11 06:13 | EDS_ITS ---
HPI History of Present Illness Chief Complaint: Cellulitis Narrative Narrative: Patient was seen and examined after presenting to ED for worsening right arm swelling he was just admitted and discharged just yesterday for septic bursitis of his right elbow he states that he noticed that the swelling started to get worse after he was taken off IV antibiotics and was on Keflex and doxycycline. [facility] Medical History Bursitis Left above-knee amputee HTN (hypertension) Pain, elbow Home Medications ?Medication ?Instructions ?Recorded ?Last Taken ?Type lisinopril 40 mg tablet 40 mg PO DAILY high bp 07/09 Unknown History cephalexin 500 mg capsule 1,000 mg (2 x 500 mg) PO Q6H 10 07/10/25 Unknown Rx days #80 caps doxycycline hyclate 100 mg capsule 100 mg PO BID 10 da ys #20 caps 07/10/25 Unknown Rx Allergy/AdvReac Type Severity Reaction Status Date / Time No Known Allergies Allergy Verified 07/11/25 03:43 Social History Smoking Status: Never smoker ROS ROS ED ROS Narrative Pertinent Positives: Worsening right forearm and elbow swelling as well as right elbow pain endorses intermittent numbness Pertinent Negatives: Fevers chills worsening erythema The remainder of review of systems negative unless otherwise stated in the HPI above. Systems reviewed including constitutional, psychiatric, cardiovascular, respiratory, integument, HENT, gastrointestinal. EXAM Physical Exam Narrative Exam Narrative: Patient is afebrile hemodynamically stable does not appear toxic or in distress erythema has not extended beyond the border that was drawn infected actually appears smaller but there is swelling from the right elbow down to the distal third of the right forearm he has intact MSPs does have pain with range of motion in flexion and extension of his right elbow but he still has that movement no vesicular lesions hemorrhagic bullae or crepitus compartments are still soft Const Vital Signs: 07/11/25 03:44 07/11/25 03:48 07/11/25 04:29 Temperature 97.9 F 97.9 F 98.0 F Temperature Source Oral Oral Oral Pulse Rate 67 71 65 Respiratory Rate 18 18 18 Blood Pressure 146/77 H 146/77 H 157/84 H Blood Pressure Mean 100 100 108 Pulse Ox 99 100 100 Oxygen Delivery Method Room Air Room Air Room Air 07/11/25 05:00 07/11/25 06:00 Temperature 98 F 98 F Temperature Source Oral Oral Pulse Rate 63 61 Respiratory Rate 18 18 Blood Pressure 144/73 H 147/85 H Blood Pressure Mean 96 105 Pulse Ox 100 95 Oxygen Delivery Method Room Air Room Air MDM MDM MDM Narrative Medical decision making narrative: Nursing notes, triage notes, available previous documentation, and vital signs were reviewed. Any discrepancies noted were addressed. Differential Diagnoses: Not a septic joint per se but provide continued septic bursitis low suspicion for DVT or compartment syndrome or necrotizing process Interventions: Antibiotics Given: Vancomycin and ceftriaxone Labs Reviewed: No leukocytosis or leukopenia or anemia no electrolyte abnormality or renal insufficiency minimal elevation of AST being 44 lactic acid is less than 1. Imaging Reviewed: Personally reviewed and interpreted by me: CT of the right upper extremity abdominal CT a large area of an abscess the official interpretation is stating that there is prominent soft tissue edema and swelling overlying the elbow and that there is a loculated effusion in the posterior bursa overlying the triceps tendon insertion no gas-forming evidence or signs of osteomyelitis Previous Documentation Reviewed: None available or applicable at this time. ED Course: Patient presenting with worsening right forearm swelling states that he will have this intermittent numbness as well actively being treated for septic bursitis was admitted and even seen by orthopedics here they are planning for nonoperative management at the time CT does not show an abscess but there is a slight related effusion within the bursa itself. 0630: I did discuss with hospitalist and informed them that the erythema appears to be much better although initially more swollen when I came in for reevaluati on the swelling is down further at this point we did discuss that he should just go ahead and continue taking his current regimen of antibiotics follow-up with Dr. Mars's office on Saturday and to continue further elevating his arm even more so than what he was previously doing he is given very strict return precautions and follow-up recommendations however he is otherwise stable for discharge This note was made utilizing voice recognition software. All attempts were made to correct spelling or other errors prior to note completion. However, due to the fast-paced nature of emergency medicine, some errors may still be present. Lab Data Labs: Laboratory Results - last 24 hr 07/11/25 03:59 WBC 9.0 RBC 5.03 Hgb 14.1 Hct 42.7 MCV 84.9 MCH 28.0 MCHC 33.0 RDW Std Deviation 41.2 RDW Coeff of Ashleigh 13.3 Plt Count 239 MPV 9.0 Immature Gran % (Auto) 0.300 Neut % (Auto) 64.8 Lymph % (Auto) 22.6 [place] % (Auto) 10.3 H Eos % (Auto) 1.6 Baso % (Auto) 0.4 Absolute Neuts (auto) 5.8 Absolute Lymphs (auto) 2.04 Nucleated RBC % 0 Sodium 141 Potassium 4.1 Chloride 108 Carbon Dioxide 23.7 Anion Gap 9 BUN 14 Creatinine 0.93 Estim Creat Clear Calc 86.59 Est GFR (MDRD) Non-Af 93 BUN/Creatinine Ratio 15.2 Glucose 106 H Lactic Acid < 1.0 Calcium 9.4 Total Bilirubin 0.54 AST 44 H ALT 43 Alkaline Phosphatase 83 Total Protein 7.1 Albumin 3.7 Globulin 3.4 Albumin/Globulin Ratio 1.1 Radiography Diagnostic Testing: Clinical Impression(s) from Imaging Studies Upper Extremity CT 07/11/25 03:55 IMPRESSION: Prominent soft tissue edema and swelling overlying the elbow, more severe posteriorly, probably secondary to infectious/inflammatory pathology. Loculated effusion is noted in the posterior bursa overlying the triceps tendon insertion on the olecranon/retro ulnar bursa measuring 5.9 x3.2 x 0.8 cm in its largest craniocaudal, transverse and anteroposterior dimensions respectively. Enthesophyte formation is noted at the ulnar insertion of the triceps tendon. No CT evidence of gas-forming infection or osteomyelitis. Reading Location: [place] [id number] Discharge Plan Triage Chief Complaint: Cellulitis ED Provider: Sukhwinder Trivedi Dx/Rx/DC Orders Clinical Impression: Septic olecranon bursitis of right elbow, Pain and swelling of right forearm, Cellulitis of right elbow Instructions: ED Bursitis, ED Cellulitis Prescriptions: No Action lisinopril 40 mg tablet 40 mg PO DAILY doxycycline hyclate 100 mg capsule 100 mg PO BID 10 Days Qty: 20 0RF cephalexin 500 mg capsule 1,000 mg PO Q6H 10 Days Qty: 80 0RF Primary Care Provider: NEDRA TAMEZ Referrals: NEDRA TAMEZ, [employer] [Primary Care Provider, [facility]] Activity Restrictions/Additional Instructions: Keep taking the antibiotics that you are prescribed also what we want you to do is to make sure you follow-up with Dr. Mars's office on Saturday if you have worsening redness or development of fevers or the following please return to the hospital Monitor for signs or symptoms such as increased pressure, firmness, pain, numbness, tingling, changes in colors of your skin such as discoloration or becoming more pale or feeling cooler to the touch. If these occur then we are concerned for something called compartment syndrome and you will need to return to an emergency department immediately. Be sure to otherwise keep your arm elevated and you can also ice as tolerated Print Language: [place] Disposition Disposition: Home, Self Care
[2025-07-11 07:00] VITALS: BP 131/83; PULSE 64; RESP 16; TEMP 36.6; O2SAT 100
== END 2025-07-11 07:12 | disposition home or self-care (01) ==
PROVIDERS: Emergency Provider Specialist/Technologist Athletic Trainer; PCP Nurse Practitioner Family; Visit Provider Specialist/Technologist Athletic Trainer
DX: L03.113 Cellulitis of right upper limb (principal); M79.89 Other specified soft tissue disorders; M79.631 Pain in right forearm; I10 Essential (primary) hypertension; M71.521 Other bursitis, not elsewhere classified, right elbow; Z79.899 Other long term (current) drug therapy
CPT/HCPCS: 73201; 80053; 83605; 85025; 87040; 99283; Q9967; A4216; J0696